=== PATIENT | female | born 1970 | race Caucasian/White ===

== ENCOUNTER 2023-02-18 21:11 | Outpatient (REF) | payer OTHER, SELFPAY ==
[2023-02-22 16:08] LABS: Age Gdln ACOG Testing Note (.); HPV Aptima Negative (Negative); IGP, Aptima HPV, rfx 16/18,45 Note (.)
== END 2023-02-18 21:12 | disposition home or self-care (01) ==
LOC: LAB 21:11
PROVIDERS: Visit Provider Obstetrics & Gynecology
DX: Z12.4 Encounter for screening for malignant neoplasm of cervix (principal)
CPT/HCPCS: 87624; G0145

== ENCOUNTER 2024-02-25 19:17 | Outpatient (REF) | payer OTHER, SELFPAY ==
--- OUTSIDE RECORDS SUMMARY | 2024-02-25 19:21 | XMS_ITS | CCD ---
Author Organization [facility] Care Team Providers Care Wood Crafter Name Role Phone DR ELENI WHITE Admitting Unavailable ISELA, DR KNOWLES Attending Unavailable [facility] [place] DR GRAY Primary Care Unavailable ISELA, DR KNOWLES Consulting Unavailable Gay Bullard Primary Care Provider Zuly Vasquez P Unavailable COLTON FREITAS Attending Unavailable Gay Bullard MD Primary Care Provider Zuly Vasquez CNP P Unavailable GAY BULLARD Primary Care Unavailabl e CIOCE, KERRI C Referring Unavailable Gay Bullard MD Primary Care Provider KERRI FERNANDEZ Referring Unavailable GAY BULLARD Primary Care Unavailabl e CIOCE, KERRI C Referring Unavailable GAY BULLARD Primary Care Unavailabl e CIOCE, KERRI C Referring Unavailable GAY BULLARD Primary Care Unavailabl e CIOCE, KERRI C Attending Unavailable GAY BULLARD Primary Care Unavailabl e REFERRAL, SELF Referring Unavailable Colton FREITAS Consulting Unavailable REFERRAL, SELF Admitting Unavailable REFERRAL, SELF Attending Unavailable DO Colton FREITAS Consulting Unavailable Colton FREITAS Consulting Unavailable Guillermo Pinedo Admitting Unavailable Guillermo Pinedo Attending Unavailable Guillermo Pinedo Attending Unavailable Locodimella, Giuliana Attending Unavailable Gudimella, Giuliana Attending Unavailable Gudimelsusanna, Giuliana Attending Unavailable Anusha, Giuliana Attending Unavailable Gudimelsusanna, Giuliana Attending Unavailable Eliecer MCMANUS Attending Unavailable Gudimella, Giuliana Referring Unavailable Eliecer MCMANUS Attending Unavailable Gudimella, Giuliana Attending Unavailable Gudimella, Giuliana Referring Unavailable Gudimella, Giuliana Admitting Unavailable Florencio DELONG Attending Unavailable Karina Hardy Attending Unavailable Gay Bullard MD Primary Care Provider Allergies Allergy Classification Reported Allergen(s) Allergy Type Date of Onset Reaction(s) Facility (15 sources) atorvastatin; Translations: [ATORVASTATIN] Drug Allergy 3 GI Upset [facility] (15 sources) predniSONE; Translations: [PREDNISONE] Drug Allergy 1 Intolerance [facility] (16 sources) thyroid (HALFWAY); Translations: [THYROID] Drug Allergy 2 Rash [facility] Work Phone: (13 sources) Bees; Translations: [BEES] Allergy to substance 3 Hives, Swelling [facility] (3 sources) Mushrooms [Other] Propensity to adverse reactions 3 [facility] Work Phone: (10 sources) cultivated mushroom extract; Translations: [MUSHROOM] Drug Allergy 4 Other: See Comments [facility] Work Phone: (1 source) OTHER; Translations: [OTHER] Propensity to adverse reactions (disorder) 3 [facility] [place] Rep[facility] (2 sources) atorvastatin; Translations: [Lipitor] Drug Allergy [facility] Repository (2 sources) Bee/Wasp/Ant venom; Translations: [Bee Stings] Propensity to adverse reactions (disorder) 3 [facility] Repository (2 sources) Mushroom (edible); Translations: [Mushrooms] Food allergy (disorder) [facility] Repository (2 sources) thyroid (HALFWAY); Translations: [[place] Thyroid] Drug Allergy [facility] Repository (2 sources) narcotic analgesics; Translations: [narcotic analgesics] Propensity to adverse reactions (disorder) [facility] Repository (3 sources) Honey bee venom Allergy to substance 3 Unknown [facility] Medications Current Medications Medication Drug Class(es) Dates Sig (Normalized) Sig (Original) calcium carbonate 1500 mg / cholecalciferol 200 unt oral tablet (8 sources) Vitamin D Start: 04-17-2023 take 1 tablet by mouth twice daily calcium carbonate 600 mg-cholecalciferol 200 units (CALCIUM 600 + D,3,) 600 mg-5 mcg (200 unit) tab Take 1 tablet by mouth two times a day. 04/17/2023 Active Comment on above: Take 1 tablet by lanette two times a day. cholecalciferol 0.025 mg oral tablet (11 sources) Vitamin D Start: 01-01-2010 Cholecalciferol, Vitamin D3, (VITAMIN D) 1,000 unit ORAL Tab Take 2000 iu daily 0 01/01/2010 Active Comment on above: Take 2000 iu daily 168 hr estradiol 0.91725 mg/hr transdermal system (18 sources) Estrogen Start: 02-18-2023 End: 02-24-2025 estradiol (Climara) 0.025 MG/24HR Indications: Postmenopausal atrophic vaginitis Place 1 patch over 7 days on the skin 1 (one) time per week 12 patch 3 02/25/2024 02/24/2025 Active Start: 08-07-2021 estradiol (CLI HERIBERTO) 0.025 mg/24 hr Apply 1 Patch as directed one time a week. 13 Patch 3 08/07/2021 Active Comment on above: Apply 1 Patch as dir ected one time a week. unkfk-yh-8-pos-wre-konn mu-ast 279-64-91-50 mg cap (8 sources) Start: 04-17-2023 herxt-kg-6-dha-epa-ph ospho-ast 109-30-09-50 mg cap Take by mouth. 04/17/2023 Active Start: 04-17-2023 xmsul-it-7-dha -rjk-pwlhowz-jas 049-94-76-50 mg cap Take by mouth. 0 04/17/2023 Active Comment on above: Take by mouth. jqbud-sxxev-6-uqm-dlg-dcax ds 590-89-83-50 mg cap (11 sources) Start: 06-25-2018 muhoe-xvldl-8- dha-epa-li pids 269-55-50-50 mg cap Take by mouth. 06/25/2018 Active Start: 06-25-2018 klzus-fehvx-6- prl-mhd-qqrmqj 807-94-06-50 mg cap Take by mouth. 0 06/25/2018 Active Comment on above: Take by mouth. levothyroxine sodium 0.1 mg oral tablet (16 sources) l-Thyroxine Start: 2 End: 4 SYNTHROID 100 mcg tablet take 1 tablet by mouth once daily EXCEPT 1/2 TABLET ON FRIDAY 90 tablet 3 06/25/2023 Active Comment on above: take 1 tablet by lanette th once daily EXCEPT 1/2 TABLET ON FRIDAY Take 1 tab daily exc ept Friday take 1/2 tab only vitamin b12 0.5 mg oral tablet (11 sources) Vitamin B12 Start: 5 take 1 tablet by mouth once daily cyanocobalamin (VITAMIN B-12) 500 mcg tablet Indications: Other specified acquired hypothyroidism Take 1 tablet by mouth once daily. 0 07/26/2014 Active Comment on above: Take 1 tablet by lanette th once daily. Completed/Discontinued Medications Medication Drug Class(es) Dates Sig (Normalized) Sig (Original) losartan potassium 25 mg oral tablet (3 sources) Angiotensin 2 Receptor Travon Start: 03-07-2021 take 1 tablet by mouth once daily losartan (COZAAR) 25 mg tablet One tab po qd 30 tablet 2 03/07/2021 Active Comment on above: One tab po qd NIFEdipine 30 mg osmotic 24 hr extended release oral tablet (3 sources) Dihydropyridine Calcium Channel Travon Start: 04-09-2021 take 1 tablet by mouth once daily NIFEdipine ER (PROCARDIA XL) 30 mg 24 hr tablet Take 1 tablet by mouth once daily. 30 tablet 1 04/09/2021 Active Comment on above: Take 1 tablet by lanette th once daily. nitroglycerin 0.02 mg/mg topical ointment (3 sources) Nitrate Vasodilator Start: 03-07-2021 nitroglycerin (NITRO-BID) 2 % ointment Apply to affected finger tips bid 30 g 1 03/07/2021 Active Comment on above: Apply to affected fi nger tips bid Problems Active Problems Problem Classification Problem Date Documented Date Episodic/Chronic Disorders of lipid metabolism (11 sources) Mixed hyperlipidemia; Translations: [Mixed hyperlipidemia] Onset: 01-18-2005 01-18-2005 Chronic Menopausal disorders (2 sources) Atrophic vaginitis; Translations: [Postmenopausal atrophic vaginitis] 02-25-2024 Chronic Nutritional deficiencies (11 sources) Vitamin D deficiency; Translations: [Vitamin D deficiency, unspecified] Onset: 12-27-2008 12-27-2008 Chronic Other circulatory disease (11 sources) Raynaud's disease; Translations: [Raynaud's syndrome without gangrene] Onset: 07-04-2006 07-04-2006 Chronic Other inflammatory condition of skin (11 sources) Rosacea; Translations: [Rosacea, unspecified] Onset: 07-04-2006 07-04-2006 Chronic Other nervous system disorders (11 sources) Disorder of autonomic nervous system; Translations: [Disorder of the autonomic nervous system, unspecified] Onset: 05-05-2012 05-05-2012 Chronic Other nutritional; endocrine; and metabolic disorders (2 sources) Insulin resistance; Translations: [Metabolic syndrome] Chronic Other screening for suspected conditions (not mental disorders or infectious disease) (17 sources) Encounter for screening for malignant neoplasm of cervix; Translations: [Immune system finding] Onset: 07-04-2006 Episodic Residual codes; unclassified (2 sources) Postmenopausal state; Translations: [Asymptomatic menopausal state] 02-25-2024 Episodic Thyroid disorders (16 sources) Hypothyroidism; Translations: [Hypothyroidism, unspecified] Onset: 11-27-2001 Chronic Unclassified (1 source) Insulin resistance; Translations: [Insulin resistance] Onset: 12-13-2023 Past or Other Problems Problem Classification Problem Date Documented Date Episodic/Chronic Cardiac dysrhythmias (11 sources) Tachycardia; Translations: [Tachycardia, unspecified] Onset: 03-30-2012 03-30-2012 Episodic Immunizations and screening for infectious disease (12 sources) Encounter for screening for human papillomavirus (HPV); Translations: [Anti-nuclear factor positive] Onset: 03-30-2012 03-30-2012 Episodic Malaise and fatigue (20 sources) Malaise and fatigue; Translations: [Other malaise] Onset: 11-27-2001 07-18-2003 Episodic Other connective tissue disease (11 sources) Pain in left lower limb; Translations: [Pain in left leg] Onset: 03-30-2012 03-30-2012 Episodic Other nervous system disorders (11 sources) Hyperreflexia; Translations: [Abnormal reflex] Onset: 03-30-2012 03-30-2012 Episodic Other nervous system disorders (11 sources) Abnormal gait; Translations: [Other abnormalities of gait and mobility] Onset: 03-30-2012 03-30-2012 Episodic Other and delivery including normal (11 sources) ; Translations: [ state, incidental] Onset: 12-03-2002 07-18-2003 Episodic Results Test Name Value Interpretation Reference Range Facility Ambulatory Visit Summaryon 1 04-03-2023 Ambulatory Visit Summary Ambulatory Visit Summary BRAD DIXON :1970 Visit Date:02/02/2024 Ambulatory Visit Instructions Your Diagnosis Acute URI Sinusitis, acute Your Care Team Attending Physician - Karina Bales Primary Care Physician - Giuliana Tavares MD This Is Your Medications List amoxicillin-clavulana te (Augmentin 875 mg oral tablet) brompheniramine/dextr omethorphan/PSE (Bromfed DM oral syrup) calcium-vitamin D (Calcium 600 D Tab) cyanocobalamin (Vitamin B12) ergocalciferol (Vitamin D) estradiol (estradiol 0.025 mg/24 hours twice weekly Transderm ER Film) levothyroxine (Synthroid 100 mcg Tab) omega-3 polyunsaturated fatty acids ([employer] Red Krill Oil) Procedures Performed Colonoscopy (12/29/2020), Colonoscopy (2013), Hysterectomy (07/31/2009), Appendectomy, Cerclage, Ovarian cystectomy. Discharge Vitals Temperature (Oral) 36.9 ???C Heart Rate (Peripheral) 114 Blood Pressure 122/80 Height 167.7 cm Height 66 in Weight 69.39 kg Weight 152.979 lb BMI 24.67 What to do next Scheduled Follow-Up Appointments Friday 9:00 AM EST Where: [facility] You Need to Schedule the Following Appointments Follow Up with Karina Bales When: Only if needed Where: Medications What How Much When Why Instructions New amoxicillin-clavulana te (Augmentin 875 mg oral tablet) 1 Tablets By Mouth Every 12 hours Sinusitis, acute Duration: 7 Days Pickup at [facility] #[id number] New brompheniramine/ dextromethorphan/ PSE (Bromfed DM oral syrup) 5 Milliliter By Mouth 4 times a day as needed for for cold symptoms Acute URI Pickup at [facility] #[id number] Unchanged calcium-vitamin D (Calcium 600 D Tab) 1 Tablets By Mouth Every day Unchanged cyanocobalamin (Vitamin B12) once daily Unchanged ergocalciferol (Vitamin D) 2000 International Units By Mouth Every day Unchanged estradiol (estradiol 0.025 mg/ 24 hours twice weekly Transderm ER Film) Transdermal Unchanged levothyroxine (Synthroid 100 mcg Tab) 90 EA, take 1 tablet by mouth once daily EXCEPT TAKE 1/ 2 TABLET ON FRIDAY Unchanged omega-3 polyunsaturated fatty acids ([employer] Red Krill Oil) once daily Pharmacy Information [facility] #[id number]: [address] [place], [place] [id number] [phone] Allergies Lipitor (unknown) predniSONE (Anger) [place] Thyroid (Rash) Bee Stings (Unknown) Mushrooms (unknown) Problems Ongoing - Any problem that you are currently receiving treatment for. BMI 25.0-25.9,adult Chronic shoulder pain Dysuria Facial numbness Groin pain Hemorrhoids HLD (hyperlipidemia) Hypothyroidism Influenza vaccination declined Left subscapular pain Nonsmoker Overweight Rectal bleeding Rectal pain Rhinosinusitis Rosacea Sacrococcygeal pain Screening for diabetes mellitus Screening for endocrine, nutritional, metabolic and immunity disorder Screening for malignant neoplasm of colon Submandibular swelling Tachycardia Tightness of neck Visit for preventive health examination Historical - Any problem that you are no longer receiving treatment for. Postural orthostatic tachycardia syndrome Raynaud's disease Patient Survey You may receive a survey via text or e-mail asking about your office visit. Please share your experience with us by completing your survey. We appreciate your feedback and thank you for choosing us for your care. Education Materials Cough, Adult Coughing is a reflex that clears your throat and airways (respiratory system). It helps heal and protect your lungs. It is normal to cough from time to time. A cough that happens with other symptoms or that lasts a long time may be a sign of a condition that needs treatment. A short-term (acute) cough may only last 2???3 weeks. A long-term (chronic) cough may last 8 or more weeks. Coughing is often caused by: ??? Diseases, such as: ? An infection of the respiratory system. ? Asthma or other heart or lung diseases. ? Gastroesophageal reflux. This is when acid comes back up from the stomach. ??? Breathing in things that irritate your lungs. ??? Allergies. ??? Postnasal drip. This is when mucus runs down the back of your throat. ??? Smoking. ??? Some medicines. Follow these instructions at home: Medicines ??? Take pebp-wil-dxxlnlq and prescription medicines only as told by your health care provider. ??? Talk with your provider before you take cough medicine (cough suppressants). Eating and drinking ??? Do not drink alcohol. ??? Avoid caffeine. ??? Drink enough fluid to keep your pee (urine) pale yellow. Lifestyle ??? Avoid cigarette smoke. ??? Do not use any products that contain nicotine or tobacco. These products include cigarettes, chewing tobacco, and vaping devices, such as e-cigarettes. If you need help quitting, ask your provider. ??? Av (more content not included)... Normal [facility] Family Medicine Office/Clini c Noteon 02-02-2024 Family Medicine Office/Clinic Note Family Medicine Office/Clinic Note Chief Complaint sinus congestion, cough HPI Staff complaints of cold symptoms neg. covid at home Onset: friday with sore throat Characteristics: sinus congestion, pressure in teeth, uncontrollable coughing, loss of voice, aching, ribs hurt OTC tried: Claritin History of Present Illness I have reviewed and discussed the HPI (staff) with the patient today. Information was verified and is correct. Additional information provided if needed. Pt of Dr Giuliana Tavares, reports to office today for acute visit with concern for sinus pressure and chest congestion with cough. Symptoms began last Friday with sore throat. She has taken claritin D for symptoms as she originally thought the sore throat was related to allergies, has also taken mucinex DM and tylenol sinus. Has also been using nasal saline. Her most bothersome symptom at this time is the cough and congestion, states she is now having rib pain/soreness due to the cough. She denies fevers/chills or body aches. Negative at home covid tests x2. She declines further testing in office today. She denies chest pain, shortness of breath, wheezing, or dizziness. Review of Systems PHQ Score Initial Depression Screen Score: 0 SCORE ROS negative unless otherwise stated in HPI. Physical Exam Vitals & Measurements T: 36.9 ???C(Oral) HR: 114(Peripheral) BP: 122/80 SpO2: 97% HT: 66 in HT: 167.7 cm WT: 69.39 kg WT: 152.979 lb BMI: 24.67 General: Well hydrated, no apparent distress Head: Normocephalic atraumatic Eyes: EOMI, sclera clear Ears: Bilateral tympanic membranes pearly biswas with good cone of light Nose: No deformity, discharge, inflammation or lesion Mouth: Mucous membranes moist. Normal oropharynx, posterior pharynx without lesion or exudate. Tongue normal. Neck: No cervical lymphadenopathy Lungs: Lungs clear to auscultation Cardio: Regular rate and rhythm with no murmur Assessment/Plan 1. Acute URI (J06.9: Acute upper respiratory infection, unspecified) Reviewed with patient that physical exam and symptoms are consistent with a viral infection. Discussed antibiotics unfortunately do not treat viral illnesses, it will take time to run its course. The first 3-5 days of symptoms are typically the worst (fever, body aches, etc), with cold symptoms lasting 7-14 days. Encouraged fluids to keep secretions thin. Rest. Take Tylenol/Ibuprofen for pain/fevers as needed, may need to alternate. May use Dayquil, mucinex or similar for symptoms. Recommended using cool-mist humidifier in room, nettipot, coughing/sneezing into elbow, frequent and thorough hand hygiene. Encouraged to seek re-evaluation with PCP if symptoms persist beyond 14 days without any improvement, and if any fevers above 101 develop, as could have a secondary bacterial infection requiring antibiotics. Patient and/or parent verbalized understanding of treatment plan. Will send bromfed for cough. Pt declines need for albuterol or steroid at this time. Will follow up if symptoms persist or worsen. Will send augmentin to begin in the next few days if symptoms worsen or pt begins with fever. Ordered: brompheniramine/dextr omethorphan/PSE, 5 mL, Oral, QID for cold symptoms, 200 mL, Refill(s) 0, [facility] #[id number], 167.7, cm, 02/02/24 9:07:00 EST, Height/Length Dosing, 69.4, kg, 02/02/24 9:17:00 EST, Weight Dosing 2. Sinusitis, acute (J01.90: Acute sinusitis, unspecified) See #1. Acute. Due to report of sinus pain and tenderness along with pain in teeth, will send augmentin to be initiated if symptoms do not improve over the next few days. Pt verbalizes understanding and will follow up if symptoms persist or worsen. Ordered: amoxicillin-clavulana te, = 1 tab(s), Oral, q12hr, X 7 day(s), # 14 tab(s), Refills(s) 0, Pharmacy: [facility] #[id number], 167.7, cm, 02/02/24 9:07:00 EST, Height/Length Dosing, 69.4, kg, 02/02/24 9:17:00 EST, Weight Dosing Follow-up With When Contact Information Karina Bales Only if needed Additional Instructions: Patient Education Cough, Adult Problem List/Past Medical History Ongoing BMI 25.0-25.9,adult Chronic shoulder pain Dysuria Facial numbness Groin pain Hemorrhoids HLD (hyperlipidemia) Hypothyroidism Influenza vaccination declined Left subscapular pain Nonsmoker Overweight Rectal bleeding Rectal pain Rhinosinusitis Rosacea Sacrococcygeal pain Screening for diabetes mellitus Screening for endocrine, nutritional, metabolic and immunity disorder Screening for malignant neoplasm of colon Submandibular swelling Tachycardia Tightness of neck Visit for preventive health examination Historical Postural orthostatic tachycardia syndrome Raynaud's disease Procedure/Surgical History Colonoscopy (12/29/2020), Colonoscopy (2013), Hysterectomy (07/31/2009), Appendectomy, Cerclage, Ovarian cystectomy. Medications Augmentin 875 mg oral tablet, 1 tab(s), Oral, q12hr Bromfed DM (more content not included)... Normal [facility] Comment on above: Result Comment: Elec tronically Signed By: Karina Bales\.br\Date and Time Signed: 02/02/24 09:38 EST Ambulatory Visit Summaryon 1 03-24-2023 Ambulatory Visit Summary Ambulatory Visit Summary BRAD DIXON :1970 Visit Date:01/23/2024 Ambulatory Visit Instructions Your Diagnosis Rectal bleeding Your Care Team Attending Physician - DYLAN RAO, Eliecer Briones Primary Care Physician - Giuliana Tavares MD This Is Your Medications List Contact prescribing physician if questions or concerns calcium-vitamin D (Calcium 600 D Tab) cyanocobalamin (Vitamin B12) ergocalciferol (Vitamin D) estradiol (estradiol 0.025 mg/24 hours twice weekly Transderm ER Film) levothyroxine (Synthroid 100 mcg Tab) omega-3 polyunsaturated fatty acids ([employer] Red Krill Oil) Procedures Performed Colonoscopy (12/29/2020), Colonoscopy (2013), Hysterectomy (07/31/2009), Appendectomy, Cerclage, Ovarian cystectomy. Discharge Vitals Heart Rate (Peripheral) 91 Respiratory Rate 16 Blood Pressure 155/91 Height 167.7 cm Height 66 in Weight 70.5 kg Weight 155.1 lb BMI 25.07 Medications What How Much When Instructions Unchanged calcium-vitamin D (Calcium 600 D Tab) 1 Tablets By Mouth Every day Contact prescribing physician if questions or concerns Unchanged cyanocobalamin (Vitamin B12) once daily Contact prescribing physician if questions or concerns Unchanged ergocalciferol (Vitamin D) 2000 International Units By Mouth Every day Contact prescribing physician if questions or concerns Unchanged estradiol (estradiol 0.025 mg/ 24 hours twice weekly Transderm ER Film) Transdermal Contact prescribing physician if questions or concerns Unchanged levothyroxine (Synthroid 100 mcg Tab) 90 EA, take 1 tablet by mouth once daily EXCEPT TAKE 1/ 2 TABLET ON FRIDAY Contact prescribing physician if questions or concerns Unchanged omega-3 polyunsaturated fatty acids ([employer] Bounty Red Krill Oil) once daily Contact prescribing physician if questions or concerns Allergies Lipitor (unknown) predniSONE (Anger) [place] Thyroid (Rash) Bee Stings (Unknown) Mushrooms (unknown) Problems Ongoing - Any problem that you are currently receiving treatment for. BMI 25.0-25.9,adult Chronic shoulder pain Dysuria Facial numbness Groin pain Hemorrhoids HLD (hyperlipidemia) Hypothyroidism Influenza vaccination declined Left subscapular pain Nonsmoker Overweight Rectal bleeding Rhinosinusitis Rosacea Sacrococcygeal pain Screening for diabetes mellitus Screening for endocrine, nutritional, metabolic and immunity disorder Screening for malignant neoplasm of colon Submandibular swelling Tachycardia Tightness of neck Visit for preventive health examination Historical - Any problem that you are no longer receiving treatment for. Postural orthostatic tachycardia syndrome Raynaud's disease Patient Survey You may receive a survey via text or e-mail asking about your office visit. Please share your experience with us by completing your survey. We appreciate your feedback and thank you for choosing us for your care. Katt [facility] General Surgery Office/Clini c Noteon 01-23-2024 General Surgery Office/Clinic Note General Surgery Office/Clinic Note Chief Complaint reevaluate rectal bleeding HPI Staff 53 year old female presents to discuss ongoing rectal bleeding. Last evaluation completed 10/03/23. Last colonoscopy completed 12/2020-normal. History of Present Illness 53 yo female with h/o hypothyroidism, hyperlipidemia, seen in September for intermittent BRBPR with bms, primarily with wiping; feeling of tearing; some harder stools; negative rectal exam; placed on high fiber diet and daily fiber supplement; stools now softer, no straining, still having red blood with wiping almost after every bm; some pain with sitting; no external swelling or hemorrhoids; some improvement with eating an apple every day; last colonoscopy 12/2020 wnl; abd operations significant for appendectomy, ovarian cystectomy and hysterectomy; no asa or NSAID use; no tobacco use; no fmhx of GI malignancy or IBD. Review of Systems PHQ Score Initial Depression Screen Score: 0 SCORE ROS - Provider Constitutional: no fever, no sweats, no weight loss. Eyes: yes glasses, no blurred vision, no visual loss. ENMT: no dentures, no hoarseness, no swallowing difficulties, no hearing loss, no ear infection(s), no nose bleeds. Cardiovascular: normal blood pressure, no chest pain, regular heartbeat, no heart murmur. Respiratory: no shortness of breath, no cough, no asthma, no wheezing. Gastrointestinal: no nausea, no vomiting, no diarrhea, no constipation, no blood in stool, no change in bowel habits, no abdominal pain, no hepatitis. Genitourinary: no kidney stones, no urine infection, no dysuria. Musculoskeletal: no pain, no weakness. Skin: no changing moles, no rash, no skin lumps. Neurologic: no seizures, no epilepsy, no headache. Psychiatric: no emotional or psychiatric problem. Heme/Lymph: no bleeding problems, no anemia, no blood clots, no transfusions. Allergy/Immunologic: no swollen lymph nodes/glands, no IV drug abuse. Other: Additional ROS info: Except as noted in the above Review of Systems and in the History of Present Illness, all other systems have been reviewed and are negative or noncontributory. Physical Exam Vitals & Measurements HR: 91(Peripheral) RR: 16 BP: 155/91 HT: 66 in HT: 167.7 cm WT: 70.5 kg WT: 155.1 lb BMI: 25.07 HEENT: normal conjunctiva, sclera clear, no scleral icterus, EOM intact, PERRLA, oral mucosa moist without lesions. Neck: trachea midline, no mass, symmetric, no thyromegaly or nodules, no adenopathy Respiratory: lungs CTA, respirations non labored. Cardiovascular: regular rate and rhythm, no murmur, no pedal edema or varicosities. Gastrointestinal: soft, non distended, no tenderness, no masses, no palpable hernias, diastasis recti no, no hepatosplenomegaly; normal bs Lymphatic: no cervical adenopathy, no supraclavicular adenopathy. Musculoskeletal: normal gait, digits and nails without infection, nodes, cyanosis, clubbing. Skin: no rashes, no lesions, no ulcers, no subcutaneous nodules, induration. Psychiatric/Neuro: oriented to time, place, person, judgement normal, affect appropriate for age, insight intact, no focal deficits. Tests: , review of old records completed , Discussed surgical options, risks, and possible complications with patient. Assessment/Plan 1. Rectal bleeding (K62.5: Hemorrhage of anus and rectum) plan flexible sigmoidoscopy with colonoscopy under anesthesia, informed consent obtained. increase fiber to 20-30 mg per day; increased water intake. 2. Rectal pain (K62.89: Other specified diseases of anus and rectum) see # 1 Follow-up No qualifying data available Problem List/Past Medical History Ongoing BMI 25.0-25.9,adult Chronic shoulder pain Dysuria Facial numbness Groin pain Hemorrhoids HLD (hyperlipidemia) Hypothyroidism Influenza vaccination declined Left subscapular pain Nonsmoker Overweight Rectal bleeding Rectal pain Rhinosinusitis Rosacea Sacrococcygeal pain Screening for diabetes mellitus Screening for endocrine, nutritional, metabolic and immunity disorder Screening for malignant neoplasm of colon Submandibular swelling Tachycardia Tightness of neck Visit for preventive health examination Historical Postural orthostatic tachycardia syndrome Raynaud's disease Procedure/Surgical History Colonoscopy (12/29/2020), Colonoscopy (2013), Hysterectomy (07/31/2009), Appendectomy, Cerclage, Ovarian cystectomy. 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 [facility] Comment on above: Result Comment: Elec tronically Signed By: DYLAN RAO, Eliecer Bee\Date and Time Signed: 01/23/24 14:15 EDT C Urineon 01-15-2024 Bacteria identified Cx Nom (U) Microbiology PROCEDURE: Urine Culture [R1] SOURCE: U CleanCatch BODY SITE: COLLECTED DATE/TIME: 01/12/2024 17:31 EDT RECEIVED DATE/TIME: 01/13/2024 12:35 EDT START DATE/TIME: 01/13/2024 12:35 EDT FREE TEXT SOURCE: Khris MELENDEZ, Guillermo Pinedo PA-C, Guillermo Cavanaugh. FINAL REPORTS Final Report [] Verified Date/Time: 01/15/2024 10:48 EDT 5,000 cfu/ml Mixed skin contaminants Performing Locations R1: This test was performed at: [facility], [address] [place] [address], [address] , [place], [facility] Comment on above: Performed By: #### 2 [id number] #### [facility] [address] [place] [address] Family Medicine Office/Clini c Noteon 01-13-2024 Family Medicine Office/Clinic Note Family Medicine Office/Clinic Note Chief Complaint uti HPI Staff 53 year old female presents with UTI symptoms for the past week lower abdominal pressure low back pain increased urgency/frequency foul smelling urine History of Present Illness I have reviewed and verified the staff HPI to be accurate for this encounter. Portions of this record have been created with voice recognition software. Occasional wrong-word or ?tdild-s-pmoo? substitutions may have occurred due to the inherent limitations of voice recognition software. 53 yo female presents today with cc of possible UTI. Patient states symptoms about 1 week duration states lower back discomfort feels like it increase in urgency states a foul-smelling odor to her urine. Patient states she has follow-up appointment with digestive health, Dr. Mcmanus, a week from Friday, January 22. States that the follow-up as she has been having lots of bowel issues and states now every time she goes she has some blood in the stool. States has not her concern today. She wants to make sure that she does not have a urinary tract infection or something that requires antibiotics on top of what she is already dealing with with the bowel movements. She denies any fever chills or weakness. She denies any abdominal pain nausea vomiting or loose stool. She denies any pelvic pain. She denies any recent UTIs. No history of kidney stones. No dysuria or hematuria with the symptoms. She has no other concerns at this time. Review of Systems PHQ Score Initial Depression Screen Score: 0 SCORE ROS negative unless otherwise stated in HPI. Physical Exam Vitals & Measurements T: 37 ?C(Tympanic) HR: 69(Peripheral) BP: 124/80 SpO2: 99% HT: 66 in HT: 167 cm WT: 70 kg WT: 154 lb BMI: 25.1 General: Well developed, well nourished, in no acute distress Eyes: not assessed Ears: not assessed Nose: not addressed Mouth: not assessed Neck: not assessed Lungs: Lung sounds are clear bilaterally. No wheezing rhonchi or crackles on exam. Cardio: S1, S2, regular rhythm. No murmurs gallops or rubs Abdomen: Bowel sounds are present x 4 quadrants. Abdomen is soft, nontender, nondistended. No rigidity rebound or guarding on exam. Musculoskeletal: No CVA tenderness. No localized thoracic or lumbar spine tenderness. No paraspinal tenderness. No pain with palpation over SI joints. Extremity: not assessed Neurologic: not assessed Skin: not assessed Mental Status: Alert and oriented x3. Normal mood and affect Assessment/Plan Patient urine dip in office is negative. Discussed with patient that we will still send this for culture to confirm absolutely no bacterial growth. Patient has noted she has increased her water intake. We discussed in regards to her follow-up appointment With Dr. Mcmanus, for next Friday. To discuss the symptoms with him to see if it has anything to do or in relation to her bowel issues. Discussed otherwise if patient were to develop an increase in back pain back pain or abdominal pain with nausea vomiting fever chills weakness or for any other worsening or concerning symptoms she should seek ER for reevaluation which patient agrees and understands plan. I discussed I do not feel that blood work is necessary at this time and patient is in agreement. 1. Urinary frequency (R35.0: Frequency of micturition) UA without abnormality. Discussed UTI unlikely. Will cx urine to ensure no bacterial growth and notify of results in 3-5 days. Fluids/rest. FU with PCP if continuing or worsening symptoms for further eval. Patient verbalized understanding of tx plan. Ordered: Urine Culture Urnls Dip Stick Auto w/o Microscopy POC [id number] Follow-up With When Contact Information Giuliana Tavares MD, [facility], MED Additional Instructions: Patient Education Urinary Frequency, Adult Problem List/Past Medical History Ongoing BMI 25.0-25.9,adult Chronic shoulder pain Dysuria Facial numbness Groin pain Hemorrhoids HLD (hyperlipidemia) Hypothyroidism Influenza vaccination declined Left subscapular pain Nonsmoker Overweight Rectal bleeding Rhinosinusitis Rosacea Sacrococcygeal pain Screening for diabetes mellitus Screening for endocrine, nutritional, metabolic and immunity disorder Screening for malignant neoplasm of colon Submandibular swelling Tachycardia Tightness of neck Visit for preventive health examination Historical Postural orthostatic tachycardia syndrome Raynaud's disease Procedure/Surgical History Colonoscopy (12/29/2020), Colonoscopy (2013), Hysterectomy (07/31/2009), Appendectomy, Cerclage, Ovarian cystectomy. Medications Calcium 600 D Tab, 1 tab(s), Oral, Daily estradiol 0.025 mg/24 hours twice weekly Transderm ER Film, TransDermal Nature's Bounty Red Krill Oil Synthroid 100 mcg Tab Vitamin B12 Vitamin D, 2000 International Units, Oral, Daily Allergies Lipitor (unknown) predniSONE (Anger) [place] Thyroid (Rash) Bee Stings (Unknown) Mushroo (more content not included)... Normal [facility] Comment on above: Result Comment: Elec tronically Signed By: Guillermo Pinedo PA-C\.br\Date and Time Signed: 01/13/24 08:56 EDT Ambulatory Visit Summaryon 1 Ambulatory Visit Summary Ambulatory Visit Summary BRAD DIXON :1970 Visit Date:01/12/2024 Ambulatory Visit Instructions Your Diagnosis Urinary frequency Your Care Team Attending Physician - Guillermo Pinedo PA-C Primary Care Physician - Giuliana Tavares MD This Is Your Medications List calcium-vitamin D (Calcium 600 D Tab) cyanocobalamin (Vitamin B12) ergocalciferol (Vitamin D) estradiol (estradiol 0.025 mg/24 hours twice weekly Transderm ER Film) levothyroxine (Synthroid 100 mcg Tab) omega-3 polyunsaturated fatty acids (Nature's Bounty Red Krill Oil) Procedures Performed Colonoscopy (12/29/2020), Colonoscopy (2013), Hysterectomy (07/31/2009), Appendectomy, Cerclage, Ovarian cystectomy. Discharge Vitals Temperature (Tympanic) 37 ?C Heart Rate (Peripheral) 69 Blood Pressure 124/80 Height 167 cm Height 66 in Weight 70 kg Weight 154 lb BMI 25.1 What to do next Scheduled Follow-Up Appointments Friday 1:40 PM EDT With: DYLAN RAO, Eliecer Briones Where: [facility] [address], [address] [place] [address]- Medications What How Much When Instructions Unchanged calcium-vitamin D (Calcium 600 D Tab) 1 Tablets By Mouth Every day Unchanged cyanocobalamin (Vitamin B12) once daily Unchanged ergocalciferol (Vitamin D) 2000 International Units By Mouth Every day Unchanged estradiol (estradiol 0.025 mg/ 24 hours twice weekly Transderm ER Film) Transdermal Unchanged levothyroxine (Synthroid 100 mcg Tab) 90 EA, take 1 tablet by mouth once daily EXCEPT TAKE 1/ 2 TABLET ON FRIDAY Unchanged omega-3 polyunsaturated fatty acids (Nature's Bounty Red Krill Oil) once daily Allergies Lipitor (unknown) predniSONE (Anger) [place] Thyroid (Rash) Bee Stings (Unknown) Mushrooms (unknown) Problems Ongoing - Any problem that you are currently receiving treatment for. BMI 25.0-25.9,adult Chronic shoulder pain Dysuria Facial numbness Groin pain Hemorrhoids HLD (hyperlipidemia) Hypothyroidism Influenza vaccination declined Left subscapular pain Nonsmoker Overweight Rectal bleeding Rhinosinusitis Rosacea Sacrococcygeal pain Screening for diabetes mellitus Screening for endocrine, nutritional, metabolic and immunity disorder Screening for malignant neoplasm of colon Submandibular swelling Tachycardia Tightness of neck Visit for preventive health examination Historical - Any problem that you are no longer receiving treatment for. Postural orthostatic tachycardia syndrome Raynaud's disease Patient Survey You may receive a survey via text or e-mail asking about your office visit. Please share your experience with us by completing your survey. We appreciate your feedback and thank you for choosing us for your care. Normal [facility] ALBUMIN/CREATININE RATIO, UR INEon 12-13-2023 Albumin DL <= 20 mg/L (U) [Mass/Vol] mg/dL Normal [facility] Comment on above: Order Comment: Speci men Type: URINE SPECIMEN Ordering Facility: [facility] Address: [address] [place] [address] Performed By: #### U ACR #### [facility] CLIA [id number] [address] [place] [address] [place] Albumin/Creatinine (U) [Mass ratio] <5 Normal <30 [facility] Comment on above: Order Comment: Speci men Type: URINE SPECIMEN Ordering Facility: [facility] Address: [address] [place] [address] Result Comment: Adul t Male and Female Nephrotic Criteria: <30 mg/g is considered normal to mildly increased 30-300 mg/g is considered moderately increased >300 mg/g is considered severely increased KDIGO. (2013). KDIGO 2012 Clinical Practice Guideline for the Evaluation and Management of Chronic Kidney Disease. Official Journal of the International Society of Nephrology, 3(1), 1-150. Performed By: #### U ACR #### [facility] CLIA [id number] [address] [place] [address] [place] Creatinine (U) [Mass/Vol] 238.7 mg/dL Normal 20.0-300.0 [facility] Comment on above: Order Comment: Speci men Type: URINE SPECIMEN Ordering Facility: [facility] Address: [address] [place] [address] Performed By: #### U ACR #### [facility] CLIA [id number] [address] [place] [address] [place] Comprehensive metabolic 2000 panelon 12-13-2023 Albumin [Mass/Vol] 4.3 g/dL Normal 3.9-4.9 [facility] Comment on above: Order Comment: Speci men Type: BLOOD SPECIMEN Ordering Facility: [facility] Address: [address] [place] [address] Performed By: #### L IPNF, 21821-4, 3016-3, 2142-6 #### [facility] CLIA [id number] [address] [place] [address] [place] ALP [Catalytic activity/Vol] 82 U/L Normal 34-123 [facility] Comment on above: Order Comment: Speci men Type: BLOOD SPECIMEN Ordering Facility: [facility] Address: [address] [place] [address] Performed By: #### L IPNF, 69862-5, 3016-3, 2142-6 #### [facility] CLIA [id number] [address] [place] [address] [place] ALT [Catalytic activity/Vol] 16 U/L Normal 7-38 [facility] Comment on above: Order Comment: Speci men Type: BLOOD SPECIMEN Ordering Facility: [facility] Address: [address] [place] [address] Performed By: #### L IPNF, 18854-7, 3016-3, 2142-6 #### [facility] CLIA [id number] [address] [place] [address] [place] Anion gap [Moles/Vol] 7 mmol/L Low 8-15 [facility] Comment on above: Order Comment: Speci men Type: BLOOD SPECIMEN Ordering Facility: [facility] Address: [address] [place] [address] Performed By: #### L DENISA, 54787-2, 3015-3, 2142-08 #### [facility] CLIA [id number] [address] [place] [address] [place] AST [Catalytic activity/Vol] 23 U/L Normal 13-35 [facility] Comment on above: Order Comment: Speci men Type: BLOOD SPECIMEN Ordering Facility: [facility] Address: [address] [place] [address] Performed By: #### L DENISA, 62544-5, 3015-3, 2142-08 #### [facility] CLIA [id number] [address] [place] [address] [place] Bilirubin [Mass/Vol] 0.5 mg/dL Normal 0.2-1.3 [facility] Comment on above: Order Comment: Speci men Type: BLOOD SPECIMEN Ordering Facility: [facility] Address: [address] [place] [address] Performed By: #### L DENISA, 29892-7, 3015-3, 2142-08 #### [facility] CLIA [id number] [address] [place] [address] [place] Calcium [Mass/Vol] 9.5 mg/dL Normal 8.5-10.2 [facility] Comment on above: Order Comment: Speci men Type: BLOOD SPECIMEN Ordering Facility: [facility] Address: [address] [place] [address] Performed By: #### L DENISA, 04263-1, 3015-3, 2142-08 #### [facility] CLIA [id number] [address] [place] [address] [place] Chloride [Moles/Vol] 107 mmol/L Normal 98-107 [facility] Comment on above: Order Comment: Speci men Type: BLOOD SPECIMEN Ordering Facility: [facility] Address: [address] [place] [address] Performed By: #### L IPNF, 75021-3, 6-3, 6 #### [facility] CLIA [id number] [address] [place] [address] [place] CO2 [Moles/Vol] 29 mmol/L Normal 22-30 [facility] Comment on above: Order Comment: Speci men Type: BLOOD SPECIMEN Ordering Facility: [facility] Address: [address] [place] [address] Performed By: #### L DENISA, 96184-4, 6-3, 6 #### [facility] CLIA [id number] [address] [place] [address] [place] Creatinine [Mass/Vol] 0.87 mg/dL Normal 0.58-0.96 [facility] Comment on above: Order Comment: Speci men Type: BLOOD SPECIMEN Ordering Facility: [facility] Address: [address] [place] [address] Performed By: #### L DENISA, 68520-1, 3015-3, 6 #### [facility] CLIA [id number] [address] [place] [address] [place] Creatinine and Glomerular filtration rate.predicted panel (S/P/Bld) 79 mL/min/1.73m??? Normal >=60 [facility] Comment on above: Order Comment: Speci men Type: BLOOD SPECIMEN Ordering Facility: [facility] Address: [address] [place] [address] Result Comment: Maggei mated Glomerular Filtration Rate (eGFR) is calculated using the 2020 CKD-EPI creatinine equation. This equation utilizes serum creatinine, sex, and age as parameters. The creatinine assay has traceable calibration to isotope dilution-mass spectrometry. Refer to KDIGO guidelines for clinical interpretation. In patients with unstable renal function, e.g. those with acute kidney injury, the eGFR may not accurately reflect actual GFR. Performed By: #### L DENISA, 69380-5, 3015-05, 2142-08 #### [facility] CLIA [id number] [address] [place] [address] [place] Glucose [Mass/Vol] 96 mg/dL Normal 74-99 [facility] Comment on above: Order Comment: Edgar garcia Type: BLOOD SPECIMEN Ordering Facility: [facility] Address: [address] [place] [address] Result Comment: The [place] Diabetes Association (ADA) provides guidance for cutoff values for fasting glucose and random glucose. The ADA defines fasting as no caloric intake for at least 8 hours. Fasting plasma glucose results between 100 to 125 mg/dL indicate increased risk for diabetes (prediabetes). Fasting plasma glucose results greater than or equal to 126 mg/dL meet the criteria for diagnosis of diabetes. In the absence of unequivocal hyperglycemia, results should be confirmed by repeat testing. In a patient with classic symptoms of hyperglycemia or hyperglycemic crisis, random plasma glucose results greater than or equal to 200 mg/dL meet the criteria for diagnosis of diabetes. Reference: Standards of Medical Care in Diabetes 2016, [place] Diabetes Association. Diabetes Care. 2016.39(Suppl 1). Performed By: #### L DENISA, 51073-6, 3015-05, 2142-08 #### [facility] CLIA [id number] [address] [place] [address] [place] Potassium [Moles/Vol] 4.4 mmol/L Normal 3.7-5.1 [facility] Comment on above: Order Comment: Edgar garcia Type: BLOOD SPECIMEN Ordering Facility: [facility] Address: [address] [place] [address] Performed By: #### L DENISA, 36304-7, 3015-05, 2142-08 #### [facility] CLIA [id number] [address] [place] [address] [place] Protein [Mass/Vol] 6.5 g/dL Normal 6.3-8.0 [facility] Comment on above: Order Comment: Speci men Type: BLOOD SPECIMEN Ordering Facility: [facility] Address: [address] [place] [address] Performed By: #### L DENISA, 83663-9, 3, 2142-08 #### [facility] CLIA [id number] [address] [place] [address] [place] Sodium [Moles/Vol] 143 mmol/L Normal 136-144 [facility] Comment on above: Order Comment: Speci men Type: BLOOD SPECIMEN Ordering Facility: [facility] Address: [address] [place] [address] Performed By: #### L DENISA, 77073-6, 3015-05, 2142-08 #### [facility] CLIA [id number] [address] [place] [address] [place] Urea nitrogen [Mass/Vol] 11 mg/dL Normal 7-21 [facility] Comment on above: Order Comment: Speci men Type: BLOOD SPECIMEN Ordering Facility: [facility] Address: [address] [place] [address] Performed By: #### L DENISA, 09868-2, 3015-05, 2142-08 #### [facility] CLIA [id number] [address] [place] [address] [place] Cortis Janethl-Kekeon 12-13-19 24 Cortisol [Mass/Vol] 8.7 ug/dL Normal 4.8-19.5 [facility] Comment on above: Order Comment: Speci men Type: BLOOD SPECIMEN Ordering Facility: [facility] Address: [address] [place] [address] Result Comment: Prov ided reference range is from 6-10 AM sample collection time. Cortisol Reference Range: 6-10 AM = 4.8-19.5 ug/dL, 4-8 PM = 2.5-11.9 ug/dL Performed By: #### L IPGORDON, 69654-2, 3, 2142-08 #### [facility] CLIA [id number] [address] [place] [address] [place] HbA1c (Bld)on 12-13-2023 Average glucose Estimated from glycated hemoglobin (Bld) [Mass/Vol] 103 mg/dL Normal [facility] Comment on above: Order Comment: Edgar garcia Type: BLOOD SPECIMEN Ordering Facility: [facility] Address: [address] [place] [address] Result Comment: eAG: (Estimated average glucose) is a calculated value from HgbA1c and is insurance follow up representative of the average blood glucose level in the last 2-3 month period. Performed By: #### 5 5454-3 #### [facility] CLIA [id number] [address] [place] [address] HbA1c (Bld) [Mass fraction] 5.2 % Normal 4.3-5.6 [facility] Comment on above: Order Comment: Edgar garcia Type: BLOOD SPECIMEN Ordering Facility: [facility] Address: [address] [place] [address] Result Comment: [place] Diabetes Association guidelines indicate that patients with HgbA1c in the range 5.7-6.4% are at increased risk for development of diabetes, and intervention by lifestyle modification may be beneficial. HgbA1c greater or equal to 6.5% is considered diagnostic of diabetes. Performed By: #### 5 5454-3 #### [facility] CLIA [id number] [address] [place] [address] [place] LIPID PANEL, NONFASTINGon Cholesterol [Mass/Vol] 190 mg/dL Normal <200 [facility] Comment on above: Order Comment: Edgar garcia Type: BLOOD SPECIMEN Ordering Facility: [facility] Address: [address] [place] [address] Result Comment: <200 mg/dL, Desirable 200-239 mg/dL, Borderline high >239 mg/dL, High Performed By: #### L IPNF, 85742-0, 3016-3, 2143-6 #### [facility] CLIA [id number] [address] [place] [address] [place] HDL CHOLESTEROL, NF 34 mg/dL Low >39 [facility] Comment on above: Order Comment: Edgar garcia Type: BLOOD SPECIMEN Ordering Facility: [facility] Address: [address] [place] [address] Result Comment: 40-5 9 mg/dL, Acceptable >59 mg/dL, High: Negative risk factor for coronary heart disease <40 mg/dL, Low: Positive risk factor for coronary heart disease Performed By: #### L IPNF, 82348-9, 3016-3, 2142-6 #### [facility] CLIA [id number] [address] [place] [address] [place] LDL CHOLESTEROL, NF 135 mg/dL High <100 [facility] Comment on above: Order Comment: Edgar garcia Type: BLOOD SPECIMEN Ordering Facility: [facility] Address: [address] [place] [address] Result Comment: <100 mg/dL, Optimal 100-129 mg/dL, Near optimal/above optimal 130-159 mg/dL, Borderline high 160-189 mg/dL, High >189 mg/dL, Very high Secondary prevention optimal LDL Cholesterol levels are recommended to be < 70 mg/dL Performed By: #### L IPNF, 82713-8, 3016-3, 2142-6 #### [facility] CLIA [id number] [address] [place] [address] [place] LDL/HDL RATIO, NF 3.97 mg/dL High <2.54 [facility] Comment on above: Order Comment: Edgar garcia Type: BLOOD SPECIMEN Ordering Facility: [facility] Address: [address] [place] [address] Result Comment: Allison nieto: 1. National Cholesterol Education Program ATP III Guideline At-A-Glance Quick Desk Reference: National Heart, Lung, and Blood [place]. National Institutes of Health. 2001: NIH Publication No. 01-3305. 2. An International Atherosclerosis Society position paper: global recommendations for the management of dyslipidemia: executive summary, Atherosclerosis. 2014: 232(2):410-413. Performed By: #### L DENISA, 32807-9, 3015-05, 2142-08 #### [facility] CLIA [id number] [address] [place] [address] [place] NON HDL CHOL, NF 156 mg/dL High <130 [facility] Comment on above: Order Comment: Edgar men Type: BLOOD SPECIMEN Ordering Facility: [facility] Address: [address] [place] [address] Result Comment: <130 mg/dL, Optimal 130-159 mg/dL, Near optimal/above optimal 160-189 mg/dL, Borderline high 190-219 mg/dL, High >219 mg/dL, Very high Secondary prevention optimal non HDL Cholesterol levels are recommended to be <100 mg/dL Performed By: #### L DENISA, 03392-1, 3015-05, 2142-08 #### [facility] CLIA [id number] [address] [place] [address] [place] T CHOL/HDL RATIO NF 5.59 mg/dL High <5.10 [facility] Comment on above: Order Comment: Edgar garcia Type: BLOOD SPECIMEN Ordering Facility: [facility] Address: [address] [place] [address] Performed By: #### L DENISA, 40896-9, 3015-05, 2142-08 #### [facility] CLIA [id number] [address] [place] [address] [place] TRIGLYCERIDES, NF 105 mg/dL Normal <150 [facility] Comment on above: Order Comment: Edgar garcia Type: BLOOD SPECIMEN Ordering Facility: [facility] Address: [address] [place] [address] Result Comment: <150 mg/dL, Normal 150-199 mg/dL, Borderline high 200-499 mg/dL, High >499 mg/dL, Very high Performed By: #### L DENISA, 78573-6, 3015-05, 2142-08 #### [facility] CLIA [id number] [address] [place] [address] [place] VLDL CHOLESTEROL, NF 21 mg/dL Normal <30 [facility] Comment on above: Order Comment: Speci men Type: BLOOD SPECIMEN Ordering Facility: [facility] Address: [address] [place] [address] Performed By: #### L IPNF, 70227-1, 3016-3, 2143-6 #### [facility] CLIA [id number] [address] [place] [address] [place] TSH SerPl-aCncon 12-13-2023 TSH Qn 0.542 m[IU]/L Normal 0.270-4.200 [facility] Comment on above: Order Comment: Speci men Type: BLOOD SPECIMEN Ordering Facility: [facility] Address: [address] [place] [address] Performed By: #### L IPNF, 10494-0, 3016-3, 2143-6 #### [facility] CLIA [id number] [address] [place] [address] [place] Ambulatory Visit Summaryon 0 10-03-2023 Ambulatory Visit Summary Ambulatory Visit Summary BRAD DIXON :1970 Visit Date:10/03/2023 Ambulatory Visit Instructions Your Care Team Attending Physician - DYLAN RAO, Eliecer Briones Primary Care Physician - Giuliana Tavares MD Referring Physician - Giuliana Tavares MD This Is Your Medications List Contact prescribing physician if questions or concerns calcium-vitamin D (Calcium 600 D Tab) cyanocobalamin (Vitamin B12) ergocalciferol (Vitamin D) estradiol (estradiol 0.025 mg/24 hours twice weekly Transderm ER Film) levothyroxine (Synthroid 100 mcg Tab) omega-3 polyunsaturated fatty acids (Nature's Bounty Red Krill Oil) Procedures Performed Colonoscopy (12/29/2020), Colonoscopy (2013), Hysterectomy (07/31/2009), Appendectomy, Cerclage, Ovarian cystectomy. Discharge Vitals Heart Rate (Peripheral) 73 Respiratory Rate 16 Blood Pressure 148/98 Height 167.7 cm Height 66 in Weight 70.7 kg Weight 155.54 lb BMI 25.14 Medications What How Much When Instructions Unchanged calcium-vitamin D (Calcium 600 D Tab) 1 Tablets By Mouth Every day Contact prescribing physician if questions or concerns Unchanged cyanocobalamin (Vitamin B12) once daily Contact prescribing physician if questions or concerns Unchanged ergocalciferol (Vitamin D) 2000 International Units By Mouth Every day Contact prescribing physician if questions or concerns Unchanged estradiol (estradiol 0.025 mg/ 24 hours twice weekly Transderm ER Film) Transdermal Contact prescribing physician if questions or concerns Unchanged levothyroxine (Synthroid 100 mcg Tab) 90 EA, take 1 tablet by mouth once daily EXCEPT TAKE 1/ 2 TABLET ON FRIDAY Contact prescribing physician if questions or concerns Unchanged omega-3 polyunsaturated fatty acids (Nature's Bounty Red Krill Oil) once daily Contact prescribing physician if questions or concerns Allergies Lipitor (unknown) predniSONE (Anger) [place] Thyroid (Rash) Bee Stings (Unknown) Mushrooms (unknown) Problems Ongoing - Any problem that you are currently receiving treatment for. BMI 25.0-25.9,adult Chronic shoulder pain Dysuria Facial numbness Groin pain Hemorrhoids HLD (hyperlipidemia) Hypothyroidism Influenza vaccination declined Left subscapular pain Nonsmoker Overweight Rectal bleeding Rhinosinusitis Rosacea Sacrococcygeal pain Screening for diabetes mellitus Screening for endocrine, nutritional, metabolic and immunity disorder Screening for malignant neoplasm of colon Submandibular swelling Tachycardia Tightness of neck Visit for preventive health examination Historical - Any problem that you are no longer receiving treatment for. Postural orthostatic tachycardia syndrome Raynaud's disease Patient Survey You may receive a survey via text or e-mail asking about your office visit. Please share your experience with us by completing your survey. We appreciate your feedback and thank you for choosing us for your care. Normal [facility] Family Medicine Office/Clini c Noteon 09-26-2023 Family Medicine Office/Clinic Note Family Medicine Office/Clinic Note Chief Complaint Constipation HPI Staff Patient here with continued C/O of bleeding with her bowel movements. She states that when she wipes herself, it's like having a period. Has tried OTC stool softeners, with no relief. History of Present Illness The patient is a 52-year-old female who presents with bright red blood when wiping. She does have a history of hemorrhoids. She was seen on 07/25/2023 with the same concern. She was trying hryo-hlp-qflpwhc preparation H, still feels like there is a cut in the rectal area. We did trial her on hydrocortisone cream. She was still having issues, so given hydrocortisone suppository and she was to increase fiber and fluid intake to loosen the stools including prunes and prune juice. The patient reports no improvement in her condition following the use of hydrocortisone suppository. She describes a sensation of ripping and tearing in the rectal area, which she describes as bright red upon wiping. She denies the presence of clots. Despite attempts at self-treatment with feyy-zpg-bbmzppf remedies, she found no presence of blood in her stool. Her stools are occasionally hard. She denies experiencing pain associated with the tearing. However, she notes a slight improvement in her condition over the past week, which she attributes to the application of Vaseline. She underwent a colonoscopy with Dr. Jeronimo approximately 3 years ago, which yielded normal results. She occasionally experiences constipation, even during flatulence. Her occupation requires her to sit for extended periods, a change from her previous job 5 years ago. Review of Systems PHQ Score Initial Depression Screen Score: 0 SCORE Negative except as above Physical Exam Vitals & Measurements HR: 98(Peripheral) RR: 16 BP: 118/78 SpO2: 98% HT: 66 in HT: 167.7 cm WT: 70.6 kg WT: 155.32 lb BMI: 25.1 Gen: No acute distress, sitting comfortably in chair Psych: Pleasant, normal mood, normal affect Neuro: CN II-XII intact, normal gait Assessment/Plan 1. Hemorrhoids (K64.9: Unspecified hemorrhoids) previous colonoscopy 2020 wnl, no polyps no hemorrhoids patient having bleeding with every bowel movement and tearing feeling with alternating constipation and diarrhea repeat colonoscopy ordered Ordered: [facility] Internal Ambulatory Referral 2. Rectal bleeding (K62.5: Hemorrhage of anus and rectum) previous colonoscopy 2020 wnl, no polyps no hemorrhoids patient having bleeding with every bowel movement and tearing feeling with alternating constipation and diarrhea repeat colonoscopy ordered Ordered: [facility] Internal Ambulatory Referral 3. Nonsmoker (Z78.9: Other specified health status) stable 4. BMI 25.0-25.9,adult (Z68.25: Body mass index [BMI] 25.0-25.9, adult) The standard range for ages 18 and older is >=18.5 and < 25 kg/m2. Your BMI today was above this range, this falls in the overweight to obese category and there are medical benefits to weight loss. We can offer counselling, referral, and/or medical support in addressing this problem. Your BMI and weight management will be followed at subsequent visits. 5. Overweight (E66.3: Overweight) increase whole foods, decrease processed foods exercise at least 2.5 hours weekly Portions of this record may have been created with voice recognition artificial intelligence software, specifically [employer] and or [employer]. Substitutions may have occurred due to the inherent limitations of voice recognition and artificial intelligence software. Follow-up With When Contact Information Giuliana Tavares MD, [facility], MED In 6 months 03/03/[address] [phone]- [phone] Business (1) Additional Instructions: Problem List/Past Medical History Ongoing BMI 25.0-25.9,adult Chronic shoulder pain Dysuria Facial numbness Groin pain Hemorrhoids HLD (hyperlipidemia) Hypothyroidism Influenza vaccination declined Left subscapular pain Nonsmoker Overweight Rectal bleeding Rhinosinusitis Rosacea Sacrococcygeal pain Screening for diabetes mellitus Screening for endocrine, nutritional, metabolic and immunity disorder Screening for malignant neoplasm of colon Submandibular swelling Tachycardia Tightness of neck Visit for preventive health examination Historical Postural orthostatic tachycardia syndrome Raynaud's disease Procedure/Surgical History Colonoscopy (12/29/2020), Hysterectomy (07/31/2009), Appendectomy, Cerclage, Ovarian cystectomy. Medications Calcium 600 D Tab, 1 tab(s), Oral, Daily estradiol 0.025 mg/24 hours twice weekly Transderm ER Film, TransDermal Nature's Bounty Red Krill Oil Synthroid 100 mcg Tab Vitamin B12 Vitamin D, 2000 International Units, Oral, Daily Allergies Lipitor (unknown) predniSONE (Anger) [place] Thyroid (Rash) Bee Stings (Unknown) Mushrooms (unknown) Social History Alcohol - Denies Alcohol Use, (more content not included)... Normal [facility] Comment on above: Result Comment: Elec tronically Signed By: Giuliana Tavares MD\.br\Date and Time Signed: 09/26/23 09:04 EDT Ambulatory Visit Summaryon 0 07-25-2023 Ambulatory Visit Summary BRAD DIXON :1970 Visit Date:07/25/2023 Ambulatory Visit Instructions Your Diagnosis Hemorrhoids BMI 25.0-25.9,adult Overweight Nonsmoker Your Care Team Attending Physician - Giuliana Tavares MD Primary Care Physician - Giuliana Tavares MD This Is Your Medications List hydrocortisone topical (hydrocortisone Top 2.5% Crm) Contact prescribing physician if questions or concerns calcium-vitamin D (Calcium 600 D Tab) cyanocobalamin (Vitamin B12) diclofenac topical (diclofenac topical 1% gel) ergocalciferol (Vitamin D) estradiol (estradiol 0.025 mg/24 hours twice weekly Transderm ER Film) levothyroxine (Synthroid 100 mcg Tab) omega-3 polyunsaturated fatty acids ([employer] Bounty Red Krill Oil) Procedures Performed Colonoscopy (12/29/2020), Hysterectomy (07/31/2009), Appendectomy, Cerclage, Ovarian cystectomy. Discharge Vitals Heart Rate (Peripheral) 102 Blood Pressure 124/80 Height 167.7 cm Height 66 in Weight 70.6 kg Weight 155.32 lb BMI 25.1 What to do next You Need to Schedule the Following Appointments Follow Up with Giuliana Tavares MD, [facility], [facility] When: In 6 months 03/03/2021 [facility] Where: [address] [place] [phone] Business (1) Medications What How Much When Why Instructions New hydrocortisone topical (hydrocortisone Top 2.5% Crm) 1 Application Topical 3 times a day Hemorrhoids Refills: 1 Pickup at [id number] Unchanged calcium-vitamin D (Calcium 600 D Tab) 1 Tablets By Mouth Every day Contact prescribing physician if questions or concerns Unchanged cyanocobalamin (Vitamin B12) once daily Contact prescribing physician if questions or concerns Unchanged diclofenac topical (diclofenac topical 1% gel) 1 Application Topical 4 times a day as needed for for pain Tightness of neck Contact prescribing physician if questions or concerns Unchanged ergocalciferol (Vitamin D) 2000 International Units By Mouth Every day Contact prescribing physician if questions or concerns Unchanged estradiol (estradiol 0.025 mg/ 24 hours twice weekly Transderm ER Film) Transdermal Contact prescribing physician if questions or concerns Unchanged levothyroxine (Synthroid 100 mcg Tab) 90 EA, take 1 tablet by mouth once daily EXCEPT TAKE 1/ 2 TABLET ON FRIDAY Contact prescribing physician if questions or concerns Unchanged omega-3 polyunsaturated fatty acids (Nature's Bounty Red Krill Oil) once daily Contact prescribing physician if questions or concerns Pharmacy Information [id number]: [address] [place], [place] [id number] [phone] Allergies Lipitor (unknown) predniSONE (Anger) [place] Thyroid (Rash) Bee Stings (Unknown) Mushrooms (unknown) Problems Ongoing - Any problem that you are currently receiving treatment for. BMI 24.0-24.9, adult BMI 25.0-25.9,adult Chronic shoulder pain Dysuria Facial numbness Groin pain Hemorrhoids HLD (hyperlipidemia) Hypothyroidism Influenza vaccination declined Left subscapular pain Nonsmoker Overweight Rhinosinusitis Rosacea Sacrococcygeal pain Screening for diabetes mellitus Screening for endocrine, nutritional, metabolic and immunity disorder Screening for malignant neoplasm of colon Submandibular swelling Tachycardia Tightness of neck Visit for preventive health examination Historical - Any problem that you are no longer receiving treatment for. Postural orthostatic tachycardia syndrome Raynaud's disease Patient Survey You may receive a survey via text or e-mail asking about your office visit. Please share your experience with us by completing your survey. We appreciate your feedback and thank you for choosing us for your care. Normal [facility] Family Medicine Office/Clini c Noteon 07-25-2023 Family Medicine Office/Clinic Note Chief Complaint constipation HPI Staff complaints of possible hemorrhoids Onset:almost 2 months ago Characteristics:Kika nued issues with bm, bright red blood when pt wipes and a tearing feeling. Not so much constipated anymore. OTC tried:fiber History of Present Illness BRAD DIXON is a 52 Years White Female presenting to clinic today with bright red blood when wiping patient tried fiber, but it made her more constipated and worsened the blood in the stools feels like there is a cut in the rectal area tried preparation H once, which helped slightly no pain in the area +occasional itching Review of Systems PHQ Score Initial Depression Screen Score: 0 SCORE Negative except as above Physical Exam Vitals & Measurements HR: 102(Peripheral) BP: 124/80 SpO2: 98% HT: 66 in HT: 167.7 cm WT: 70.6 kg WT: 155.32 lb BMI: 25.1 Gen: No acute distress, sitting comfortably in chair Psych: Pleasant, normal mood, normal affect Neuro: CN II-XII intact, normal gait Assessment/Plan 1. Hemorrhoids (K64.9: Unspecified hemorrhoids) trial hydrocortisone cream 2.5% for the hemorrhoids if no improvement in 7-10 days, will consider hydrocortisone suppository discussed increasing fluid intake trial prunes or prune juice Ordered: hydrocortisone topical, 1 ashleigh, Topical, TID, 30 gram, Refill(s) 1, [facility] #[id number], 167.7, cm, 07/25/23 7:06:00 EDT, Height/Length Dosing, 70.6, kg, 07/25/23 7:06:00 EDT, Weight Dosing 2. BMI 25.0-25.9,adult (Z68.25: Body mass index [BMI] 25.0-25.9, adult) The standard range for ages 18 and older is >=18.5 and < 25 kg/m2. Your BMI today was above this range, this falls in the overweight to obese category and there are medical benefits to weight loss. We can offer counselling, referral, and/or medical support in addressing this problem. Your BMI and weight management will be followed at subsequent visits. 3. Overweight (E66.3: Overweight) increase whole foods, decrease processed foods exercise at least 2.5 hours weekly 4. Nonsmoker (Z78.9: Other specified health status) stable Follow-up With When Contact Information Giuliana Tavares MD, [facility], [facility] In 6 months 03/03/[address] [phone]- [phone] Business (1) Additional Instructions: Problem List/Past Medical History Ongoing BMI 24.0-24.9, adult BMI 25.0-25.9,adult Chronic shoulder pain Dysuria Facial numbness Groin pain Hemorrhoids HLD (hyperlipidemia) Hypothyroidism Influenza vaccination declined Left subscapular pain Nonsmoker Overweight Rhinosinusitis Rosacea Sacrococcygeal pain Screening for diabetes mellitus Screening for endocrine, nutritional, metabolic and immunity disorder Screening for malignant neoplasm of colon Submandibular swelling Tachycardia Tightness of neck Visit for preventive health examination Historical Postural orthostatic tachycardia syndrome Raynaud's disease Procedure/Surgical History Colonoscopy (12/29/2020), Hysterectomy (07/31/2009), Appendectomy, Cerclage, Ovarian cystectomy. 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 Never Smokeless Tobacco Use:. Household tobacco concerns: No., 07/25/2023 Family History Cardiac arrhythmia: Mother. Diverticulitis of colon: Father. Hypertension: Father. Hypothyroidism: Mother. Primary malignant neoplasm of prostate: Father. Immunizations Vaccine Date Status Comments influenza virus vaccine, inactivated - Not Given Patient Refuses influenza virus vaccine, inactivated - Not Given Postpone due to refusal SARS-CoV-2 (COVID-19) mRNA BNT-162b2 vax 02/02/2021 Recorded influenza virus vaccine, inactivated - Not Given Patient Refuses influenza virus vaccine, inactivated - Not Given Patient Refuses SARS-CoV-2 (COVID-19) mRNA BNT-162b2 vax 07/07/2020 Given Prophylaxis SARS-CoV-2 (COVID-19) mRNA BNT-162b2 vax 06/09/2020 Given Prophylaxis Normal [facility] Comment on above: Result Comment: Elec tronically Signed By: Giuliana Tavares MD\.br\Date and Time Signed: 07/25/23 07:35 EDT ALBUMIN/CREATININE RATIO, UR INEon 07-12-2023 Albumin DL <= 20 mg/L (U) [Mass/Vol] mg/dL Normal [facility] Comment on above: Order Comment: Speci men Type: URINE SPECIMEN Ordering Facility: [facility] Address: [address] [place] [address] Performed By: #### U ACR #### [facility] CLIA [id number] [address] [place] [address] [place] [facility] Albumin/Creatinine (U) [Mass ratio] <9 Normal <30 [facility] Comment on above: Order Comment: Speci men Type: URINE SPECIMEN Ordering Facility: [facility] Address: [address] [place] [address] Result Comment: Adul t Male and Female Nephrotic Criteria: <30 mg/g is considered normal to mildly increased 30-300 mg/g is considered moderately increased >300 mg/g is considered severely increased KDIGO. (2013). KDIGO 2012 Clinical Practice Guideline for the Evaluation and Management of Chronic Kidney Disease. Official Journal of the International Society of Nephrology, 3(1), 1-150. Performed By: #### U ACR #### [facility] CLIA [id number] [address] [place] [address] [place] Creatinine (U) [Mass/Vol] 136.4 mg/dL Normal 20.0-300.0 [facility] Comment on above: Order Comment: Speci men Type: URINE SPECIMEN Ordering Facility: [facility] Address: [address] [place] [address] Performed By: #### U ACR #### [facility] CLIA [id number] [address] [place] [address] [place] Comprehensive metabolic 2000 panelon 07-12-2023 Albumin [Mass/Vol] 4.3 g/dL Normal 3.9-4.9 [facility] Comment on above: Order Comment: Speci men Type: BLOOD SPECIMEN Ordering Facility: [facility] Address: [address] [place] [address] Performed By: #### L IPNF, 65713-3, 3015-3, 2142-08 #### [facility] CLIA [id number] [address] [place] [address] [place] ALP [Catalytic activity/Vol] 82 U/L Normal 34-123 [facility] Comment on above: Order Comment: Speci men Type: BLOOD SPECIMEN Ordering Facility: [facility] Address: [address] [place] [address] Performed By: #### L IPNF, 97942-8, 3015-3, 2142-08 #### [facility] CLIA [id number] [address] [place] [address] [place] ALT [Catalytic activity/Vol] 16 U/L Normal 7-38 [facility] Comment on above: Order Comment: Speci men Type: BLOOD SPECIMEN Ordering Facility: [facility] Address: [address] [place] [address] Performed By: #### L IPGORDON, 61053-6, 3, 2142-08 #### [facility] CLIA [id number] [address] [place] [address] [place] Anion gap [Moles/Vol] 12 mmol/L Normal 9-18 [facility] Comment on above: Order Comment: Speci men Type: BLOOD SPECIMEN [facility] [facility] Address: [address] [place] [address] Performed By: #### L IPGORDON, 25176-7, 3, 2142-08 #### [facility] CLIA [id number] [address] [place] [address] [place] AST [Catalytic activity/Vol] 17 U/L Normal 13-35 [facility] Comment on above: Order Comment: Speci men Type: BLOOD SPECIMEN Ordering Facility: [facility] Address: [address] [place] [address] Performed By: #### L IPNF, 22434-9, 3015-3, 2142-08 #### [facility] CLIA [id number] [address] [place] [address] [place] Bilirubin [Mass/Vol] 0.5 mg/dL Normal 0.2-1.3 [facility] Comment on above: Order Comment: Speci men Type: BLOOD SPECIMEN Ordering Facility: [facility] Address: [address] [place] [address] Performed By: #### L IPGORDON, 54299-3, 3, 2142-08 #### [facility] CLIA [id number] [address] [place] [address] [place] Calcium [Mass/Vol] 9.0 mg/dL Normal 8.5-10.2 [facility] Comment on above: Order Comment: Speci men Type: BLOOD SPECIMEN Ordering Facility: [facility] Address: [address] [place] [address] Performed By: #### L IPNF, 94156-0, 3015-05, 2142-08 #### [facility] CLIA [id number] [address] [place] [address] [place] Chloride [Moles/Vol] 106 mmol/L High 97-105 [facility] Comment on above: Order Comment: Speci men Type: BLOOD SPECIMEN Ordering Facility: [facility] Address: [address] [place] [address] Performed By: #### L IPNF, 35785-1, 3015-05, 2142-08 #### [facility] CLIA [id number] [address] [place], [place] [id number] [place] CO2 [Moles/Vol] 26 mmol/L Normal 22-30 [facility] Comment on above: Order Comment: Speci men Type: BLOOD SPECIMEN Ordering Facility: [facility] Address: [address] [place] [address] Performed By: #### L IPNF, 19188-9, 3, 2143-6 #### [facility] CLIA [id number] [address] [place] [address] [place] Creatinine [Mass/Vol] 0.81 mg/dL Normal 0.58-0.96 [facility] Comment on above: Order Comment: Edgar garcia Type: BLOOD SPECIMEN Ordering Facility: [facility] Address: [address] [place] [address] Performed By: #### L DENISA, 76231-9, 3015-3, 2142-08 #### [facility] CLIA [id number] [address] [place] [address] [place] Creatinine and Glomerular filtration rate.predicted panel (S/P/Bld) 87 mL/min/1.73m??? Normal >=60 [facility] Comment on above: Order Comment: Edgar garcia Type: BLOOD SPECIMEN Ordering Facility: [facility] Address: [address] [place] [address] Result Comment: Maggie mated Glomerular Filtration Rate (eGFR) is calculated using the 2020 CKD-EPI creatinine equation. This equation utilizes serum creatinine, sex, and age as parameters. The creatinine assay has traceable calibration to isotope dilution-mass spectrometry. Refer to KDIGO guidelines for clinical interpretation. In patients with unstable renal function, e.g. those with acute kidney injury, the eGFR may not accurately reflect actual GFR. Performed By: #### L IPGORDON, 07988-9, 3, 2142-08 #### [facility] CLIA [id number] [address] [place] [address] [place] Glucose [Mass/Vol] 96 mg/dL Normal 74-99 [facility] Comment on above: Order Comment: Edgar garcia Type: BLOOD SPECIMEN Ordering Facility: [facility] Address: [address] [place] [address] Result Comment: The [place] Diabetes Association (ADA) provides guidance for cutoff values for fasting glucose and random glucose. The ADA defines fasting as no caloric intake for at least 8 hours. Fasting plasma glucose results between 100 to 125 mg/dL indicate increased risk for diabetes (prediabetes). Fasting plasma glucose results greater than or equal to 126 mg/dL meet the criteria for diagnosis of diabetes. In the absence of unequivocal hyperglycemia, results should be confirmed by repeat testing. In a patient with classic symptoms of hyperglycemia or hyperglycemic crisis, random plasma glucose results greater than or equal to 200 mg/dL meet the criteria for diagnosis of diabetes. Reference: Standards of Medical Care in Diabetes 2016, [place] Diabetes Association. Diabetes Care. 2016.39(Suppl 1). Performed By: #### L EDNISA, 50440-2, 3015-05, 2142-08 #### [facility] CLIA [id number] [address] [place] [address] [place] Potassium [Moles/Vol] 4.3 mmol/L Normal 3.7-5.1 [facility] Comment on above: Order Comment: Speci men Type: BLOOD SPECIMEN Ordering Facility: [facility] Address: [address] [place] [address] Performed By: #### L IPGORDON, 61896-6, 3015-05, 2142-08 #### [facility] CLIA [id number] [address] [place] [address] [place] Protein [Mass/Vol] 6.6 g/dL Normal 6.3-8.0 [facility] Comment on above: Order Comment: Logani radha Type: BLOOD SPECIMEN Ordering Facility: [facility] Address: [address] [place] [address] Performed By: #### L IPGORDON, 05795-4, 3015-05, 2142-08 #### [facility] CLIA [id number] [address] [place], [place] [id number] [place] Sodium [Moles/Vol] 144 mmol/L Normal 136-144 [facility] Comment on above: Order Comment: Speci men Type: BLOOD SPECIMEN Ordering Facility: [facility] Address: [address] [place] [address] Performed By: #### L IPGORDON, 32588-5, 3015-05, 2142-08 #### [facility] CLIA [id number] [address] [place] [address] [place] Urea nitrogen [Mass/Vol] 12 mg/dL Normal 7-21 [facility] Comment on above: Order Comment: Edgar garcia Type: BLOOD SPECIMEN Ordering Facility: [facility] Address: [address] [place] [address] Performed By: #### L IPGORDON, 46838-3, 3015-3, 2142-08 #### [facility] CLIA [id number] [address] [place] [address] [place] HbA1c (Bld)on 07-12-2023 Average glucose Estimated from glycated hemoglobin (Bld) [Mass/Vol] 100 mg/dL Normal [facility] Comment on above: Order Comment: Edgar garcia Type: BLOOD SPECIMEN Ordering Facility: [facility] Address: [address] [place] [address] Result Comment: eAG: (Estimated average glucose) is a calculated value from HgbA1c and is insurance follow up representative of the average blood glucose level in the last 2-3 month period. Performed By: #### L IPGORDON, 89193-0, 3015-05, 2142-08 #### [facility] CLIA [id number] [address] [place] [address] [place] HbA1c (Bld) [Mass fraction] 5.1 % Normal 4.3-5.6 [facility] Comment on above: Order Comment: Edgar garcia Type: BLOOD SPECIMEN Ordering Facility: [facility] Address: [address] [place] [address] Result Comment: [place] Diabetes Association guidelines indicate that patients with HgbA1c in the range 5.7-6.4% are at increased risk for development of diabetes, and intervention by lifestyle modification may be beneficial. HgbA1c greater or equal to 6.5% is considered diagnostic of diabetes. Performed By: #### L IPNF, 10623-3, 3015-3, 6 #### [facility] CLIA [id number] [address] [place] [address] [place] [facility] [place] LIPID PANEL, NONFASTINGon Cholesterol [Mass/Vol] 183 mg/dL Normal <200 [facility] Comment on above: Order Comment: Logani radha Type: BLOOD SPECIMEN Ordering Facility: [facility] Address: [address] [place] [address] Result Comment: <200 mg/dL, Desirable 200-239 mg/dL, Borderline high >239 mg/dL, High Performed By: #### L IPNF, 40370-2, 3016-3, 6 #### [facility] CLIA [id number] [address] [place] [address] [place] [facility] HDL CHOLESTEROL, NF 35 mg/dL Low >39 [facility] Comment on above: Order Comment: Edgar garcia Type: BLOOD SPECIMEN Ordering Facility: [facility] Address: [address] [place] [address] Result Comment: 40-5 9 mg/dL, Acceptable >59 mg/dL, High: Negative risk factor for coronary heart disease <40 mg/dL, Low: Positive risk factor for coronary heart disease Performed By: #### L IPNF, 96627-3, 3015-3, 2142-08 #### [facility] CLIA [id number] [address] [place] [address] STATES [facility] LDL CHOLESTEROL, NF 120 mg/dL High <100 [facility] Comment on above: Order Comment: Logani men Type: BLOOD SPECIMEN Ordering Facility: [facility] Address: [address] [place] [address] Result Comment: <100 mg/dL, Optimal 100-129 mg/dL, Near optimal/above optimal 130-159 mg/dL, Borderline high 160-189 mg/dL, High >189 mg/dL, Very high Secondary prevention optimal LDL Cholesterol levels are recommended to be < 70 mg/dL Performed By: #### L IPNF, 81956-0, 3016-3, 2142-6 #### [facility] CLIA [id number] [address] [place] [address] [place] LDL/HDL RATIO, NF 3.43 mg/dL High <2.54 [facility] Comment on above: Order Comment: Edgar garcia Type: BLOOD SPECIMEN Ordering Facility: [facility] Address: [address] [place] [address] Result Comment: Allison nieto: 1. National Cholesterol Education Program ATP III Guideline At-A-Glance Quick Desk Reference: National Heart, Lung, and Blood [place]. National Institutes of Health. 2001: NIH Publication No. 01-3305. 2. An International Atherosclerosis Society position paper: global recommendations for the management of dyslipidemia: executive summary, Atherosclerosis. 2014: 232(2):410-413. Performed By: #### L DENISA, 60722-9, 3015-05, 2142-08 #### [facility] CLIA [id number] [address] [place] [address] [place] NON HDL CHOL, NF 148 mg/dL High <130 [facility] Comment on above: Order Comment: Edgar garcia Type: BLOOD SPECIMEN Ordering Facility: [facility] Address: [address] [place] [address] Result Comment: <130 mg/dL, Optimal 130-159 mg/dL, Near optimal/above optimal 160-189 mg/dL, Borderline high 190-219 mg/dL, High >219 mg/dL, Very high Secondary prevention optimal non HDL Cholesterol levels are recommended to be <100 mg/dL Performed By: #### L DENISA, 09186-8, 3015-3, 2142-08 #### [facility] CLIA [id number] [address] [place] [address] [place] T CHOL/HDL RATIO NF 5.23 mg/dL High <5.10 [facility] Comment on above: Order Comment: Edgar garcia Type: BLOOD SPECIMEN Ordering Facility: [facility] Address: [address] [place] [address] Performed By: #### L IPGORDON, 90445-0, 3015-3, 2142-08 #### [facility] CLIA [id number] [address] [place] [address] [place] TRIGLYCERIDES, NF 142 mg/dL Normal <150 [facility] Comment on above: Order Comment: Speci men Type: BLOOD SPECIMEN Ordering Facility: [facility] Address: [address] [place] [address] Result Comment: <150 mg/dL, Normal 150-199 mg/dL, Borderline high 200-499 mg/dL, High >499 mg/dL, Very high Performed By: #### L IPNF, 16082-0, 3016-3, 2142-6 #### [facility] CLIA [id number] [address] [place] [address] [place] VLDL CHOLESTEROL, NF 28 mg/dL Normal <30 [facility] Comment on above: Order Comment: Speci men Type: BLOOD SPECIMEN Order[facility]: [facility] Address: [address] [place] [address] Performed By: #### L IPNF, 14236-8, 3016-3, 6 #### [facility] CLIA [id number] [address] [place] [address] [place] T3Free SerPl-mCncon 20 24 Free T3 [Mass/Vol] 3.0 pg/mL Normal 2.3-4.1 [facility] Comment on above: Order Comment: Speci men Type: BLOOD SPECIMEN Order[facility] Address: [address] [place] [address] Performed By: #### L IPNF, 32257-8, 3016-3, 6 #### [facility] CLIA [id number] [address] [place] [address] [place] T4 Free SerPl-mCncon 2 024 Free T4 [Mass/Vol] 1.7 ng/dL Normal 0.9-1.7 [facility] Comment on above: Order Comment: Speci men Type: BLOOD SPECIMEN Order[facility]: [facility] Address: [address] [place], [place] [address], [place] [address] Performed By: #### L IPNF, 25509-4, 3016-3, 2142-6 #### [facility] CLIA [id number] [address] [place] [address] [place] TSH SerPl-aCncon 07-12-2023 TSH Qn 0.540 m[IU]/L Normal 0.270-4.200 [facility] Comment on above: Order Comment: Speci men Type: BLOOD SPECIMEN Ordering Facility: [facility] Address: [address] [place] [address] [place] [address] Performed By: #### L IPNF, 05289-2, 3016-3, 2142-6 #### [facility] CLIA [id number] [address] [place] [address] OF [place] Danielle 06-25-2023 [place] Telephone (STED) BRAD DIXON ([id number]) 1970 F Date Time Provider Department 06/25/23 KERRI FERNANDEZ During your visit today, we recorded the following information about you: Hossein Munson 06/25/2023 2:33 PM Signed Christophere Katja in [place] called to state PT is trying to waste picker this medication, and they had noted that our office called to discontinue. Please advise and reorder meds if agreeable, or contact Pt to advise. Thank you Nazia Lopez MA 06/25/2023 2:40 PM Signed Message has been routed to Kerri Fernandez CNP for review. Nazia Lopez MA 06/25/2023 2:40 PM Signed Addended by: NAZIA LOPEZ on: 06/25/2023 02:40 PM Modules accepted: Orders Shabanaey, Nazia, MA 06/26/2023 11:06 AM Signed Detailed message left on the patients personal voicemail informing her, her script was sent to the pharmacy. Allergies As of Date: 06/25/2023 Noted Allergy Reaction MUSHROOM 04/17/2023 14 - Other: See Comments Comments: Severe dizziness, projectile vomiting BEES 04/15/2012 4 - Hives 7 - Swelling LIPITOR (ATORVASTATIN) 03/30/2012 8 - GI Upset PREDNISONE 05/03/2020 5 - Intolerance THYROID 11/27/2001 Comments: RASH, ARMOUR THYROID Date Reviewed: 05/06/2022 Reviewed by: Brigitte Morin MA - Fully Assessed Reason for Visit: Medication Request [138] Cmt: See note Prescriptions as of 06/26/2023 - SYNTHROID 100 mcg tablet take 1 tablet by mouth once daily EXCEPT 1/2 TABLET ON FRIDAY - calcium carbonate 600 mg-cholecalciferol 200 units (CALCIUM 600 + D,3,) 600 mg-5 mcg (200 unit) tab Take 1 tablet by mouth two times a day. - owwbt-go-7-dha-epa-ph ospho-ast 956-54-59-50 mg cap Take by mouth. - estradiol (CLIMARA) 0.025 mg/24 hr Apply 1 Patch as directed one time a week. - hfbup-ydtyw-3-dha-epa -lipids 484-65-29-50 mg cap Take by mouth. - cyanocobalamin (VITAMIN B-12) 500 mcg tablet Take 1 tablet by mouth once daily. - Cholecalciferol, Vitamin D3, (VITAMIN D) 1,000 unit ORAL Tab Take 2000 iu daily Problem List As Of Date 06/25/2023 Noted Resolved ACQUIRED HYPOTHYROID NEC [E03.8] 11/27/2001 Other malaise and fatigue [R53.81, R53.83] 11/27/2001 PREG STATE, INCIDENTAL [Z33.1] 12/03/2002 OTHER MALAISE AND FATIGUE [R53.81, R53.83] 09/16/2003 MIXED HYPERLIPIDEMIA [E78.2] 01/18/2005 RAYNAUD'S SYNDROME [I73.00] 07/04/2006 IMMUNOLOGICAL FIND OTHR OR UNSPEC [R89.4] 07/04/2006 ROSACEA [L71.9] 07/04/2006 Unspecified Vitamin D Deficiency [E55.9] 12/27/2008 Tachycardia [R00.0] 03/30/2012 Hyper reflexia [R29.2] 03/30/2012 CHERYL positive [R76.8] 03/30/2012 Leg pain, left [M79.605] 03/30/2012 Steppage gait [R26.89] 03/30/2012 Autonomic dysfunction [G90.9] 05/05/2012 Encounter Status:Closed by HOSSEIN MUNSON on 06/25/23 Normal [facility] Office/Clini c Noteon 06-13-2023 Family Medicine Office/Clinic Note Chief Complaint painful bm HPI Staff complaints of painful bm Onset:couple weeks Characteristics:painf ul bm, blood when she wipes OTC tried: medicated wipes, History of Present Illness Brad is a 52-year old female who presents for painful bowel movements and rectal bleeding. She started caltrate regularly about 2 months ago and started noticing the bleeding and pain around the same time. Lasted about 2-3 weeks and went away once she stopped the calcium. Also began using Tucks wipes. Was taking caltrate due to osteopenia post-oophorectomy. Reji blood in stool, noted on toilet paper with every bowel movement. Colonoscopy without significant findings 2 years ago. No fatigue, fevers, chills, abdominal pain or weight loss. History of hemorrhoids during . Review of Systems PHQ Score Initial Depression Screen Score: 0 SCORE See above. Physical Exam Vitals & Measurements HR: 79(Peripheral) BP: 136/84 SpO2: 98% HT: 66 in HT: 167.7 cm WT: 70.6 kg WT: 155.32 lb BMI: 25.1 General: Alert. Not in acute distress. Respiratory: Clear to auscultation. No wheezing, rales or rhonchi. Cardiovascular: Heart sounds normal. Regular rate and rhythm, no murmurs, rubs or gallops. Gastrointestinal: Abdomen non-distended. Normal bowel sounds. Soft, non-tender to palpation. Assessment/Plan 1. Constipation (K59.00: Constipation, unspecified) Likely due to caltrate initiation. Recommended switching to Citracal. Take with 16oz of water apart from Synthroid. Increase fiber and water intake. If bleeding and pain return, patient was advised to discontinue the calcium and follow-up with the office. 2. Rectal bleeding (K62.5: Hemorrhage of anus and rectum) Likely due to caltrate initiation causing constipation and external hemorrhoids. Recommended switching to Citracal. Take with 16oz of water apart from Synthroid. Increase fiber and water intake. If bleeding and pain return, patient was advised to discontinue the calcium and follow-up with the office. 3. BMI 25.0-25.9,adult (Z68.25: Body mass index [BMI] 25.0-25.9, adult) The standard range for ages 18 and older is >=18.5 and < 25 kg/m2. Your BMI (25.1) today was above this range, this falls in the overweight obesity morbid obese category and there are medical benefits to weight loss. BMI monitoring is helpful with identifying a weight problem that may be related to a medical condition, or may increase the risk for medical problems. Your BMI and weight management will be followed at subsequent visits with your provider and monitored for progress. GOAL: promoting healthier lifestyle with diet changes in order to reach a healthy weight. 4. Over weight (E66.3: Overweight) Follow healthy fitness and nutrition practices. 5. Non-smoker (Z78.9: Other specified health status) Continue to refrain from smoking. I, Kari Lackey, attest that I gathered the history and performed the physical and documented the note for this visit under the direction of Dr. Tavares. After having a [id number] interaction with the patient, I personally performed the physical exam and was responsible for the assessment/plan. I have personally reviewed and verified the documentation by the student and made correction as needed. - Dr Tavares Follow-up With When Contact Information Giuliana Tavares MD, FAM, MED In 6 months 03/03/[address] [phone] [phone] [facility] (1) Additional Instructions: Problem List/Past Medical History Ongoing BMI 24.0-24.9, adult BMI 25.0-25.9,adult Chronic shoulder pain Dysuria Facial numbness Groin pain HLD (hyperlipidemia) Hypothyroidism Influenza vaccination declined Left subscapular pain Nonsmoker Overweight Rhinosinusitis Rosacea Sacrococcygeal pain Screening for diabetes mellitus Screening for endocrine, nutritional, metabolic and immunity disorder Screening for malignant neoplasm of colon Submandibular swelling Tachycardia Tightness of neck Visit for preventive health examination Historical Postural orthostatic tachycardia syndrome Raynaud's disease Procedure/Surgical History Colonoscopy (12/29/2020), Hysterectomy (07/31/2009), Appendectomy, Cerclage, Ovarian cystectomy. 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 Never (more content not included)... Normal [facility] Comment on above: Result Comment: Elec tronically Signed By: Giuliana Tavares MD\.br\Date and Time Signed: 06/13/23 15:48 EDT\.br\Electronically Co-Signed By: Kari Moise\.br\Date and Time Co-Signed: 06/13/23 11:[address] Soft Tissue Neck w/ Contr agustin 05-16-2023 CT Soft Tissue Neck w/ Contrast Exam Date/Time: 05/16/2023 08:21 EST Reason for Exam: R22.0;Neck Swelling Report IMPRESSION: NEGATIVE STUDY CLINICAL HISTORY: Neck Swelling, R22.0 COMPARISON: NONE. TECHNIQUE: Multiple images axial images were obtained after IV contrast administration. 3-D sagittal and coronal reconstructions were performed. All CT scans at this facility use dose modulation, iterative reconstruction, and/or weight based dosing when appropriate to reduce radiation dose to as low as reasonably achievable. FINDINGS: The visualized intracranial portions are within normal limits. The visualized intracranial regions are within normal limits. The orbits demonstrate no intra or extraconal lesions, the globes are intact. The paranasal sinuses are well aerated. The nasopharynx and oropharynx are within normal limits. There is no asymmetry or space-occupying lesions. The hypopharynx is within normal limits. The epiglottis is not enlarged. The vallecula are symmetric. The false and true vocal cords are unremarkable. The trachea is patent. There is no cervical lymphadenopathy. There are no areas of abnormal enhancement after IV contrast administration. The bilateral parotid glands and submandibular glands are normal in size and attenuation. The thyroid gland is within normal limits. The great vessels of the neck are normal in course and caliber. There are no lytic or sclerotic bone lesions. There is no fracture or subluxation. The cervical spine is within normal limits. Report The visualized portions of the lung apices are unremarkable. Ordering Provider: Giuliana Tavares FINAL REPORT Dictated: 05/16/2023 11:26 am German Frances MD, V. Signed (Electronic Signature): 05/16/2023 11:26 am Signed by: German Frances MD, V. Transcribed by: KECIA Technologist: ORA Technical Comments GFR (mL/min/1/73m2) na Contrast: Isovue 300 Contrast amount in ml's: 100 Normal [facility] Consent for Treatmenton 04-25 Consent for Treatment [id number] .00TIFF Normal [facility] Patient Correspondenceon Patient Correspondence [id number] .00TIFF Normal [facility] Insurance Correspondenceon 0 05-05-2023 Insurance Correspondence [id number]# 1.00TIFF Normal [facility] Pre-Certification Formon Pre-Certification Form [id number] .00TIFF Normal [facility] Family Medicine Office/Clini c Noteon 05-02-2023 Family Medicine Office/Clinic Note Chief Complaint painful salivaory glands HPI Staff complaints of painful salivary glands Onset:Since January Characteristics:was here about it before but has since gotten worse. Very tender, harder time swallowing, mouth is so dry it wakes her up, warm to touch in the area OTC tried:none History of Present Illness BRAD DIXON is a 52 Years White Female presenting to clinic today with submandibular swelling since January 2023 was thought to be either salivary stone or lymph node at last appt 02/08/24 TSH: 0.36 mcIU/mL (06/28/22 08:37:00) having trouble swallowing, especially when she turns her head to the right waking up at night due to dry mouth and not being able to swallow pain occasionally radiates up to right ear warm compress and ibuprofen not helping saw [facility] endocrinology a couple weeks ago thyroid panel was normal had US thyroid and US soft tissue neck completed Review of Systems PHQ Score Initial Depression Screen Score: 0 SCORE Negative except as above Physical Exam Vitals & Measurements HR: 68(Peripheral) BP: 114/80 HT: 66 in HT: 167.7 cm WT: 71.1 kg WT: 156.42 lb BMI: 25.28 Gen: No acute distress, sitting comfortably in chair Neck: Mildly tender 0.5 cm nodule in submandibular region, no edema, not warm Cardio: RRR, no murmur/rubs/gallops Resp: CTAB, no wheezing/rales/rhonch i Assessment/Plan 1. Submandibular swelling (R22.0: Localized swelling, mass and lump, head) amoxicillin x7days prescribed Thyroid panel via [facility] endocrinology normal US thyroid and US soft tissue neck normal, no masses or abscesses visible referral to ENT placed will consider EGD or barium swallow if no improvement Ordered: amoxicillin, 500 mg = 1 cap(s), Oral, TID, X 7 day(s), # 21 cap(s), Refills(s) 0, Pharmacy: [facility] #[id number], 167.7, cm, 05/02/23 7:22:00 EST, Height/Length Dosing, 71.1, kg, 05/02/23 7:22:00 EST, Weight Dosing [facility] External Ambulatory Referral 2. BMI 25.0-25.9,adult (Z68.25: Body mass index [BMI] 25.0-25.9, adult) The standard range for ages 18 and older is >=18.5 and < 25 kg/m2. Your BMI today was above this range, this falls in the overweight to obese category and there are medical benefits to weight loss. We can offer counselling, referral, and/or medical support in addressing this problem. Your BMI and weight management will be followed at subsequent visits. 3. Overweight (E66.3: Overweight) increase whole foods, decrease processed foods exercise at least 2.5 hours weekly 4. Nonsmoker (Z78.9: Other specified health status) stable Follow-up With When Contact Information Giuliana Tavares MD, FAM, MED Only if needed [address] [place] [phone] Additional Instructions: Problem List/Past Medical History Ongoing BMI 24.0-24.9, adult BMI 25.0-25.9,adult Chronic shoulder pain Dysuria Facial numbness Groin pain HLD (hyperlipidemia) Hypothyroidism Influenza vaccination declined Left subscapular pain Nonsmoker Overweight Rhinosinusitis Rosacea Sacrococcygeal pain Screening for diabetes mellitus Screening for endocrine, nutritional, metabolic and immunity disorder Screening for malignant neoplasm of colon Submandibular swelling Tachycardia Tightness of neck Visit for preventive health examination Historical Postural orthostatic tachycardia syndrome Raynaud's disease Procedure/Surgical History Colonoscopy (12/29/2020), Hysterectomy (07/31/2009), Appendectomy, Cerclage, Ovarian cystectomy. 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 Never Smokeless Tobacco Use:. Household tobacco concerns: No., 05/02/2023 Family History Cardiac arrhythmia: Mother. Diverticulitis of colon: Father. Hypertension: Father. Hypothyroidism: Mother. Primary malignant neoplasm of prostate: Father. Immunizations Vaccine Date Status Comments influenza virus vaccine, inactivated - Not Given Patient Refuses influenza virus vaccine, inactivated - Not Given Postpone due to refusal SARS-CoV-2 (COVID-19) mRNA BNT-162b2 vax 02/02/2021 Recorded influenza virus vaccine, inactivated - Not Given Patient Refuses influenza virus vaccine, inactivated - Not Given Patient Refuses SARS-CoV-2 ( (more content not included)... [facility] Comment on above: Result Comment: Elec tronically Signed By: Giuliana Tavares MD\.br\Date and Time Signed: 05/02/23 07:55 EST Physician Referralon 024 Physician Referral [id number] .[id number] [facility] US HEAD/NECK SOFT TISSUE OTH Rosemarie 04-20-2023 US HEAD/NECK SOFT TISSUE OTHER * * *Final Report* * * DATE OF EXAM: Apr 20 2023 5:17PM [facility] 1052 - US HEAD/NECK SOFT TISSUE OTHER / PROCEDURE REASON: Unspecified hypothyroidism * * * * Physician Interpretation * * * * HISTORY: Unspecified hypothyroidism; Palpable lump. TECHNIQUE: US HEAD/NECK SOFT TISSUE OTHER COMPARISON: Same date thyroid ultrasound. RESULT: Soft tissue ultrasound imaging obtained in the right submandibular region, area of clinical concern, demonstrates no evidence of fluid collection or soft tissue mass. IMPRESSION: Unremarkable soft tissue ultrasound. Line Repairer: LILA Transcribe Date/Time: Apr 21 2023 10:08A Dictated by : CHRISSY SWANN MD This examination was interpreted and the report reviewed and electronically signed by: CHRISSY SWANN MD on Apr 21 2023 11:57AM EST [id number] N [facility] US THYROID/PARATHYROIDon US THYROID/PARATHYROID * * *Final Report* * * DATE OF EXAM: Apr 20 2023 5:14PM [facility] 1048 - US THYROID/PARATHYROID / PROCEDURE REASON: Unspecified hypothyroidism * * * * Physician Interpretation * * * * EXAMINATION: THYROID ULTRASOUND CLINICAL HISTORY: Unspecified hypothyroidism. TECHNIQUE: Sonography and Doppler imaging of the thyroid was performed. Images were obtained and stored in a permanent archive. MQ: UST_1 COMPARISON: None. RESULT: Right Lobe: 4.0 x 1.0 x 1.4 cm; heterogeneous echogenicity, expected vascular flow. Left Lobe: 5.3 x 1.1 x 1.8 cm; heterogeneous echogenicity, expected vascular flow. Isthmus: 0.2 cm Nodules: None IMPRESSION: Heterogeneous thyroid bilaterally with no discrete nodules. Line Repairer: PSCB Transcribe Date/Time: Apr 21 2023 10:02A Dictated by : CHRISSY SWANN MD This examination was interpreted and the report reviewed and electronically signed by: CHRISSY SWANN MD on Apr 21 2023 11:56AM EST [id number] N [facility] C peptide [facility] 04-19 C peptide [Mass/Vol] 2.10 ng/mL Normal 0.81-3.85 [facility] Comment on above: Order Comment: Specnickie garcia Type: BLOOD SPECIMEN Ordering Facility: [facility] Address: [address] [place] [address] Performed By: #### L DENISA, 76173-4, 3015-05, 2142-08 #### [facility] CLIA [id number] [address] [place] [address] [place] HbA1c (Bld)on 04-19-2023 Average glucose Estimated from glycated hemoglobin (Bld) [Mass/Vol] 94 mg/dL Normal [facility] Comment on above: Order Comment: Edgar garcia Type: BLOOD SPECIMEN Ordering Facility: [facility] Address: [address] [place] [address] Result Comment: eAG: (Estimated average glucose) is a calculated value from HgbA1c and is insurance follow up representative of the average blood glucose level in the last 2-3 month period. Performed By: #### L DENISA, 23097-1, 3015-3, 2142-08 #### [facility] CLIA [id number] [address] [place] [address] [place] HbA1c (Bld) [Mass fraction] 4.9 % Normal 4.3-5.6 [facility] Comment on above: Order Comment: Speci men Type: BLOOD SPECIMEN Ordering Facility: [facility] Address: [address] [place] [address] Result Comment: Amer [place] Diabetes Association guidelines indicate that patients with HgbA1c in the range 5.7-6.4% are at increased risk for development of diabetes, and intervention by lifestyle modification may be beneficial. HgbA1c greater or equal to 6.5% is considered diagnostic of diabetes. Performed By: #### L IPNF, 47725-5, 3016-3, 2143-6 #### [facility] CLIA [id number] [address] [place] [address] [place] T3Free SerPl-mCncon 20 24 Free T3 [Mass/Vol] 2.6 pg/mL Normal 2.3-4.1 [facility] Comment on above: Order Comment: Speci men Type: BLOOD SPECIMEN Ordering Facility: [facility] Address: [address] [place] [address] Performed By: #### 3 051-0, 3024-7, 3016-3 #### [facility] CLIA [id number] [address] [place] [address] [place] T4 Free SerPl-mCncon 2 024 Free T4 [Mass/Vol] 1.4 ng/dL Normal 0.9-1.7 [facility] Comment on above: Order Comment: Speci men Type: BLOOD SPECIMEN Ordering Facility: [facility] Address: [address] [place] [address] Performed By: #### 3 051-0, 3024-7, 3016-3 #### [facility] CLIA [id number] [address] [place] [address] [place] TSH SerPl-aCncon 04-19-2023 TSH Qn 1.750 m[IU]/L Normal 0.270-4.200 [facility] Comment on above: Order Comment: Speci men Type: BLOOD SPECIMEN Ordering Facility: [facility] Address: [address] [place] [address] Performed By: #### 3 051-0, 3024-7, 3016-3 #### [facility] CLIA [id number] [address] [place] [address] [place] [address] [place] MA Mamm Screen w/CAD if perf and 3D Bilon 03-13-2023 MA Mamm Screen w/CAD if perf and 3D Shiv Exam Date/Time: 03/12/2023 08:36 EST Reason for Exam: SCREEENING Report IMPRESSION: BIRADS 2 BENIGN FINDINGS, NORMAL INTERVAL FOLLOW-UP Follow-up: 12 MONTH RECALL Density: Scattered tissue. Vascular calcifications: Absent. EXAM: MA Mamm Screen w/CAD if perf and 3D Shiv DATE: 03/12/2023 7:03 AM CLINICAL HISTORY: SCREENING. COMPARISONS: 03/08/2022, 01/16/2021, and 01/07/2020. TECHNIQUE: Routine full-field digital mammograms and 3D breast tomosynthesis of both breasts were obtained. FINDINGS: There are no developing masses, suspicious microcalcifications, or areas of architectural distortion identified on the current study. No significant changes are identified from the prior studies, given differences in technique and positioning. Stable asymmetry is and nodular densities. Dense Breast: No. CAD analysis was performed and used in the interpretation. Board Certified Radiologists. Accredited by the ACR and FDA. MAMMOGRAPHY IS VERY IMPORTANT TO YOUR HEALTH. THE CURRENT [place] [employer] OF [employer] AND [employer] COMPREHENSIVE [employer]WORK GUIDELINES RECOMMENDS ANNUAL MAMMOGRAPHY BEGINNING AT AGE 40. THIS FACILITY UTILIZES A REMINDER SYSTEM TO ENSURE ALL PATIENTS RECEIVE REMINDER NOTIFICATIONS AT THE APPROPRIATE TIME BASED ON THE RECOMMENDATIONS OF THIS EXAM. Report Ordering Provider: REFERRAL, SELF FINAL REPORT Dictated: 03/13/2023 12:33 pm Zeeshan Cao MD Signed (Electronic Signature): 03/13/2023 12:33 pm Signed by: Zeeshan Cao MD Transcribed by: KECIA Technologist: [facility] Assessment: BI-RADS Category 2-Benign finding Recommendation: Normal interval follow-up Normal [facility] Consent for Treatmenton -2 Consent for Treatment [id number] .00TIFF Normal [facility] Family Medicine Office/Clini c Noteon 02-07-2023 Family Medicine Office/Clinic Note Chief Complaint lump on neck HPI Staff complaints of tender lump Onset:noticed it the past weekend Characteristics:Tende r lump on the side of neck. Has gone down quite a bit but still wants to have it checked. Feels it more when she swallows. OTC tried:none Health Maintenance: Colonoscopy:12/29/20 Mammo:03/08/22 Dexa:03/08/22 Pap:Hx hysterectomy Last Labs:06/28/22 History of Present Illness The patient is a 52-year-old female coming in with a tender lump on her neck that started 5 days ago. It has gone down, but still wants it checked. She feels it when she is swallowing. She noticed the lump on the weekend. It hurt to turn her head and down and it seemed like it was a lot more swollen. It is not swollen now. It is only on the right side. She is not sure if it is a nodule or a muscle. It does not hurt like a sore throat when she swallows, but she can feel it. One night, she woke up with anxiety and had her head turned a certain way and could not swallow. It was not warm, but it was sore. She had a massage on Friday and was told that she was so tense all the way through there. She thought it exacerbated muscle tension. She has not been sick recently. She has been trying to replace pop at night with a glass of water with lemon juice in it. She was diagnosed with thyroid more than 20 years ago. She was told that she potentially had some nodules and goiters in there, but nothing has ever transpired. She sees endocrinology, but she does not have an appointment for a while. Review of Systems PHQ Score Initial Depression Screen Score: 0 SCORE Negative except as above Physical Exam Vitals & Measurements HR: 94(Peripheral) BP: 100/62 SpO2: 100% HT: 66 in HT: 167.7 cm WT: 69.9 kg WT: 153.78 lb BMI: 24.85 Gen: No acute distress, sitting comfortably in chair Neck: Mildly tender 1 cm nodule in submandibular region Cardio: RRR, no murmur/rubs/gallops Resp: CTAB, no wheezing/rales/rhonch i Assessment/Plan 1. Submandibular swelling (R22.0: Localized swelling, mass and lump, head) salivary stone vs lymph node use warm compress trial ibuprofen prn 2. BMI 24.0-24.9, adult (Z68.24: Body mass index [BMI] 24.0-24.9, adult) normal bmi 3. Nonsmoker (Z78.9: Other specified health status) stable Localized swelling, mass and lump, neck (R22.1: Localized swelling, mass and lump, neck) Follow-up With When Contact Information Giuliana Tavares MD, FAM, MED Only if needed [address] [place] [phone] Additional Instructions: Problem List/Past Medical History Ongoing BMI 24.0-24.9, adult Chronic shoulder pain Dysuria Facial numbness Groin pain HLD (hyperlipidemia) Hypothyroidism Influenza vaccination declined Left subscapular pain Overweight Rhinosinusitis Rosacea Sacrococcygeal pain Screening for diabetes mellitus Screening for endocrine, nutritional, metabolic and immunity disorder Screening for malignant neoplasm of colon Submandibular swelling Tachycardia Tightness of neck Visit for preventive health examination Historical Postural orthostatic tachycardia syndrome Raynaud's disease Procedure/Surgical History Colonoscopy (12/29/2020), Hysterectomy (07/31/2009), Appendectomy, Cerclage, Ovarian cystectomy. 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 Never Smokeless Tobacco Use:. Household tobacco concerns: No., 02/07/2023 Family History Cardiac arrhythmia: Mother. Diverticulitis of colon: Father. Hypertension: Father. Hypothyroidism: Mother. Primary malignant neoplasm of prostate: Father. Immunizations Vaccine Date Status Comments influenza virus vaccine, inactivated - Not Given Postpone due to refusal SARS-CoV-2 (COVID-19) mRNA BNT-162b2 vax 02/02/2021 Recorded influenza virus vaccine, inactivated - Not Given Patient Refuses influenza virus vaccine, inactivated - Not Given Patient Refuses SARS-CoV-2 (COVID-19) mRNA BNT-162b2 vax 07/07/2020 Given Prophylaxis SARS-CoV-2 (COVID-19) mRNA BNT-162b2 vax 06/09/2020 Given Prophylaxis Normal [facility] Comment on above: Result Comment: Elec tronically Signed By: Giuliana Tavares MD\.br\Date and Time Signed: 02/07/23 07:56 EST PAP ACOG PANEL 2: 30 to 65on 02-07-2022 . . Normal [facility] Comment on above: Result Comment: Perf ormed at: WB Performed By: #### [id number] #### [facility] [address] [address] [address] Gokul Staton Age Gdln ACOG Testing 30-65 [facility] Comment on above: Performed By: #### 4 [id number] #### [facility] [address] [address] [address] Gokul Staton DIAGNOSIS: Comment Normal [facility] Comment on above: Result Comment: NEGA TIVE FOR INTRAEPITHELIAL LESION OR MALIGNANCY. THIS SPECIMEN WAS RESCREENED PART OF OUR HOG TENDER PROGRAM. Performed at: WB Performed By: #### 4 [id number] #### [facility] [address] [address] [address] Gokul Staton HPV Aptima Negative Normal Negative [facility] Comment on above: Result Comment: This nucleic acid amplification test detects fourteen high-risk HPV types (16,18,31,33,35,39,45,51,52,56,58,59,66,68) without differentiation. Performed at: =G Performed By: #### 4 [id number] #### [facility] [address] [place] [address] Dr. Gokul Staton HPV Genotype Reflex Comment Normal [facility] Comment on above: Result Comment: Crit ersamira not met, HPV Genotype not performed. Performed at: WB Performed By: #### 4 [id number] #### [facility] [address] [place] [address] Dr. Gokul Staton Methodology: Comment Normal [facility] Comment on above: Result Comment: This liquid based ThinPrep(R) pap test was screened with the use of an image guided system. Performed at: WB Performed By: #### [id number] #### [facility] [address] [place] [address] Dr. Gokul Staton Note: Comment [facility] Comment on above: Result Comment: The Pap smear is a screening test designed to aid in the detection of premalignant and malignant conditions of the uterine cervix. It is not a diagnostic procedure and should not be used as the sole means of detecting cervical cancer. Both false-positive and false-negative reports do occur. . Performed at: WB Performed By: #### 4 [id number] #### [facility] [address] [place] [address] Dr. Gokul Staton Performed by: Comment Normal [facility] Comment on above: Result Comment: Kei Boyd, Lap Maker (ASCP) Performed at: WB Performed By: #### 4 [id number] #### [facility] [address] [place] [address] Dr. Gokul Staton QC reviewed by: Comment Normal [facility] Comment on above: Result Comment: Ligia Iniguez, Lap Maker (ASCP) Performed at: WB Performed By: #### 4 [id number] #### [facility] [address] [place] [address] Dr. Gokul Staton Specimen adequacy: Comment Normal [facility] Comment on above: Result Comment: Sati sfactory for evaluation. Endocervical and/or squamous metaplastic cells (endocervical component) are present. Performed at: WB Performed By: #### 4 [id number] #### [facility] [address] [address] [address] Gokul Staton MM screening mammo BI w/CADo n 12-15-2018 MM screening mammo BI w/CAD [facility] [place] [address] [place], [place] [id number] Mammography Report Signed Patient: Brad Veliz MR#: [id number] : 1970 Acct:[id number] Age/Sex: 48 / F ADM Date: 12/15/18 [facility]: [facility] Room: Type: [facility] Attending Dr: Eleni White MD Ordering Provider: Eleni White MD Date of Service: 12/15/18 MM/MM screening mammo BI w/CAD: SCREENING Copies to: Gay Bullard MD, Gregory MD CLINICAL DATA: Screening for malignancy. BILATERAL SCREENING MAMMOGRAMS - FULL FIELD DIGITAL WITH TOMOSYNTHESIS AND CAD Tomosynthesis craniocaudal and mediolateral oblique views of both breasts were obtained using low- dose digital technique. Comparison is made to prior studies from October 26, 2010 through December 11, 2017. This examination was reviewed with the aid of CAD. There are scattered fibroglandular densities with stable asymmetry laterally on the right. Benign- appearing nodularity is seen on the left. Patient has history of cysts. There are no new suspicio us masses, typically malignant calcifications or architectural distortion. There has been no significant interval change. MM/MM screening mammo BI w/CAD IMPRESSION: NO MAMMOGRAPHIC EVIDENCE OF MALIGNANCY. ROUTINE FOLLOW-UP IS RECOMMENDED IN ONE YEAR. RESULT CODE: 2 Benign Findings(s) DENSITY CODE: 2 (approximately 25-50% glandular) FOLLOW UP: 1YR The false-negative rate of mammography is approximately 10-percent. Management of a palpable abnormality must be based on clinical grounds. Patient was entered into a reminder system with a target due date for the next mammogram. Impression dictated by: Mona Baxter M.D.12/15/2018 3:49 PM Dictation Location: [facility] Transcribed By: JERRELL 12/15/18 1549 Dictated By: Mona Baxter MD 12/15/18 154 Signed By: 12/15/18 1549 Normal [facility] Employee Comp Metabolic Pane tariq 07-03-2018 Albumin [Mass/Vol] 4.2 g/dL Normal 3.2-5.5 [facility] Comment on above: Performed By: #### P ILLAR CBC, PILLAR CMP, PILLAR LIPID, PILLAR TSH #### [facility] [address] Albumin/Globulin [Mass ratio] 2.6 {ratio} Normal [facility] Comment on above: Performed By: #### P ILLAR CBC, PILLAR CMP, PILLAR LIPID, PILLAR TSH #### [facility] [address] ALP [Catalytic activity/Vol] 68 U/L Normal 32-92 [facility] Comment on above: Performed By: #### P ILLAR CBC, PILLAR CMP, PILLAR LIPID, PILLAR TSH #### [facility] [address] ALT [Catalytic activity/Vol] 17 U/L Normal 10-60 [facility] Comment on above: Performed By: #### P ILLAR CBC, PILLAR CMP, PILLAR LIPID, PILLAR TSH #### [facility] [address] [place] [address] AST [Catalytic activity/Vol] 17 U/L Normal 10-42 [facility] Comment on above: Performed By: #### P ILLAR CBC, PILLAR CMP, PILLAR LIPID, PILLAR TSH #### [facility] [address] [place], [place] [id number] [place] Bilirubin [Mass/Vol] 0.6 mg/dL Normal 0.3-1.2 [facility] Comment on above: Performed By: #### P ILLAR CBC, PILLAR CMP, PILLAR LIPID, PILLAR TSH #### [address] Calcium [Mass/Vol] 9.2 mg/dL Normal 8.2-10.2 [facility] Comment on above: Performed By: #### P ILLAR CBC, PILLAR CMP, PILLAR LIPID, PILLAR TSH #### [facility] [address] Chloride [Moles/Vol] 106 mmol/L Normal 95-114 [facility] Comment on above: Performed By: #### P ILLAR CBC, PILLAR CMP, PILLAR LIPID, PILLAR TSH #### [facility] [address] CO2 [Moles/Vol] 28.0 mmol/L Normal 22.0-30.0 [facility] Comment on above: Performed By: #### P ILLAR CBC, PILLAR CMP, PILLAR LIPID, PILLAR TSH #### [facility] [facility] [address] Creatinine [Mass/Vol] 0.78 mg/dL Normal 0.44-1.03 [facility] Comment on above: Performed By: #### P ILLAR CBC, PILLAR CMP, PILLAR LIPID, PILLAR TSH #### [facility] [address] Estimated GFR ( Odilon > 60 [facility] Comment on above: Result Comment: GFR estimated reference range: According to KDOQI guidelines, <60 ml/min/1.73m2 is sufficient to diagnose a patient with chronic kidney disease. Performed By: #### P ILLAR CBC, PILLAR CMP, PILLAR LIPID, PILLAR TSH #### [facility] [address] Estimated GFR (Non- Am > 60 [facility] Comment on above: Performed By: #### P ILLAR CBC, PILLAR CMP, PILLAR LIPID, PILLAR TSH #### [facility] [address] Globulin (S) [Mass/Vol] 1.6 g/dL [facility] Comment on above: Performed By: #### P ILLAR CBC, PILLAR CMP, PILLAR LIPID, PILLAR TSH #### [facility] [address] Glucose [Mass/Vol] 94 mg/dL Normal 70-100 [facility] Comment on above: Performed By: #### P ILLAR CBC, PILLAR CMP, PILLAR LIPID, PILLAR TSH #### [address] Potassium [Moles/Vol] 4.1 mmol/L Normal 3.5-5.1 [facility] Comment on above: Performed By: #### P ILLAR CBC, PILLAR CMP, PILLAR LIPID, PILLAR TSH #### [address] Protein [Mass/Vol] 5.8 g/dL Low 6.1-7.9 [facility] Comment on above: Performed By: #### P ILLAR CBC, PILLAR CMP, PILLAR LIPID, PILLAR TSH #### [address] Sodium [Moles/Vol] 140 mmol/L Normal 136-146 [facility] Comment on above: Performed By: #### P ILLAR CBC, PILLAR CMP, PILLAR LIPID, PILLAR TSH #### [address] Urea nitrogen [Mass/Vol] 10 mg/dL Normal 9-23 [facility] Comment on above: Performed By: #### P ILLAR CBC, PILLAR CMP, PILLAR LIPID, PILLAR TSH #### [address] Employee Complete Blood Coun ton 07-03-2018 Basophils (Bld) [#/Vol] 0.0 10*3/uL Normal 0.0-0.2 [facility] Comment on above: Result Comment: PERF ORMED BY: [place] [address] PATHOLOGIST BARREL BURNER THAI VALDEZ M.D. Performed By: #### P ILLAR CBC, PILLAR CMP, PILLAR LIPID, PILLAR TSH #### [address] Basophils/100 WBC (Bld) 0.8 % Normal . [facility] Comment on above: Performed By: #### P ILLAR CBC, PILLAR CMP, PILLAR LIPID, PILLAR TSH #### [facility] [address] Eosinophils (Bld) [#/Vol] 0.2 10*3/uL Normal 0.0-0.45 [facility] Comment on above: Performed By: #### P ILLAR CBC, PILLAR CMP, PILLAR LIPID, PILLAR TSH #### [address] Eosinophils/100 WBC (Bld) 5.2 % Normal . [facility] Comment on above: Performed By: #### P ILLAR CBC, PILLAR CMP, PILLAR LIPID, PILLAR TSH #### [address] Erythrocyte distribution width (RBC) [Ratio] 13.8 % Normal 11.9-15.3 [facility] Comment on above: Performed By: #### P ILLAR CBC, PILLAR CMP, PILLAR LIPID, PILLAR TSH #### [address] Hematocrit (Bld) [Volume fraction] 42.6 % Normal 34.0-46.4 [facility] Comment on above: Performed By: #### P ILLAR CBC, PILLAR CMP, PILLAR LIPID, PILLAR TSH #### [address] Hemoglobin (Bld) [Mass/Vol] 14.3 g/dL Normal 11.8-15.4 [facility] Comment on above: Performed By: #### P ILLAR CBC, PILLAR CMP, PILLAR LIPID, PILLAR TSH #### [address] Lymphocytes (Bld) [#/Vol] 1.3 10*3/uL Normal 1.00-4.8 [facility] Comment on above: Performed By: #### P ILLAR CBC, PILLAR CMP, PILLAR LIPID, PILLAR TSH #### [address] Lymphocytes/100 WBC (Bld) 29.5 % Normal . [facility] Comment on above: Performed By: #### P ILLAR CBC, PILLAR CMP, PILLAR LIPID, PILLAR TSH #### [address] MCH (RBC) [Entitic mass] 29.9 pg Normal 24.7-34.3 [facility] Comment on above: Performed By: #### P ILLAR CBC, PILLAR CMP, PILLAR LIPID, PILLAR TSH #### [address] MCH (RBC) [Entitic mass] 33.5 g/dL Normal 32.0-35.0 [facility] Comment on above: Performed By: #### P ILLAR CBC, PILLAR CMP, PILLAR LIPID, PILLAR TSH #### [address] MCV (RBC) [Entitic vol] 89.1 fL Normal 80-100 [facility] Comment on above: Performed By: #### P ILLAR CBC, PILLAR CMP, PILLAR LIPID, PILLAR TSH #### [address] Monocytes (Bld) [#/Vol] 0.4 10*3/uL Normal 0.0-0.8 [facility] Comment on above: Performed By: #### P ILLAR CBC, PILLAR CMP, PILLAR LIPID, PILLAR TSH #### [address] Monocytes/100 WBC (Bld) 9.6 % Normal . [facility] Comment on above: Performed By: #### P ILLAR CBC, PILLAR CMP, PILLAR LIPID, PILLAR TSH #### [place] [address] [place] Neutrophils (Bld) [#/Vol] 2.5 10*3/uL Normal 1.8-7.7 [facility] Comment on above: Performed By: #### P ILLAR CBC, PILLAR CMP, PILLAR LIPID, PILLAR TSH #### [place] [address] [place] Neutrophils/100 WBC (Bld) 54.9 % Normal . [facility] Comment on above: Performed By: #### P ILLAR CBC, PILLAR CMP, PILLAR LIPID, PILLAR TSH #### [facility] [address] [place] [address] Nucleated RBC/100 WBC (Bld) [Ratio] 0.0 % Normal 0-0.5 [facility] Comment on above: Performed By: #### P ILLAR CBC, PILLAR CMP, PILLAR LIPID, PILLAR TSH #### [address] Platelet mean volume (Bld) [Entitic vol] 10.0 fL Normal 6.3-10.7 [facility] Comment on above: Performed By: #### P ILLAR CBC, PILLAR CMP, PILLAR LIPID, PILLAR TSH #### [address] Platelets (Bld) [#/Vol] 174 10*3/uL Normal 150-450 [facility] Comment on above: Performed By: #### P ILLAR CBC, PILLAR CMP, PILLAR LIPID, PILLAR TSH #### [address] RBC (Bld) [#/Vol] 4.78 10*6/uL Normal 3.60-5.00 [facility] Comment on above: Performed By: #### P ILLAR CBC, PILLAR CMP, PILLAR LIPID, PILLAR TSH #### [address] WBC (Bld) [#/Vol] 4.5 10*3/uL Normal 3.8-11.6 [facility] Comment on above: Performed By: #### P ILLAR CBC, PILLAR CMP, PILLAR LIPID, PILLAR TSH #### [address] Employee Lipid Profileon Cholesterol [Mass/Vol] 181 mg/dL Normal 140-200 [facility] Comment on above: Result Comment: Chol less than 200 mg/dl low risk Chol 201-239 mg/dl borderline risk Chol 240 mg/dl and greater high risk Performed By: #### P ILLAR CBC, PILLAR CMP, PILLAR LIPID, PILLAR TSH #### [facility] [address] Cholesterol in HDL [Mass/Vol] 35 mg/dL Normal 35-85 [facility] Comment on above: Result Comment: HDL CHOL ATP-III CLASSIFICATION Cardiovascular Risk HDL > or equal to 60 mg/dL LOW HDL < 40 mg/dL HIGH Performed By: #### P ILLAR CBC, PILLAR CMP, PILLAR LIPID, PILLAR TSH #### [facility] [address] Cholesterol.total/Cho lesterol in HDL [Mass ratio] 5.2 {ratio} Normal <5.0 [facility] Comment on above: Performed By: #### P ILLAR CBC, PILLAR CMP, PILLAR LIPID, PILLAR TSH #### [facility] [address] LDL Cholesterol,Calculate d 125 mg/dL High 0-100 [facility] Comment on above: Result Comment: LDL ATP III CLASSIFICATION LDL less than 100 mg/dL Optimal LDL 100-129 mg/dL Near or above optimal LDL 130-159 mg/dL Borderline high LDL 160-189 mg/dL High LDL greater than 189 mg/dL Very high Performed By: #### P ILLAR CBC, PILLAR CMP, PILLAR LIPID, PILLAR TSH #### [facility] [address] [place] [id number] [facility] Triglyceride w/Reflex 104 mg/dL Normal 35-149 [facility] Comment on above: Result Comment: TRIG ATP III CLASSIFICATION TRIG less than 150 mg/dL Normal TRIG 150-199 mg/dL Borderline high TRIG 200-500 mg/dL High TRIG greater than 500 mg/dL Very high Standard traceable to the Center for Disease Conrtrol and Prevention (CDC) test method. Performed By: #### P ILLAR CBC, PILLAR CMP, PILLAR LIPID, PILLAR TSH #### [facility] [address] [place] [phone] [facility] VLDL CHOLESTEROL 20 mg/dL Normal [facility] Comment on above: Performed By: #### P ILLAR CBC, PILLAR CMP, PILLAR LIPID, PILLAR TSH #### [facility] [address] [place] [address] [facility] Employee Thyroid Stim [employer] 07-03-2018 Employee Thyroid Stim Hormone 0.47 u[iU]/mL Normal 0.45-5.33 [facility] Comment on above: Result Comment: PERF ORMED BY: [facility] [address] [facility] [place] [address] PATHOLOGIST BARREL BURNER THAI VALDEZ M.D. Performed By: #### P ILLAR CBC, PILLAR CMP, PILLAR LIPID, PILLAR TSH #### [facility] [address] [place] [phone] [facility] Vital Signs Date Time Vital Sign Value Performing Clinician Azalia patel 02-25-2024 09:07-0500 Body mass index (BMI) [Ratio] 25.2 kg/m2 Monae RILEY Work Phone: [facility] 02-25-2024 09:07-0500 Body weight 70.82 kg Monae RILEY Work Phone: [facility] 02-25-2024 09:07-0500 Diastolic blood pressure 72 mm[Hg] Monae RILEY Work Phone: [facility] 02-25-2024 09:07-0500 Systolic blood pressure 110 mm[Hg] Monae RILEY Work Phone: [facility] Healthcare Encounters Encounter Date Encounter Type Care Provider Facility Start: 02-25-2024 End: 02-25-2024 Bamboo flowsheet Monae RILEY Work Phone: [facility] Start: 02-25-2024 End: 02-25-2024 Bamboo flowsheet Monae RILEY Work Phone: [facility] Start: 02-25-2024 End: 02-25-2024 Patient encounter procedure Monae RILEY Work Phone: [facility] Healthcare Work Phone: Start: 02-25-2024 End: 02-25-2024 Periodic preventive med est patient 40-64yrs Monae RILEY Work Phone: [facility] Comment on above: Well woman exam with routine gynecological exam; Breast cancer screening by mammogram; Postmenopausal state; Postmenopausal atrophic vaginitis Start: 02-02-2024 End: 02-02-2024 ambulatory Florencio DELONG Facility:[facility] Start: 01-23-2024 End: 01-23-2024 ambulatory Eliecer Anali MCMANUS Facility:[facility] Start: 01-12-2024 End: 01-12-2024 ambulatory Guillermo Pinedo Facility:[facility] Start: 12-13-2023 End: 12-13-2023 ambulatory KERRI C CIOCE Facility:[facility] Start: 12-06-2023 End: 12-08-2023 ambulatory Kerri C Cioce STUCCO APPLICATOR.FORENSIC MEDICAL EXAMINER Work Phone: Endocrinology Comment on above: Fall labs Start: 10-03-2023 End: 10-03-2023 ambulatory Giuliana Gudimella Facility:[facility] Start: 09-26-2023 End: 09-26-2023 ambulatory Giuliana Gudimella Facility:[facility] Start: 07-25-2023 End: 07-25-2023 ambulatory Giuliana Gudimella Facility:[facility] Start: 07-12-2023 End: 07-12-2023 ambulatory Kerri C Cioce STUCCO APPLICATOR.FORENSIC MEDICAL EXAMINER Work Phone: Endocrinology Comment on above: Lipid panel test Start: 06-25-2023 ambulatory Kerri C Cioce STUCCO APPLICATOR.FORENSIC MEDICAL EXAMINER Work Phone: Endocrinology Comment on above: medication thyroid Start: 06-25-2023 E-mail encounter fro m caregiver Kerri C Cioce STUCCO APPLICATOR.FORENSIC MEDICAL EXAMINER Work Phone: [facility] Start: 06-25-2023 Telephone encounter Kerri thomas STUCCO APPLICATOR.FORENSIC MEDICAL EXAMINER Work Phone: Endocrinology Comment on above: Medication Request ( See note) Refill Request Start: 06-13-2023 End: 06-13-2023 ambulatory Giuliana Gudimella Facility:[facility] Start: 05-16-2023 End: 05-16-2023 ambulatory Giuliana Gudimella Facility:[facility] Start: 05-02-2023 End: 05-02-2023 ambulatory Giuliana Gudimella Facility:[facility] Start: 04-20-2023 ambulatory GAY BULLARD Facility:[facility] Start: 04-20-2023 End: 04-20-2023 Subsequent hospital visit by physician [facility] Work Phone: [facility] Radiology Ultrasound Comment on above: Unspecified hypothyr oidism [E03.9] Start: 04-19-2023 End: 04-19-2023 ambulatory KERRI C CIOCE Facility:[facility] Start: 04-17-2023 End: 04-17-2023 ambulatory KERRI C CIOCE Facility:[facility] Start: 03-12-2023 End: 03-12-2023 ambulatory SELF REFERRAL Facility:[facility] Start: 03-11-2023 ambulatory Kerri C Cioce STUCCO APPLICATOR.FORENSIC MEDICAL EXAMINER Work Phone: Endocrinology Comment on above: labs Start: 02-18-2023 End: 02-18-2023 ambulatory COLTON FORTINO Not Available Start: 02-07-2023 End: 02-07-2023 ambulatory Giuliana Gudimella Facility:[facility] Start: 05-05-2022 Refill Kerri C Cioce STUCCO APPLICATOR.FORENSIC MEDICAL EXAMINER Work Phone: Endocrinology Comment on above: Refill Request Start: 02-19-2022 ambulatory Kerri C Cioce STUCCO APPLICATOR.FORENSIC MEDICAL EXAMINER Work Phone: Endocrinology Comment on above: increase in symptoms Start: 01-30-2022 End: 01-30-[address] ELENI WHITE Facility:[facility] Procedures Date Procedure Procedure Detail Performing Clinician Start: 07-12-2023 Lipid 1996 panel - S lucia or Plasma Kerri Cioce STUCCO APPLICATOR.FORENSIC MEDICAL EXAMINER Work Phone: Start: 03-19-2023 Mammography Monae RILEY Work Phone: Start: 02-18-2023 Microscopic observat ion [Identifier] in Cervix by Cyto stain Monae RILEY Work Phone: Start: 07-07-2021 Lipid 1996 panel - S lucia or Plasma Kerri Fernandez APRN.CNP Work Phone: Start: 11-22-2017 Mammography Kerri lan APRN.CNP Work Phone: Plan of Treatment Date Care Activity Detail Author Start: 07-11-2028 Lipid panel Lipid Screening [facility] Start: 01-29-2027 Screening for malign ant neoplasm of cervix [facility] Start: 07-11-2026 [facility] Start: 07-07-2026 Lipid panel Lipid Screening [facility] Start: 07-07-2026 LIPID SCREEN LIPID SCREEN [facility] Start: 04-19-2026 Diabetes Screening [facility] [place] Start: 02-18-2026 Screening for malign ant neoplasm of cervix Pap Smear [facility] Start: 12-07-2025 [facility] Start: 05-03-2025 DIABETES SCREEN DIABETES SCREEN [facility] Start: 03-01-2025 End: 03-01-2025 Patient encounter procedure 03/01/2025 9:00 AM EST Office Visit [facility] [address] [id number] Monae Roper PA [address] [place], [place] [id number] [facility] Start: 05-12-2024 DIABETES SCREEN DIABETES SCREEN [facility] Start: 03-19-2024 Screening for malign ant neoplasm of breast [facility] Start: 02-25-2024 End: 02-24-2025 DXA Skeletal system Views for bone density DEXA bone density Imaging Routine Postmenopausal state Expected: 02/25/2024 (Approximate), Expires: 02/24/2025 [facility] Comment on above: Expected: 02/25/2024 (Approximate), Expires: 02/24/2025 Start: 02-25-2024 End: 04-27-2025 MG Breast - bilateral Screening Bilateral screening mammogram Imaging Routine Breast cancer screening by mammogram Expected: 02/25/2024, Expires: 04/27/2025 [facility] Work Phone: Comment on above: Expected: 02/25/2024 , Expires: 04/27/2025 Start: 02-25-2024 End: 02-25-2024 Patient encounter procedure 02/25/2024 9:00 AM EST Office Visit [facility] [address] [place] [id number] Monae Roper PA [address] [place] [address] Arrived [facility] Comment on above: Arrived Start: 12-08-2023 End: 03-12-2024 Comprehensive metabolic 2000 panel - Serum or Plasma COMPREHENSIVE METABOLIC PANEL Lab Routine Insulin resistance Expected: 12/08/2023, Expires: 03/12/2024 [facility] Comment on above: Expected: 12/08/2023 , Expires: 03/12/2024 Start: 12-08-2023 End: 03-12-2024 Cortisol [Mass/volume] in Serum or Plasma CORTISOL, SERUM Lab Routine Unspecified hypothyroidism Expected: 12/08/2023, Expires: 03/12/2024 [facility] Comment on above: Expected: 12/08/2023 , Expires: 03/12/2024 Start: 12-08-2023 End: 03-12-2024 Hemoglobin A1c in Blood HEMOGLOBIN A1C Lab Routine Insulin resistance Expected: 12/08/2023, Expires: 03/12/2024 [facility] Work Phone: Comment on above: Expected: 12/08/2023 , Expires: 03/12/2024 Start: 12-08-2023 End: 03-08-2024 LIPID PANEL, NONFASTING LIPID PANEL, NONFASTING Lab Routine Insulin resistance Expected: 12/08/2023, Expires: 03/08/2024 [facility] Comment on above: Expected: 12/08/2023 , Expires: 03/08/2024 Start: 12-08-2023 End: 03-12-2024 Microalbumin/Creatinine [Mass Ratio] in Urine ALBUMIN/CREATININE RATIO, URINE Lab Routine Insulin resistance Expected: 12/08/2023 (Approximate), Expires: 03/12/2024 [facility] Comment on above: Expected: 12/08/2023 (Approximate), Expires: 03/12/2024 Start: 12-08-2023 End: 03-12-2024 Thyrotropin [Units/volume] in Serum or Plasma THYROID STIMULATING HORMONE Lab Routine Unspecified hypothyroidism Expected: 12/08/2023, Expires: 03/12/2024 [facility] Comment on above: Expected: 12/08/2023 , Expires: 03/12/2024 Start: 11-23-2023 Covid-19 Vaccine () Covid-19 Vaccine () [facility] Start: 11-23-2023 Influenza vaccination [facility] Start: 03-24-2023 Behavioral Health Screening Behavioral Health Screening [facility] Start: 03-24-2023 Depression Assessment Depression Ass essment [facility] Start: 11-22-2022 Covid-19 Vaccine () Covid-19 Vaccine () [facility] Start: 11-22-2022 Influenza vaccination Influenza Vacc ine (#1) [facility] Start: 04-24-2022 End: 06-24-2022 ALBUMIN/CREAT RATIO RND UR ALBUMIN/CREAT RATIO RND UR Lab Routine Insulin resistance Expected: 04/24/2022 (Approximate), Expires: 06/24/2022 [facility] Work Phone: Comment on above: Expected: 04/24/2022 (Approximate), Expires: 06/24/2022 Start: 04-24-2022 End: 06-24-2022 Comprehensive metabolic 2000 panel - Serum or Plasma COMP METABOLIC PANEL Lab Routine Insulin resistance Expected: 04/24/2022 (Approximate), Expires: 06/24/2022 [facility] Work Phone: Comment on above: Expected: 04/24/2022 (Approximate), Expires: 06/24/2022 Start: 04-24-2022 End: 06-24-2022 Hemoglobin A1c in Blood HGB A1C Lab Routine Insulin resistance Expected: 04/24/2022 (Approximate), Expires: 06/24/2022 [facility] Work Phone: Comment on above: Expected: 04/24/2022 (Approximate), Expires: 06/24/2022 Start: 04-24-2022 End: 06-24-2022 Thyrotropin [Units/volume] in Serum or Plasma TSH BLD Lab Routine Unspecified hypothyroidism Expected: 04/24/2022 (Approximate), Expires: 06/24/2022 [facility] Work Phone: Comment on above: Expected: 04/24/2022 (Approximate), Expires: 06/24/2022 Start: 04-24-2022 End: 06-24-2022 Thyroxine (T4) free [Mass/volume] in Serum or Plasma T4 FREE/FREE THYROX Lab Routine Unspecified hypothyroidism Expected: 04/24/2022 (Approximate), Expires: 06/24/2022 [facility] Work Phone: Comment on above: Expected: 04/24/2022 (Approximate), Expires: 06/24/2022 Start: 04-24-2022 End: 06-24-2022 Triiodothyronine (T3) Free [Mass/volume] in Serum or Plasma T3 FREE BLD Lab Routine Unspecified hypothyroidism Expected: 04/24/2022 (Approximate), Expires: 06/24/2022 [facility] Work Phone: Comment on above: Expected: 04/24/2022 (Approximate), Expires: 06/24/2022 Start: 03-24-2022 DEPRESSION ASSESSMENT DEPRESSION ASS ESSMENT [facility] Start: 02-19-2022 End: 04-21-2022 Triiodothyronine (T3) Free [Mass/volume] in Serum or Plasma T3 FREE BLD Lab Routine Unspecified hypothyroidism Expected: 02/19/2022 (Approximate), Expires: 04/21/2022 [facility] Work Phone: Comment on above: Expected: 02/19/2022 (Approximate), Expires: 04/21/2022 Start: 11-22-2021 Influenza vaccination INFLUENZA (#1) [facility] Start: 10-22-2021 PAP TESTING PAP TESTING [facility] Start: 10-22-2021 Screening for malign ant neoplasm of cervix Pap Testing [facility] Start: 03-30-2021 COVID-19 VACCINE (4 - Booster for Pfizer series) COVID-19 VACCINE (4 - Booster for Pfizer series) [facility] Start: 03-24-2021 DEPRESSION ASSESSMENT DEPRESSION ASS ESSMENT [facility] Start: 11-07-2019 SHINGRIX VACCINE (1 of 2) WOO GRIX VACCINE (1 of 2) [facility] Start: 10-23-2019 Screening for malign ant neoplasm of cervix Cervical Cancer Screening [facility] Start: 11-22-2018 Mammography MAMMOGRAM [facility] Start: 11-22-2018 Screening for malign ant neoplasm of breast Mammogram Screening [facility] Start: 2014 COLOGUARD (FIT-DNA) COLOGUARD (FIT-D NA) [facility] Start: 2014 Colonoscopy COLONOSCOPY [facility] Start: 2014 COLORECTAL CANCER SCREENING COLORECTAL CANCER SCREENING [facility] Start: [address] COLONOGRAPHY [facility] Start: 2014 FECAL OCCULT BLOOD FECAL OCCULT BLOO D [facility] Start: 2014 Screening for malign ant neoplasm of colon [facility] Start: 2014 SIGMOIDOSCOPY SIGMOIDOSCOPY [facility] Start: 11-07-1999 HPV TESTING HPV TESTING [facility] Start: 11-07-1999 Screening for malign ant neoplasm of cervix HPV Testing [facility] Start: 1988 Hepatitis B Vaccine (1 of 3 - 19+ 3-dose series) Hepatitis B Vaccine (1 of 3 - 19+ 3-dose series) [facility] Start: 1988 Urine microalbumin profile [facility] Start: 11-07-1987 ANNUAL PCP TEAM ASSISTANT BUSINESS MANAGER ANCELMO DISEASE VISIT ANNUAL PCP TEAM CHRONIC DISEASE VISIT [facility] Start: 11-07-1987 Anxiety Screening Anxiety Screening [facility] Start: 11-07-1987 Depression Screening Depression Scre ening [facility] Start: 11-07-1987 HIV SCREENING HIV SCREENING [facility] Start: 11-07-1987 HIV screening HIV Screening [facility] Start: 1969 HEPATITIS B (1 of 3 - 3-dose series) HEPATITIS B (1 of 3 - 3-dose series) [facility] Start: 1969 Hepatitis B Vaccine (1 of 3 - 3-dose series) Hepatitis B Vaccine (1 of 3 - 3-dose series) [facility] Start: 1969 Screening for malign ant neoplasm of colon [facility] THIN PREP TIS PAP AN D HR HPV DNA THIN PREP TIS PAP AND HR HPV DNA Pathology and Cytology Routine Well woman exam with routine gynecological exam Ordered: 02/25/2024 [facility] Comment on above: Ordered: 02/25/2024 US HEAD/NECK SOFT TI SSUE OTHER US HEAD/NECK SOFT TISSUE OTHER Radiology Routine Unspecified hypothyroidism 04/20/2023 5:17 PM EST [facility] Work Phone: Us soft tissue head & neck real time imge docm US THYROID/PARATHYROID Radiology Routine Unspecified hypothyroidism 04/20/2023 5:14 PM EST [facility] Work Phone: [facility] Immunizations Immunization Date Immunization Notes Care Provider [facility] 01-09-2018 influenza, injectabl e, quadrivalent, preservative free Kerri Cioce STUCCO APPLICATOR.FORENSIC MEDICAL EXAMINER Work Phone: [facility] 01-09-2018 influenza virus vacc ine, unspecified formulation Kerri Cioce STUCCO APPLICATOR.FORENSIC MEDICAL EXAMINER Work Phone: [facility] Payers Date Payer Category Payer Private Health Insurance [employer] [id number] 2018 Unknown [id number] 1969 Unknown [id number] 1969 Unknown [id number] 1969 Unknown [id number] 1969 Unknown [id number] 1969 Unknown [id number] 1970 Unknown [id number]. 72 1970 Unknown [id number]. 72 1969 Unknown [id number]. 72 1969 Unknown [id number]. 72 1969 Unknown [id number] 72 1969 Unknown [id number] 2.16.840.1.765471.3.579.2. 72 1969 Unknown [id number] 2.16.840.1.487262.3.579.2. 72 1969 Unknown [id number]. 727 1969 Unknown [id number] 72 1969 Unknown [id number]. 727 1959 Unknown [id number] Social History Date Type Detail Facility Start: 06-25-2018 End: 02-05-2023 Tobacco smoking status NHIS Never smoked tobacco [facility] Start: 06-25-2018 End: 05-06-2022 Tobacco use and exposure Smokeless tobacco non-user [facility] Start: 03-07-2021 End: 05-06-2022 Alcohol intake Current non-drinker of alcohol (finding) [facility] Start: 1970 Sex Assigned At Not on file [facility] Start: 05-06-2022 End: 02-18-2023 History of Social function [facility] Start: 05-06-2022 End: 02-18-2023 Tobacco use panel [facility] Adult Depression Scr eening Assessment 0 [facility] Start: 02-18-2023 Alcoholic beverage intake Life time non-drinker (finding) [facility] Start: 02-05-2023 Alcohol Comment caffeine: 1-[address] [facility] Clinical Notes 02-19-2022 to 02-25-2024 OSVALDO Bain - 02/25/2024 9:00 AM ESTAddendum Note - Nazia Lopez MA - 06/25/2023 2:40 PM EDTTelephone Encounter - Nazia Lopez MA - 06/25/2023 2:39 PM EDT Note Date & Type Note Facility 02-25-2024 History of Presen t illness Narrative Reason for Appointment: Patient ID: Brad Mejia is a 53 y.o. female who presents for Well Women Visit Patient presents today for Annual Exam. MEDICATIONS Current Outpatient Medications Medication Instructions Synthroid 100 MCG tablet take 1 tablet by mouth once daily EXCEPT TAKE 1/2 TABLET ON FRIDAY ALLERGIES Allergies Allergen Reactions Bee Venom Unknown Thyroid Rash PROBLEMS Active Ambulatory Problems Diagnosis Date Noted No Active Ambulatory Problems Resolved Ambulatory Problems Diagnosis Date Noted No Resolved Ambulatory Problems Past Medical History: Diagnosis Date Breast cyst, left Breast density History of bilateral salpingo-oophorectomy (BSO) History of total vaginal hysterectomy Mastodynia Non-smoker Post-menopausal Thyroid disease (CMS/HCC) Visit for review of DEXA scan 03/08/2022 HISTORY PAST MEDICAL HISTORY SOCIAL HISTORY Past Medical History: Diagnosis Date Breast cyst, left Breast density History of bilateral salpingo-oophorectomy (BSO) History of total vaginal hysterectomy Mastodynia Non-smoker Post-menopausal Thyroid disease (CMS/[facility]) Visit for review of DEXA scan 03/08/2022 osteopenia Social History Tobacco Use Smoking status: Never Smokeless tobacco: Not on file Substance Use Topics Alcohol use: Never Comment: caffeine: 1-2 cups per day Drug use: Not on file FAMILY HISTORY Family History Problem Relation Name Age of Onset Thyroid disease Mother Raynaud syndrome Mother ALS Mother Other (POTS) Mother Prostate cancer Father Alcohol abuse Father Hypertension Father No Known Problems Brother Alzheimer's disease Maternal Grandmother Heart disease Maternal Grandfather Hypertension Paternal Grandmother Colon cancer Paternal Grandmother Hypertension Paternal Grandfather Alcohol abuse Paternal Grandfather Diabetes Paternal Grandfather Heart disease Paternal Grandfather SURGICAL HISTORY Past Surgical History: Procedure Laterality Date APPENDECTOMY 2008 HYSTERECTOMY 2010 lysis of adhesions with TVH , BSO, Cystoscopy OTHER SURGICAL HISTORY 2002 [facility] OVARIAN CYST REMOVAL 1996 REVIEW OF SYSTEMS Review of Systems: Review of Systems Constitutional: Negative. HENT: Negative. Eyes: Negative. Respiratory: Negative. Cardiovascular: Negative. Gastrointestinal: Negative. Genitourinary: Negative. Musculoskeletal: Negative. Skin: Negative. Neurological: Negative. All other systems reviewed and are negative. Hematological: Negative. Endocrine: Negative. Allergic/Immunologic: Negative. OBJECTIVE Objective: Physical Exam Constitutional: Appearance: Normal appearance. Genitourinary: Cervix is absent. Uterus is absent. Breasts: Breasts are soft. Right: Normal. Left: Normal. HENT: Head: Normocephalic. Nose: Nose normal. Mouth/Throat: Mouth: Mucous membranes are moist. Cardiovascular: Rate and Rhythm: Normal rate. Pulmonary: Effort: Pulmonary effort is normal. Abdominal: General: Bowel sounds are normal. Palpations: Abdomen is soft. Musculoskeletal: General: Normal range of motion. Cervical back: Normal range of motion. Neurological: General: No focal deficit present. Mental Status: She is alert. Skin: General: Skin is warm and dry. Psychiatric: Mood and Affect: Mood normal. Vitals and nursing note reviewed. Exam conducted with a international student advisor present. Vitals: Estimated body mass index is 25.2 kg/m as calculated from the following: Height as of 02/18/23: 5' 6 . Weight as of this encounter: 156 lb 1.9 oz. BP: 110/72 No LMP recorded. ASSESSMENT & PLAN ICD-10-CM 1. Well woman exam with routine gynecological exam Z01.419 THIN PREP TIS PAP AND HR HPV DNA CANCELED: THIN PREP TIS PAP AND HR HPV DNA 2. Breast cancer screening by mammogram Z12.31 Bilateral screening mammogram Bilateral screening mammogram CANCELED: Bilateral screening mammogram CANCELED: Bilateral screening mammogram 3. Postmenopausal state Z78.0 DEXA bone density CANCELED: DEXA bone density 4. Postmenopausal atrophic vaginitis N95.2 DISCONTINUED: estradiol (Climara) 0.025 MG/24HR Annual: Patient presents today for an annual exam. Patient states she is doing well and has no complaints. Pap was obtained without difficulty and patient given mammogram and dexa scan order to have scheduled/obtained. Orders Placed This Encounter Procedures Bilateral screening mammogram DEXA bone density Follow Up: Patient is to return in one year for annual unless needed otherwise. Documented by OSVALDO Bain on behalf of: OSVALDO Bain documented in this encounter [facility] 02-02-2024 Note Patient Education ENT Cough, Adult Coughing is a reflex that clears your throat and airways (respiratory system). It helps heal and protect your lungs. It is normal to cough from time to time. A cough that happens with other symptoms or that lasts a long time may be a sign of a condition that needs treatment. A short-term (acute) cough may only last 2?3 weeks. A long-term (chronic) cough may last 8 or more weeks. Coughing is often caused by: ??? Diseases, such as: ? An infection of the respiratory system. ? Asthma or other heart or lung diseases. ? Gastroesophageal reflux. This is when acid comes back up from the stomach. ??? Breathing in things that irritate your lungs. ??? Allergies. ??? Postnasal drip. This is when mucus runs down the back of your throat. ??? Smoking. ??? Some medicines. Follow these instructions at home: Medicines ??? Take snhw-jql-lwaapid and prescription medicines only as told by your health care provider. ??? Talk with your provider before you take cough medicine (cough suppressants). Eating and drinking ??? Do not drink alcohol. ??? Avoid caffeine. ??? Drink enough fluid to keep your pee (urine) pale yellow. Lifestyle ??? Avoid cigarette smoke. ??? Do not use any products that contain nicotine or tobacco. These products include cigarettes, chewing tobacco, and vaping devices, such as e-cigarettes. If you need help quitting, ask your provider. ??? Avoid things that make you cough. These may include perfumes, candles, cleaning products, or campfire smoke. General instructions ??? Watch for any changes to your cough. Tell your provider about them. ??? Always cover your mouth when you cough. ??? If the air is dry in your bedroom or home, use a cool mist vaporizer or humidifier. ??? If your cough is worse at night, try to sleep in a semi-upright position. ??? Rest as needed. Contact a health care provider if: ??? You have new symptoms, or your symptoms get worse. ??? You cough up pus. ??? You have a fever that does not go away or a cough that does not get better after 2?3 weeks. ??? You cannot control your cough with medicine, and you are losing sleep. ??? You have pain that gets worse or is not helped with medicine. ??? You lose weight for no clear reason. ??? You have night sweats. Get help right away if: ??? You cough up blood. ??? You have trouble breathing. ??? Your heart is beating very fast. These symptoms may be an emergency. Get help right away. Call 911. ??? Do not wait to see if the symptoms will go away. ??? Do not drive yourself to the hospital. This information is not intended to replace advice given to you by your health care provider. Make sure you discuss any questions you have with your health care provider. Document Revised: 11/08/2022 Document Reviewed: 11/08/2022 [employer] Patient Education ? 2023 [employer]. [facility] 01-13-2024 Note Patient Education Urology Urinary Frequency, Adult Urinary frequency means urinating more often than usual. You may urinate every 1?2 hours even though you drink a normal amount of fluid and do not have a bladder infection or condition. Although you urinate more often than normal, the total amount of urine produced in a day is normal. With urinary frequency, you may have an urgent need to urinate often. The stress and anxiety of needing to find a bathroom quickly can make this urge worse. This condition may go away on its own, or you may need treatment at home. Home treatment may include bladder training, exercises, taking medicines, or making changes to your diet. Follow these instructions at home: Bladder health Your health care provider will tell you what to do to improve bladder health. You may be told to: ? Keep a bladder diary. Keep track of: ? What you eat and drink. ? How often you urinate. ? How much you urinate. ? Follow a bladder training program. This may include: ? Learning to delay going to the bathroom. ? Double urinating, also called voiding. This helps if you are not completely emptying your bladder. ? Scheduled voiding. ? Do Kegel exercises. Kegel exercises strengthen the muscles that help control urination, which may help the condition. Eating and drinking Follow instructions from your health care provider about eating or drinking restrictions. You may be told to: ? Avoid caffeine. ? Drink fewer fluids, especially alcohol. ? Avoid drinking in the evening. ? Avoid foods or drinks that may irritate the bladder. These include coffee, tea, soda, artificial sweeteners, citrus, tomato-based foods, and chocolate. ? Eat foods that help prevent or treat constipation. Constipation can make urinary frequency worse. You may need to take these actions to prevent or treat constipation: ? Drink enough fluid to keep your urine pale yellow. ? Take qxqk-vzr-cbvbyde or prescription medicines. ? Eat foods that are high in fiber, such as beans, whole grains, and fresh fruits and vegetables. ? Limit foods that are high in fat and processed sugars, such as fried or sweet foods. General instructions ? Take pyom-gml-erjlwng and prescription medicines only as told by your health care provider. ? Keep all follow-up visits. This is important. Contact a health care provider if: ? You start urinating more often. ? You feel pain or irritation when you urinate. ? You notice blood in your urine. ? Your urine looks cloudy. ? You develop a fever. ? You begin vomiting. Get help right away if: ? You are unable to urinate. Summary ? Urinary frequency means urinating more often than usual. With urinary frequency, you may urinate every 1?2 hours even though you drink a normal amount of fluid and do not have a bladder infection or other bladder condition. ? Your health care provider may recommend that you keep a bladder diary, follow a bladder training program, or make dietary changes. ? If told by your health care provider, do Kegel exercises to strengthen the muscles that help control urination. ? Take auct-xzj-kwswxkd and prescription medicines only as told by your health care provider. ? Contact a health care provider if your symptoms do not improve or get worse. This information is not intended to replace advice given to you by your health care provider. Make sure you discuss any questions you have with your health care provider. Document Revised: 10/13/2020 Document Reviewed: 10/13/2020 [employer] Patient Education ? 2023 [employer]. [facility] 10-03-2023 Note General Surgery Offi ce/Clinic Note Chief Complaint consultation for rectal bleeding HPI Staff 52 year old female presents on consultation from Dr. Tavares for rectal pain and bleeding. Reports noting rectal pain and bleeding starting in April or May after bout of constipation. Verbalized pain is only with bowel movements. She is unsure if pain is internal or external. Verbalized blood is bright red and primarily with every bowel movement. Only notes blood when wiping. Reports constipation has resolved but continues to feel the need to strain for bowel movements. Last colonoscopy completed 12/2020- normal. 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 no tobacco use. Review of Systems PHQ Score Initial Depression Screen Score: 0 SCORE ROS - Provider Constitutional: no fever, no sweats, no weight loss. Eyes: no glasses, no blurred vision, no visual loss. ENMT: no dentures, no hoarseness, no swallowing difficulties, no hearing loss, no ear infection(s), no nose bleeds. Cardiovascular: normal blood pressure, no chest pain, regular heartbeat, no heart murmur. Respiratory: no shortness of breath, no cough, no asthma, no wheezing. Gastrointestinal: no nausea, no vomiting, no diarrhea, no constipation, no blood in stool, no change in bowel habits, no abdominal pain, no hepatitis. Genitourinary: no kidney stones, no urine infection, no dysuria. Musculoskeletal: no pain, no weakness. Skin: no changing moles, no rash, no skin lumps. Neurologic: no seizures, no epilepsy, no headache. Psychiatric: no emotional or psychiatric problem. Heme/Lymph: no bleeding problems, no anemia, no blood clots, no transfusions. Allergy/Immunologic: no swollen lymph nodes/glands, no IV drug abuse. Other: Additional ROS info: Except as noted in the above Review of Systems and in the History of Present Illness, all other systems have been reviewed and are negative or noncontributory. Physical Exam Vitals & Measurements HR: 73(Peripheral) RR: 16 BP: 148/98 HT: 66 in HT: 167.7 cm WT: 70.7 kg WT: 155.54 lb BMI: 25.14 HEENT: normal conjunctiva, sclera clear, no scleral icterus, EOM intact, PERRLA, oral mucosa moist without lesions. Gastrointestinal: soft, non distended, no tenderness, no masses, no palpable hernias, diastasis recti no, no hepatosplenomegaly; normal bs rectal: no perianal irritation or skin tags, no fissures; normal tone, no masses or blood. Musculoskeletal: normal gait, digits and nails without infection, nodes, cyanosis, clubbing. Skin: no rashes, no lesions, no ulcers, no subcutaneous nodules, induration. Psychiatric/Neuro: oriented to time, place, person, judgement normal, affect appropriate for age, insight intact, no focal deficits. Tests: , review of old records completed , Assessment/Plan 1. Rectal bleeding (K62.5: Hemorrhage of anus and rectum) likely irritation from straining/hard stools; recommend high fiber diet and daily fiber supplement (25-30 gms of fiber/day; increased water intake; can take MiraLax as needed; if persists, would recommend flexible sigmoidoscopy under anesthesia; patient is to call with problems/questions. Follow-up With When Contact Information DYLAN RAO, Eliecer Briones, NAKITA Only if needed [address] [place] [address]- Additional Instructions: Problem List/Past Medical History Ongoing BMI 25.0-25.9,adult Chronic shoulder pain Dysuria Facial numbness Groin pain Hemorrhoids HLD (hyperlipidemia) Hypothyroidism Influenza vaccination declined Left subscapular pain Nonsmoker Overweight Rectal bleeding Rhinosinusitis Rosacea Sacrococcygeal pain Screening for diabetes mellitus Screening for endocrine, nutritional, metabolic and immunity disorder Screening for malignant neoplasm of colon Submandibular swelling Tachycardia Tightness of neck Visit for preventive health examination Historical Postural orthostatic tachycardia syndrome Raynaud's disease Procedure/Surgical History Colonoscopy (12/29/2020), Colonoscopy (2013), Hysterectomy (07/31/2009), Appendectomy, [place], Ovarian cystectomy. Medications Calcium 600 D Tab, 1 tab(s), Oral, Daily estradiol 0.025 mg/24 hours twice weekly Transderm ER Film, TransDermal Nature's Bounty Red Krill Oil Synthroid 100 mcg Tab Vitamin B12 Vitamin D, 2000 International Units, (more content not included)... [facility] Comment on above: Result Comment: Elec tronically Signed By: Eliecer MCMANUS MD\.br\Date and Time Signed: 10/03/23 15:06 EDT 06-25-2023 Miscellaneous Notes Addended by: NAZIA LOPEZ on: 06/25/2023 02:40 PM Modules accepted: Orders Message has been routed to Kerri Fernandez CNP for review. Edna Hightower in [place] called to state PT is trying to waste picker this medication, and they had noted that our office called to discontinue. Please advise and reorder meds if agreeable, or contact Pt to advise. Thank you documented in this encounter [facility] 06-25-2023 Miscellaneous Notes Requester: Patient Patients last Endocrinology visit occurred 04/17/2023. Follow-up evaluation has been established Upcoming Endocrinology Appointments - Next 365 Days No appointments to display . Requested Prescriptions Pending Prescriptions Disp Refills SYNTHROID 100 mcg tablet 90 tablet 3 Sig: take 1 tablet by mouth once daily EXCEPT 1/2 TABLET ON FRIDAY If patient is due for an appointment please route to provider for refill consideration and also to the endo scheduling pool. PSS NOTE: Patient needs scheduled appointment No Radha Mc MA documented in this encounter [facility] 06-25-2023 Miscellaneous Notes [employer] message has been sent back to the patient. Awaiting her response. documented in this encounter [facility] 04-20-2023 Note HNO ID: [id number] Author: KRYSYTNA TAPIA RDMS, RVT Service: Radiology Author Type: Airport Traffic Controller Type: Progress Notes Filed: 04/20/2023 17:10 Note Text: Radiology Service Progress Note PATIENT NAME: Brad Mejia DATE OF SERVICE: April 20, 2023 TIME: 5:09 PM PATIENT IDENTITY VERIFICATION COMPLETED USING TWO (2) IDENTIFIERS: Name and Date of confirmed by patient verbally and Name and Date of confirmed by identification band. FALL SCREENING: Has the patient had 2 falls in the last year or 1 fall with injury or currently using an Ambulatory Assistive Device (Walker, Cane, Wheelchair, Crutches, etc.)? No PATIENT GENDER DATA: Female. status: : No status: NO. PATIENT RELEVANT IMPLANT DATA REVIEWED: Not Applicable PATIENT PRESENTS WITH AN IMPLANTABLE OR ATTACHED LIVESTOCK BREEDER: na RADIOLOGY DEPARTMENT: Ultrasound PERIPHERAL IV DATA: Not applicable SIGNED BY: Krystyna Tapia RDMS, RVT April 20, 2023 5:09 PM [facility] 04-20-2023 History of Presen t illness Narrative Radiology Service Progress Note PATIENT NAME: Brad Mejia DATE OF SERVICE: April 20, 2023 TIME: 5:09 PM PATIENT IDENTITY VERIFICATION COMPLETED USING TWO (2) IDENTIFIERS: Name and Date of confirmed by patient verbally and Name and Date of confirmed by identification band. FALL SCREENING: Has the patient had 2 falls in the last year or 1 fall with injury or currently using an Ambulatory Assistive Device (Walker, Cane, Wheelchair, Crutches, etc.)? No PATIENT GENDER DATA: Female. status: : No status: NO. PATIENT RELEVANT IMPLANT DATA REVIEWED: Not Applicable PATIENT PRESENTS WITH AN IMPLANTABLE OR ATTACHED LIVESTOCK BREEDER: na RADIOLOGY DEPARTMENT: Ultrasound PERIPHERAL IV DATA: Not applicable SIGNED BY: Krystyna Tapia RDMS, RVT April 20, 2023 5:09 PM documented in this encounter [facility] 04-17-2023 Note HNO ID: [id number] Author: KERRI FERNANDEZ APRN.FORENSIC MEDICAL EXAMINER Service: ? Author Type: Nurse Practitioner Type: Progress Notes Filed: 04/17/2023 18:18 Note Text: VIRTUAL VISIT PROGRESS NOTE CC Brad Mejia is a 52 year old female who presents today for thyroid and insulin resistance problem. I have communicated my name and active licensure. The patient's identity and physical location were verified at the time of this visit. Either the patient or their legal insurance follow up representative has been informed of the risks and benefits of -- and alternatives to -- treatment through a remote evaluation and consents to proceed with the evaluation remotely. HPI Diagnosed with hypothyroid ~ 2001 Last endocrine OV 05/06/2022 Some elements copied from my note 05/06/2022 which have been updated where appropriate, and all reflect current medical decision making from date of this visit. Still feeling tired Admits doesn't drink a lot of water Sts she feels lightheaded if drinks too much Denies palpitations/tremors No vocal changes Feels well overall HPI 04/17/2023 Did not do labs, will do in the next week Feels well Noticed pea sized lump salivary gland area on R side, initially tender, now no longer Requesting ultrasound Energy is good Intermittent/rare palpitations Small amount of anxiety, but believes is related to work CURRENT THYROID MEDS SYNTHROID 100 mcg 1 tab daily except 1/2 on Friday CURRENT LABS none Component Latest Ref Rng AND Units 12/07/2022 Hemoglobin A1C 4.3 - 5.6 % 5.2 Estimated Average Glucose mg/dL 103 TSH 0.270 - 4.200 mIU/L 1.640 Free T4 0.9 - 1.7 ng/dL 1.2 Free T3 2.3 - 4.1 pg/mL 2.8 C-Peptide 0.81 - 3.85 ng/mL 2.10 PAST MEDICAL HISTORY Diagnosis Date Unspecified hypothyroidism Hypothyroidism PAST SURGICAL HISTORY Procedure Laterality Date COLONOSCOPY FLX DX W/COLLJ SPEC WHEN PFRMD 12/31/10 Colonoscopy: hemorroids. PAST SURGICAL HISTORY OF appendix September 28 SALPINGO-OOPHORECTOMY COMPL/PRTL UNI/BI SPX 07/2009 Salpingo-oophorectomy VAGINAL HYSTERECTOMY UTERUS 250 GM/< 07/2009 Hysterectomy, vaginal. Uterine prolapse, fibroids. FAMILY HISTORY Problem Relation Age of Onset Thyroid Mother CAD. Coronary Artery Disease Maternal Grandfather Coronary Artery Disease Paternal Aunt Hypertension Father other (spinal muscular atrophy [Other]) Mother other (als [Other]) Unknown maternal grand aunt/uncle None Brother None Son Social History Tobacco Use Smoking status: Never Smokeless tobacco: Never Substance Use Topics Alcohol use: No Drug use: No Current Outpatient Medications Medication Sig SYNTHROID 100 mcg tablet take 1 tablet by mouth once daily EXCEPT 1/2 TABLET ON FRIDAY SYNTHROID 100 mcg tablet Take 1 tab daily except Friday take 1/2 tab only estradiol (CLIMARA) 0.025 mg/24 hr Apply 1 Patch as directed one time a week. NIFEdipine ER (PROCARDIA XL) 30 mg 24 hr tablet Take 1 tablet by mouth once daily. nitroglycerin (NITRO-BID) 2 % ointment Apply to affected finger tips bid losartan (COZAAR) 25 mg tablet One tab po qd colzc-phaff-[id number]-fvf-xfe-llmnlq [id number] mg cap Take by mouth. cyanocobalamin (VITAMIN B-12) 500 mcg tablet Take 1 tablet by mouth once daily. Cholecalciferol, Vitamin D3, (VITAMIN D) 1,000 unit ORAL Tab Take 2000 iu daily No current facility-administered medications for this visit. ALLERGIES Allergen Reactions Bees Hives, Swelling Lipitor [Atorvastat* GI Upset Mushrooms [Other] NAUSEA, ROOM SPINS Prednisone Intolerance Thyroid RASH, ARMOUR THYROID REVIEW OF SYSTEMS - POSITIVES IN BOLD GENERAL:No weight loss, malaise or fevers HEENT:Negative for frequent or significant headaches, No changes in hearing or vision, no nose bleeds or other nasal problems NECK:Negative for lumps, goiter, pain and significant neck swelling RESPIRATORY: Negative for cough, hemoptysis, wheezing, COPD, dyspnea or shortness of breath CARDIOVASCULAR: Negative for chest pain, leg swelling, hypertension, CHF or palpitations PHYSICAL EXAMINATION: ( VIDEO EXAM ONLY) GENERAL: alert and appropriate, in no distress, well-hydrated, well nourished, and happy, smiling, interactive SKIN: no rash noted HEAD: normocephalic, no abnormality or lesion noted EYES: PERRL NECK: full ROM, no cervical LNs noted ACANTHOSIS: EXTREMITIES: not assessed NEUROLOGIC: no obvious deficit ASSESSMENT: (E03.9) Unspecified hypothyroidism (primary encounter diagnosis) Comment: no current TFTs will do labs, await results Plan: TSH BLD, T4 FREE/FREE THYROX, T3 FREE BLD (E88.819) Insulin resistance Comment: no current labs, will do labs, await results. Recommended diet: Low carbohydrate and Low saturated fat, low simple sugar, high fiber diet Exercise minimally 150 minutes per week, increase as tolerated. Adequate hydration - 1/2 body wgt in oz of water daily, unless fluid restriction applies. Patient to continue to follow (more content not included)... [facility] 03-11-2023 Miscellaneous Notes Updated pt that her labs will not be due again until 05/2023. documented in this encounter [facility] 05-07-2022 Miscellaneous Notes Sent to provider for review allergy indication. Teresa Martínez MA documented in this encounter [facility] 02-19-2022 Miscellaneous Notes Spoke with provider and she stated for pt to have labs done due to symptoms. Per Kerri Fernandez CNP ok to pend and send new lab orders for before appointment in April. Updated pt via [employer] message. Pended below, Please advise. documented in this encounter [facility] Evaluation note Diagnosis Insulin resistance- Primary Dysmetabolic Syndrome X Hypothyroidism, unspecified type [facility] Diagnosis Unspecified hypothyroidism [facility] Diagnosis Insulin resistance- Primary Dysmetabolic Syndrome X Unspecified hypothyroidism [facility] Diagnosis Well woman exam with routine gynecological exam Routine gynecological examination Breast cancer screening by mammogram Postmenopausal state Asymptomatic postmenopausal status (age-related) (natural) Postmenopausal atrophic vaginitis documented [facility] this [facility] N[facility]ative* Diagnostic Procedure Only (Routine) - Closed Specialty Diagnoses / Procedures Referred By Penny t Referred To Contact [facility] IMAG[facility] Diagnoses Unspecified hypothyroidism Procedures US THYROID/PARATHYROID US SOFT TISSUE HEAD & NECK REAL TIME IMGE DOCM Kerri Fernandez, STUCCO APPLICATOR.FORENSIC MEDICAL EXAMINER [address] [place] [address] [place] [address] Referral ID Status Reason Start Date Expiration Date V isits Requested Visits Authorized [id number] Closed Auto-Generate d Referral 04/17/2023 05/16/2024 1 1 [facility] Summary Purpose Family History No Family History Records FoundNo Family History Records FoundNo Family History Records FoundNo Family History Records FoundNo Family History Records FoundNo Family History Records FoundNo Family History Records FoundNo Family History Records Found Advance Directives No Advanced Directives Records FoundNo Advanced Directives Records FoundNo Advanced Directives Records FoundNo Advanced Directives Records FoundNo Advanced Directives Records FoundNo Advanced Directives Records FoundNo Advanced Directives Records FoundNo Advanced Directives Records Found Additional Source Comments INFORMATION SOURCE (unrecogn ized section and content) DATE CREATED AUTHOR 12/26/2018 [facility] DATE CREATED AUTHOR AUTHOR'S ORGANIZ ATION 02/08/2022 [facility] DATE CREATED AUTHOR AUTHOR'S ORGANIZ ATION 02/19/2023 [facility] DATE CREATED AUTHOR AUTHOR'S ORGANIZ ATION 04/21/2023 [facility] DATE CREATED AUTHOR AUTHOR'S ORGANIZ ATION 12/15/2023 [facility] DATE CREATED AUTHOR AUTHOR'S ORGANIZ ATION 01/17/2024 [facility] DATE CREATED AUTHOR AUTHOR'S ORGANIZ ATION 01/25/2024 [facility] DATE CREATED AUTHOR AUTHOR'S ORGANIZ ATION 02/04/2024 [facility] Source Comments (unrecognize d section and content) In the event this informatio n is protected by the Federal Confidentiality of Alcohol and Drug Abuse Patient Records regulations: The Federal rules restrict any use of the information to criminally investigate or prosecute any alcohol or drug abuse patient.[facility] the event this information is protected by the Federal Confidentiality of Alcohol and Drug Abuse Patient Records regulations: The Federal rules restrict any use of the information to criminally investigate or prosecute any alcohol or drug abuse patient.[facility] the event this information is protected by the Federal Confidentiality of Alcohol and Drug Abuse Patient Records regulations: The Federal rules restrict any use of the information to criminally investigate or prosecute any alcohol or drug abuse patient.[facility] the event this information is protected by the Federal Confidentiality of Alcohol and Drug Abuse Patient Records regulations: The Federal rules restrict any use of the information to criminally investigate or prosecute any alcohol or drug abuse patient.[facility] the event this information is protected by the Federal Confidentiality of Alcohol and Drug Abuse Patient Records regulations: The Federal rules restrict any use of the information to criminally investigate or prosecute any alcohol or drug abuse patient.[facility] the event this information is protected by the Federal Confidentiality of Alcohol and Drug Abuse Patient Records regulations: The Federal rules restrict any use of the information to criminally investigate or prosecute any alcohol or drug abuse patient.[facility] the event this information is protected by the Federal Confidentiality of Alcohol and Drug Abuse Patient Records regulations: The Federal rules restrict any use of the information to criminally investigate or prosecute any alcohol or drug abuse patient.[facility] Campus[facility] the event this information is protected by the Federal Confidentiality of Alcohol and Drug Abuse Patient Records regulations: The Federal rules restrict any use of the information to criminally investigate or prosecute any alcohol or drug abuse patient.[facility] Campus[facility] the event this information is protected by the Federal Confidentiality of Alcohol and Drug Abuse Patient Records regulations: The Federal rules restrict any use of the information to criminally investigate or prosecute any alcohol or drug abuse patient.[facility] Campus[facility] the event this information is protected by the Federal Confidentiality of Alcohol and Drug Abuse Patient Records regulations: The Federal rules restrict any use of the information to criminally investigate or prosecute any alcohol or drug abuse patient.[facility] the event this information is protected by the Federal Confidentiality of Alcohol and Drug Abuse Patient Records regulations: The Federal rules restrict any use of the information to criminally investigate or prosecute any alcohol or drug abuse patient.[facility] Teams (unrecognized sec tion and content) Wood Crafter Relationship Specialty Start Date End Date Gay Bullard PCP - General 08/16/05 Zuly Vasquez [address] [place] [id number] Referring Internal Medicine 05/20/19 Wood Crafter Relationship Specialty Start Date End Date Gay Bullard PCP - General 08/16/[address] [place], [place] [phone] Referring Internal Medicine 05/20/19 Wood Crafter Relationship Specialty Start Date End Date Gay Bullard MD PCP - General 08/16/05 Zuly Vasquez FORENSIC MEDICAL EXAMINER [address] [place], [place] [phone] Referring Internal Medicine 05/20/19 Wood Crafter Relationship Specialty Start Date End Date Gay Bullard MD PCP - General 08/16/05 Zuly Vasquez CNP [address] [place] [address] Referring Internal Medicine 05/20/19 Wood Crafter Relationship Specialty Start Date End Date Gay Bullard MD PCP - General 08/16/05 Zuly Vasquez CNP [address] [place] [address] Referring Internal Medicine 05/20/19 Wood Crafter Relationship Specialty Start Date End Date Gay Bullard MD PCP - General 08/16/05 Zuly Vasquez CNP [address] [place], [place] [phone] Referring Internal Medicine 05/20/19 Wood Crafter Relationship Specialty Start Date End Date Gay Bullard MD PCP - General 08/16/05 Zuly Vasquez CNP [address] [place], [place] [phone] Referring Internal Medicine 05/20/19 Wood Crafter Relationship Specialty Start Date End Date Gay Bullard MD PCP - General 08/16/05 Zuly Vasquez CNP [address] [place] [address] Referring Internal Medicine 05/20/19 Wood Crafter Relationship Specialty Start Date End Date Gay Bullard MD PCP - General 08/16/05 Zuly Vasquez CNP [address] [place], [place] [phone] Referring Internal Medicine 05/20/19 Wood Crafter Relationship Specialty Start Date End Date Gay Bullard MD [address] [place] [address] PCP - General Physician Office Copy Selector 02/18/23 Wood Crafter Relationship Specialty Start Date End Date Gay Bullard MD [address] [place] [address] PCP - General Physician Office Copy Selector 02/18/23 Reason for Visit (unrecogniz ed section and content) Reason Comments Refill Request Reason Comments Medication Request See note Reason Onset Date Comments Refill Request 06/25/2023 Reason Comments Well Women Visit FOR RECORDS PERTAINING TO PATIENTS WHO ARE OR HAVE BEEN ENROLLED IN A CHEMICAL DEPENDENCY/SUBSTANCEABUSE PROGRAM, SOME INFORMATION MAY BE OMITTED. This clinical summary was aggregated from multiple sources. Caution should be exercised in using it in the provision of clinical care. This summary normalizes information from multiple sources, and as a consequence, information in this document may materially change the coding, format and clinical context of patient data. In addition, data may be omitted in some cases. CLINICAL DECISIONS SHOULD BE BASED ON THE PRIMARY CLINICAL RECORDS. [facility] [employer] [facility]. provides no warranty or guarantee of the accuracy or completeness of information in this document.
== END 2024-02-25 19:18 | disposition home or self-care (01) ==
LOC: LAB 19:17
PROVIDERS: Visit Provider Physician Assistant
DX: Z01.419 Encounter for gynecological examination (general) (routine) without abnormal findings (principal)
CPT/HCPCS: 87624; 88175

== ENCOUNTER 2025-03-01 19:07 | Outpatient (REF) | payer OTHER, SELFPAY ==
--- OUTSIDE RECORDS SUMMARY | 2025-03-01 09:00 | XMS_ITS | Encounter Summary ---
Author Organization [facility] Address [address] [place] [address] Care Team Providers Care Marker Hand Name Role Phone Gay Soriano MD Primary Care Provider + Reason for Visit * ReasonCommentsGynecologic Exam Encounter Details DateTypeDepartmentCare Team (Latest Contact Info)Gleukndxwtz23/09/2025 9:00 AM ESTOffice Visit [facility] [address] [place] [phone] Monae Roper PA [address] [place], [facility]11 Well woman exam with routine gynecological exam; Encounter for screening mammogram for malignant neoplasm of breast; Postmenopausal state; Postmenopausal atrophic vaginitis Social History Tobacco UseTypesPacks/DayYears UsedDateSmoking Tobacco: NeverAlcohol UseStandard Drinks/WeekCommentsNever0 (1 standard drink = 0.6 oz pure alcohol)caffeine: 1-2 cups per dayCommentsUnknownSex and Gender InformationValueDate Recorded Sex Assigned at BirthNot on fileLegal VvgXanbws74/15/2023 7:09 PM EDTGender IdentityNot on fileSexual OrientationNot on filedocumented as of this encounter Last Filed Vital Signs Vital SignReadingTime TakenCommentsBlood Bgvfipmt779/7803/01/2025 8:58 AM EST Pulse--Temperature--Respiratory Rate--Oxygen Saturation--Inhaled Oxygen Concentration--Feabrf86.3 kg (155 lb)03/01/2025 8:58 AM ESTHeight--Body Mass Index25.02104/20/2022 8:44 AM ESTdocumented in this encounter Progress Notes * OSVALDO Bain - 03/01/2025 9:00 AM EST Reason for Appointment: Patient ID: Mila Mejia is a 54 y.o. female who presents for Gynecologic Exam Patient presents today for Annual Exam. MEDICATIONS Current Outpatient Medications Medication Instructions Climara 0.025 MG/24HR 1 patch, Transdermal, Weekly Synthroid 100 MCG tablet take 1 tablet by mouth once daily EXCEPT TAKE 1/2 TABLET ON FRIDAY ALLERGIES Allergies Allergen Reactions Atorvastatin GI intolerance Bee Venom Unknown Beeswax Hives and Swelling Prednisone GI intolerance Thyroid Rash PROBLEMS Active Ambulatory Problems Diagnosis Date Noted No Active Ambulatory Problems Resolved Ambulatory Problems Diagnosis Date Noted No Resolved Ambulatory Problems Past Medical History: Diagnosis Date Breast cyst, left Breast density History of bilateral salpingo-oophorectomy (BSO) History of total vaginal hysterectomy Mastodynia Non-smoker Post-menopausal Thyroid disease Visit for review of DEXA scan 03/08/2022 HISTORY PAST MEDICAL HISTORY SOCIAL HISTORY Past Medical History: Diagnosis Date Breast cyst, left Breast density History of bilateral salpingo-oophorectomy (BSO) History of total vaginal hysterectomy Mastodynia Non-smoker Post-menopausal Thyroid disease Visit for review of DEXA scan 03/08/2022 [...] , BSO, Cystoscopy OTHER SURGICAL HISTORY 2002 [place] [facility] OVARIAN CYST REMOVAL 1996 REVIEW OF SYSTEMS Review of Systems: Review of Systems Constitutional: Negative. HENT: Negative. Eyes: Negative. Respiratory: Negative. Cardiovascular: Negative. Gastrointestinal: Negative. Genitourinary: Negative. Musculoskeletal: Negative. Skin: Negative. Neurological: Negative. All other systems reviewed and are negative. Hematological: Negative. Endocrine: Negative. Allergic/Immunologic: Negative. OBJECTIVE Objective: Physical Exam Constitutional: Appearance: Normal appearance. Genitourinary: Perineal sutures intact. Right Adnexa: not tender and no mass present. Left Adnexa: not tender and no mass present. Cervix is absent. No cervical discharge. Uterus is absent. Breasts: Breasts are soft. [...] nursing note reviewed. Exam conducted with a executive account manager present. Vitals: Estimated body mass index is 25.2 kg/m?? as calculated from the following: Height as of 02/18/23: 5' 6 . Weight as of 02/25/24: 156 lb 1.9 oz. BP: No LMP recorded. ASSESSMENT & PLAN ICD-10-CM 1. Well woman exam with routine gynecological exam Z01.419 THIN PREP TIS PAP AND HR HPV DNA 2. Encounter for screening mammogram for malignant neoplasm of breast Z12.31 Bilateral screening mammogram Bilateral screening mammogram 3. Postmenopausal state Z78.0 DEXA bone density DEXA bone density Assessment/Plan Annual Exam: Patient presents today for an annual exam. Patient states she is doing well and has no complaints. Pap was obtained without difficulty. Patient does have some skin cracking around the buttocks and she was using Hydrocortisone which was not helping. Patient is encouraged to use Eucerin Cream to see if this does help that area. Patient does have a Dermatology referral which she sees in March. Patient was given orders for Mammogram and Dexa scan. Patient does have night sweats and she was given Climara in the past by her Commercial Designer and she had a weird reaction to the generic and she gave dispense as written and pharmacy messed something up and she did not take anything. Discussed Bijuvawith patient advised progesterone/testosterone. We will send as STUART. Orders Placed This Encounter Procedures Bilateral screening mammogram DEXA bone density Follow Up: Patient is to return in one year for annual unless needed otherwise. Documented by Raisa Ugalde LPN on behalf of: OSVALDO Bain documented in this encounter Plan of Treatment DateTypeDepartmentCare Team (Latest Contact Info)Anobncyfivq75/23/2026 9:10 AM ESTOffice Visit [facility] [address] [place] [address] Zenaida Sellers PA [address] [place] [address] 03/07/2026 9:00 AM ESTProcedure Visit [facility] [address] [place] [address] Monae Roper PA [address] [place] [address] NameTypePriorityAssociated DiagnosesOrder ScheduleBilateral screening mammogram ImagingRoutine Encounter for screening mammogram for malignant neoplasm of breast Expected: 03/01/2025, Expires: 05/02/2026DEXA bone densityImagingRoutine Postmenopausal state Expected: 03/01/2025 (Approximate), Expires: 03/01/2026THIN PREP TIS PAP AND HR HPV DNAPathology and CytologyRoutine Well woman exam with routine gynecological exam Ordered: 03/01/2025documented as of this encounter Visit Diagnoses Diagnosis Well woman exam with routine gynecological exam Routine gynecological examination Encounter for screening mammogram for malignant neoplasm of breast Postmenopausal state Asymptomatic postmenopausal status (age-related) (natural) Postmenopausal atrophic vaginitis documented in this encounter Care Teams Team MemberRelationshipSpecialtyStart DateEnd Date Gay Soriano MD [address] [place] [address] PCP - GeneralPhysician Hwlzqpple44/28/23documented as of this encounter
--- OUTSIDE RECORDS SUMMARY | 2025-03-01 19:12 | XMS_ITS | Clinical Summary ---
Author Organization [facility] Address [address] [facility] [place] [address] Care Team Providers Care Wheelchair Rental Clerk Name Role Phone Gay Soriano MD Primary Care Provider + Allergies Active AllergyReactionsCriticalityNoted DateCommentsAtorvastatinGI intolerance 03/30/2012ee DgzfaLypvgtp73/21/2023eeswaxHives,Lnoxxzud70/23/2013PrednisoneGI jpdqkyynqud20/10/6212ZlrnymiKqtiCsd94/21/2023 Medications MedicationSigDispense QuantityRefillsLast FilledStart DateEnd DateStatus Synthroid 100 MCG tablet take 1 tablet by mouth once daily EXCEPT TAKE 1/2 TABLET ON AYActive Climara 0.025 MG/24HR Indications:Postmenopausal atrophic vaginitisPlace 1 patch over 7 days on the skin 1 (one) time per week 4 patch 111/ctive Climara 0.025 MG/24HR Indications:Postmenopausal atrophic vaginitisPlace 1 patch over 7 days on the skin 1 (one) time per week 4 patch Discontinued(Reorder) Encounters DateTypeDepartmentCare MxixXjcewqvemgs35/09/2025 9:00 AM ESTOffice Visit [facility] [address] [place] [phone] Monae Roper PA Well woman exam with routine gynecological exam; Encounter for screening mammogram for malignant neoplasm of breast; Postmenopausal state; Postmenopausal atrophic kvruhpbvi45/09/2025amboo flowsheet [facility] [address] [place] [address] [place] [address] Monae Roper PA from Last 3 Months Family History Medical HistoryRelationNameCommentsNo Known ProblemsBrotherAlcohol abuseFather HypertensionFatherProstate cancerFatherHeart diseaseMaternal Grandfather Alzheimer's diseaseMaternal GrandmotherALSMotherPOTSMotherRaynaud syndromeMother Thyroid diseaseMotherAlcohol abusePaternal GrandfatherDiabetesPaternal GrandfatherHeart diseasePaternal GrandfatherHypertensionPaternal Grandfather Colon cancerPaternal GrandmotherHypertensionPaternal GrandmotherRelationName StatusCommentsBrotherFatherAliveMaternal GrandfatherDeceasedMaternal Grandmother DeceasedMotherDeceasedPaternal GrandfatherDeceasedPaternal GrandmotherDeceased SonAlive Social History Tobacco UseTypesPacks/DayYears UsedDateSmoking Tobacco: Never Tobacco Cessation:Counseling Given: Not Answered Alcohol UseStandard Drinks/WeekCommentsNever0 (1 standard drink = 0.6 oz pure alcohol)caffeine: 1-2 cups per dayCommentsUnknownSex and Gender InformationValueDate RecordedSex Assigned at BirthNot on fileLegal SexFemale 06/05/2022 7:09 PM EDTGender IdentityNot on fileSexual OrientationNot on file Last Filed Vital Signs Vital SignReadingTime TakenCommentsBlood Swuqeinr064/7812 8:58 AM EST Pulse--Temperature--Respiratory Rate--Oxygen Saturation--Inhaled Oxygen Concentration--Qkqmup75.3 kg (155 lb)03/01/2025 8:58 AM YPDCxegbk646.6 cm (5' 6 )02/18/2023 8:44 AM ESTBody Mass Index25.02104/20/2022 8:44 AM EST Plan of Treatment DateTypeDepartmentCare Team (Latest Contact Info)Ljlauyhkjlp87/23/2026 9:10 AM ESTOffice Visit [facility] [address] [place] [address] Zenaida Sellers PA [address] [place] [address] 03/07/2026 9:00 AM ESTProcedure Visit [facility] [address] [place] [address] Monae Roper PA [address] [place] [address] Health MaintenanceDue DateLast DoneCommentsCT Xnjolzbsapni12/16/1970Colonoscopy 1969Colorectal Cancer Txrrewodf05/16/1970FIT-DNA1969FIT1969 FOBT1969 4675Vlnbjgpgkfedi25/16/1057Fnusygcyi20/27/202412/, 01/25/2022 COVID-19 Vaccine ( season)/02/2021, 07/07/2020, 06/09/2020Influenza Vaccine (#1)/HPV/Mpfdzy0401/29/2027Cervical Cancer Lrnebtqlt07/04/2027Pap Smear, 02/18/2023, 01/29/2022 Pneumococcal Vaccine: Pediatrics (0 to 5 Years) and At-Risk Patients (6 to 64 Years)Aged OutNo longer eligible based on patient's age to complete this topic Procedures Procedure NamePriorityDate/TimeAssociated DiagnosisCommentsPAP SMEARRoutine 02/25/2024 12:00 AM ESTBI MAMMOGRAM SCREENING TQOAYIBPSDdtwztr17/27/2023 4:33 PM EST Breast cancer screening by mammogram from Last 3 Months or Most Recently Relevant to Health Maintenance Results * Pap Smear (02/25/2024 12:00 AM EST)Specimen (Source)Anatomical Location / LateralityCollection Method / VolumeCollection TimeReceived TimeSwabCervical swab / Unknown Narrative Authorizing ProviderResult TypeResult StatusFazio Nurse [facility] ObLAB CYTOLOGY ORDERABLESFinal ResultPerforming OrganizationAddressCity/State/ZIP CodePhone Number EXTERNAL LAB * Bilateral screening mammogram (03/19/2023 4:33 PM EST) Narrative Authorizing ProviderResult TypeResult StatusCorey Jasmina DOIMG BI PROCEDURESFinal ResultPerforming OrganizationAddressCity/State/ZIP CodePhone Number [facility] [address] [place] [address], from Last 3 Months or Most Recently Relevant to Health Maintenance Insurance * Guarantor: Mila Crowder FAccotony TypeRelation to PatientDate of PhoneBilling AddressPersonal/MhayboItnq55/16/1971 [facility] [place] [address] Care Teams Team MemberRelationshipSpecialtyStart DateEnd Date Gay Soriano MD [address] [place] [address] PCP - GeneralPhysician Cwwxavisy36/28/23
--- OUTSIDE RECORDS SUMMARY | 2025-03-01 19:12 | XMS_ITS | CCD ---
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 DR GRAY Primary Care Unavailable DR ELENI WHITE Consulting Unavailable Gay Soriano Primary Care Provider [phone] Zuly Vasquez P Unavailable Gay Soriano MD Primary Care Provider Jose Roberto Vasquez CNPison P Unavailable [phone] GAY SORIANO Primary Care UnavailKERRI Mcghee Referring Unavailable Gay Soriano MD Primary Care Provider REFERRAL, SELF Referring Unavailable Colton FREITAS Consulting Unavailable REFERRAL, SELF Admitting Unavailable REFERRAL, SELF Attending Unavailable DO Colton FREITAS R Consulting Unavailable Colton FREITAS Consulting Unavailable Guillermo Pinedo Admitting Unavailable Guillermo Pinedo Attending Unavailable Guillermo Pinedo Attending Unavailable Locodimella, Giuliana Attending Unavailable Gudimella, Giuliana Attending Unavailable Gudimella, Giuliana Attending Unavailable Gumichoacanomelsusanna, Giuliana Attending Unavailable Yeseniamelsusanna, Giuliana Attending Unavailable Eliecer RICHARDSON Attending Unavailable Yeseniamella, Giuliana Referring Unavailable Eliecer RICHARDSON Attending Unavailable Gudimella, Giuliana Attending Unavailable Gudimella, Giuliana Referring Unavailable Gudimella, Giuliana Admitting Unavailable Gay Soriano MD Primary Care Provider MONAE ROPER Attending Unavailable Eliecer RICHARDSON Referring Unavailable Eliecer RICHARDSON Attending Unavailable NILL, Eliecer R Admitting Unavailable NILEliecer Browne Attending Unavailable Florencio DELONG Attending Unavailable Karina Hardy Attending Unavailable CIOCEKERRI Referring Unavailable ALEAH, GAY A Primary Care Unavailabl e CIOCE, KERRI C Referring Unavailable ALEAH, GAY A Primary Care Unavailabl e CIOCE, KERRI C Referring Unavailable ALEAH, GAY A Primary Care Unavailabl e CIOCE, KERRI Toth Attending Unavailable ALEAH, GAY A Primary Care Unavailabl e Sarmini, Zelaya Talal Attending Unavaila ble Sarmini, Zelaya Talal Referring Unavaila ble Sarmini, Zelaya Talal Admitting Unavaila ble JUDSON MONAE L Admitting Unavailable JUDSON, MONAE L Attending Unavailable JUDSONMONAE L Referring Unavailable Sarmini, Zelaya Talal Attending Unavaila ble Sarmini, Zelaya Talal Attending Unavaila ble Florencio Quintero Attending Unavailable Florencio Quintero Attending Unavailable Florencio Quintero Attending Unavailable Allergies Allergy ClassificationReported Allergen(s)Allergy TypeDate of OnsetReaction(s) Facility (19 sources)atorvastatin; Translations: [ATORVASTATIN]Drug Slwahjw65-88-3672YT [facility] (19 sources)predniSONE; Translations: [PREDNISONE]Drug Vnjvdyp47-92-0584 [facility] (18 sources)thyroid (INTERMEDIATE); Translations: [THYROID]Drug Oialtrd83-88-3173Lykg [facility] Work Phone: (14 sources)Bees; Translations: [BEES]Allergy to rxxqcabcy99-02-4348Mgsca, [facility] (3 sources)Mushrooms [Other]Propensity to adverse alqmvhtag42-77-9950[facility] Work Phone: (11 sources)cultivated mushroom extract; Translations: [MUSHROOM]Drug Allergy 45-06-9401Qlcsw: See [facility] Work Phone: (5 sources)atorvastatin; Translations: [Lipitor]Drug [facility]ergy[facility] (5 sources)Bee/Wasp/Ant venom; Translations: [Bee Stings]Propensity to adverse reactions (disorder)10-66-1381[facility]cpC[facility] (5 sources)Mushroom (edible); Translations: [Mushrooms]Food allergy (disorder) [facility] (5 sources)thyroid (INTERMEDIATE); Translations: [[place] Thyroid]Drug AllergyC[facility] (5 sources)narcotic analgesics; Translations: [narcotic analgesics]Propensity to adverse reactions (disorder)[facility] (4 sources)Honey bee venomAllergy to -99-1710ReieatuWQQU Healthcare Medications Current Medications MedicationDrug Class(es)DatesSig (Normalized)Sig (Original)cholecalciferol 0.025 mg oral tablet (12 sources)Vitamin DStart: 82-48-0425Aainkgntgnwxrvy, Vitamin D3, (VITAMIN D) 1,000 unit ORAL Tab Take 2000 iu daily 0 01/01/2010 ActiveComment on above:Take 2000 iu qlvex005 hr estradiol 0.39679 mg/hr transdermal system (19 sources)EstrogenStart: 02-18-2023 End: 80-66-8419slqeinlqw (Climara) 0.025 MG/24HR Indications: Postmenopausal atrophic vaginitis Place 1 patch over7 days on the skin 1 (one) time per week 12 patch 3 02/25/2024 02/24/2025 ActiveStart: 08-07-2021 End: 76-76-0191xuwjzbbaw (CLIMARA) 0.025 mg/24 hr Apply 1 Patch as directed one time a week. 13 Patch 3 / DiscontinuedComment on above:Apply 1 Patch as directed one time a week.pyjbg-aq-8-pkf-uno-digcslo-ast 146-97-17-50 mg cap (9 sources)Start: 58-85-9153vueph-ot-6-oxs-hrc-vaaeiyy-huw 213-85-15-50 mg cap Take by mouth. 04/17/2023 ActiveStart: 23-72-3554vyxnu-so-9-pzc-mgv-rsdsagn-chg 620-55-53-50 mg cap Take by mouth. 0 04/17/2023 ActiveComment on above:Take by mouth.moffr-hliew-3-nng-srh-ykmmjk 302-76-08-50 mg cap (12 sources)Start: 52-03-1047kiswf-cyxln-2-cfj-epa-lipids 401-65-90-50 mg cap Take by mouth. 06/25/2018 ActiveStart: 23-47-6214wzyjs-dyreu-2-ile-epa-lipids 006-34-25-50 mg cap Take by mouth. 0 06/25/2018 ActiveComment on above:Take by mouth.levothyroxine sodium 0.1 mg oral tablet (19 sources)l-ThyroxineStart: 05-07-2021 End: 14-31-6285LJQLVKPRB 100 mcg tablet take 1 tablet by mouth once daily EXCEPT 1/2 TABLET ON FRIDAY 90 tablet 3 04/22/2024 ActiveComment on above:take 1 tablet by mouth once daily EXCEPT 1/2 TABLET ON FRIDAYTake 1 tab daily except Friday take 1/2 tab onlyvitamin b12 0.5 mg oral tablet (12 sources)Vitamin O99Einwu: 02-91-8620wiyz 1 tablet by mouth once daily cyanocobalamin (VITAMIN B-12) 500 mcg tablet Indications: Other specified acquired hypothyroidism Take 1 tablet by mouth once daily. 0 07/26/2014 Active Comment on above:Take 1 tablet by mouth once daily. Completed/Discontinued Medications MedicationDrug Class(es)DatesSig (Normalized)Sig (Original)calcium carbonate 1500 mg / cholecalciferol 200 unt oral tablet (9 sources)Vitamin DStart: 04-17-2023 End: 78-97-9676wsch 1 tablet by mouth twice dailycalcium carbonate 600 mg- cholecalciferol 200 units (CALCIUM 600 + D,3,) 600 mg-5 mcg (200 unit) tabTake 1 tablet by mouth two times a day. 04/17/2023 04/22/2024 DiscontinuedComment on above:Take 1 tablet by mouth two times a day.losartan potassium 25 mg oral tablet (3 sources)Angiotensin 2 Receptor BlockerStart: 56-08-2760ilht 1 tablet by mouth once dailylosartan (COZAAR) 25 mg tablet One tab po qd 30 tablet 2 03/07/2021 ActiveComment on above:One tab po qdNIFEdipine 30 mg osmotic 24 hr extended release oral tablet (3 sources)Dihydropyridine Calcium Channel BlockerStart: 62-96-9923xrwu 1 tablet by mouth once dailyNIFEdipine ER (PROCARDIA XL) 30 mg 24 hr tablet Take 1 tablet by mouth once daily. 30 tablet 1 04/09/2021 ActiveComment on above:Take 1 tablet by mouth once daily.nitroglycerin 0.02 mg/mg topical ointment (3 sources)Nitrate VasodilatorStart: 42-28-8464onclsecztsflz (NITRO-BID) 2 % ointment Apply to affected finger tips bid 30 g 1 03/07/2021 ActiveComment on above:Apply to affected finger tips bid Problems Active Problems Problem ClassificationProblemDateDocumented DateEpisodic/ChronicDisorders of lipid metabolism (12 sources)Mixed hyperlipidemia; Translations: [Mixed hyperlipidemia]Onset: 940973-64-8472DjmvszvQbjnvsgihz disorders (2 sources)Atrophic vaginitis; Translations: [Postmenopausal atrophic vaginitis] 03-42-5358FouitvmLdqqfvcotpa deficiencies (12 sources)Vitamin D deficiency; Translations: [Vitamin D deficiency, unspecified]Onset: 541279-17-1679BbuldlbMnkck circulatory disease (12 sources)Raynaud's disease; Translations: [Raynaud's syndrome without gangrene]Onset: 550771-61-3973VympphrAcwiw inflammatory condition of skin (12 sources)Rosacea; Translations: [Rosacea, unspecified]Onset: 07-04-2006 65-84-4351EgkuisoTdgmu nervous system disorders (12 sources)Disorder of autonomic nervous system; Translations: [Disorder of the autonomic nervous system, unspecified]Onset: 653748-33-8976WhpnpzhNeolp nutritional; endocrine; and metabolic disorders (3 sources)Insulin resistance; Translations: [Metabolic syndrome]ChronicResidual codes; unclassified (2 sources)Postmenopausal state; Translations: [Asymptomatic menopausal state] 33-23-8137FqgskprmZnvrnua disorders (18 sources)Hypothyroidism; Translations: [Hypothyroidism, unspecified]Onset: 57-21-9303XdwzxkfMshhofsqpmow (1 source)Insulin resistance; Translations: [Insulin resistance]Onset: 12-13-2023 Past or Other Problems Problem ClassificationProblemDateDocumented DateEpisodic/ChronicCardiac dysrhythmias (12 sources)Tachycardia; Translations: [Tachycardia, unspecified]Onset: 968408-72-9472PphdxndgNrxjusfsslths and screening for infectious disease (13 sources)Encounter for screening for human papillomavirus (HPV); Translations: [Anti-nuclear factor positive]Onset: 763929-37-0509Hadpszks Malaise and fatigue (20 sources)Malaise and fatigue; Translations: [Other malaise]Onset: 11-27-2001 42-99-0563ApelorhpOvohc connective tissue disease (12 sources)Pain in left lower limb; Translations: [Pain in left leg]Onset: 648602-34-9798JjpinauuYyvwe nervous system disorders (12 sources)Hyperreflexia; Translations: [Abnormal reflex]Onset: 03-30-2012 98-41-8536QhyradvvCsdum nervous system disorders (12 sources)Abnormal gait; Translations: [Other abnormalities of gait and mobility]Onset: 753152-99-4268HmvqfwlzOmetm and delivery including normal (12 sources); Translations: [ state, incidental]Onset: 297658-54-8139DwkrgoctGgjjq screening for suspected conditions (not mental disorders or infectious disease) (18 sources)Encounter for screening for malignant neoplasm of cervix; Translations: [Immune system finding]Onset: 72-93-7467Cnrbqnbb Results Test NameValueInterpretationReference RangeFacilityGeneral Surgery Office/Clinic Noteon 40-15-3400Rrkwmed Surgery Office/Clinic NoteGeneral Surgery Office/Clinic Note HPI Staff Brad is a 54 y.o. female here for 1 month follow up Previously seen GS 12/07/24 for anal fissure Rx'd nifedipine/lidocaine gel Today patient states she has improvement History of Present Illness 54-year-old female found to have anal fissure here for 1 month check. She reports the bleeding and pain have improved with the nifedipine lidocaine gel. Review of Systems PHQ Score Initial Depression Screen Score: 0 SCORE Physical Exam Vitals & Measurements HR: 106(Peripheral) BP: 137/83 HT: 66 in HT: 167 cm WT: 174.165 lb WT: 79 kg BMI: 28.33 The anal fissure has healed completely however there is noticeable atopic dermatitis with a noticeable crack in the skin along the medial aspect of the pippa cleft just above the anus. Assessment/Plan 1. Anal fissure (K60.2: Anal fissure, unspecified) Continue nifedipine/lidocaine gel for anal fissure as needed however we have also prescribed the patient a topical 2.5% hydrocortisone cream to treat the dermatitis. Ordered: E&M of Est. Patient Low 20-29 Min 64327 Orders: hydrocortisone topical, 1 ashleigh, Topical, TID, 30 gram, Refill(s) 0, [facility], 167,cm, 01/07/25 9:12:00 EDT, Height/Length Dosing, 79, kg, 01/07/25 9:12:00 EDT, Weight Dosing Portions of this record may have been created with voice recognition artificial intelligence software, specifically Stay[employer], D[employer] and or [employer]. Substitutions may have occurred due to the inherent limitations of voice recognition and artificial intelligence software. Follow-up No qualifying data available Problem List/Past Medical History Ongoing Anal fissure BMI 25.0-25.9,adult Chronic shoulder pain Dysuria Facial [...] tachycardia syndrome Raynaud's disease Procedure/Surgical History Colonoscopy (12/03/2024), Flexible sigmoidoscopy (03/05/2024), Colonoscopy (12/29/2020), Colonoscopy (2013), Hysterectomy (07/31/2009), Appendectomy, Cerclage, Ovarian cystectomy. 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 Never Smokeless Tobacco Use:. Cigarettes, 01/07/2025 Family History Cardiac arrhythmia: Mother. Diverticulitis of colon: Father. Hypertension: Father. Hypothyroidism: Mother. Primary malignant neoplasm of colon: Grandparent. Primary malignant neoplasm of prostate: Father. Immunizations [...] (COVID-19) mRNA BNT-162b2 vax 06/09/2020 Given Prophylaxis influenza virus vaccine, inactivated 01/09/2018 RecordedMercy Health Clermont HospitalComment on above:Result Comment: Electronically Signed By: Leon RAO, Florencio Ybarra.raghu\Date and Time Signed: 01/07/25 09:36 EDTReminderson 01-06-2025 RemindersReminders From: Socorro Ross To: [facility] - Reminders/Recalls; Sent: 01/06/2025 12:56:02 EDT Show up: 10/22/2029 12:55:00 EDT Subject: Ambulatory Reminder Due Date/Time: 11/22/2029 12:55:00 EDT Reminder/Recall 5 year colon recall joeadan 12/03/2029[facility] HospitalAmbulatory Visit Summaryon 01-05-2025 Ambulatory Visit SummaryAmbulatory Visit Summary BRAD DIXON :1970 Visit Date:01/05/2025 Ambulatory Visit Instructions Your Diagnosis Rectal bleeding Rectal pain Anal fissure Chronic GERD Your Care Team Attending Physician - Tim RAO, Nathalie Cardenas Primary Care Physician - Giuliana Tavares MD This Is Your Medications List omeprazole (omeprazole 40 mg Cap-DR) Contact prescribing physician if questions or concerns cyanocobalamin (Vitamin B12) ergocalciferol (Vitamin D) levothyroxine (Synthroid 100 mcg Tab) omega-3 polyunsaturated fatty acids (Nature's Bounty Red Krill Oil) Procedures Performed Colonoscopy (12/03/2024), Flexible sigmoidoscopy (03/05/2024), Colonoscopy (12/29/2020), Colonoscopy (2013), Hysterectomy (07/31/2009), Appendectomy, Cerclage, Ovarian cystectomy. Discharge Vitals Heart Rate (Peripheral) 57 Respiratory Rate 16 Blood Pressure 137/85 Height 167 cm Height 66 in Weight 70.9 kg Weight 156.308 lb BMI 25.42 What to do next Scheduled Follow-Up Appointments Friday 9:20 AM EDT With: Leon RAO, Florencio Solorzano Where: [facility] General Surgery [address], [address] [place] [address]- Friday 9:00 AM EST With: Where: [facility] Medications What How Much When Instructions New omeprazole (omeprazole 40 mg Cap-DR) 1 Capsules By Mouth Every day Refills: 3 Pickup at [facility] Unchanged cyanocobalamin (Vitamin B12) once daily Contact [...] or concerns Unchanged omega-3 polyunsaturated fatty acids (ContraFect's Bounty Red Krill Oil) once daily Contact prescribing physician if questions or concerns Pharmacy Information [facility]: [address] [place], [place] [id number] [phone] Allergies Lipitor (unknown) predniSONE (Anger) [place] Thyroid (Rash) Bee Stings (Unknown) Mushrooms (unknown) Problems Ongoing - Any problem that you are currently receiving treatment for. Anal fissure BMI 25.0-25.9,adult Chronic shoulder pain Dysuria Facial [...] you for choosing us for your care. Patient Portal You may access all of your results and other medical record information on our secure patient portal. If you are not signed up for this yet, please contact [employer] at [phone] to get signed up today. Language Information Language assistance services are available as needed. [facility] HospitalGastroenterology Office/Clinic Noteon 05-17-6356Ogafzutblrncthjw Office/Clinic NoteGastroenterology Office/Clinic Note Chief Complaint follow up to colonoscopy HPI Staff Established patient is a(n) 54 year old female who presents today for a follow up to Colonoscopy on12/03/24. Saw GS 12/07/24. Was given nifedipine/lidocaine gel. Increased fiber to 32g/day and advised 4 L of water with stool softeners PRN. MiraLAX and Fiber effective? not using miralax or fiber. she has been increasing her water intake and she has been noticing burning epigastic pain. Any blood thinners? no Any GLP-1 agonists? no Last visit 10/13/24 w/Dr. Dumont: Assessment/Plan 1. Rectal bleeding (K62.5: Hemorrhage of anus and rectum) Started over a year ago Recently started having pain with BMs Reports large amount of blood at times, recently had blood drip down her leg after a BM Hard stools, increased fiber in diet without relief Feeling of tearing when having a BM and is difficult to sit afterwards Flex sig 03/05/24 w/ Dr Richardson: prominent rectal veins; random biopsies of sigmoid and rectum obtained. Biopsy was normal. - Likely anal fissure - ? Dyssynergia - Topical compound cream prescribed- [facility] - Schedule Colonoscopy to evaluate, r/o other etiologies such as IBD. Discussed risks such as bleeding, injury and perforation as well as benefits. Patient agreeable. - Recommended squatty potty - Advised to get prunes, kiwi fruits and stay well hydrated - Advised to use MiraLAX and titrate to have 1-2 bowel movements every day - Recommended water-soluble fibers (Metamucil or Citracel) 2. Rectal pain (K62.89: Other specified diseases of anus and rectum) Colonoscopy: Impression and Plan 1. Small anal fissure at 6:00 noted. In addition there is a 3 cm wound posteriorly between the buttocks about 3 cm not related to the anal fissure, not suspicious for Crohn's disease 2. Severe sigmoid diverticulosis 3. 2 sessile polyps 5 mm in size, in the descending and ascending colon, both resected with cold snare completely and retrieved. Otherwise normal examined colonic mucosa 4. Normal examined terminal ileum Use Desitin externally 2-3 times a day apply using Q-tip over the wound between the buttocks. Avoidirritation and direct scratching Follow-up with Dr. Quintero in wound clinic to assess If anal fissure persist despite topical therapy consider referral also to colorectal surgery Recommendations: Repeat colonoscopy:: In 5 years. Pathology: Final Diagnosis ( Modified ) A: POLYP, ASCENDING COLON, POLYPECTOMY: ??? HYPERPLASTIC POLYP. B: POLYP, DESCENDING COLON, POLYPECTOMY: ??? HYPERPLASTIC POLYP. Review of Systems PHQ Score Initial Depression Screen Score: 0 SCORE Physical Exam Vitals & Measurements HR: 57(Peripheral) RR: 16 BP: 137/85 HT: 66 in HT: 167 cm WT: 70.9 kg WT: 156.308 lb BMI: 25.42 Assessment/Plan 1. Rectal bleeding (K62.5: Hemorrhage of anus and rectum) Has anal fissure, improved with nifedipine/lidocaine, following with Dr. Quintero Continue to follow in wound clinic currently not constipated, no straining Ordered: E&M of Est. Patient Moderate 30-39 Min 43111 EGD Endoscopy (Hospital Procedure) 2. Rectal pain (K62.89: Other specified diseases of anus and rectum) Ordered: E&M of Est. Patient Moderate 30-39 Min 49854 EGD Endoscopy (Hospital Procedure) 3. Anal fissure (K60.2: Anal fissure, unspecified) Ordered: E&M of Est. Patient Moderate 30-39 Min 32890 EGD Endoscopy (Hospital Procedure) 4. Chronic GERD (K21.9: Gastro-esophageal reflux disease without esophagitis) She reports burning in the epigastric area in her esophagus mainly with cold water She takes omeprazole but not scheduled, suggest to schedule it for now, we will proceed with EGD with random esophageal and gastric biopsies, rule out esophagitis or H. pylori, might consider Espinoza and esophageal manometry if symptoms persist Orders: omeprazole, 40 mg = 1 cap(s), Oral, Daily, # 90 cap(s), Refills(s) 3, Pharmacy: [facility], 167, cm, 01/05/25 8:30:00 EDT, Height/Length Dosing, 70.9, kg, 01/05/25 8:30:00 EDT, WeightDosing Follow-up No qualifying data available Problem List/Past Medical History Ongoing Anal fissure BMI 25.0-25.9,adult Chronic shoulder pain Dysuria Facial [...] tachycardia syndrome Raynaud's disease Procedure/Surgical History Colonoscopy (12/03/2024), Flexible sigmoidoscopy (03/05/2024), Colonoscopy (12/29/2020), Colonoscopy (2013), Hysterectomy ( (more content not included)... [facility] HospitalComment on above:Result Comment: Electronically Signed By: Tim RAO, Nathalie Cardenas\.br\Date and Time Signed: 01/05/25 08:51 EDTReminderson 57-24-6405JjvkvwggdWurycjhxo From: Chrissy Skelton LPN, I To: [facility] - Reminders/Recalls; Sent: 01/03/2025 09:07:53 EDT Show up: 10/22/2029 09:07:00 EDT Subject: Colonoscopy recall Due Date/Time: 12/03/2029 09:07:00 EDT Reminder/Recall 5 year colon recall - Fhx colon cancer Dr. Dumont 12/03/24NoOhio[facility] Centerurgical Pathology Reporton 12-13-2024 [facility] [address] [facility] [place] [address]- Surgical Pathology Report Collected Date/Time: 12/03/2024 09:35 EDT Pathologist: Shemar RAO PhD, Gokul Browne Received Date/Time: 12/03/2024 10:52 EDT Tim RAO, Nathalie Dumont MD, Nathalie Cardenas 07 Surgical Pathology Report - 12/13/2024 09:40 EDT - Auth (Verified) Final Diagnosis A: POLYP, ASCENDING COLON, POLYPECTOMY: - HYPERPLASTIC POLYP. B: POLYP, DESCENDING COLON, POLYPECTOMY: - HYPERPLASTIC POLYP. (Electronic Signature) Gokul Staton MD PhD 12/13/2024 09:40 Clinical Information Rectal bleeding, rectal pain Pre-Op Diagnosis: Rectal bleeding, rectal pain Procedure: Colonoscopy Post-Op Diagnosis: 1. Small anal fissure at 6:00 noted. In addition there is a 3 cm wound posteriorly between the buttocks about 3 cm not related to the anal fissure, not suspicious for Crohn's disease 2. Severe sigmoid diverticulosis 3. 2 sessile polyps 5 mm in size, in the descending and ascending colon, both resected with cold snare completely and retrieved. Otherwise normal examined colonic mucosa 4. Normal examined terminal ileum Specimen(s) Received A. Ascending colon polyp B. Descending colon polyp Gross Description A: Received in formalin labeled with patient name, number, and ascending colon polyp are multiple fragments of bearden/pink tissue ranging from less than 0.1 cm up to 0.5 cm in greatest dimension measuring in aggregate 2 x 0.8 x 0.1 cm. The specimen is entirely submitted in one cassette. B: Received in formalin labeled with patient name, number, and descending colon polyp are three fragments of bearden/pink tissue ranging from less than 0.1 cm up to 0.5 cm in greatest dimension measuring in aggregate 0.8 x 0.7 x 0.1 cm. The specimen is entirely submitted in one cassette. (DC) DC:[facility] Microscopic Description Microscopic examination performed unless gross only specified. Quality was accessed and acceptable. 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 female here for anal fissure Dr. Dumont referring Last colonoscopy done 12/03/2024 Today patient states she has hard bowel movements that make it difficult to sit and BRB on tissue Symptoms started over a year ago She denies taking fiber supplements or monitors fiber in diet She denies drinking plenty of water. She admits she does not drink enough throughout the day. She has started Desitin and Nifedipine/Lidocaine/Hydrocortisone History of Present Illness 54-year-old female referred to us by digestive [facility] for hematochezia secondary to anal fissure posterior midline discovered on colonoscopy present for about 1 month where she was started on a nifedipine/hydrocortisone/lidocaine mixture patient also reports hard stools in the past 1-2 bowel movements per day but notes the bright red blood per rectum every time she uses the restroom. Review of Systems PHQ Score Initial Depression Screen Score: 0 SCORE Physical Exam Vitals & Measurements HR: 86(Peripheral) BP: 141/83 HT: 167 cm HT: 66 in WT: 70 kg WT: 154.323 lb BMI: 25.1 Posterior midline anal fissure Assessment/Plan 1. Anal fissure (K60.2: Anal fissure, unspecified) Will prescribe nifedipine/lidocaine gel. The 1 that she has contains hydrocortisone which may inhibit wound healing so we will prescribe this new 1 instead she will follow-up in 1 month education provided regarding 32 g of fiber per day 4 L of water and stool softeners as needed Ordered: E&M of Est. Patient Low 20-29 Min 71531 2. BMI 25.0-25.9,adult (Z68.25: Body mass index [BMI] 25.0-25.9, adult) Education provided Ordered: E&M of Est. Patient Low 20-29 Min 37210 Portions of this record may have been created with voice recognition artificial intelligence software, specifically Stayzilla, Dossier[employer] and or [employer]. Substitutions may have occurred due to the inherent limitations of voice recognition and artificial intelligence software. Follow-up No qualifying data available Patient Education Obesity, Adult High-Fiber Eating Plan Anal Fissure, Adult, Menc-sb-[id number] Problem List/Past Medical History Ongoing Anal fissure BMI 25.0-25.9,adult Chronic shoulder pain Dysuria Facial [...] tachycardia syndrome Raynaud's disease Procedure/Surgical History Colonoscopy (12/03/2024), Flexible sigmoidoscopy (03/05/2024), Colonoscopy (12/29/2020), Colonoscopy (2013), Hysterectomy (07/31/2009), Appendectomy, Cerclage, Ovarian cystectomy. 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 Never Smokeless Tobacco Use:. Cigarettes, 12/07/2024 Family History Cardiac arrhythmia: Mother. Diverticulitis of colon: Father. Hypertension: Father. Hypothyroidism: Mother. Primary malignant neoplasm of colon: Grandparent. Primary malignant neoplasm of prostate: Father. Immunizations [...] SARS-CoV-2 (COVID-19) mRNA BNT-162b2 vax 06/09/2020 Given ProphylaxisNoal [facility]:Result Comment: Electronically Signed By: Leon RAO, Florencio Ko\Date and Time Signed: 12/07/24 11:10 EDTMain OR Intraoperative Recordon [id number] OR Intraoperative RecordMain OR Intraoperative Record IntraOp Document Type FT Summary Primary Physician: Nathalie Dumont MD Finalized Date/Time: 12/06/24 14:30:25 Pt. Name: BRAD DIXON/Sex: 1970 Female Med Rec #: [id number] Physician: Nathalie Dumont MD Financial #: [id number] Pt. Type: O Room/Bed: / Admit/Disch: 12/03/24 08:58:32 - 12/03/24 23:59:59 Institution: Case Times FT Entry 1 Patient Times In Room 12/03/24 09:23:00 Out Room 12/03/24 09:45:00 Procedure Times Start 12/03/24 09:26:00 Stop 12/03/24 09:43:00 Anesthesia Times Start 12/03/24 09:23:00 Stop 12/03/24 09:45:00 Time at [place] 12/03/24 09:30:00 Last Modified By: Catalina WELDON, Merlyn Hylton 12/03/24 09:45:47 Case Attendance FT Entry 1 Entry 2 Entry 3 Case Attendee Jeffery RERECORDING MIXER, Saud A. 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 Tavera supervising case Last Modified By: Catalina WELDON, Merlyn Arnold RN, Merlyn Osman RN 12/03/24 09:45:49 F 12/03/24 09:45:49 F 12/03/24 09:45:49 Entry 4 Case Attendee Tim RAO, Nathalie Cardenas Role Performed Surgeon - Primary Time In 12/03/24 09:23:00 Time Out 12/03/24 09:45:00 Procedure COLONOSCOPY(.) Comments Last Modified By: Merlyn Arnold RN 12/03/24 09:45:49 Perioperative Protocols FT Pre-Care Text: Implements protective measures prior to operative or invasive procedure, confirms identity before the operative or invasive procedure, verifies operative procedure, surgical site, and laterality Entry 1 Procedure(s) COLONOSCOPY(.) Patient Identity Birthday, ID Band Verified (select at Check, Patient least 2): Participation Consents / H and P Anesthesia Consent, Operative Site N/A Verified H&P, Surgery/Procedure Marking Verified Consent Surgical Site No Laterality Verified n/a Verified Procedure Verified Yes Correct Patient Yes Position Verified Availability Equipment, Medication Prep Dry n/a Verified (If Applicable) PreOp Antibiotic No Time Out Saud Gil CRNA, Given Participants Merlyn Arnold RN, Miles, Kirstyn K, Tim RAO, Nathalie Cardenas Time Out Complete 12/03/24 09:24:00 Outcomes Met? Yes Last Modified By: Merlyn Arnold RN 12/03/24 09:27:57 Post-Care Text: The patient is free from signs and symptoms of injury caused by extraneous objects Allergy Information FT Pre-Care Text: Verifies allergies Entry 1 Allergies Reviewed? Yes Allergies Reviewed Self/Patient With Outcomes Met? Yes Last Modified By: Merlyn Arnold RN 12/03/24 09:25:43 Post-Care Text: The patient received appropriate medication(s) safely administered during the perioperative period Surgical Procedures FT Entry 1 Procedure Description Procedure COLONOSCOPY Modifiers . Surgeon Description Colonoscopy with ascending colon polypectomy, descending colon polypectomy. Primary Procedure Yes Primary Surgeon Nathalie Dumont MD Start 12/03/24 09:26:00 Stop 12/03/24 09:43:00 Anesthesia Type General Surgical Service Gastroenterology Wound Class 2 - Clean-Contaminated Last Modified By: Merlyn Arnold RN 12/03/24 09:44:04 General Case Data FT Pre-Care Text: Classifies surgical wound, implements aseptic technique, initiates traffic control Entry 1 Case Information OR ENDO 1 FT Case Level Level 2 Wound Class 2 - Clean-Contaminated Specialty Gastroenterology ASA Class 2 Preop Diagnosis Rectal bleeding, rectal Postop Same As Preop No pain Postop Diagnosis 3cm external would Outcomes Met? Yes outside of rectum, ascending colon polyp, descending colon polyp, anal fissure Last Modified By: Merlyn Arnold RN 12/03/24 09:45:44 Post-Care Text: The patient is free from signs and symptoms of infection Skin Assessment (Pre Procedure) FT Pre-Care Text: Implements protective measures to prevent skin/ tissue injury due to thermal or mechanical sources Evaluates for signs and symptoms of physical injury to skin and tissue Entry 1 Skin Integrity Intact, [place], Warm, & Skin Abnormality No Dry Outcomes Met? Yes Last Modified By: Merlyn Arnold RN 12/03/24 09:26:12 Post-Care Text: The patient is free from signs and symptoms of injury caused by extraneous objects Patient Positioning FT Pre-Care Text: Identifies physical alterations that require additional precautions for procedure-specific positioning, verifies presence of prosthetics or corrective devices, positions the patient, evaluates the patient for signs and symptoms of injury as a result of positioning Entry 1 Procedure COLONOSCOPY(.) Body Position Lateral, right side up Feet Uncro (more content not included)...[facility] Discharge Instructionson [id number] InstructionsDischarge Instructions BRAD DIXON :1970 Visit Date:12/03/2024 Inpatient Discharge Instructions Your Care Team Admitting Physician - Nathalie Dumont MD Referring Physician - Tim RAO, Nathalie Cardenas Reason for Your Visit RECTAL BLEEDING, RECTAL PAIN Your Diagnosis Pain, rectal Tests Performed Pathology Tissue Exam -- Results Pending -- Please visit your patient portal for your results or contact your primary care physician. This Is Your Medications List cyanocobalamin (Vitamin B12) ergocalciferol (Vitamin D) levothyroxine (Synthroid 100 mcg Tab) omega-3 polyunsaturated fatty acids (Nature's Bounty Red Krill Oil) polyethylene glycol 3350 (Miralax 3350 17 gram packet) psyllium (Metamucil 3.4 g/5.2 g oral powder) Procedure History Colonoscopy (12/03/2024), Flexible sigmoidoscopy (03/05/2024), Colonoscopy (12/29/2020), Colonoscopy (2013), Hysterectomy (07/31/2009), Appendectomy, Cerclage, Ovarian cystectomy. What to do next Instructions From Your Doctor Event Name Event Result Discharge Activity Resume normal activities in 24 hours Discharge Restrictions No driving for 24 hrs Discharge Diet(s) Regular Call Your Doctor For Persistent or heavy bleeding Discharge Instructions Discharge Instructions New Follow Up Appointments after Discharge Follow Up with Tim RAO, Nathalie Cardenas, [facility], [facility] When: Comments: Call the office for any problems. Also, call office within a few days to schedule your follow up Where: [facility] Marcus Hernandez, [facility] [address] [phone] [phone] Medications What How Much When Why Instructions Next Dose Unchanged cyanocobalamin (Vitamin B12) once daily Unchanged ergocalciferol (Vitamin D) 2000 International Units By Mouth Every day Unchanged levothyroxine (Synthroid 100 mcg Tab) 90 EA, take 1 tablet by mouth once daily EXCEPT TAKE 1/ 2 TABLET ON FRIDAY Unchanged omega-3 polyunsaturated fatty acids (Nature's Bounty Red Krill Oil) once daily Unchanged polyethylene glycol 3350 (Miralax 3350 17 gram packet) 17 Gram By Mouth Every day Rectal bleeding Rectal pain Unchanged psyllium (Metamucil 3.4 g/ 5.2 g oral powder) 3.4 Gram By Mouth 3 times a day as needed for for constipation Rectal bleeding Rectal pain Test Results No qualifying data available. Allergies Lipitor (unknown) predniSONE (Anger) [place] Thyroid (Rash) Bee Stings (Unknown) Mushrooms (unknown) Problems Ongoing - Any problem that you are currently receiving treatment for. Anal fissure BMI 25.0-25.9,adult Chronic shoulder pain Dysuria Facial [...] for. Postural orthostatic tachycardia syndrome Raynaud's disease Education Materials Colon Polyps Colon polyps are tissue growths inside the colon, which is part of the large intestine. They are one of the types of polyps that can grow in the body. A polyp may be a round bump or a mushroom-shapedgrowth. You could have one polyp or more than one. Most colon polyps are noncancerous (benign). However, some colon polyps can become cancerous over time. Finding and removing the polyps early can help prevent this. What are the causes? The exact cause of colon polyps is not known. What increases the risk? The following factors may make you more likely to develop this condition: ??? Having a family history of colorectal cancer or colon polyps. ??? Being older than 45 years of age. ??? Being younger than 45 years of age and having a significant family history of colorectal cancer or colon polyps or a genetic condition that puts you at higher risk of getting colon polyps. ??? Having inflammatory bowel disease, such as ulcerative colitis or Crohn's disease. ??? Having certain conditions passed from parent to child (hereditary conditions), such as: ? Familial adenomatous polyposis (FAP). ? Anderson syndrome. ? Turcot syndrome. ? Peutz???Jeghers syndrome. ? MUTYH-associated polyposis (MAP). ??? Being overweight. ??? Certain lifestyle factors. These include smoking cigarettes, drinking too much alcohol, not gettingenough exercise, and eating a diet that is high in fat and red meat and low in fiber. ??? Having had childhood cancer that was treated with radiation of the abdomen. What are the signs or symptoms? Many times, there are no symptoms. If you have sym (more content not included)...[facility] Comment on above:Result Comment: Electronically Signed By: Misti Nicholas I\.raghu\Date and Time Signed: 12/03/24 09:57 EDTInpatient Patient Summaryon [id number] Patient SummaryInpatient Patient Summary [place] [id number] [facility] Clinical Discharge Instructions PERSON INFORMATION Name: BRAD DIXON PHYSICIANS Admitting Physician: Nathalie Dumont MD Attending Physician: Nathalie Dumont MD PCP: Giuliana Tavares MD Discharge Diagnosis: Pain, rectal Comment: PATIENT EDUCATION INFORMATION Instructions: Medication Leaflets: Follow up: MEDICATION LIST Medications to Continue with No Changes Other Medications cyanocobalamin (Vitamin B12) once daily. ergocalciferol (Vitamin D) 2000 International Units By Mouth every day. levothyroxine (Synthroid 100 mcg Tab) 90 EA, take 1 tablet by mouth once daily EXCEPT TAKE 1/2 TABLET ON FRIDAY., Responsible Provider: KERRI FERNANDEZ omega-3 polyunsaturated fatty acids ([employer] Red Krill Oil) once daily. polyethylene glycol 3350 (Miralax 3350 17 gram packet) 17 Gram By Mouth every day. Refills: 3. psyllium (Metamucil 3.4 g/5.2 g oral powder) 3.4 Gram By Mouth 3 times a day as needed for constipation. Refills: 0. Comment:[facility] OR PACU I Recordon [id number] OR PACU I RecordMain OR PACU I Record PACU Phase I Document Type FT Summary Primary Physician: Nathalie Dumont MD Finalized Date/Time: 12/03/24 10:31:03 Pt. Name: BRAD DIXON /Sex: 1970 Female Med Rec #: [id number] Physician: Nathalie Dumont MD Financial #: [id number] Pt. Type: O Room/Bed: / Admit/Disch: 12/03/24 08:58:32 - Institution: Case Times PACU I FT Pre-Care Text: Identifies barriers to communication and implements measures to provide psychological support Develops individualized plan of care, and ensures continuity of care Maintains patient's dignity and privacy, and maintains patient confidentiality Identifies and reports philosophical, cultural, and spiritual beliefs and values Identifies individual values and wishes concerning care Implements aseptic technique, and administers prescribed antibiotic therapy and immunizing agents as ordered Evaluates postoperative tissue perfusion Implements thermoregulation measures, and monitors body temperature Evaluates postoperative respiratory status Evaluates postoperative cardiac status Evaluates postoperative neurological status Assesses pain control, collaborated in initiating patient-controlled analgesia and implements alternative methods of pain control Verifies allergies, administers prescribed medications and solutions, evaluates response to medications Entry 1 In PACU I 12/03/24 09:50:00 Discharge from PACU 12/03/24 10:20:00 I Outcomes Met? Yes Last Modified By: Misti Nicholas I 12/03/24 10:30:50 Post-Care Text: The patient demonstrates knowledge of the expected response to the operative or invasive procedure The patient's care is consistent with the individualized perioperative plan of care The patient's rightto privacy is maintained The patient's value system, lifestyle, ethnicity, and culture are considered, respected, and incorporated into the perioperative plan of care The patient participates in decisions affecting his or her perioperative plan of care The patient is free from signs and symptoms of infection The patient has wound/tissue perfusion consistent with or improved from baseline levels established preoperatively The patient is at or returning to normothermia at the conclusion of the immediate postoperative period The patient's respiratory function is consistent with or improved from baseline levels established preoperativelyThe patient's cardiovascular status is consistent with or improved from baseline levels established preoperatively The patient's cardiovascular status is consistent with or improved from baseline levels established preoperatively The patient demonstrates and/or reports adequate pain control throughout the perioperative period The patient received appropriate medication(s), safely administered during the perioperativeperiod Acuity Level PACU I FT Entry 1 Start Time 12/03/24 09:50:00 Stop Time 12/03/24 10:20:00 Acuity Level Acuity Level I Last Modified By: Misti Nicholas I 12/03/24 10:31:00 Finalized By: Misti Nicholas I Document Signatures Signed By: Misti Nicholas I 12/03/24 10:31[facility] Preoperative Recordon [id number] OR Preoperative RecordMain OR Preoperative Record Holding Area Document Type FT Summary Primary Physician: Nathalie Dumont MD Finalized Date/Time: 12/03/24 09:22:02 Pt. Name: ROBB ANDERSON BRAD Concetta Graf/Sex: 1970 Female Med Rec #: [id number] Physician: Nathalie Dumont MD Financial #: [id number] Pt. Type: O Room/Bed: / Admit/Disch: 12/03/24 08:58:32 - Institution: Case Times Holding FT Pre-Care Text: Verifies consent for planned procedure, identifies individual values and wishes concerning care, includes family members in perioperative teaching Secures patient's records' belongings, and valuables, maintains patient's dignity and privacy, and maintains patient confidentiality Entry 1 In Holding 12/03/24 09:05:00 Outcomes Met? Yes Last Modified By: Stephanie Duque RN 12/03/24 09:10:40 Post-Care Text: The patient participates in decisions affecting his or her perioperative plan of care The patient'sright to privacy is maintained Surgery Checklist FT Entry 1 Patient Birthday, ID Band Procedure History and Physical, Identification: Check, Patient Verification: Surgical Consent, With Participation Patient NPO after Midnight: Yes Results Reviewed Clear/yellow Comments: Personal Items None Complaints of Pain: No Comment: Pain Comment: Denies Operative Site n/a Marking: Availability Equipment Verified: Does Patient Smoke No Patient states Yes Comment - Adult Bk- spouse postop adult Supervision supervision available Case Cancelled in No Holding Area see comments below for reason Last Modified By: Stephanie Duque RN 12/03/24 09:12:24 General Comments: Pt completed prep before midnight and remained NPO since/KAREEMRN Finalized By: Stephanie Duque RN Document Signatures Signed By: Stephanie Duque RN 12/03/24 09:22[facility] Discharge Instructionon [id number] Surgery Discharge InstructionOutpatient Surgery Discharge Instruction [place] [id number] Patient Discharge Instructions PERSON INFORMATION Name: BRAD DIXON Date of : 1970 Current Date: 12/03/2024 09:21:29 PHYSICIANS Admitting Physician: Tim RAO, Nathalie Cardenas Discharge Diagnosis: Pain, rectal BRAD DIXON has been given the following list of follow-up instructions, prescriptions, and patient education materials: PATIENT FOLLOW-UP INFORMATION Diet: Regular Discharge Activity: Resume normal activities in 24 hours Discharge Restrictions: No driving for 24 hrs Call Your Doctor For: Persistent or heavy bleeding IF UNABLE TO CONTACT YOUR PHYSICIAN AND YOU FEEL IT IS AN EMERGENCY, GO TO THE NEAREST EMERGENCY ROOM OR CALL 911 I, BRAD DIXON, have received the attached patient education materials/instructions and have verbalized understanding: May we do a follow up call? Yes No I was present when discharge instructions were given Patient Signature Date Clinican/Nurse Signature Date Follow up: Pharmacy Information: You may receive a survey from [facility] asking you to rate your care experience. Your feedback is important and will help us understand what we do well and how we can improve the quality of care we provide to you, your loved ones and our community. It???s an honor to serve you. Thank you for choosing [facility] HERE ARE THE MEDICATION CHANGES THAT OCCURRED DURING YOUR HOSPITAL STAY Medications to Continue with No Changes Other Medications cyanocobalamin (Vitamin B12) once daily. ergocalciferol (Vitamin D) 2000 International Units By Mouth every day. levothyroxine (Synthroid 100 mcg Tab) 90 EA, take 1 tablet by mouth once daily EXCEPT TAKE 1/2 TABLET ON FRIDAY., Responsible Provider: KERRI FERNANDEZ omega-3 polyunsaturated fatty acids (Nature's Bounty Red Krill Oil) once daily. polyethylene glycol 3350 (Miralax 3350 17 gram packet) 17 Gram By Mouth every day. Refills: 3. psyllium (Metamucil 3.4 g/5.2 g oral powder) 3.4 Gram By Mouth 3 times a day as needed for constipation. Refills: 0. PATIENT EDUCATION INFORMATION Instructions: Medication Leaflets:[facility] HospitalAmbulatory Visit Summaryon [id number] Visit SummaryAmbulatory Visit Summary ROBB YUONGCAMILABRAD :1970 Visit Date:10/13/2024 Ambulatory Visit Instructions Your Diagnosis Rectal bleeding Rectal pain Anal fissure Your Care Team Attending Physician - Tim RAO, Nathalie Cardenas Primary Care Physician - Giuliana Tavares MD This Is Your Medications List cyanocobalamin (Vitamin B12) ergocalciferol (Vitamin D) levothyroxine (Synthroid 100 mcg Tab) omega-3 polyunsaturated fatty acids (Nature's Bounty Red Krill Oil) polyethylene glycol 3350 (Miralax 3350 17 gram packet) psyllium (Metamucil 3.4 g/5.2 g oral powder) Procedures Performed Flexible sigmoidoscopy (03/05/2024), Colonoscopy (12/29/2020), Colonoscopy (2013), Hysterectomy (07/31/2009), Appendectomy, Cerclage, Ovarian cystectomy. Discharge Vitals Heart Rate (Peripheral) 80 Blood Pressure 121/81 Height 167 cm Height 66 in Weight 70.9 kg Weight 156.308 lb BMI 25.42 Medications What How Much When Why Instructions New polyethylene glycol 3350 (Miralax 3350 17 gram packet) 17 Gram By Mouth Every day Rectal bleeding Rectal pain Refills: 3 Pickup at [facility] New psyllium (Metamucil 3.4 g/ 5.2 g oral powder) 3.4 Gram By Mouth 3 times a day as needed for forconstipation Rectal bleeding Rectal pain Pickup at [facility] Unchanged cyanocobalamin (Vitamin B12) once daily Unchanged ergocalciferol (Vitamin D) 2000 International Units By Mouth Every day Unchanged levothyroxine (Synthroid 100 mcg Tab) 90 EA, take 1 tablet by mouth once daily EXCEPT TAKE 1/ 2 TABLET ON FRIDAY Unchanged omega-3 polyunsaturated fatty acids ([employer] Red Krill Oil) once daily Pharmacy Information [facility]: [address] [place], [place] [id number] [phone] Allergies Lipitor (unknown) predniSONE (Anger) [place] Thyroid (Rash) Bee Stings (Unknown) Mushrooms (unknown) Problems Ongoing - Any problem that you are currently receiving treatment for. Anal fissure BMI 25.0-25.9,adult Chronic shoulder pain Dysuria Facial [...] you for choosing us for your care. Patient Portal You may access all of your results and other medical record information on our secure patient portal. If you are not signed up for this yet, please contact [employer] at [phone] to get signed up today. Language Information Language assistance services are available as needed. [facility] Hospitalattil[facility] Office/Clinic Noteon [id number] Office/Clinic NoteGastroenterology Office/Clinic Note Chief Complaint Rectal bleeding and intermittent abdominal pain HPI Staff New patient is a(n) 53 year old female who was referred by Dr Giuliana Tavares for rectal bleeding. Rectal bleeding started September 2023. Pt had flex sig w/GS in February, was negative for hemorrhoids but continues to have bright red rectal bleeding to the point that it is dripping and leaving behind spots in her underwear after a BM and strange odor. Feeling of tearing when having a BM and is difficult to sit after. Also c/o occasional burning sensation in lower abdomen and under the ribs. GS advised to increase fiber to 20-30mg/day and increase water intake. Any blood thinners? no Any GLP-1 agonists? no History of Present Illness Reviewed HPI collected by staff Review of Systems PHQ Score Initial Depression Screen Score: 0 SCORE All systems reviewed, negative; Except for above Physical Exam Vitals & Measurements HR: 80(Peripheral) BP: 121/81 HT: 66 in HT: 167 cm WT: 156.308 lb WT: 70.9 kg BMI: 25.42 No acute distress Procedure Flex sig 03/05/24: Findings prominent rectal veins; random biopsies of sigmoid and rectum obtained. Recommendations: Repeat colonoscopy:: 7 yrs. Pathology: Final Diagnosis ( Modified ) A: RECTUM, BIOPSY: ??? COLONIC MUCOSA WITH LYMPHOID AGGREGATES, WITHIN NORMAL LIMITS. B: SIGMOID COLON, BIOPSY: ??? COLONIC MUCOSA WITHIN NORMAL LIMITS. Assessment/Plan 1. Rectal bleeding (K62.5: Hemorrhage of anus and rectum) Started over a year ago Recently started having pain with BMs Reports large amount of blood at times, recently had blood drip down her leg after a BM Hard stools, increased fiber in diet without relief Feeling of tearing when having a BM and is difficult to sit afterwards Flex sig 03/05/24 w/ Nill: prominent rectal veins; random biopsies of sigmoid and rectum obtained. Biopsy was normal. - Likely anal fissure - ? Dyssynergia - Topical compound cream prescribed- Buderer Drug - Schedule Colonoscopy to evaluate, r/o other etiologies such as IBD. Discussed risks such as bleeding, injury and perforation as well as benefits. Patient agreeable. - Recommended squatty potty - Advised to get prunes, kiwi fruits and stay well hydrated - Advised to use MiraLAX and titrate to have 1-2 bowel movements every day - Recommended water-soluble fibers (Metamucil or Citracel) 2. Rectal pain (K62.89: Other specified diseases of anus and rectum) I, Lisa Lassiter, personally scribed for Zelayacarrington Dumont on 10/13/2024 08:51:46. . Follow-up No qualifying data available Problem List/Past [...] orthostatic tachycardia syndrome Raynaud's disease Procedure/Surgical History Flexible sigmoidoscopy (03/05/2024), Colonoscopy (12/29/2020), Colonoscopy (2013), Hysterectomy (07/31/2009), Appendectomy, Cerclage, Ovarian cystectomy. 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 Never Smokeless Tobacco Use:., 10/13/2024 Family History Cardiac arrhythmia: Mother. Diverticulitis of colon: Father. Hypertension: Father. Hypothyroidism: Mother. Primary malignant neoplasm of colon: Grandparent. Primary malignant neoplasm of prostate: Father. Immunizations Vaccine Date Status Comments influenza virus vaccine, inactivated - Not Given Patient Refuses influenza virus vaccine, inactivated - Not Given Postpone due to refusal SARS-CoV-2 (COVID-19) mRNA BNT-162b2 vax 02/02/2021 Recorded influenza virus vaccine, inactivated - Not Given Patient Refuses influenza virus vaccine, inactivated - Not Given Patient Refuses SARS-CoV-2 (COVID-19) mRN (more content not included)...[facility] HospitalComment on above:Result Comment: Electronically Signed By: Lisa Lassiter MA\.br\Date and Time Signed: 10/13/24 09:01 EDT\.br\Electronically Co-Signed By: Tim RAO, Nathalie Cardenas\.br\Date and Time Co-Signed: 10/13/24 16:29 EDTT4 Free SerPl-mCncon [id number] T4 [Mass/Vol]1.3 ng/dLNormal0.9-1.7 [facility] on above:Order Comment: Specimen Type: BLOOD SPECIMEN [facility]ing Facility[facility] Address: [address] [place], [place] [address]Performed By: #### 3016-3, 3024-7 #### [facility] CLIA [id number] [address] [place], [place] [address]K [address] SerPl-aCncon 10-01-2024 TSH Qn2.260 m[IU]/LNormal0.270-4.200[facility]red HealthcareComment on above: Order Comment: Specimen Type: BLOOD SPECIMEN [facility]ing Facility[facility] Address: [address] [place], [place] [address]Performed By: #### 3016-3, 3024-7 #### [facility] CLIA [id number] [address] [place] [address] peptide [Mass/Vol]on 60-24-2548Owajnqeghdtfpm and review of laboratory resultsNormalCSelect Medical [facility], Inc-PEPTIDE BLDon 04-19-2024 peptide [Mass/Vol]2.6 ng/mL1.1 - 4.4 ng/mLCProMedica [facility] Hospital peptide SerPl-mCncon 04-17-2024 peptide [Mass/Vol]2.6 ng/mLNormal1.1-4.4CDetwiler [facility] on above:Order Comment: Specimen Type: BLOOD SPECIMEN [facility] Address: [address] [place], [place] [address]Performed By: #### 1986-9 #### [facility] CLIA [id number] [address] [place], [place] [address]HbA1c (Bld)on 04-17-2024 Average glucose Estimated from glycated hemoglobin (Bld) [Mass/Vol]94 mg/dL [facility] on above:eAG: (Estimated average glucose) is a calculated value from HgbA1c and is bilingual call center representative of the average blood glucose level in the last 2-3 month period.HbA1c (Bld) [Mass fraction]4.9 %4.3 - 5.6 % [facility] on above:[place] Diabetes Association guidelines indicate that patients with HgbA1c in the range 5.7-6.4% are at increased risk for development of diabetes, and intervention by lifestyle modification may be b eneficial. HgbA1c greater or equal to 6.5% is considered diagnostic of diabetes. [facility] glucose Estimated from glycated hemoglobin (Bld) [Mass/Vol]94 mg/dLNormSouthview Medical Center on above:Order Comment: Specimen Type: BLOOD SPECIMEN [facility] Address: [address] [place], [place] [address]Result Comment: eAG: (Estimated average glucose) is a calculated value from HgbA1c and is bilingual call center representative of the average blood glucose level in the last 2-3 month period.Performed By: #### 06385-6 #### [facility] CLIA [id number] [address] [place] [address] [place] ZTOLUONIeU8q (Bld) [Mass fraction] 4.9 %Normal4.3-5.6CDetwiler Memorial Hospital on above:Order Comment: Specimen Type: BLOOD SPECIMEN [facility] Address: [address] [place], [place] [address]Result Comment: [place] Diabetes Association guidelines indicate that patients with HgbA1c in the range 5.7-6.4% are at increased risk for development of diabetes, and intervention by lifestyle modification may be beneficial. HgbA1c greater or equal to 6.5% is considered diagnostic of diabetes.Performed By: #### 32994-1 #### [facility] CLIA [id number] [address] [place] [address] [place] Panel Informationon [id number] and review of laboratory resultsNormalCSt. Elizabeth HospitalT3, FREEon 82-36-0529Pcsz T3 [Mass/Vol]3.3 pg/mL2.3 - 4.1 pg/mL [facility] HospitalT3Free SerPl-mCncon 97-71-0884Zbgx T3 [Mass/Vol]3.3 pg/mLNormal 2.3-4.1CDetwiler Memorial Hospital on above:Order Comment: Specimen Type: BLOOD SPECIMENOrdering Facility: [facility] Address:[address] [place], [place] [address]Performed By: #### 3024-7, 3016-3, 3051-0 ####[facility] [id number] [place] [address] [place] AMERICAT4 FREE/FREE THYROXINEon 41-70-3152Bwjp T4 [Mass/Vol]1.6 ng/dL0.9 - 1.7 ng/dLPremier Health Miami Valley HospitalT4 Free SerPl-mCncon [id number] T4 [Mass/Vol]1.6 ng/dLNormal0.9-1.7CReg[facility] Comment on above:Order Comment: Specimen Type: BLOOD SPECIMENOrdering Facility: [facility] Address:[address] [place] [address] Performed By: #### 3024-7, 301-3, 305-0 ####[facility] [id number] [place] [id number] [place] [facility] HOSPITALTHYROID STIMULATING HORMONEon 54-11-3074CAA Qn0.857 m[IU]/LCMorrow [facility] Hospital SerPl-aCncon 01-68-7802KEU Qn0.857 m[IU]/LNormal0.270-4.200[facility]red HealthcareComment on above:Order Comment: Specimen Type: BLOOD SPECIMENOrdering Facility: [facility] Address:[address] [place], [place] [address]Performed By: #### 3024-7, 3, 0 ####[facility] [id number] [place] [id number] [place] OF AMERICAAmbulatory Visit Summaryon [id number] Visit SummaryAmbulatory Visit Summary BRAD DIXON :1970 Visit Date:03/23/2024 Ambulatory Visit Instructions Your Care Team Attending Physician - DYLAN RAO, Eliecer Briones Primary Care Physician - Giuliana Tavares MD This Is Your Medications List Contact prescribing physician if questions or concerns brompheniramine/dextromethorphan/PSE (Bromfed DM oral syrup) calcium-vitamin D (Calcium 600 D Tab) cyanocobalamin (Vitamin B12) ergocalciferol (Vitamin D) estradiol (estradiol 0.025 mg/24 hours twice weekly Transderm ER Film) levothyroxine (Synthroid 100 mcg Tab) omega-3 polyunsaturated fatty acids (Nature's Bounty Red Krill Oil) Procedures Performed Flexible sigmoidoscopy (03/05/2024), Colonoscopy (12/29/2020), Colonoscopy (2013), Hysterectomy (07/31/2009), Appendectomy, Cerclage, Ovarian cystectomy. Medications What How Much When Why Instructions Unchanged brompheniramine/ dextromethorphan/ PSE (Bromfed DM oral syrup) 5 Milliliter By Mouth 4 times a day as needed for for cold symptoms Acute URI Contact prescribing physician if questions or concerns Unchanged calcium-vitamin D (Calcium 600 D Tab) [...] or concerns Allergies Lipitor (unknown) predniSONE (Anger) [place] Thyroid (Rash) Bee Stings (Unknown) Mushrooms (unknown) [...] you for choosing us for your care. [facility] HospitalGeneral Surgery Office/Clinic Noteon [id number] Surgery Office/Clinic NoteGeneral Surgery Office/Clinic Note Chief Complaint post operative follow up HPI Staff 18 day post operative follow up post flex sigmoidoscopy with random sigmoid and rectal biopsies. History of Present Illness f/u flexible sigmoidoscopy done for rectal bleeding; negative random biopsies; no evidence of bleeding, no hemorrhoids or fissures, prominent rectal veins. still wit rectal bleeding after hard stool,on toilet paper, intermittent. Review of Systems PHQ Score Initial Depression Screen Score: 0 SCORE ROS - Provider Constitutional: no fever, no sweats, no weight loss. Eyes: no glasses, no blurred vision, no visual loss. ENMT: no dentures, no hoarseness, no swallowing difficulties, no hearing loss, no ear infection(s),no nose bleeds. Cardiovascular: normal blood pressure, no [...] been reviewed and are negative or noncontributory. Assessment/Plan 1. Rectal bleeding (K62.5: Hemorrhage of anus and rectum) recommend high fiber diet, 25-30 gms/day, and daily fiber supplement; increased water intake; call with problems/questions; or if persistent/worsening bleeding, or change in bowel habits. Follow-up No qualifying data available Problem List/Past [...] orthostatic tachycardia syndrome Raynaud's disease Procedure/Surgical History Flexible sigmoidoscopy (03/05/2024), Colonoscopy (12/29/2020), Colonoscopy (2013), Hysterectomy (07/31/2009), Appendectomy, Cerclage, Ovarian cystectomy. 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 Never Smokeless Tobacco Use:., 03/23/2024 Family History Cardiac arrhythmia: Mother. Diverticulitis of [...] SARS-CoV-2 (COVID-19) mRNA BNT-162b2 vax 06/09/2020 Given ProphylaxisNormal [facility] HospitalComment on above:Result Comment: Electronically Signed By: DYLAN RAO, Eliecer Bee\Date and Time Signed: 03/23/24 11:57 ESTBD Bone Density DEXAon [id number] Bone Density DEXAExam Date/Time: 03/19/2024 12:54 EST Reason for Exam: Z78.0 Report IMPRESSION: OSTEOPENIA. The 10 year probability (FRAX) of a major osteoporotic fracture based on the femoral neck bone marrow density is: 7.3%, and hip fracture 0.8%. The NOF/ISD guideline recommend FRAX for postmenopausal patients (not on treatment) if the lowest T-score for Spine(L1-L4), Femur Neck or Femur Total indicates low bone density (T score -1.0 to -2.5, osteopenia). EXAM: BD Bone Density DEXA CLINICAL HISTORY: Z78.0. COMPARISON: 03/08/2022 COMMENTS: The lumbar spine and both hips were scanned. The mean bone mineral density from L1 to L4 is 1.089 g/cm2 and this value is -0.8 standard of deviation below the standard reference value for a young adult. Bone mineral density of the left femoral neck is 0.828 g/cm2 and this value is -1.5 standard of deviation below the standard reference value. Bone mineral density of the right femoral neck is 0.773 g/cm2 and this value is -1.9 standard of deviation below the standard reference value. The lowest value(s) meet WHO criteria for osteopenia. Compared to prior study, no change in BMD of the lumbar spine, 3.8% increase in BMD of the left femoral neck and 7.5% decrease in BMD of the right femoral neck. RECOMMENDATIONS: 1. All patients should optimize her calcium and vitamin D intake. 2. Consider FDA-approved medical therapies in postmenopausal women and minimal age 50 years and older, based on the following: - hip or vertebral (clinical or morphometric) fracture. - T-score less than or equal to -2.5 at the femoral neck or spine after the appropriate evaluation to exclude secondary causes. - Low bone density (T score between -1.0 and -2.5 at the femoral neck or spine) and a 10 year probability of hip fracture greater than or equal to 3% or a 10-year probability of a major osteoporosis-related fracture greater than or equal to 20% based on FRAX calculation. - Clinician judgment and/or patient preferences may indicate treatment for people with 10 year fracture probability above or below these levels. - Further guidance on treatment can be found at the National Osteoporosis Foundation's website: bonesource.org 3. Patients with diagnosis of osteoporosis or high risk for fracture should have regular bone mineral density tests. For patients eligible for Medicare, routine testing is allowed once every 2 years. Testing frequency can be increased to 1 year for patient's history of rapidly progressing disease, those who are receiving or Report discontinuing medical therapy to restore bone mass or have additional risk factors. Ordering Provider: MONAE ROPER FINAL REPORT Dictated: 03/22/2024 3:43 pm Anuel Rice MD Signed (Electronic Signature): 03/22/2024 3:43 pm Signed by: Anuel Rice MD Transcribed by: KECIA Technologist: ALCIDESSt. Mary's Medical Center, Ironton CampusMA Mamm Screen w/CAD if perf and 3D Bilon [id number] Mamm Screen w/CAD if perf and 3D BilExam Date/Time: 03/19/2024 12:41 EST Reason for Exam: Z12.31 Report IMPRESSION: BIRADS 2 BENIGN FINDINGS, NORMAL INTERVAL FOLLOW-UP. CLINICAL HISTORY: Screening. COMPARISON: Priors dating back to 2019. RESULT: Digital mammography and 3D tomosynthesis of bilateral breasts was performed. Category B - There are scattered areas of fibroglandular density. There is no suspicious mass, asymmetry, architectural distortion, or calcification. Stable asymmetries. Vascular calcifications: Absent. CAD analysis was performed and used in the interpretation. Dense Breast: No Follow-up: 12 MONTH RECALL. Board Certified Radiologists. Accredited by the ACR and FDA. MAMMOGRAPHY IS VERY IMPORTANT TO YOUR HEALTH. THE [place] [employer] GUIDELINES RECOMMEND THAT WOMEN 40 YEARS OF AGE AND OLDER SHOULD HAVE A MAMMOGRAM EVERY YEAR. A REMINDER LETTER WILL BE SENT AT THE APPROPRIATE TIME. THIS FACILITY UTILIZES A REMINDER SYSTEM TO ENSURE ALL PATIENTS RECEIVE REMINDER NOTIFICATIONS AT THE APPROPRIATE TIME BASED ON THE RECOMMENDATIONS OF THIS EXAM. THIS INCLUDES REMINDERS FOR ROUTINE SCREENING MAMMOGRAMS, DIAGNOSTIC MAMMOGRAMS IN WHICH THE PATIENT IS ASKED TO RETURN FOR ADDITIONAL VIEWS, OR OTHER BREAST IMAGING INTERVENTIONS WHEN APPROPRIATE. THE PATIENT WILL BE PLACED IN THE APPROPRIATE REMINDER SYSTEM INCLUDING A REMINDER AT THE APPROPRIATE TIME FOR ANY PENDING ADDITIONAL VIEWS. Report Ordering Provider: MONAE ROPER FINAL REPORT Dictated: 03/22/2024 3:42 pm Anuel Rice MD Signed (Electronic Signature): 03/22/2024 3:42 pm Signed by: Anuel Rice MD Transcribed by: KECIA Technologist: [facility] Assessment: BI-RADS Category 2-Benign finding Recommendation: Normal interval follow-upNormalCleveland Clinic Mercy Hospital Surgical Pathology Reporton [id number] Pathology Report[address] [place] [address]- Surgical Pathology Report Collected Date/Time: 03/05/2024 08:00 EST Pathologist: Shemar RAO PhD, Gokul Browne Received Date/Time: 03/05/2024 09:06 EST DYLAN RAO, Eliecer RICHARDSON MD, Eliecer Santizo Surgical Pathology Report - 03/09/2024 10:45 EST - Auth (Verified) Final Diagnosis A: RECTUM, BIOPSY: - COLONIC MUCOSA WITH LYMPHOID AGGREGATES, WITHIN NORMAL LIMITS. B: SIGMOID COLON, BIOPSY: - COLONIC MUCOSA WITHIN NORMAL LIMITS. (Electronic Signature) Gokul Staton MD PhD 03/09/2024 10:45 Clinical Information Rectal bleeding Pre-Op Diagnosis: Rectal bleeding Procedure: Sigmoidoscopy Post-Op Diagnosis: Rectal bleeding Specimen(s) Received A.Rectal biopsy B.Sigmoid colon biopsy Gross Description A: Received in formalin labeled with patient name, number, and rectal biopsy is one fragment of bearden/pink soft tissue measuring 0.2 cm in diameter. Entire specimen submitted in one cassette. B: Received in formalin labeled with patient name, number, and sigmoid colon biopsy are two fragments of bearden soft tissue measuring 0.1 and 0.2 cm in diameter, respectively. Entire specimen submitted in one cassette. () [facility] Microscopic Description Microscopic examination performed unless gross only specified.NormalCleveland Clinic Mercy HospitalComment on above:Performed By: #### [id number] #### [facility] [address] [place], [place] [address]Pufmufghc By: #### [id number] ####[facility] [address] [place], [place] [address]CZW,APTIMA HPV,AGE GDLNon 03-08-2024 AGE GDLN ACOG TESTINGNote.NOMS HealthcareComment on above:TESTS RESULT FLAG UNITS REF RANGE LAB Clinician Provided Cytology Information Source.............[facility] No. of containers..01 ThinPrep Vial Age Shawn POND Jaida... 29 FLAG LEGEND: L-Low Normal,H-High Normal,LL-Alert Low,HH-Alert High <-Panic Low,>-Panic High,A-Abnormal,AA-Critical Abnormal Performed at: 01 =[address] [address] oR Gold MD, HPV APTIMANegativeNegativeNOMS HealthcareComment on above:This nucleic acid amplification test detects fourteen high- risk HPV types (16,18,31,33,35,39,45,51,52,56,58,59,66,68) without differentiation. Performed at: =[address] [id number] C D Still Operator: Ro Gold MD, Phone: [phone] Performed at: - [address] [id number] C D Still Operator: Ro Gold MD, Phone: [phone] IGP, APTIMA HPV, RFX 16/18,45Note.NOMS HealthcareComment on above:TESTS RESULT FLAG UNITS REF RANGE LAB DIAGNOSIS: 02 NEGATIVE FOR INTRAEPITHELIAL LESION OR MALIGNANCY. THIS SPECIMEN WAS RESCREENED PART OF OUR SANDER AND POLISHER PROGRAM. Specimen adequacy: 02 Satisfactory for evaluation. Performed by: 03 Alexia Lucas, Farm Demonstrator ([facility]) QC reviewed by: 02 Jodie Christian, Farm Demonstrator ([facility]) . 02 Note: Note 02 The Pap smear is a screening test designed to aid in the detection of premalignant and malignant conditions of the uterine cervix. It is not a diagnostic procedure and should not be used as the sole means of detecting cervical cancer. Both false-positive and false-negative reports do occur. Test Methodology: Note 02 This liquid based ThinPrep(R) pap test was screened with the use of an image guided system. HPV Genotype Reflex Note 02 Criteria not met, HPV Genotype not performed. FLAG LEGEND: L-Low Normal,H-High Normal,LL-Alert Low,HH-Alert High <-Panic Low,>-Panic High,A-Abnormal,AA-Critical Abnormal Performed at: 02 [address] [facility] [address] [place] [address] Ro Gold MD, 03 REBOLLEDO [facility] [address] [place] [phone] Garry Mendosa PhD, SPATULA-ALONE VAGINA CLINISYNCNOMS HealthcareMain OR Intraoperative Recordon [id number] OR Intraoperative RecordMain OR Intraoperative Record IntraOp Document Type FT Summary Primary Physician: DYLAN RAO, Eliecer Briones Finalized Date/Time: 03/08/24 13:52:48 Pt. Name: BRAD DIXON Concetta Graf/Sex: 1970 Female Med Rec #: [id number] Physician: Eliecer RICHARDSON MD Financial #: [id number] Pt. Type: O Room/Bed: / Admit/Disch: 03/05/24 06:54:47 - 03/05/24 23:59:59 Institution: Case Times FT Entry 1 Patient Times In Room 03/05/24 07:52:00 Out Room 03/05/24 08:10:00 Procedure Times Start 03/05/24 07:56:00 Stop 03/05/24 08:05:00 Anesthesia Times Start 03/05/24 07:52:00 Stop 03/05/24 08:10:00 Last Modified By: Luann Boo RN 03/05/24 08:10:50 General Comments: 03/08/24 Chart opened for charge review per Phillip Lopez RN. [place] Case Attendance FT Entry 1 Entry 2 Entry 3 Case Attendee Florencio Capellan MD, Luann Hussein RN Role Performed Anesthesiologist Surgeon - Primary Political Science Professor - Primary Wet Plant Operator Time In 03/05/24 07:52:00 03/05/24 07:52:00 03/05/24 07:52:00 Time Out 03/05/24 08:10:00 03/05/24 08:10:00 03/05/24 08:10:00 Procedure SIGMOIDOSCOPY(.) SIGMOIDOSCOPY(.) SIGMOIDOSCOPY(.) Comments Dr. Tipton supervising Last Modified By: Ema WELDON, Luann Boo RN, Luann Sharma RN 03/05/24 08:10:51 03/05/24 08:10:51 03/05/24 08:10:51 Entry 4 Case Attendee Amelia Castro Role Performed Scrub - Primary Time In 03/05/24 07:52:00 Time Out 03/05/24 08:10:00 Procedure SIGMOIDOSCOPY(.) Comments Last Modified By: Lunan Boo RN 03/05/24 08:10:51 Perioperative Protocols FT Pre-Care Text: Implements protective measures prior to operative or invasive procedure, confirms identity before the operative or invasive procedure, verifies operative procedure, surgical site, and laterality Entry 1 Procedure(s) SIGMOIDOSCOPY(.) Patient Identity Birthday, ID Band Verified (select at Check, Patient least 2): Participation Consents / H and P Anesthesia Consent, Operative Site N/A Verified H&P, Surgery/Procedure Marking Verified Consent Surgical Site No Laterality Verified n/a Verified Procedure Verified Yes Correct Patient Yes Position Verified Availability Equipment, Medication Prep Dry n/a Verified (If Applicable) PreOp Antibiotic No Time Out Florencio Capellan, Given Participants Eliecer RICHARDSON MD, Ema WELDON, Gloria Kong Micala E Time Out Complete 03/05/24 07:54:00 Outcomes Met? Yes Last Modified By: Luann Boo RN 03/05/24 07:57:57 Post-Care Text: The patient is free from signs and symptoms of injury caused by extraneous objects Allergy Information FT Pre-Care Text: Verifies allergies Entry 1 Allergies Reviewed? Yes Allergies Reviewed Self/Patient With Outcomes Met? Yes Last Modified By: Luann Boo RN 03/05/24 07:58:04 Post-Care Text: The patient received appropriate medication(s) safely administered during the perioperative period Surgical Procedures FT Entry 1 Procedure Description Procedure SIGMOIDOSCOPY Modifiers . Surgeon Description FLEXIBLE SIGMOIDOSCOPY with sigmoid colon and rectal biopsies Primary Procedure Yes Primary Surgeon Eliecer RICHARDSON MD Start 03/05/24 07:56:00 Stop 03/05/24 08:05:00 Anesthesia Type General Surgical Service General Wound Class 2 - Clean-Contaminated Last Modified By: Luann Boo RN 03/05/24 08:11:28 General Case Data FT Pre-Care Text: Classifies surgical wound, implements aseptic technique, initiates traffic control Entry 1 Case Information OR ENDO 2 FT Case Level Level 2 Wound Class 2 - Clean-Contaminated Specialty General ASA Class 2 Preop Diagnosis RECTAL BLEEDING Postop Same As Preop No Postop Diagnosis Normal Sigmoidoscopy Outcomes Met? Yes Last Modified By: Luann Boo RN 03/05/24 08:06:21 Post-Care Text: The patient is free from signs and symptoms of infection Skin Assessment (Pre Procedure) FT Pre-Care Text: Implements protective measures to prevent skin/ tissue injury due to thermal or mechanical sources Evaluates for signs and symptoms of physical injury to skin and tissue Entry 1 Skin Integrity Intact, [place], Warm, & Skin Abnormality No Dry Outcomes Met? Yes Last Modified By: Luann Boo RN 03/05/24 07:58:25 Post-Care Text: The patient is free from signs and symptoms of injury caused by extraneous objects Patient Positioning FT Pre-Care Text: Identifies physical alterations that require additional precautions for procedure-specific positioning, verifies presence of prosthetics or corrective devices, positions the patient, evaluates the patient for signs and symptoms of injury as a result of positioning Entry 1 Procedure SIGMOIDOSCOPY(.) Body Position Lateral, right side up Feet Uncrossed? Yes Left Arm Position Resting at Side Right Arm Position Resting at Side Left Leg Position Extended Right Leg Position Extended Positioning Device Pillow Under Head Large Pres (more content not included)...[facility] HospitalDischarge Instructionson [id number] InstructionsDischarge Instructions BRAD DIXON :1970 Visit Date:03/05/2024 Inpatient Discharge Instructions Your Care Team Admitting Physician - Eliecer RICHARDSON MD Referring Physician - Eliecer RICHARDSON MD Reason for Your Visit RECTAL BLEEDING Your Diagnosis Rectal bleeding Tests Performed Pathology Tissue Exam -- Results Pending -- Please visit your patient portal for your results or contact your primary care physician. This Is Your Medications List brompheniramine/dextromethorphan/PSE (Bromfed DM oral syrup) calcium-vitamin D (Calcium 600 D Tab) cyanocobalamin (Vitamin B12) ergocalciferol (Vitamin D) estradiol (estradiol 0.025 mg/24 hours twice weekly Transderm ER Film) levothyroxine (Synthroid 100 mcg Tab) omega-3 polyunsaturated fatty acids (ContraFect's Bounty Red Krill Oil) Procedure History Colonoscopy (12/29/2020), Colonoscopy (2013), Hysterectomy (07/31/2009), Appendectomy, Cerclage, Ovarian cystectomy. Discharge Vitals Temperature (Temporal Artery) 36.4 ???C Heart Rate (Monitored) 74 Respiratory Rate 11 Blood Pressure 101/68 Height 167.7 cm Weight 70.5 kg BMI 25.07 What to do next Instructions From Your Doctor Event Name Event Result Discharge Activity Resume normal activities in 24 hours, Arrange for a responsible adult supervision for 24 hours Discharge Restrictions No driving for 24 hrs, Do not operate machinery or tools, Do not make important decisions for 24 hours, Do not drink alcoholic beverages for 24 hours Discharge Diet(s) Regular Call Your Doctor For Persistent or heavy bleeding, Temperature above 101.5 degrees, Severe pain at the operative site, Persistent vomiting Discharge Instructions Discharge Instructions Previously Scheduled Follow-Up Appointments Friday 12:30 PM EST Where: FT Mammography Friday 1:00 PM EST Where: FT Bone Density New Follow Up Appointments after Discharge Follow Up with Eliecer RICHARDSON When: Within 7 to 10 days Where: [address] [place] [address], [facility] [address] [address] [employer] (1) Medications What How Much When Why Instructions Next Dose Unchanged brompheniramine/ dextromethorphan/ PSE (Bromfed DM oral syrup) 5 Milliliter By Mouth 4 times a day as needed for for cold symptoms Acute URI Unchanged calcium-vitamin D (Calcium 600 D Tab) [...] ON FRIDAY Unchanged omega-3 polyunsaturated fatty acids (ContraFect's Bounty Red Krill Oil) once daily Test Results No qualifying data available. Allergies Lipitor (unknown) predniSONE (Anger) [place] Thyroid (Rash) Bee Stings (Unknown) Mushrooms (unknown) [...] for. Postural orthostatic tachycardia syndrome Raynaud's disease Education Materials High-Fiber Eating Plan Fiber, also called dietary fiber, is a type of carbohydrate. It is found foods such as fruits, vegetables, whole grains, and beans. A high-fiber diet can have many health benefits. Your health care provider may recommend a high-fiber diet to help: ??? Prevent constipation. Fiber can make your bowel movements more regular. ??? Lower your cholesterol. ??? Relieve the following conditions: ? Inflammation of veins in the anus (hemorrhoids). ? Inflammation of specific areas of the digestive tract (uncomplicated diverticulosis). ? A problem of the large intestine, also called the colon, that sometimes causes pain and diarrhea (irritable bowel syndrome, or IBS). ??? Prevent overeating as part of a weight-loss plan. ??? Prevent heart disease, type 2 diabetes, and certain cancers. What are tips for following this plan? Reading food labels ??? Check the nutrition facts label on food products for the amount of dietary fiber. Choose foods thathave 5 grams of fiber or more per serving. ??? The goals for recommended d (more content not included)...[facility] HospitalComment on above:Result Comment: Electronically Signed By: Garcia WELDON, Tatiana\.br\Date and Time Signed: 03/05/24 08:17 ESTInpatient Patient Summaryon [id number] Patient SummaryInpatient Patient Summary [place] [id number] [facility] Clinical Discharge Instructions PERSON INFORMATION Name: BRAD DIXON PHYSICIANS Admitting Physician: Eliecer RICHARDSON MD Attending Physician: Eliecer RICHARDSON MD PCP: Giuliana Tavares MD Discharge Diagnosis: Rectal bleeding Comment: PATIENT EDUCATION INFORMATION Instructions: High-Fiber Eating Plan; Colonoscopy, Care After Surgery Salam (CUSTOM) Medication Leaflets: Follow up: With: Address: When: Eliecer RICHARDSON [address] [place] [address], [address], [address] [address] Business (1) Within 7 to 10 days Type Location Start Finish [facility] [place] Screen (FT) FT.MAMMOGRAM 03/19/2024 12:30 PM 03/19/2024 12:45 PM Confirmed BD Bone Density (FT) FT.BD 03/19/2024 1:00 PM 03/19/2024 1:30 PM Confirmed MEDICATION LIST Medications to Continue with No Changes Other Medications brompheniramine/dextromethorphan/PSE (Bromfed DM oral syrup) 5 Milliliter By Mouth 4 times a day asneeded for cold symptoms. Refills: 0. calcium-vitamin D (Calcium 600 D Tab) 1 Tablets By Mouth every day. cyanocobalamin (Vitamin B12) once daily. ergocalciferol (Vitamin D) 2000 International Units By Mouth every day. estradiol (estradiol 0.025 mg/24 hours twice weekly Transderm ER Film) Transdermal. levothyroxine (Synthroid 100 mcg Tab) 90 EA, take 1 tablet by mouth once daily EXCEPT TAKE 1/2 TABLET ON FRIDAY., Responsible Provider: KERRI FERNANDEZ omega-3 polyunsaturated fatty acids (ContraFect's Bounty Red Krill Oil) once daily. Comment:[facility] HospitalMain OR PACU II Recordon [id number] OR PACU II RecordMain OR PACU II Record PACU Phase II Document Type FT Summary Primary Physician: Eliecer RICHARDSON MD Finalized Date/Time: 03/05/24 08:58:27 Pt. Name: BRAD DIXON/Sex: 1970 Female Med Rec #: [id number] Physician: Eliecer RICHARDSON MD Financial #: [id number] Pt. Type: O Room/Bed: / Admit/Disch: 03/05/24 06:54:47 - Institution: Case Times PACU II FT Pre-Care Text: Identifies barriers to communication and implements measures to provide psychological support and determines knowledge level Develops individualized plan of care, and ensures continuity of care Maintains patient's dignity and privacy, and maintains patient confidentiality Identifies and reports philosophical, cultural, and spiritual beliefs and values Identifies individual values and wishes concerning care administers prescribed antibiotic therapy and immunizing agents as ordered, Evaluates postoperative tissue perfusion Implements thermoregulation measures, and monitors body temperature Evaluates postoperative respiratory statusEvaluates postoperative cardiac status Evaluates postoperative neurological status Assesses pain control, collaborated in initiating patient-controlled analgesia and implements alternative methods of pain control Verifies allergies, administers prescribed medications and solutions, evaluates response to medications Entry 1 In PACU II 03/05/24 08:11:00 Discharge from PACU 03/05/24 08:35:00 II Outcomes Met? Yes Last Modified By: Tatiana Zelyaa RN 03/05/24 08:58:21 Post-Care Text: The patient demonstrates knowledge of the expected response to the operative or invasive procedure The patient's care is consistent with the individualized perioperative plan of care The patient's rightto privacy is maintained The patient's value system, lifestyle, ethnicity, and culture are considered, respected, and incorporated into the perioperative plan of care The patient participates in decisions affecting his or her perioperative plan of care. The patient is free from signs and symptoms of infection The patient has wound/tissue perfusion consistent with or improved from baseline levels established preoperatively The patient is at or returning to normothermia at the conclusion of the immediate postoperative period The patient's respiratory function is consistent with or improved from baseline levels established preoperativelyThe patient's cardiovascular status is consistent with or improved from baseline levels established preoperatively The patient's neurological status is consistent with or improved from baseline levels established preoperatively The patient demonstrates and/or reports adequate pain control throughout the perioperative period The patient received appropriate medication(s), safely administered during the perioperativeperiod Finalized By: Tatiana Zelaya RN Document Signatures Signed By: Tatiana Zelaya RN 03/05/24 08:58[facility] OR Preoperative Recordon [id number] OR Preoperative RecordMain OR Preoperative Record Holding Area Document Type FT Summary Primary Physician: Eliecer RICHARDSON MD Finalized Date/Time: 03/05/24 07:17:00 Pt. Name: BRAD DIXON/Sex: 1970 Female Med Rec #: [id number] Physician: Eliecer RICHARDSON MD Financial #: [id number] Pt. Type: O Room/Bed: / Admit/Disch: 03/05/24 06:54:47 - Institution: Case Times Holding FT Pre-Care Text: Verifies consent for planned procedure, identifies individual values and wishes concerning care, includes family members in perioperative teaching Secures patient's records' belongings, and valuables, maintains patient's dignity and privacy, and maintains patient confidentiality Entry 1 In Holding 03/05/24 07:00:00 Outcomes Met? Yes Last Modified By: Merlyn Arnold RN 03/05/24 07:16:01 Post-Care Text: The patient participates in decisions affecting his or her perioperative plan of care The patient'sright to privacy is maintained Surgery Checklist FT Entry 1 Patient Birthday, ID Band Procedure History and Physical, Identification: Check, Patient Verification: Surgical Consent, With Participation Patient NPO after Midnight: Yes Date/Time: 03/05/24 00:00:00 Personal Items clothes, shoes Limitations: n/a Comment: Complaints of Pain: No Pain Comment: denies Operative Site n/a Marked By: n/a Marking: Availability Equipment Verified: Does Patient Smoke No Patient states Yes Comment - Adult Bk- spouse postop adult Supervision supervision available Case Cancelled in No Holding Area see comments below for reason Last Modified By: Merlyn Arnold RN 03/05/24 07:16:58 General Comments: Pt completed fleets enema x1 this morning at home at 0500. /,RN Finalized By: Merlyn Arnold RN Document Signatures Signed By: Merlyn Arnold RN 03/05/24 07:17[facility] Discharge Instructionon [id number] Surgery Discharge InstructionOutpatient Surgery Discharge Instruction [place] [id number] Patient Discharge Instructions PERSON INFORMATION Name: ROBB JUSTIN BRAD Concetta Date of : 1970 Current Date: 03/05/2024 09:05:37 PHYSICIANS Admitting Physician: Eliecer RICHARDSON MD Discharge Diagnosis: Rectal bleeding BRAD DIXON Concetta has been given the following list of follow-up instructions, prescriptions, and patient education materials: PATIENT FOLLOW-UP INFORMATION Diet: Regular Discharge Activity: Resume normal activities in 24 hours, Arrange for a responsible adult supervision for 24 hours Discharge Restrictions: No driving for 24 hrs, Do not operate machinery or tools, Do not make important decisions for 24 hours, Do not drink alcoholic beverages for 24 hours Call Your Doctor For: Persistent or heavy bleeding, Temperature above 101.5 degrees, Severe pain atthe operative site, Persistent vomiting IF UNABLE TO CONTACT YOUR PHYSICIAN AND YOU FEEL IT IS AN EMERGENCY, GO TO THE NEAREST EMERGENCY ROOM OR CALL 911 I, BRAD DIXON, have received the attached patient education materials/instructions and have verbalized understanding: May we do a follow up call? Yes No I was present when discharge instructions were given Patient Signature Date Clinican/Nurse Signature Date Follow up: With: Address: When: Eliecer Hernandez, [address], [facility] [address] [place] [phone] Business (1) Within 7 to 10 days Type Location Start Finish State [place] Screen (FT) FT.MAMMOGRAM 03/19/2024 12:30 PM 03/19/2024 12:45 PM Confirmed BD Bone Density (FT) FT.BD 03/19/2024 1:00 PM 03/19/2024 1:30 PM Confirmed Pharmacy Information: You may receive a survey from [facility] asking you to rate your care experience. Your feedback is important and will help us understand what we do well and how we can improve the quality of care we provide to you, your loved ones and our community. It???s an honor to serve you. Thank you for choosing [facility] HERE ARE THE MEDICATION CHANGES THAT OCCURRED DURING YOUR HOSPITAL STAY Medications to Continue with No Changes Other Medications brompheniramine/dextromethorphan/PSE (Bromfed DM oral syrup) 5 Milliliter By Mouth 4 times a day asneeded for cold symptoms. Refills: 0. calcium-vitamin D (Calcium 600 D Tab) 1 Tablets By Mouth every day. cyanocobalamin (Vitamin B12) once daily. ergocalciferol (Vitamin D) 2000 International Units By Mouth every day. estradiol (estradiol 0.025 mg/24 hours twice weekly Transderm ER Film) Transdermal. levothyroxine (Synthroid 100 mcg Tab) 90 EA, take 1 tablet by mouth once daily EXCEPT TAKE 1/2 TABLET ON FRIDAY., Responsible Provider: KERRI FERNANDEZ omega-3 polyunsaturated fatty acids (ContraFect's Bounty Red Krill Oil) once daily. PATIENT EDUCATION INFORMATION Instructions: High-Fiber Eating Plan Fiber, also called dietary fiber, is a type of carbohydrate. It is found foods such as fruits, vegetables, whole grains, and beans. A high-fiber diet can have many health benefits. Your health care provider may recommend a high-fiber diet to help: ??? Prevent constipation. Fiber can make your bowel movements more regular. ??? Lower your cholesterol. ??? Relieve the following conditions: ? Inflammation of veins in the anus (hemorrhoids). ? Inflammation of specific areas of the digestive tract (uncomplicated diverticulosis). ? A problem of the large intestine, also called the colon, that sometimes causes pain and diarrhea (irritable bowel syndrome, or IBS). ??? Prevent overeating as part of a weight-loss plan. ??? Prevent heart disease, type 2 diabetes, and certain cancers. What are tips for following this plan? Reading food labels ??? Check the nutrition facts label on food products for the amount of dietary fiber. Choose foods that have 5 grams of fiber or more per serving. ??? The goals for recommended daily fiber intake include: ? Men (age 50 or younger): 34?38 g. ? Men (over age 50): 28?34 g. ? Women (age 50 or younger): 25?28 g. ? Women (over age 50): 22?25 g. Your daily fiber goal is g. Shopping ??? Choose whole fruits and vegetables instead of processed forms, such as apple juice or applesauce. ??? Choose a wide variety of high-fiber foods such as avocados, lentils, oats, and kidney beans. ??? Read the nutrition facts label of the foods you choose. Be aware of foods with added fiber. These foods often have high sugar and sodium amounts per serving. Cooking ??? Use w (more content not included)...[facility] Ambulatory Visit Summaryon [id number] Visit SummaryAmbulatory Visit Summary BRAD DIXON :1970 Visit Date:02/02/2024 Ambulatory Visit Instructions Your Diagnosis Acute URI Sinusitis, acute Your Care Team Attending Physician - Karina Bales Primary Care Physician - Giuliana Tavares MD This Is Your Medications List amoxicillin-clavulanate (Augmentin 875 mg oral tablet) brompheniramine/dextromethorphan/PSE (Bromfed DM oral syrup) calcium-vitamin D (Calcium 600 D Tab) cyanocobalamin (Vitamin B12) ergocalciferol (Vitamin D) estradiol (estradiol 0.025 mg/24 hours twice weekly Transderm ER Film) levothyroxine (Synthroid 100 mcg Tab) omega-3 polyunsaturated fatty acids ([employer] Bounty Red Krill Oil) Procedures Performed Colonoscopy (12/29/2020), Colonoscopy (2013), Hysterectomy (07/31/2009), Appendectomy, Cerclage, Ovarian cystectomy. Discharge Vitals Temperature (Oral) 36.9 ???C Heart Rate (Peripheral) 114 Blood Pressure 122/80 Height 167.7 cm Height 66 in Weight 69.39 kg Weight 152.979 lb BMI 24.67 What to do next Scheduled Follow-Up Appointments Friday 9:00 AM EST Where: [facility] You Need to Schedule the Following Appointments Follow Up with Karina Bales When: Only if needed Where: Medications What How Much When Why Instructions New amoxicillin-clavulanate (Augmentin 875 mg oral tablet) 1 Tablets By Mouth Every 12 hours Sinusitis, acute Duration: 7 Days Pickup at [id number] New brompheniramine/ dextromethorphan/ PSE (Bromfed DM oral syrup) 5 Milliliter By Mouth 4 times a day as needed for for cold symptoms Acute URI Pickup at [facility][id number] Unchanged calcium-vitamin D (Calcium 600 D Tab) [...] ON FRIDAY Unchanged omega-3 polyunsaturated fatty acids (ContraFect's [employer] [employer] Red Krill Oil) once daily Pharmacy Information [facility] #[id number]: [address] [place], [place] [id number] [phone] Allergies Lipitor (unknown) predniSONE (Anger) [place] Thyroid (Rash) Bee Stings (Unknown) Mushrooms (unknown) [...] these instructions at home: Medicines ??? Take mcye-ewx-wnekqrg and prescription medicines only as told by [...] your provider. ??? Av (more content not included)...[facility] Medicine Office/Clinic Noteon [id number] Medicine Office/Clinic NoteFathe [facility] center Medicine Office/Clinic Note Chief Complaint sinus congestion, [...] having rib pain/soreness due to the cough. Shedenies fevers/chills or body aches. Negative at home [...] will take time to run its course. Thefirst 3-5 days of symptoms are typically the worst (fever, body aches, etc), with cold symptoms lasting 7- 14 days. Encouraged fluids to keep secretions thin. [...] or steroid at this time. Will follow upif symptoms persist or worsen. Will send augmentin to begin in the next few days if symptoms worsenor pt begins with fever. Ordered: brompheniramine/dextromethorphan/PSE, 5 mL, Oral, QID for cold symptoms, 200 mL, Refill(s) 0, [facility] #[id number], 167.7, cm, 02/02/24 9:07:00 EST, Height/Length Dosing, [...] up if symptoms persist or worsen. Ordered: amoxicillin-clavulanate, = 1 tab(s), Oral, q12hr, X 7 day(s), # 14 tab(s), Refills(s) 0, Pharmacy: [facility] #[id number], 167.7, cm, 02/02/24 9:07:00 EST, Height/Length Dosing, 69.4, kg, 02/02/24 9:17:00 EST, Weight Dosing Follow-up With When Contact Information Karina Bales if needed Additional Instructions: Patient Education Cough, [...] Oral, q12hr Bromfed DM (more content not included)...[facility] Comment on above:Result Comment: Electronically Signed By: Karina Bales\.br\Date and Time Signed: 02/02/24 09:38 ESTAmbulatory Visit Summaryon [id number] Visit SummaryAmbulatory Visit Summary BRAD DIXON :1970 Visit Date:01/23/2024 [...] or concerns Allergies Lipitor (unknown) predniSONE (Anger) [place] Thyroid (Rash) Bee Stings (Unknown) Mushrooms (unknown) [...] you for choosing us for your care. [facility] Office/Clinic Noteon [id number] Surgery Office/Clinic NoteGeneral Surgery Office/Clinic Note Chief Complaint reevaluate rectal bleeding HPI Staff 53 year old female presents to discuss ongoing rectal bleeding. Last evaluation completed 10/03/23. Last colonoscopy completed 12/2020-normal. History of Present Illness 53 yo female with h/o hypothyroidism, hyperlipidemia, seen in September for intermittent BRBPR with bms,primarily with wiping; feeling of tearing; some harder stools; negative rectal exam; placed on highfiber diet and daily fiber supplement; stools now softer, no straining, still having red blood withwiping almost after every bm; some pain with sitting; no external swelling or hemorrhoids; some improvement with eating an apple every day; last colonoscopy 12/2020 wnl; abd operations significant for appendectomy, ovarian cystectomy and hysterectomy; no asa or NSAID use; no tobacco use; no fmhx ofGI malignancy or IBD. Review of Systems PHQ Score Initial Depression Screen Score: 0 SCORE ROS - Provider Constitutional: no fever, no sweats, no weight loss. Eyes: yes glasses, no blurred vision, no visual loss. ENMT: no dentures, no hoarseness, no swallowing difficulties, no hearing loss, no ear infection(s),no nose bleeds. 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 Khris MELENDEZ, Guillermo Cavanaugh. FINAL REPORTS Final Report [] Verified Date/Time: 01/15/2024 10:48 EDT 5,000 cfu/ml Mixed skin contaminants Performing Locations R1: This test was performed at: [facility], [address] [place] [address], [id number], QehinxHlivppMetroHealth Main Campus Medical CenterComment on above:Performed By: #### [id number] #### Shahriar [facility] [address] [place], [place] [address]Rhxonkjkn By: #### [id number] ####Shahriar [facility] [address] [place], [place] [address]Xqofeq Medicine Office/Clinic Noteon [id number] Medicine Office/Clinic NoteFathe [facility] center Medicine Office/Clinic Note Chief Complaint uti HPI Staff 53 year old female presents with UTI symptoms for the past week lower abdominal pressure low back pain increased urgency/frequency foul smelling urine History of Present Illness I have reviewed and verified the staff HPI to be accurate for this encounter. Portions of this record have been created with voice recognition software. Occasional wrong-word or?jqxty-m-fjur? substitutions may have occurred due to the inherent limitations of voice recognitionsoftware. 53 yo female presents today with cc of possible UTI. Patient states symptoms about 1 week duration states lower back discomfort feels like it increase in urgency states a foul-smelling odor to her urine. Patient states she has follow- up appointment with digestive health, Dr. Richardson, a week from Friday, January 22. States that the follow-up as she has been having lots of bowel issues and states now every time she goes she has some blood in the stool. States has not her concern today. She wants to make sure that she does not have a urinary tract infection or something that requires antibiotics ontop of what she is already dealing with [...] localized thoracic or lumbar spine tenderness. No paraspinaltenderness. No pain with palpation over SI joints. [...] regards to her follow-up appointment With Dr. Richardson, for next Friday. To discuss the symptoms with him to see if it has anything to do or in relation to her bowel issues. Discussed otherwise if patient were to develop an increase in back pain back pain or abdominal pain with nauseavomiting fever chills weakness or for any other worsening or concerning symptoms she should seek ERfor reevaluation which patient agrees and understands plan. [...] PCP if continuing or worsening symptoms for furthereval. Patient verbalized understanding of tx plan. Ordered: Urine Culture Urnls Dip Stick Auto w/o Microscopy POC [id number] Follow-up With When Contact Information Giuliana Tavares MD, FAM, MED Additional Instructions: Patient Education Urinary Frequency, [...] Oral, Daily Allergies Lipitor (unknown) predniSONE (Anger) [place] Thyroid (Rash) Bee Stings (Unknown) Mushroo (more content not included)...[facility] HospitalComment on above:Result Comment: Electronically Signed By: Guillermo Pinedo PA-C\.br\Date and Time Signed: 01/13/2408:56 EDTAmbulatory Visit Summaryon 54-49-5303Upnrzvlflu Visit SummaryAmbulatory Visit Summary ROBB YOUNGBRAD JENSEN Concetta :1970 Visit Date:01/12/2024 Ambulatory Visit Instructions Your [...] EDT With: DYLAN RAO, Eliecer Briones Where: [facility] General Surgery [address], [address] [place] [address]- Medications What How Much When Instructions Unchanged [...] once daily Allergies Lipitor (unknown) predniSONE (Anger) [place] Thyroid (Rash) Bee Stings (Unknown) Mushrooms (unknown) [...] you for choosing us for your care. [facility] HospitalALBUMIN/CREATININE RATIO, URINE on 32-55-3837Hnfjmue DL <= 20 mg/L (U) [Mass/Vol]mg/dLNormalCDetwiler Memorial Hospital on above:Order Comment: Specimen Type: URINE SPECIMENOrdering Facility: [facility] Address:[address] [place], [place] [address]Performed By: #### [facility] ####[facility] LABCLIA [id number] [place] [address] [place] Albumin/Creatinine (U) [Mass ratio]<5Normal<30[facility] on above:Order Comment: Specimen Type: URINE SPECIMENOrdering Facility: [facility] Address:[address] [place], [place] [address]Result Comment: Adult Male and Female Nephrotic Criteria: <30 mg/g is considered normal to mildly increased 30-300 mg/g is considered moderately increased >300 mg/g is considered severely increased KDIGO. (2013). KDIGO 2012 Clinical Practice Guideline for the Evaluation and Management of Chronic Kidney Disease. Official Journal of the International Society of Nephrology, 3(1), 1-150.Performed By: #### UACR ####[facility] LABCLIA [id number] [place] [address] [place] AMERICACreatinine (U) [Mass/Vol]238.7 mg/lPJxtcpz29.0-300.0 [facility] on above:Order Comment: Specimen Type: URINE SPECIMENOrdering Facility: [facility] Address:[address] [place], [place] [address]Performed By: #### UACR ####[facility] LABCLIA [id number] [place] [address] [place] AMERICAComprehensive metabolic 2000 panelon 78-46-0498Qaldpfi [Mass/Vol]4.3 g/dLNormal3.9-4.9CDetwiler Memorial Hospital on above:Order Comment: Specimen Type: BLOOD SPECIMEN [facility] Address: [address] [place], [place] [address]Performed By: #### LIPNF, 3-6, 94145-4, 3016-3 #### [facility] CLIA [id number] [address] [place] [address] [place] AMERICAALP [Catalytic activity/Vol] 82 U/HEnclsl09-829JjtnjjjdgFostoria City Hospital on above:Order Comment: Specimen Type: BLOOD SPECIMEN [facility] Address: [address] [place], [place] [address]Performed By: #### LIPNF, 2143-6, 54991-2, 3016-3 #### [facility] CLIA [id number] [address] [place] [address] [place] AMERICAALT [Catalytic activity/Vol] 16 U/LNormal7-38[facility] on above:Order Comment: Specimen Type: BLOOD SPECIMEN [facility] Address: [address] [place], [place] [address]Performed By: #### LIPNF, 3-6, 73291-3, 3016-3 #### [facility] CLIA [id number] [address] [place] [address] [place] AMERICAAnion gap [Moles/Vol]7 mmol/LLow8-15[facility] on above:Order Comment: Specimen Type: BLOOD SPECIMEN [facility] Address: [address] [place], [place] [address]Performed By: #### LIPGORDON, 2142-6, 82309-0, 3016-3 #### [facility] CLIA [id number] [address] [place] [address] [place] AMERICAAST [Catalytic activity/Vol] 23 U/NSgjvrv61-85YzbgzdunsFostoria City Hospital on above:Order Comment: Specimen Type: BLOOD SPECIMEN [facility] Address: [address] [place], [place] [address]Performed By: #### LIPGORDON, 2142-6, 08122-8, 3016-3 #### [facility] CLIA [id number] [address] [place] [address] [place] AMERICABilirubin [Mass/Vol]0.5 mg/dLNormal0.2-1.3CDetwiler Memorial Hospital on above:Order Comment: Specimen Type: BLOOD SPECIMEN [facility] Address: [address] [place], [place] [address]Performed By: #### LIPNF, 2142-6, 32295-3, 3016-3 #### [facility] CLIA [id number] [address] [place] [address] [place] AMERICACalcium [Mass/Vol]9.5 mg/dL Normal8.5-10.2CDetwiler Memorial Hospital on above:Order Comment: Specimen Type: BLOOD SPECIMEN [facility] Address: [address] [place], [place] [address]Performed By: #### LIPGORDON, 3-6, 77274-8, 3016-3 #### [facility] CLIA [id number] [address] [place] [address] [place] AMERICAChloride [Moles/Vol]107 mmol/AZuhkxw10-380MnexjxvhbFostoria City Hospital on above:Order Comment: Specimen Type: BLOOD SPECIMEN [facility] Address: [address] [place], [place] [address]Performed By: #### YULY, 6, 27460-2, 3016-3 #### [facility] CLIA [id number] [address] [place] [address] [place] AMERICACO2 [Moles/Vol]29 mmol/L Rnmgnv77-05NlivxosqkFostoria City Hospital on above:Order Comment: Specimen Type: BLOOD SPECIMEN [facility] Address: [address] [place], [place] [address]Performed By: #### YULY, 2142-6, 87790-9, 3016-3 #### [facility] CLIA [id number] [address] [place] [address] [place] AMERICACreatinine [Mass/Vol]0.87 mg/dLNormal0.58-0.96[facility] on above:Order Comment: Specimen Type: BLOOD SPECIMEN [facility] Address: [address] [place], [place] [address]Performed By: #### LIPNF, 2142-6, 15447-5, 3016-3 #### [facility] CLIA [id number] [address] [place] [address] [place] AMERICACreatinine and Glomerular filtration rate.predicted panel (S/P/Bld)79 mL/min/1.73m???Normal>=60[facility] on above:Order Comment: Specimen Type: BLOOD SPECIMEN [facility] Address: [address] [place], [place] [address]Result Comment: Estimated Glomerular Filtration Rate (eGFR) is calculated using the 2020 CKD-EPI cre atinine equation. This equation utilizes serum creatinine, sex, and age as parameters. The creatinine assay has traceable calibration to isotope dilution- mass spectrometry. Refer to KDIGO guidelines for clinical interpretation. In patients with unstable renal function, e.g. those with acute kidney injury, the eGFR may not accurately reflect actual GFR.Performed By: #### YULY, 2143-6, 59322-7, 3016-3 #### [facility] CLIA [id number] [address] [place] [address] [place] AMERICAGlucose [Mass/Vol]96 mg/dL Xxjwdy63-04XzfpdqkezFostoria City Hospital on above:Order Comment: Specimen Type: BLOOD SPECIMEN [facility] Address: [address] [place], [place] [address]Result Comment: The [place] Diabetes Association (ADA) provides guidance for cutoff [...] Standards of Medical Care in Diabetes 2016, [place] Diabetes Association. Diabetes Care. 2016.39(Suppl 1).Performed By: #### YULY, 2143-6, 63667-3, 3016-3 #### [facility] CLIA [id number] [address] [place], [place] [address] [place] AMERICAPotassium [Moles/Vol]4.4 mmol/LNormal3.7-5.1CDetwiler Memorial Hospital on above:Order Comment: Specimen Type: BLOOD SPECIMEN [facility] Address: [address] [place], [place] [address]Performed By: #### YULY, 2142-6, 33203-8, 6-3 #### [facility] CLIA [id number] [address] [place] [address] [place] AMERICAProtein [Mass/Vol]6.5 g/dL Normal6.3-8.0[facility] on above:Order Comment: Specimen Type: BLOOD SPECIMEN [facility] Address: [address] [place], [place] [address]Performed By: #### YULY, 6, 71973-0, 6-3 #### [facility] CLIA [id number] [address] [place] [address] [place] AMERICASodium [Moles/Vol]143 mmol/L Vgvaau579-765KmtemhgehFostoria City Hospital on above:Order Comment: Specimen Type: BLOOD SPECIMEN [facility] Address: [address] [place], [place] [address]Performed By: #### YULY, 6, 35727-4, 6-3 #### [facility] CLIA [id number] [address] [place] [address] [place] AMERICAUrea nitrogen [Mass/Vol]11 mg/dLNormal7-21[facility] on above:Order Comment: Specimen Type: BLOOD SPECIMEN [facility] Address: [address] [place], [place] [address]Performed By: #### YULY, 2142-08, , 3016-3 #### [facility] CLIA [id number] [address] [place], [place] [address] [place] AMERICACortis SerPl-mCncon 33-84-9957Nixkosww [Mass/Vol]8.7 ug/dLNormal4.8-19.5CRegency Hospital [facility] Comment on above:Order Comment: Specimen Type: BLOOD SPECIMEN [facility] Address: [address] [place], [place] [address]Result Comment: Provided reference range is from 6-10 AM sample collection time. Cortisol Reference Range: 6-10 AM = 4.8-19.5 ug/dL, 4-8 PM = 2.5-11.9 ug/dL Performed By: #### LIPNF, 2143-6, 71293-4, 3016-3 #### [facility] CLIA [id number] [address] [place] [address] [place] GSDAESPSpL9v (Bld)on 12-13-2023 Average glucose Estimated from glycated hemoglobin (Bld) [Mass/Vol]103 mg/dL NormalKindred HealthcareComment on above:Order Comment: Specimen Type: BLOOD SPECIMEN [facility] Address: [address] [place], [place] [address]Result Comment: eAG: (Estimated average glucose) is a calculated value from HgbA1c and is bilingual call center representative of the average blood glucose level in the last 2-3 month period.Performed By: #### 07877-7 #### [facility] CLIA [id number] [address] [place] [address] [place] DUEHANQEmX9u (Bld) [Mass fraction] 5.2 %Normal4.3-5.6CDetwiler Memorial Hospital on above:Order Comment: Specimen Type: BLOOD SPECIMEN [facility] Address: [address] [place] [address]Miicvg Comment: [place] Diabetes Association guidelines indicate that patients with HgbA1c in the range 5.7-6.4% are at increased risk for development of diabetes, and intervention by lifestyle modification may be beneficial. HgbA1c greater or equal to 6.5% is considered diagnostic of diabetes.Performed By: #### 29157-9 #### [facility] CLIA [id number] [address] OF BERGER HOSPITALLIPID PANEL, NONFASTINGon 35-40-6397Wjdaazcwxpg [Mass/Vol]190 mg/dLNormal<200[facility] Comment on above:Order Comment: Specimen Type: BLOOD SPECIMEN [facility] Address: [address] [place], [place] [address]Result Comment: <200 mg/dL, Desirable 200-239 mg/dL, Borderline high >239 mg/dL, HighPerformed By: #### LIPGORDON, 2142-6, 73555-4, 3016-3 #### [facility] CLIA [id number] [address] [place], [place] [address]HDL CHOLESTEROL, NF34 mg/dL Low>39Kindred HealthcareComment on above:Order Comment: Specimen Type: BLOOD SPECIMEN [facility] Address: [address] [place], [place] [address]Result Comment: 40-59 mg/dL, Acceptable >59 mg/dL, High: Negative risk factor for coronary heart disease <40 mg/dL, Low: Positive risk factor for coronary heart diseasePerformed By: #### YULY, 6, 08783-1, 3016-3 #### [facility] CLIA [id number] [address] [place], [place] [address]LDL CHOLESTEROL, NF135 mg/dL High<100[facility] HealthcareComchelsea hospital on above:Order Comment: Specimen Type: BLOOD SPECIMEN [facility] Address: [address] [place] [address]Frwvlk Comment: <100 mg/dL, Optimal 100-129 mg/dL, Near optimal/above optimal 130-159 mg/dL, Borderline high 160-189 mg/dL, High >189 mg/dL, Very high Secondary prevention optimal LDL Cholesterol levels are recommended to be < 70 mg/dLPerformed By: #### LIPNF, 2142-6, 39833-0, 3016-3 #### [facility] CLIA [id number] [address] [place] [address] STATES OF AMERICALDL/HDL RATIO, NF3.97 mg/dL High<2.54[facility] on above:Order Comment: Specimen Type: BLOOD SPECIMEN [facility] Address: [address] [place], [place] [address]Result Comment: Reference: 1. National Cholesterol Education Program ATP III Guideline At-A-Glance Quick Desk Reference: National Heart, Lung, and Blood [place]. National Institutes of Health. 2001: NIH Publication No. 01-3305. 2. An International Atherosclerosis Society position paper: global recommendations for the management of dyslipidemia: executive summary, Atherosclerosis. 2014: 232(2):410-413.Performed By: #### YULY, 2142-, 78482-0, 6-3 #### [facility] CLIA [id number] [address] [place] [address] OF [place] HDL CHOL, NF156 mg/dL High<130[facility] on above:Order Comment: Specimen Type: BLOOD SPECIMEN [facility] Address: [address] [place], [place] [address]Result Comment: <130 mg/dL, Optimal 130-159 mg/dL, Near optimal/above optimal 160-189 mg/dL, Borderline high 190-219 mg/dL, High >219 mg/dL, Very high Secondary prevention optimal non HDL Cholesterol levels are recommended to be <100 mg/dLPerformed By: #### YULY, 2142-08, 96881-8, 6-3 #### [facility] CLIA [id number] [address] [place] [address] STATES [facility] CHOL/HDL RATIO NF5.59 mg/dLHigh<5.10[facility] on above:Order Comment: Specimen Type: BLOOD SPECIMEN [facility] Address: [address] [place], [place] [address]Performed By: #### YULY, 2142-08, 80005-3, 6-3 #### [facility] CLIA [id number] [address] [place] [address] [place] AMERICATRIGLYCERIDES, NF105 mg/dL Normal<150[facility] on above:Order Comment: Specimen Type: BLOOD SPECIMEN [facility] Address: [address] [place], [place] [address]Result Comment: <150 mg/dL, Normal 150-199 mg/dL, Borderline high 200-499 mg/dL, High >499 mg/dL, Very highPerformed By: #### LIPGORDON, 2143-6, 68742-1, 3016-3 #### [facility] CLIA [id number] [address] [place] [address] [place] AMERICAVLDL CHOLESTEROL, NF21 mg/dL Normal<30[facility] on above:Order Comment: Specimen Type: BLOOD SPECIMEN [facility] Address: [address] [place], [place] [address]Performed By: #### YULY, 3-6, 01003-3, 3016-3 #### [facility] CLIA [id number] [address] [place], [place] [address]TS SerPl-aCncon 12-13-2023 TSH Qn0.542 m[IU]/LNormal0.270-4.200[facility] on above: Order Comment: Specimen Type: BLOOD SPECIMEN [facility] Address: [address] [place], [place] [address]Performed By: #### YULY, 2143-6, 74411-5, 3016-3 #### [facility] CLIA [id number] [address] [place] [address] [place] AMERICAAmbulatory Visit Summaryon 01-21-4237Epekfcajdz Visit SummaryAmbulatory Visit Summary BRAD DIXON :1970 Visit Date:10/03/2023 [...] or concerns Allergies Lipitor (unknown) predniSONE (Anger) [place] Thyroid (Rash) Bee Stings (Unknown) Mushrooms (unknown) [...] you for choosing us for your care. [facility] Medicine Office/Clinic Noteon 59-63-3616Yoeqjl Medicine Office/Clinic NoteSturdy Memorial Hospital Medicine Office/Clinic Note Chief Complaint Constipation HPI Staff Patient here with continued C/O of bleeding with her bowel movements. She states that when she wipes herself, it's like having a period. Has tried OTC stool softeners, with no relief. History of Present Illness The patient is a 52-year-old female who presents with bright red blood when wiping. She does have ahistory of hemorrhoids. She was seen on 07/25/2023 with the same concern. She was trying kdtb-cbz-gpnesdl preparation H, still feels like there is [...] the rectal area, which she describes as brightred upon wiping. She denies the presence of clots. Despite attempts at self-treatment with crdy-vhh-jagmqpa remedies, she found no presence of blood [...] bowel movement and tearing feeling with alternating constipationand diarrhea repeat colonoscopy ordered Ordered: [facility] [place] Internal Ambulatory Referral 2. Rectal bleeding (K62.5: Hemorrhage of anus and rectum) previous colonoscopy 2020 wnl, no polyps no hemorrhoids patient having bleeding with every bowel movement and tearing feeling with alternating constipationand diarrhea repeat colonoscopy ordered Ordered: [facility] [place] Internal Ambulatory Referral 3. Nonsmoker (Z78.9: Other [...] medical support in addressing this problem. Your BMIand weight management will be followed at subsequent visits. 5. Overweight (E66.3: Overweight) increase whole foods, decrease processed foods exercise at least 2.5 hours weekly Portions of this record may have been created with voice recognition artificial intelligence software, specifically Stay[employer], Dossier[employer] and or [employer]. Substitutions may have occurred due to the inherent limitations of voice recognition and artificial intelligence software. Follow-up With When Contact Information Giuliana Tavares MD, FAM, MED In 6 months 03/03/[address] [address] [phone] Business (1) Additional Instructions: Problem List/Past Medical [...] Oral, Daily Allergies Lipitor (unknown) predniSONE (Anger) [place] Thyroid (Rash) Bee Stings (Unknown) Mushrooms (unknown) Social History Alcohol - Denies Alcohol Use, (more content not included)...[facility] HospitalComment on above:Result Comment: Electronically Signed By: Giuliana Tavares MD\.br\Date and Time Signed: 09/25/2408:04 EDTAmbulatory Visit Summaryon 54-66-5932Bdwrjviqte Visit Summary ROBB YOUNGCAMILA BRAD Hylton :1970 Visit Date:07/25/2023 Ambulatory Visit Instructions Your [...] Appointments Follow Up with Giuliana Tavares MD, [facility], MED When: In 6 months 03/03/2021 [facility] Where: [address] [place] [phone]- [phone] Business (1) Medications What How Much When Why Instructions New hydrocortisone topical (hydrocortisone Top 2.5% Crm) 1 Application Topical 3 times a day Hemorrhoids Refills: 1 Pickup at [id number] Unchanged calcium-vitamin D (Calcium 600 D Tab) [...] physician if questions or concerns Pharmacy Information [id number]: [address] [place], [place] [id number] [phone] Allergies Lipitor (unknown) predniSONE (Anger) [place] Thyroid (Rash) Bee Stings (Unknown) Mushrooms (unknown) [...] you for choosing us for your care. [facility] Medicine Office/Clinic Noteon 36-91-0970Fbzbba Medicine Office/Clinic NoteChief Complaint constipation HPI Staff complaints of possible hemorrhoids Onset:almost 2 months ago Characteristics:Continued issues with bm, bright red blood when pt wipes and a tearing feeling. Notso much constipated anymore. OTC tried:fiber History of [...] TID, 30 gram, Refill(s) 1, [facility], 167.7, cm, 07/25/23 7:06:00 EDT, Height/Length Dosing, [...] medical support in addressing this problem. Your BMIand weight management will be followed at subsequent visits. 3. Overweight (E66.3: Overweight) increase whole foods, decrease processed foods exercise at least 2.5 hours weekly 4. Nonsmoker (Z78.9: Other specified health status) stable Follow-up With When Contact Information Giuliana Tavares MD, FAM, MED In 6 months 03/03/[address] [address]- [phone] [facility] (1) Additional Instructions: Problem List/Past Medical [...] Oral, Daily Allergies Lipitor (unknown) predniSONE (Anger) [place] Thyroid (Rash) Bee Stings (Unknown) Mushrooms (unknown) [...] SARS-CoV-2 (COVID-19) mRNA BNT-162b2 vax 06/09/2020 Given ProphylaxisNormal [facility] HospitalComment on above:Result Comment: Electronically Signed By: Giuliana Tavares MD\.br\Date and Time Signed: 07/24/2406:35 EDT Family Medicine Office/Clinic Noteon 68-05-1135Kwsoql Medicine Office/Clinic NoteChief Complaint painful bm HPI Staff complaints of painful bm Onset:couple weeks Characteristics:painful bm, blood when she wipes OTC tried: [...] to Citracal. Take with 16oz of water apartfrom Synthroid. Increase fiber and water intake. If [...] direction of Dr. Tavares. After having a myag-lm-hcio interaction with the patient, I personally performed the physical exam and was responsible for the assessment/plan. I have personally reviewed and verified the documentation by the student and made correction as needed. 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 Never (more content not included)...[facility] HospitalComment on above:Result Comment: Electronically Signed By: Giuliana Tavares MD\.br\Date and Time Signed: 06/12/2414:48 EDT\.br\Electronically Co-Signed By: Kari Moise\.br\Date and Time Co-Signed: 06/13/23 11:53 EDTCT Soft Tissue Neck w/ Contrast on 36-07-3984RF Soft Tissue Neck w/ ContrastExam Date/Time: 05/16/2023 08:21 EST Reason for Exam: [...] Contrast: Isovue 300 Contrast amount in ml's: 100[facility] HospitalConsent for Treatmenton 12-66-1374Aexrqsp for Treatment [id number]#1.00TIFMer[address] Rita's Medical CenterPatient Correspondenceon 92-53-5605Kwayjmi Correspondence [id number]#1.00[facility] HospitalInsurance Correspondenceon 09-42-3814Znaafqlei Correspondence [id number]#1.00[facility] HospitalPre-Certification Formon 47-37-9922Mzz-Certification Form [id number]#1.00[facility] HospitalFathe [facility] Medicine Office/Clinic Noteon 44-17-4574Cvunlu Medicine Office/Clinic NoteChief Complaint painful salivaory glands HPI Staff complaints [...] Cardio: RRR, no murmur/rubs/gallops Resp: CTAB, no wheezing/rales/rhonchi Assessment/Plan 1. Submandibular swelling (R22.0: Localized swelling, [...] day(s), # 21 cap(s), Refills(s) 0, Pharmacy: [id number], 167.7, cm, 05/02/23 7:22:00 EST, Height/Length Dosing, 71.1, kg, 05/02/23 7:22:00 EST, Weight Dosing [facility] [place] External Ambulatory Referral 2. BMI 25.0-25.9,adult (Z68.25: Body mass index [BMI] 25.0-25.9, adult) The standard range for ages 18 and older is >=18.5 and < 25 kg/m2. Your BMI today was above this range, this falls in the overweight to obese category and there are medical benefits to weight loss. We can offer counselling, referral, and/or medical support in addressing this problem. Your BMIand weight management will be followed at subsequent visits. 3. Overweight (E66.3: Overweight) increase whole foods, decrease processed foods exercise at least 2.5 hours weekly 4. Nonsmoker (Z78.9: Other specified health status) stable Follow-up With When Contact Information Giuliana Tavares MD, FAM, MED Only if needed [address] [place] [phone] Additional Instructions: Problem List/Past Medical History Ongoing [...] Oral, Daily Allergies Lipitor (unknown) predniSONE (Anger) [place] Thyroid (Rash) Bee Stings (Unknown) Mushrooms (unknown) [...] Patient Refuses SARS-CoV-2 ( (more content not included)...[facility] Comment on above:Result Comment: Electronically Signed By: Giuliana Tavares MD\.br\Date and Time Signed: 05/02/2406:55 ESTPhysician Referralon 05-02-2023 Physician [id number]#1.00TIFFNoMetroHealth Main Campus Medical CenterUS HEAD/NECK SOFT TISSUE OTHERon 42-31-6861GS HEAD/NECK SOFT TISSUE OTHER* * *Final Report* * * DATE OF EXAM: Apr 20 2023 5:17PM [facility] 1052 - US HEAD/NECK SOFT TISSUE OTHER [...] tissue mass. IMPRESSION: Unremarkable soft tissue ultrasound. Drilling Supervisor: PSCB Transcribe Date/Time: Apr 21 2023 10:08A Dictated by : CHRISSY SWANN MD This examination was interpreted and the report reviewed and electronically signed by: CHRISSY SWANN MD on Apr 21 2023 11:57AM EST [id number] Valley HospitalUS THYROID/PARATHYROIDon 50-67-0097MO THYROID/PARATHYROID* * *Final Report* * * DATE OF EXAM: Apr 20 2023 5:14PM [facility] 1048 - US THYROID/PARATHYROID / PROCEDURE REASON: [...] Heterogeneous thyroid bilaterally with no discrete nodules. Drilling Supervisor: PSCB Transcribe Date/Time: Apr 21 2023 10:02A Dictated by : CHRISSY SWANN MD This examination was interpreted and the report reviewed and electronically signed by: CHRISSY SWANN MD on Apr 21 2023 11:56AM EST [id number] VA Medical Center Mamm Screen w/CAD if perf and 3D Shiv on 64-26-4477TP Mamm Screen w/CAD if perf and 3D BilExam Date/Time: 03/12/2023 08:36 EST Reason for Exam: SCREEENING Report IMPRESSION: BIRADS 2 BENIGN FINDINGS, NORMAL INTERVAL FOLLOW-UP Follow-up: 12 MONTH RECALL Density: Scattered tissue. Vascular calcifications: Absent. EXAM: HI Mamm Screen w/CAD if perf and 3D [...] VERY IMPORTANT TO YOUR HEALTH. THE CURRENT [employer] [...] Zeeshan Cao MD Transcribed by: KECIA Technologist: MERVAT Assessment: BI-RADS Category 2-Benign finding Recommendation: Normal interval [facility] Consent for Treatmenton 11-39-2690Rjhdfii for Treatment [id number]#1.00TIFFOhio State Harding Hospital Medicine Office/Clinic Noteon 61-71-3115Spkmwd Medicine Office/Clinic NoteChief Complaint lump on neck HPI Staff complaints of tender lump Onset:noticed it the past weekend Characteristics:Tender lump on the side of neck. Has [...] she potentially had some nodules and goiters inthere, but nothing has ever transpired. She sees [...] Cardio: RRR, no murmur/rubs/gallops Resp: CTAB, no wheezing/rales/rhonchi Assessment/Plan 1. Submandibular swelling (R22.0: Localized swelling, [...] Tavares MD, FAM, MED Only if needed [address] [place] [phone] Additional Instructions: Problem List/Past Medical History Ongoing [...] Oral, Daily Allergies Lipitor (unknown) predniSONE (Anger) [place] Thyroid (Rash) Bee Stings (Unknown) Mushrooms (unknown) [...] SARS-CoV-2 (COVID-19) mRNA BNT-162b2 vax 06/09/2020 Given ProphylaxisNormal [facility] Mercy HospitalComment on above:Result Comment: Electronically Signed By: Giuliana Tavares MD\.br\Date and Time Signed: 02/07/2307:56 [facility] ACOG PANEL 2: 30 to 65on 02-07-2022..NormalAshtabula General HospitalComment on above:Result Comment: Performed at: WBPerformed By: #### [id number] #### [facility] [address] [address] [address] Gokul Sanderson Gdln ACOG Nhfrlvk81-50MebruvSagBerger HospitalComment on above:Performed By: #### [id number] #### [facility] [address] [address] [address] Gokul StatonDIAGNOSIS:CommentAultman HospitalComment on above: Result Comment: NEGATIVE FOR INTRAEPITHELIAL LESION OR MALIGNANCY. THIS SPECIMEN WAS RESCREENED PART OF OUR SANDER AND POLISHER PROGRAM. Performed at: WBPerformed By: #### [id number] #### [facility] [address] [place] [address] Dr. Gokul Munguia AptimaNegativeNormalNegativeMercy Health St. [facility] on above:Result Comment: This nucleic acid amplification test detects fourteen high-risk HPV types (16,18,31,33,35,39,45,51,52,56,58,59,66,68) without differentiation. Performed at: =GPerformed By: #### [id number] #### [facility] [address] [place] [address] Dr. Gokul Munguia Genotype ReflexCommentNoTriHealth Bethesda North Hospital on above:Result Comment: Criteria not met, HPV Genotype not performed. Performed at: WBPerformed By: #### [id number] #### [address] [address] [address] Gokul StatonMethodology:CommentNoTriHealth Bethesda North Hospital on above: Result Comment: This liquid based ThinPrep(R) pap test was screened with the use of an image guided system. Performed at: WBPerformed By: #### [id number] #### [address] [address] [address] Gokul StatonNote:CommentFairfield Medical Center on above:Result Comment: The Pap smear is a screening test designed to aid in the detection of premalignant and malignant conditions of the uterine cervix. It is not a diagnostic procedure and should not be used as the sole means of detecting cervical cancer. Both false-positive and false-negative reports do occur. . Performed at: WBPerformed By: #### [id number] #### [facility] [address] [place] [address] Dr. Gokul StatonPerformed by:CommentNoTriHealth Bethesda North Hospital on above: Result Comment: Gold Boyd, Farm Demonstrator (ASCP) Performed at: WBPerformed By: #### [id number] #### [facility] [address] [place] [address] Dr. Gokul Staton reviewed by:CommentAultman HospitalComment on above:Result Comment: Annie Iniguez, Farm Demonstrator (ASCP) Performed at: WBPerformed By: #### [id number] #### [facility] [address] [address] [address] Gokul StatonSpecimen adequacy:CommentAultman HospitalComment on above:Result Comment: Satisfactory for evaluation. Endocervical and/or squamous metaplastic cells (endocervical component) are present. Performed at: WBPerformed By: #### [id number] #### [facility] [address] [address] [address] Gokul StatonMM screening mammo BI w/CADon 31-86-4831UD screening mammo BI w/CADMERCY HEALTH AND[facility] [place] [address] [place] [address] Mammography Report Signed Patient: Brad Veliz MR#: [id number] : 1970 Acct:[id number] Age/Sex: 48 / F ADM Date: 12/15/18 Loc: [place] Room: Type: [facility] Attending Dr: Eleni White MD Ordering Provider: Eleni White MD Date of Service: 12/15/18 MM/MM screening mammo BI w/CAD: SCREENING Copies to: Gay Soriano MD, Gregory MD CLINICAL DATA: Screening for [...] M.D.12/15/2018 3:49 PM Dictation Location: [facility] Transcribed By: [facility] 12/15/18 1549 Dictated By: Mona Baxter MD 12/15/18 1544 Signed By: 12/15/18 1549NoProMedica Fostoria Community HospitalEmployee Comp Metabolic Panelon 63-61-8733Muimdkf [Mass/Vol]4.2 g/dLNormal3.2-5.5FSalem City HospitalComment on above:Performed By: #### PILLAR CBC, PILLAR CMP, PILLAR LIPID, PILLAR TSH #### [facility] [address] [place], [place] [id number] USAAlbumin/Globulin [Mass ratio]2.6 {ratio}NormalOhiohealth Dublin Methodist HospitalComment on above:Performed By: #### PILLAR CBC, PILLAR CMP, PILLAR LIPID, PILLAR TSH #### [facility] [address] [place] [address] USAALP [Catalytic activity/Vol]68 U/QKcyhrm03-38BwvwqtkffOhiohealth Dublin Methodist HospitalComment on above:Performed By: #### PILLAR CBC, PILLAR CMP, PILLAR LIPID, PILLAR TSH #### [facility] [address] [place] [address] USAALT [Catalytic activity/Vol]17 U/VInhbev88-83AemhtfdtxOhiohealth Dublin Methodist HospitalComment on above:Performed By: #### PILLAR CBC, PILLAR CMP, PILLAR LIPID, PILLAR TSH #### [facility] [address] [place] [address] USAAST [Catalytic activity/Vol]17 U/XUevvlf32-83BxuymxotnOhiohealth Dublin Methodist HospitalComment on above:Performed By: #### PILLAR CBC, PILLAR CMP, PILLAR LIPID, PILLAR TSH #### [facility] [address] [place] [address] USABilirubin [Mass/Vol]0.6 mg/dLNormal0.3-1.2FSalem City HospitalComment on above:Performed By: #### PILLAR CBC, PILLAR CMP, PILLAR LIPID, PILLAR TSH #### [facility] [address] [place] [address] USACalcium [Mass/Vol]9.2 mg/dLNormal8.2-10.2FSalem City HospitalComment on above:Performed By: #### PILLAR CBC, PILLAR CMP, PILLAR LIPID, PILLAR TSH #### [facility] [address] [place] [address] USAChloride [Moles/Vol]106 mmol/XYiiaji05-678IbjythlcqOhiohealth Dublin Methodist HospitalComment on above:Performed By: #### PILLAR CBC, PILLAR CMP, PILLAR LIPID, PILLAR TSH #### [place] [address] USACO2 [Moles/Vol]28.0 mmol/DPxvesw27.0-30.0Ohiohealth Dublin Methodist HospitalComment on above:Performed By: #### PILLAR CBC, PILLAR CMP, PILLAR LIPID, PILLAR TSH #### [facility] [address] [place] [address] USACreatinine [Mass/Vol]0.78 mg/dLNormal0.44-1.03Ohiohealth Dublin Methodist HospitalComment on above:Performed By: #### PILLAR CBC, PILLAR CMP, PILLAR LIPID, PILLAR TSH #### [facility] [address] [place], [place] [address] USAEstimated GFR ( Odilon> 60NormalOhiohealth Dublin Methodist HospitalComment on above:Result Comment: GFR estimated reference range: According to KDOQI guidelines, <60 ml/min/1.73m2 is sufficient to diagnose a patient with chronic kidney disease.Performed By: #### PILLAR CBC, PILLAR CMP, PILLAR LIPID, PILLAR TSH #### [facility] [address] [place] [address] USAEstimated GFR (Non- Am> 60NormalOhiohealth Dublin Methodist HospitalComment on above:Performed By: #### PILLAR CBC, PILLAR CMP, PILLAR LIPID, PILLAR TSH #### [facility] [address] [place] [address] USAGlobulin (S) [Mass/Vol]1.6 g/dLNormOur Lady of Mercy HospitalComment on above:Performed By: #### PILLAR CBC, PILLAR CMP, PILLAR LIPID, PILLAR TSH #### [place] [address] USAGlucose [Mass/Vol]94 mg/jNNxynro98-395RhneezsszOhiohealth Dublin Methodist HospitalComment on above:Performed By: #### PILLAR CBC, PILLAR CMP, PILLAR LIPID, PILLAR TSH #### [place] [address] USAPotassium [Moles/Vol]4.1 mmol/LNormal3.5-5.1FSalem City HospitalComment on above:Performed By: #### PILLAR CBC, PILLAR CMP, PILLAR LIPID, PILLAR TSH #### [facility] [address] [place] [address] USAProtein [Mass/Vol]5.8 g/dLLow6.1-7.9Ohio[facility] Dublin Methodist HospitalComment on above:Performed By: #### PILLAR CBC, PILLAR CMP, PILLAR LIPID, PILLAR TSH #### [facility] [address] [place] [address] USASodium [Moles/Vol]140 mmol/AZmqjvc001-654ZxxcfrbkbOhiohealth Dublin Methodist HospitalComment on above:Performed By: #### PILLAR CBC, PILLAR CMP, PILLAR LIPID, PILLAR TSH #### [facility] [address] [place] [address] USAUrea nitrogen [Mass/Vol]10 mg/dLNormal9-23Ohiohealth Dublin Methodist HospitalComment on above:Performed By: #### PILLAR CBC, PILLAR CMP, PILLAR LIPID, PILLAR TSH #### [facility] [address] [place] [address] USAEmployee Complete Blood Counton 88-24-5963Bzmwpssjm (Bld) [#/Vol]0.0 10*3/uLNormal0.0-0.2FSalem City HospitalComment on above:Result Comment: PERFORMED BY: [place] [address] PATHOLOGIST STEEL MOLDER THAI VALDEZ M.D.Performed By: #### PILLAR CBC, PILLAR CMP, PILLAR LIPID, PILLAR TSH #### [place] [address] USABasophils/100 WBC (Bld)0.8 %Normal.Ohiohealth Dublin Methodist HospitalComment on above:Performed By: #### PILLAR CBC, PILLAR CMP, PILLAR LIPID, PILLAR TSH #### [place] [address] USAEosinophils (Bld) [#/Vol]0.2 10*3/uLNormal0.0-0.45 [facility] HospitalComment on above:Performed By: #### PILLAR CBC, PILLAR CMP, PILLAR LIPID, PILLAR TSH #### [place] [address] USAEosinophils/100 WBC (Bld)5.2 %Normal.Ohio[facility] Dublin Methodist HospitalComment on above:Performed By: #### PILLAR CBC, PILLAR CMP, PILLAR LIPID, PILLAR TSH #### [place] [address] USAErythrocyte distribution width (RBC) [Ratio]13.8 %Normal 11.9-15.3FSalem City HospitalComment on above:Performed By: #### PILLAR CBC, PILLAR CMP, PILLAR LIPID, PILLAR TSH #### [place] [address] USAHematocrit (Bld) [Volume fraction]42.6 %Ihceqa91.0-46.4 [facility] HospitalComment on above:Performed By: #### PILLAR CBC, PILLAR CMP, PILLAR LIPID, PILLAR TSH #### [address] [place] [address] USAHemoglobin (Bld) [Mass/Vol]14.3 g/eCGaeuve20.8-15.4 [facility] HospitalComment on above:Performed By: #### PILLAR CBC, PILLAR CMP, PILLAR LIPID, PILLAR TSH #### [facility] [address] [place] [address] USALymphocytes (Bld) [#/Vol]1.3 10*3/uLNormal1.00-4.8 [facility] HospitalComment on above:Performed By: #### PILLAR CBC, PILLAR CMP, PILLAR LIPID, PILLAR TSH #### [facility] [address] [place] [address] USALymphocytes/100 WBC (Bld)29.5 %Normal.Ohio[facility] Dublin Methodist HospitalComment on above:Performed By: #### PILLAR CBC, PILLAR CMP, PILLAR LIPID, PILLAR TSH #### [facility] [address] [place] [address] USAH (RBC) [Entitic mass]29.9 neDifpgn37.7-34.3FSalem City HospitalComment on above:Performed By: #### PILLAR CBC, PILLAR CMP, PILLAR LIPID, PILLAR TSH #### [place] [address] USAH (RBC) [Entitic mass]33.5 g/cKUqcfbg38.0-35.0Ohio[facility] Dublin Methodist HospitalComment on above:Performed By: #### PILLAR CBC, PILLAR CMP, PILLAR LIPID, PILLAR TSH #### [facility] [address] [place] [address] USAMCV (RBC) [Entitic vol]89.1 kONnwaok28-762ZfwvxmdzhOhiohealth Dublin Methodist HospitalComment on above:Performed By: #### PILLAR CBC, PILLAR CMP, PILLAR LIPID, PILLAR TSH #### [place] [address] USAMonocytes (Bld) [#/Vol]0.4 10*3/uLNormal0.0-0.8Ohio[facility] Methodist HospitalComment on above:Performed By: #### PILLAR CBC, PILLAR CMP, PILLAR LIPID, PILLAR TSH #### [facility] [address] [id number] USAMonocytes/100 WBC (Bld)9.6 %Normal.[facility] Dublin Methodist HospitalComment on above:Performed By: #### PILLAR CBC, PILLAR CMP, PILLAR LIPID, PILLAR TSH #### [facility] [address] [place] [address] USANeutrophils (Bld) [#/Vol]2.5 10*3/uLNormal1.8-7.7FSalem City HospitalComment on above:Performed By: #### PILLAR CBC, PILLAR CMP, PILLAR LIPID, PILLAR TSH #### [facility] [address] [place] [address] USANeutrophils/100 WBC (Bld)54.9 %Normal.[facility] HospitalComment on above:Performed By: #### PILLAR CBC, PILLAR CMP, PILLAR LIPID, PILLAR TSH #### [facility] [address] [place] [address] USANucleated RBC/100 WBC (Bld) [Ratio]0.0 %Normal0-0.5 [facility] HospitalComment on above:Performed By: #### PILLAR CBC, PILLAR CMP, PILLAR LIPID, PILLAR TSH #### [facility] [address] [place] [address] USAPlatelet mean volume (Bld) [Entitic vol]10.0 fLNormal 6.3-10.7FSalem City HospitalComment on above:Performed By: #### PILLAR CBC, PILLAR CMP, PILLAR LIPID, PILLAR TSH #### [facility] [address] [place] [address] USAPlatelets (Bld) [#/Vol]174 10*3/uZDuiivl595-049HhliypbdoOhiohealth Dublin Methodist HospitalComment on above:Performed By: #### PILLAR CBC, PILLAR CMP, PILLAR LIPID, PILLAR TSH #### [facility] [address] [place] [address] USARBC (Bld) [#/Vol]4.78 10*6/uLNormal3.60-5.00[facility] HospitalComment on above:Performed By: #### PILLAR CBC, PILLAR CMP, PILLAR LIPID, PILLAR TSH #### [facility] [address] [place] [address] USAWBC (Bld) [#/Vol]4.5 10*3/uLNormal3.8-11.6FSalem City HospitalComment on above:Performed By: #### PILLAR CBC, PILLAR CMP, PILLAR LIPID, PILLAR TSH #### [facility] [address] [id number] USAEmployee Lipid Profileon 88-93-1436Llfpadnhtfq [Mass/Vol] 181 mg/tHYzyrsq675-024DucvlogqqOhiohealth Dublin Methodist HospitalComment on above:Result Comment: Chol less than 200 mg/dl low risk Chol 201-239 mg/dl borderline risk Chol 240 mg/dl and greater high riskPerformed By: #### PILLAR CBC, PILLAR CMP, PILLAR LIPID, PILLAR TSH #### [facility] [address] [place] [address] USACholesterol in HDL [Mass/Vol]35 mg/iAGxdkgt66-49TcckjbncgOhiohealth Dublin Methodist HospitalComment on above:Result Comment: HDL CHOL ATP-III CLASSIFICATION Cardiovascular Risk HDL > or equal to 60 mg/dL LOW HDL < 40 mg/dL HIGHPerformed By: #### PILLAR CBC, PILLAR CMP, PILLAR LIPID, PILLAR TSH #### [facility] [address] [place] [address] USACholesterol.total/Cholesterol in HDL [Mass ratio]5.2 {ratio}Normal<5.0Ohio[facility] Dublin Methodist HospitalComment on above:Performed By: #### PILLAR CBC, PILLAR CMP, PILLAR LIPID, PILLAR TSH #### [facility] [address] [place] [address] USALDL Cholesterol,Aqdokvhdbw205 mg/dLHigh0-100Fire[facility] Regional Medical CenterComment on above:Result Comment: LDL ATP III CLASSIFICATION LDL less than 100 mg/dL Optimal LDL 100-129 mg/dL Near or above optimal LDL 130-159 mg/dL Borderline high LDL 160-189 mg/dL High LDL greater than 189 mg/dL Very highPerformed By: #### PILLAR CBC, PILLAR CMP, PILLAR LIPID, PILLAR TSH #### [facility] [address] [id number] USATriglyceride w/Rwfrsu190 mg/hCFamapp40-271BgsrznoayOhiohealth Dublin Methodist HospitalComment on above:Result Comment: TRIG ATP III CLASSIFICATION TRIG less than 150 mg/dL Normal TRIG 150-199 mg/dL Borderline high TRIG 200-500 mg/dL High TRIG greater than 500 mg/dL Very high Standard traceable to the Center for Disease Conrtrol and Prevention (CDC) test method.Performed By: #### PILLAR CBC, PILLAR CMP, PILLAR LIPID, PILLAR TSH #### [place] [address] USAVLDL RTCMYBVLKVS35 mg/dLNormalOhiohealth Dublin Methodist HospitalComment on above:Performed By: #### PILLAR CBC, PILLAR CMP, PILLAR LIPID, PILLAR TSH #### [place] [address] USAEmployee Thyroid Stim Hormoneon 71-18-5230Skiodows Thyroid Stim Hormone0.47 u[iU]/mLNormal0.45-5.33[facility] HospitalComment on above:Result Comment: PERFORMED BY: [place] [address] PATHOLOGIST STEEL MOLDER THAI VALDEZ M.D.Performed By: #### PILLAR CBC, PILLAR CMP, PILLAR LIPID, PILLAR TSH #### [place] [id number] [facility] Vital Signs Date TimeVital SignValuePerforming BrabjgvrwWusyxeur58-13-3637 09:07-0500Body mass index (BMI) [Ratio]25.2 kg/m2Monae RILEY Work Phone: [facility] HospitalGipevlfclz08-42-1117 09:07-0500Body dhazaa40.82 kgMonae RILEY Work Phone: [facility] HospitalRccptbnbcd83-52-7766 09:07-0500Diastolic blood mm[Hg]Monae RILEY Work Phone: [facility] HospitalQlhonucqtr07-72-8195 09:07-0500Systolic blood mm[Hg]Monae RILEY Work Phone: [facility] Encounters Encounter DateEncounter TypeCare ProviderFacilityStart: 88-45-8969yhdcsvhbylRmep E. MouranyFacility:[facility] immigrant hospitalkStart: 01-07-2025 End: 28-50-7397vroagwxekwTxec E. MouranyFacility:ROSIO ReykStart: 01-05-2025 End: 19-81-0667ogbtusjytnDhbwgwgy Talal SarminiFacility:[place] DHStart: 12-07-2024 End: 44-94-4532ctjhmbevkqAkqu EDarrell MouranyFacility:ROSIO ReykStart: 12-03-2024 End: 33-34-1705lvcluhwbylQjvgkltm Talal SarminiFacility:FTMCStart: 10-13-2024 End: 11-16-5704eugjllncjgUnspffur Talal SarminiFacility:Erin DHStart: 10-01-2024 End: 67-56-1015obdblticxwDJDPEF C CIOCEFacility:German Hospitaltart: 50-10-1426llsyvoujjlObrwqyqv SarminiFacility:Erin DHStart: 04-22-2024 End: 32-99-8370cimxlftiquDudnsy Navneet Fernandez TIRE CLASSIFIER.HAT BODY INSPECTOR Work Phone: EndocrinologyComment on above:Unspecified hypothyroidism (Primary Dx); Insulin resistanceStart: 04-22-2024 End: 11-26-5413Wngirlpkzljn consultation with Cheyanne Fernandez APRN.CNP Work Phone: EndocrinologyStart: 04-17-2024 End: 42-59-8005cepckrkbqbMFNWBV C CIOCEFacility:German Hospitaltart: 03-23-2024 End: 33-93-5628jlnzrpswedMwmqogj R NILLFacility:ROSIO ReykStart: 03-19-2024 End: 34-69-5075rdwaccuanoUYI Hollie ROPERFacility:FTMCStart: 03-05-2024 End: 49-24-8062rpnxhvybqyXgetuiu R NILLFacility:FTMCStart: 02-25-2024 End: 58-06-7713Poihhv Rachel RILEY Work Phone: [facility] OBStart: 02-25-2024 End: 48-18-0421Crwxvj flowsMatthew RILEY Work Phone: noms [facility] OBStart: 02-25-2024 End: 34-81-8255Cxejsbqhl Result EncounterMonae RILEY Work Phone: noms External Department UnsolicitedStart: 02-25-2024 End: 35-15-1215Ugiitjq encounter procedureMonae RILEY Work Phone: [facility] Work Phone: Start: 02-25-2024 End: 61-17-7182Bligaesl preventive med est patient 40-64yrsAmy Judson RILEY Work Phone: noms [facility] OBComment on above:Well woman exam with routine gynecological exam; Breast cancer screening by mammogram; Postmenopausal state; Postmenopausal atrophic vaginitisStart: 02-25-2024 End: 42-10-9004tfpdlatiebPVG JUDSONNot AvailableStart: 02-02-2024 End: 45-85-9173lhwokjchpoKdcx K HUGHESFacility:[facility] CENTERtart: 01-23-2024 End: 21-86-9264fwrgsthybdAujvzdl R NILLFacility:ROSIO Connorstart: 01-12-2024 End: 82-00-2542dihjzgobjsQdvdt M. DempseyFacility:[facility] CENTERtart: 12-13-2023 End: 57-09-5040qtkzbysdxkSDGBAG C CIOCEFacility:[facility] HospitalStart: 12-06-2023 End: 36-00-6736hkilqtdqezEcsezr C Cioce TIRE CLASSIFIER.HAT BODY INSPECTOR Work Phone: EndocrinologyComment on above:Fall labsStart: 10-03-2023 End: 97-32-0999froimpkvkaGkgwsu GudimellaFacility: [place]walkStart: 09-26-2023 End: 79-50-6353gwiwvnnusiNutydi GudimellaFacility: [place]emanStart: 07-25-2023 End: 69-09-9309qwrxxgvxnmBgincy GudimellaFacility: [place]emanStart: 07-12-2023 ambulatoryDianne C Cioce TIRE CLASSIFIER.HAT BODY INSPECTOR Work Phone: EndocrinologyComment on above:Lipid panel testStart: 67-16-4526uwpxzunflhRelxls C Cioce TIRE CLASSIFIER.HAT BODY INSPECTOR Work Phone: EndocrinologyComment on above:medicationthyroidStart: 17-44-5070F-mail encounter from caregiverSandrae C Cioce TIRE CLASSIFIER.HAT BODY INSPECTOR Work Phone: [facility] MILLTOWNStart: 19-48-6164Nwjansagx encounterDiradhae C Merleoce TIRE CLASSIFIER.HAT BODY INSPECTOR Work Phone: EndocrinologyComment on above:Medication Request (See note)Refill RequestStart: 06-13-2023 End: 99-16-7098ygyokvyogsFhfsir GudimellaFacility: [place]emanStart: 05-16-2023 End: 55-25-0339pcicjqpwfySdimwr GudimellaFacility:MCStart: 05-02-2023 End: 67-76-0670rstzjvdgbcDtvrpm GudimellaFacility: [place]emanStart: 04-20-2023 ambulatoryCHRISTINA A CANFIELDFacility:[place] HospitalStart: 04-20-2023 End: 66-75-8672Idywmwqfef hospital visit by physicianUltra Florida Hosp Work Phone: [facility] Radiology UltrasoundComment on above: Unspecified hypothyroidism [E03.9]Start: 03-12-2023 End: 04-96-6680eayybpojuvVQLD REFERRALFacility:FTMCStart: 72-24-0325czlqpjgnrt Kerri C Cioce TIRE CLASSIFIER.HAT BODY INSPECTOR Work Phone: EndocrinologyComment on above:labsStart: 02-07-2023 End: 72-12-0770ijejjwjowcExnrjg GudimellaFacility:FM WakemanStart: 05-05-2022 RefillDianne C Cioce TIRE CLASSIFIER.HAT BODY INSPECTOR Work Phone: EndocrinologyComment on above:Refill RequestStart: 36-87-1775yarptskrezAubcws C Cioce TIRE CLASSIFIER.HAT BODY INSPECTOR Work Phone: EndocrinologyComment on above:increase in symptoms Start: 01-30-2022 End: 25-67-5368xllvkuonbsQX ELENI WHITEFacility:H1 Procedures DateProcedureProcedure DetailPerforming ClinicianStart: 07-24-4273HVJ,APTIMA HPV,AGE GDLNMonae RILEY Work Phone: Start: 71-91-3726Jhgjk 1995 panel - Serum or Plasma Kerri Cioce TIRE CLASSIFIER.HAT BODY INSPECTOR Work Phone: Start: 87-11-4397Lwztz 1995 panel - Serum or Plasma Kerri Cioce TIRE CLASSIFIER.HAT BODY INSPECTOR Work Phone: Start: 43-18-0246UlbasdlztcdEjz Ramey PA Work Phone: Start: 53-28-8993Yloxneqgbua observation [Identifier] in Cervix by Cyto Mehnaz RILEY Work Phone: Start: 45-44-4018Puptw 1995 panel - Serum or Plasma Kerri Cioce TIRE CLASSIFIER.HAT BODY INSPECTOR Work Phone: Start: 22-94-1350HcocoareediKpxahj Cioce TIRE CLASSIFIER.HAT BODY INSPECTOR Work Phone: Plan of Treatment DateCare ActivityDetailAuthorStart: 99-63-1268Qisjp panelLipid Screening [facility]: 28-05-7035Sufxq panelLipid ScreeningPremier Health [facility] Start: 71-11-6724Wmppcpkx ScreeningDiabetes ScreeningBlanchard Valley [facility] Hospitaltart: 73-64-4631Pmawrhrgf for malignant neoplasm of cervixNOCA HealthcareStart: 53-57-0048Yqsucjiy ScreeningDiabetes ScreeningBlanchard [facility] Hospitaltart: 07-07-2026 Lipid panelLipid ScreeningBlanchard Valley [facility] Hospitaltart: 68-74-3472JMFBM SCREENLIPID SCREENBlanchard Valley [facility] Hospitaltart: 84-82-3228Knigldfh ScreeningDiabetes Screening [facility]: 33-26-5517Qajyqsbwm for malignant neoplasm of cervixPap SmearNOMS HealthcareStart: 49-72-6846Sxdbrfzq ScreeningDiabetes Screening [facility]: 87-52-4491KDWYJGMF SCREENDIABETES SCREENPremier Health [facility] Hospital Start: 03-24-2025 End: 06-23-2025 peptide [Mass/volume] in Serum or PlasmaC-PEPTIDE BLD Lab Routine Insulin resistance Expected: 03/24/2025, Expires: 06/23/2025leveland ClinicComment on above:Expected: 03/24/2025, Expires: 06/23/2025Start: 03-24-2025 End: 93-75-5895Xejroigvfbsom metabolic 2000 panel - Serum or PlasmaCOMPREHENSIVE METABOLIC PANEL Lab Routine Unspecified hypothyroidism Expected: 03/24/2025, Expires:06/23/2025[place] ClinicComment on above:Expected: 03/24/2025, Expires: 06/23/2025Start: 03-24-2025 End: 53-28-7197Zgcqxwozie A1c in BloodHEMOGLOBIN A1C Lab Routine Insulin resistance Expected: 03/24/2025, Expires: 06/23/2025[facility] ClinicComment on above:Expected: 03/24/2025, Expires: 06/23/2025Start: 03-24-2025 End: 76-20-7706TRWQP PANEL, NONFASTINGLIPID PANEL, NONFASTING Lab Routine Insulin resistance Expected: 03/24/2025, Expires: 06/23/2025[facility] Comment on above:Expected: 03/24/2025, Expires: 06/23/2025Start: 03-24-2025 End: 86-70-1552Tpnfncukxsi [Units/volume] in Serum or PlasmaTHYROID STIMULATING HORMONE Lab Routine Unspecified hypothyroidism Expected: 03/24/2025, Expires: leveland ClinicComment on above:Expected: 03/24/2025, Expires: 06/23/2025Start: 03-24-2025 End: 97-65-5968Wsxoxdvbb (T4) free [Mass/volume] in Serum or PlasmaT4 FREE/FREE THYROXINE Lab Routine Unspecified hypothyroidism Expected: 03/24/2025, Expires: 06/23/2025[place] ClinicComment on above:Expected: 03/24/2025, Expires: 06/23/2025Start: 03-01-2025 End: 79-69-6069Dpmnkbm encounter gnjawrkqj94/09/2025 9:00 AM EST Office Visit [facility] [address] [place] [id number] Monae Roper PA [address] [place], [place] [id number] [facility] OBStart: 09-21-2024 End: 06-02-5266Muzczltfjpb [Units/volume] in Serum or PlasmaTHYROID STIMULATING HORMONE Lab Routine Unspecified hypothyroidism Expected: 09/21/2024, Expires: [facility] Work Phone: Comment on above:Expected: 09/21/2024, Expires: 12/21/2024Start: 09-21-2024 End: 96-96-6746Xeunngaiv (T4) free [Mass/volume] in Serum or PlasmaT4 FREE/FREE THYROXINE Lab Routine Unspecified hypothyroidism Expected: 09/21/2024, Expires: 12/21/2024[place] ClinicComment on above:Expected: 09/21/2024, Expires: 12/21/2024Start: 24-20-9813XFVESLFN SCREENDIABETES SCREENBlanchard Valley Health [facility] Hospitaltart: 01-33-0980Bzatcenoj for malignant neoplasm of breastBlanchard [facility] Hospitaltart: 02-25-2024 End: 42-07-9605HCN Skeletal system Views for bone densityDEXA bone density Imaging Routine Postmenopausal state Expected: 02/25/2024 (Approximate), Expires:02/24/2025NOMS HealthcareComment on above:Expected: 02/25/2024 (Approximate), Expires: 02/24/2025Start: 02-25-2024 End: 44-11-2738BA Breast - bilateral ScreeningBilateral screening mammogram Imaging Routine Breast cancer screening by mammogram Expected: 02/25/2024, Expires: 04/27/2025[facility] Work Phone: comment on above:Expected: 02/25/2024, Expires: 04/27/2025Start: 02-25-2024 End: 45-37-5203Dxskrko encounter qkorlkzan02/04/2024 9:00 AM EST Office Visit [facility] [address] [place] [address] Monae Roper PA [address] [place], [place] [id number] [facility]PR[facility] BCP OBComment on above:ArrivedStart: 12-08-2023 End: 17-19-1201Urupxubhmdbwy metabolic 2000 panel - Serum or PlasmaCOMPREHENSIVE METABOLIC PANEL Lab Routine Insulin resistance Expected: 12/08/2023, Expires: 03/12/2024[place] ClinicComment on above:Expected: 12/08/2023, Expires: 03/12/2024Start: 12-08-2023 End: 27-23-4025Touplurm [Mass/volume] in Serum or PlasmaCORTISOL, SERUM Lab Routine Unspecified hypothyroidism Expected: 12/08/2023, Expires: 03/12/2024 [place] ClinicComment on above:Expected: 12/08/2023, Expires: 03/12/2024Start: 12-08-2023 End: 19-79-5705Vrwbvmwrxp A1c in BloodHEMOGLOBIN A1C Lab Routine Insulin resistance Expected: 12/08/2023, Expires: 03/12/2024[facility] Work Phone: Comment on above:Expected: 12/08/2023, Expires: 03/12/2024Start: 12-08-2023 End: 47-34-4494BIQTS PANEL, NONFASTINGLIPID PANEL, NONFASTING Lab Routine Insulin resistance Expected: 12/08/2023, Expires: 03/08/2024[facility] Comment on above:Expected: 12/08/2023, Expires: 03/08/2024Start: 12-08-2023 End: 00-19-5569Hpxdzfbnlohm/Creatinine [Mass Ratio] in UrineALBUMIN/CREATININE RATIO, URINE Lab Routine Insulin resistance Expected: 12/08/2023 (Approximate), Expires: 03/12/2024[place] ClinicComment on above:Expected: 12/08/2023 (Approximate), Expires: 03/12/2024Start: 12-08-2023 End: 72-36-9052Yjjkxxqonhd [Units/volume] in Serum or PlasmaTHYROID STIMULATING HORMONE Lab Routine Unspecified hypothyroidism Expected: 12/08/2023, Expires: leveland ClinicComment on above:Expected: 12/08/2023, Expires: 03/12/2024Start: 01-43-4903Zpteq-19 Vaccine ()Covid-19 Vaccine ()[facility]: 48-99-5810Coisc-19 Vaccine ()Covid-19 Vaccine ()[facility]: 39-83-5364Euncnpean vaccinationBlanchard Valley Health System [facility] Hospitaltart: 88-47-1693Hedpuhoqgl Health ScreeningBehavioral Health ScreeningBlanchard Valley Health System [facility] Hospitaltart: 03-24-2023 Depression AssessmentDepression AssessmentBlanchard [facility] Hospitaltart: 11-22-2022 Covid-19 Vaccine ()Covid-19 Vaccine () [facility]: 74-62-1023Abbczxmbp vaccinationInfluenza Vaccine (#1) [facility]: 04-24-2022 End: 72-94-4987HJMDVPE/CREAT RATIO RND URALBUMIN/CREAT RATIO RND UR Lab Routine Insulin resistance Expected: 04/24/2022 (Approximate), Expires: 06/24/2022 [facility] Work Phone: Comment on above:Expected: 04/24/2022 (Approximate), Expires: 06/24/2022Start: 04-24-2022 End: 86-94-7136Gzzlbbbaulpvg metabolic 2000 panel - Serum or PlasmaCOMP METABOLIC PANEL Lab Routine Insulin resistance Expected: 04/24/2022 (Approximate), Expires: 06/24/2022[facility] Work Phone: Comment on above:Expected: 04/24/2022 (Approximate), Expires: 06/24/2022Start: 04-24-2022 End: 83-58-4519Qkykuaawfo A1c in BloodHGB A1C Lab Routine Insulin resistance Expected: 04/24/2022 (Approximate), Expires: 06/24/2022[facility] Work Phone: Comment on above:Expected: 04/24/2022 (Approximate), Expires: 06/24/2022Start: 04-24-2022 End: 12-18-0345Lbhvkqrztmm [Units/volume] in Serum or PlasmaTSH BLD Lab Routine Unspecified hypothyroidism Expected: 04/24/2022 (Approximate), Expires: 06/25/19[facility] Work Phone: Comment on above:Expected: 04/24/2022 (Approximate), Expires: 06/24/2022Start: 04-24-2022 End: 01-39-1732Awynwppxv (T4) free [Mass/volume] in Serum or PlasmaT4 FREE/FREE THYROX Lab Routine Unspecified hypothyroidism Expected: 04/24/2022 (Approximate), Expires: 06/24/2022[facility] Work Phone: Comment on above:Expected: 04/24/2022 (Approximate), Expires: 06/24/2022Start: 04-24-2022 End: 91-13-7318Aajbdjswedgckmhh (T3) Free [Mass/volume] in Serum or PlasmaT3 FREE BLD Lab Routine Unspecified hypothyroidism Expected: 04/24/2022 (Approximate), Expires: 06/24/2022[facility] Work Phone: Comment on above:Expected: 04/24/2022 (Approximate), Expires: 06/24/2022Start: 56-89-0169JWSUEQXNQV ASSESSMENTDEPRESSION ASSESSMENT [facility]: 02-19-2022 End: 56-13-0234Yvzmvsztahfblgoi (T3) Free [Mass/volume] in Serum or PlasmaT3 FREE BLD Lab Routine Unspecified hypothyroidism Expected: 02/19/2022 (Approximate), Expires: 04/21/2022[facility] Work Phone: Comment on above:Expected: 02/19/2022 (Approximate), Expires: 04/21/2022Start: 28-12-6254Hcnggfvxw vaccinationINFLUENZA (#1)[facility]: 46-96-3009TMF TESTINGPAP TESTINGBlanchard Valley [facility] Hospitaltart: 10-22-2021 Screening for malignant neoplasm of cervixPap TestingBlanchard Valley Health System [facility] Hospitaltart: 91-39-1304GNAZT-19 VACCINE (4 - Booster for Pfizer series)COVID-19 VACCINE (4 - Booster for Pfizer series)[facility]: 69-33-2959OXECGBUCSR ASSESSMENT DEPRESSION ASSESSMENTBlanchard [facility] Hospitaltart: 69-74-7717Qxpazitungpr Vaccine: 50+ (1 of 1 - PCV)Pneumococcal Vaccine: 50+ (1 of 1 - PCV)[facility]: 03-14-8991ZFKOCYLC VACCINE (1 of 2)SHINGRIX VACCINE (1 of 2)[facility] Start: 67-38-5130Aotelanux for malignant neoplasm of cervixCervical Cancer ScreeningBlanchard [facility] Hospitaltart: 21-25-0328PrgqntuefglZNCIDEMVSZfkcsllpa Clinic Start: 48-88-3829Ocspjbmuq for malignant neoplasm of breastMammogram Screening [facility]: 38-35-6316SLRIWQPTH (FIT-DNA)COLOGUARD (FIT-DNA)[facility]: 44-84-7165MbxghivhtrpSSJPODNKBHNFzlrrgvcy ClinicStart: 2014 COLORECTAL CANCER SCREENINGCOLORECTAL CANCER SCREENINGBl[facility] Hospitaltart: 09-31-6705WU COLONOGRAPHYCT COLONOGRAPHYBlanchard [facility] Hospitaltart: 10-79-4830LEKJW OCCULT BLOODFECAL OCCULT BLOODBl[facility] Hospitaltart: 28-97-6960Exmstwplh for malignant neoplasm of colonBl[facility] Hospitaltart: 73-71-9383COIQMLQSHILYA SIGMOIDOSCOPYBlanchard [facility] Hospitaltart: 59-36-7227QNF TESTINGHPV TESTINGBlanchard [facility]tart: 43-11-6913Ycxiajqqs for malignant neoplasm of cervixHPV Testing [facility]: 82-46-8936Yxuzdnqzh B Vaccine (1 of 3 - 19+ 3-dose series)Hepatitis B Vaccine (1 of 3 - 19+ 3-dose series)[facility]: 65-22-5208Zrarp microalbumin profileBlanchard Valley Health System [facility] Hospitaltart: 38-59-1141XGHQXE PCP TEAM CHRONIC DISEASE VISITANNUAL PCP TEAM CHRONIC DISEASE VISITPremier Health [facility] Start: 92-68-8754Fyffvhu ScreeningAnxiety ScreeningBlanchard [facility]tart: 49-69-1424Kyilzeatyb ScreeningDepression ScreeningBlanchard [facility]tart: 39-31-7238CPY SCREENINGHIV SCREENINGBlanchard [facility]tart: 89-96-9095VAL screeningHIV ScreeningBlanchard Valley [facility] Hospitaltart: 73-50-0054CUFGCOXRB B (1 of 3 - 3- dose series)HEPATITIS B (1 of 3 - 3-dose series)[facility]: 64-00-3247Vmojdduqu B Vaccine (1 of 3 - 3-dose series)Hepatitis B Vaccine (1 of 3 - 3-dose series)[facility]: 91-10-1127Recixcskw for malignant neoplasm of colonNOCA HealthcareTHIN PREP TIS PAP AND HR HPV DNATHIN PREP TIS PAP AND HR HPV DNA Pathology and Cytology Routine Well woman exam with routine gynecological exam Ordered: 02/25/2024NOCA HealthcareComment on above:Ordered: 02/25/2024US HEAD/NECK SOFT TISSUE OTHERUS HEAD/NECK SOFT TISSUE OTHER Radiology Routine Unspecified hypothyroidism 04/20/2023 5:17 PM [facility] Work Phone: Us soft tissue head & neck real time imge docmUS THYROID/PARATHYROID Radiology Routine Unspecified hypothyroidism 04/20/2023 5:14 PM [facility] Work Phone: [facility] Immunizations Immunization DateImmunizationNotesCare FtvhgeedIwnsoahp28-45-9722impprciau, injectable, quadrivalent, preservative freeDianne Cioce TIRE CLASSIFIER.HAT BODY INSPECTOR Work Phone: [facility] HospitalWbfcmy30-08-7204zmzjzrlml virus vaccine, unspecified formulationDianne Cioce TIRE CLASSIFIER.HAT BODY INSPECTOR Work Phone: [facility] Payers DatePayer CategoryPayerPolicy [id number] Health InsuranceMEDICAL MUTUAL [id number] [id number] 2..1.140386.3.57[id number] 2..1.537049.3.57[id number] 2.0.1.684802.3.57[id number] 2..1.633262.3.57[id number] 2.0.1.812139.3.57[id number] 2..1.291160.3.57[id number] 2..1.502549.3.57[id number] 2..1.828247.3.57[id number] 2..1.630773.3.57[id number] 2..1.504418.3.57[id number] 2..1.494515.3.57[id number] 2..1.858038.3.57[id number] 2..1.224646.3.57[id number] 2..1.525263.3.57[id number] 2..1.423715.3.57[id number] 2..1.547424.3.57[id number] 2..1.097775.3.57[id number] 2.16.840.1.804865.3.57[id number] 2..840.1.400780.3.57[id number] 2..840.1.486085.3.57[id number] 2..840.1.802933.3.57[id number] 2..840.1.849344.3.57[id number] 2..840.1.260781.3.57[id number] 2.0.1.900124.3.57[id number] 2.840.1.383505.3.57[id number] 2.0.1.514465.3.579.2.[id number] Social History DateTypeDetailFacilityStart: 06-25-2018 End: 70-03-7710Skcrysl smoking status NHISNever smoked tobaccoPremier Health Miami Valley Hospital Start: 06-25-2018 End: 23-44-3158Meejfeh use and exposureSmokeless tobacco non-userBlanchard Valley Health System [facility] Hospitaltart: 03-07-2021 End: 44-46-8937Edukkwn intakeCurrent non-drinker of alcohol (finding)[facility]: 23-05-7865Wni Assigned At BirthNot on fileBlanchard Valley Health System [facility] Hospitaltart: 05-06-2022 End: 16-54-3068Zzoeovk of Social functionBlanchard Valley Health System [facility] Hospitaltart: 05-06-2022 End: 88-92-8798Mwntaqh use panelPremier Health Miami Valley HospitalAdult Depression Screening Klfrygzrfi1Fqpexbxfe ClinicStart: 51-25-4902Wabudzgrk beverage intakeLifetime non-drinker (finding)[facility] HospitalStart: 98-80-9193Qthbjrr Commentcaffeine: 1- 2 cups per dayChristian Hospital Clinical Notes 02-19-2022 to 12-07-2024 Note Date & MlsfOnssIatdsbhd45-82-5436 NotePatient Education Gastroenterology Obesity, Adult Obesity is the condition of having too much total body fat. Being overweight or obese means that your weight is greater than what is considered healthy for your body size. Obesity is determined by a measurement called BMI (body mass index). BMI is an estimate of body fat and is calculated from height and weight. For adults, a BMI of 30 or higher is considered obese. Obesity can lead to other health concerns and major illnesses, including: ??? Stroke. ??? Coronary artery disease (CAD). ??? Type 2 diabetes. ??? Some types of cancer, including cancers of the colon, breast, uterus, and gallbladder. ??? High blood pressure (hypertension). ??? High cholesterol. ??? Gallbladder stones. Obesity can also contribute to: ??? Osteoarthritis. ??? Sleep apnea. ??? Infertility problems. What are the causes? Common causes of this condition include: ??? Eating daily meals that are high in calories, sugar, and fat. ??? Drinking high amounts of sugar-sweetened beverages, such as soft drinks. ??? Being born with genes that may make you more likely to become obese. ??? Having a medical condition that causes obesity, including: ? Hypothyroidism. ? Polycystic ovarian syndrome (PCOS). ? Binge-eating disorder. ? [place] syndrome. ??? Taking certain medicines, such as steroids, antidepressants, and seizure medicines. ??? Not being physically active (sedentary lifestyle). ??? Not getting enough sleep. What increases the risk? The following factors may make you more likely to develop this condition: ??? Having a family history of obesity. ??? Living in an area with limited access to: ? [place], recreation centers, or sidewalks. ? Healthy food choices, such as grocery stores and farmers' markets. What are the signs or symptoms? The main sign of this condition is having too much body fat. How is this diagnosed? This condition is diagnosed based on: ??? Your BMI. If you are an adult with a BMI of 30 or higher, you are considered obese. ??? Your waist circumference. This measures the distance around your waistline. ??? Your skinfold thickness. Your health care provider may gently pinch a fold of your skin and measure it. You may have other tests to check for underlying conditions. How is this treated? Treatment for this condition often includes changing your lifestyle. Treatment may include some or all of the following: ??? Dietary changes. This may include developing a healthy meal plan. ??? Regular physical activity. This may include activity that causes your heart to beat faster (aerobic exercise) and strength training. Work with your health care provider to design an exercise program that works for you. ??? Medicine to help you lose weight if you are unable to lose one pound a week after six weeks of healthy eating and more physical activity. ??? Treating conditions that cause the obesity (underlying conditions). ??? Surgery. Surgical options may include gastric banding and gastric bypass. Surgery may be done if: ? Other treatments have not helped to improve your condition. ? You have a BMI of 40 or higher. ? You have life-threatening health problems related to obesity. Follow these instructions at home: Eating and drinking ??? Follow recommendations from your health care provider about what you eat and drink. Your healthcare provider may advise you to: ? Limit fast food, sweets, and processed snack foods. ? Choose low-fat options, such as low-fat milk instead of whole milk. ? Eat five or more servings of fruits or vegetables every day. ? Choose healthy foods when you eat out. ? Keep low-fat snacks available. ? Limit sugary drinks, such as soda, fruit juice, sweetened iced tea, and flavored milk. ??? Drink enough water to keep your urine pale yellow. ??? Do not follow a fad diet. Fad diets can be unhealthy and even dangerous. ??? Other healthful choices include: ? Eat at home more often. This gives you more control over what you eat. ? Learn to read food labels. This will help you understand how much food is considered one serving. ? Learn what a healthy serving size is. Physical activity ??? Exercise regularly, as told by your health care provider. ? Most adults should get up to 150 minutes of moderate-intensity exercise every week. ? Ask your health care provider what types of exercise are safe for you and how often you should exercise. ??? Warm up and stretch before being active. ??? Cool down and stretch after being active. ??? Rest between periods of activity. Lifestyle ??? Work with your health care provider and a dietitian to set a weight-loss goal that is healthy and reasonable for you. ??? Limit your screen time. ??? Find ways to reward yourself that do not involve food. ??? Do not drink alcohol if: ? Your health care provider tells you not to drink. ? You are , may be preg (more content not included)...[facility]09-12-2025 NoteProgress Note-Physician Patient: BRAD DIXON Age: 54 years Sex: Female : 1970 Associated Diagnoses: None Author: Zurdo Tavera Jr., DO Postoperative Information Postoperative disposition: Postoperative disposition: Home. Optimetrix number: Optimetrix number [id number]. Anesthetic utilized: General. Physical Examination Vital Signs 12/03/2024 10:15 EDT Heart Rate Monitored 61 bpm Respiratory Rate Monitored 18 br/min Systolic Blood Pressure 110 mmHg Diastolic Blood Pressure 75 mmHg Mean Arterial Pressure, Cuff 87 mmHg SpO2 98 % 12/03/2024 10:05 EDT Heart Rate Monitored 70 bpm Respiratory Rate Monitored 13 br/min SpO2 97 % 12/03/2024 10:05 EDT Systolic Blood Pressure 108 mmHg Diastolic Blood Pressure 68 mmHg Mean Arterial Pressure, Cuff 81 mmHg 12/03/2024 9:50 EDT SpO2 100 % 12/03/2024 9:50 EDT Heart Rate Monitored 80 bpm Respiratory Rate Monitored 17 br/min 12/03/2024 9:50 EDT Temperature Temporal Artery 36.5 DegC Systolic Blood Pressure 111 mmHg Diastolic Blood Pressure 55 mmHg LOW Mean Arterial Pressure, Cuff 74 mmHg Pain Assessment: Controlled. General: Awake, Alert, Appropriate. Respiratory: Adequate air exchange, Non-labored. Cardiovascular: Stable, Normal peripheral perfusion. Neurological: Neurologic exam at baseline. No changes.. Assessment Anesthetic outcome No anesthetic complications noted. No nausea/vomiting. Review / Management Condition: Stable. Plan Transfer/Discharge: Transfer/Discharge Discharge when meets criteria ( From PACU to Ambulatory Surgery Unit, and To home ).[facility] HospitalComment on above:Result Comment: Electronically Signed By: Zurdo Tavera Jr., DO\Date and Time Signed: 12/03/24 11:04 [id number] NotePatient Education - Text Colonoscopy Care After Surgery Please read the instructions outlined below and refer to this sheet in the next few weeks. These discharge instructions provide you with general information on caring for yourself after you leave thehospital. Your doctor may also give you specific instructions. While your treatment has been planned according to the most current medical practices available, unavoidable complications occasionally occur. If you have any problems or questions after discharge, please call your doctor. ACTIVITY You may resume your regular activity, but move at a slower pace for the next 24 hours. Take frequent rest periods for the next 24 hours. Walking will help get rid of the air and reduce the bloated feeling in your abdomen (belly). No driving for 24 hours (because of the anesthesia (medicine) used during the test). You may shower. Do not sign any important legal documents or operate any machinery for 24 hours (because of the anesthesia used during the test). NUTRITION Drink plenty of fluids. You may resume your normal diet as instructed by your doctor. Begin with a light meal and progress to your normal diet. Heavy or fried foods are harder to digestand may make you feel nauseated (sick to your stomach). Avoid alcoholic beverages for 24 hours or as instructed. MEDICATIONS You may resume your normal medications unless your doctor tells you otherwise. WHAT YOU CAN EXPECT TODAY Some feelings of bloating in the abdomen. Passage of more gas than usual. Spotting of blood in your stool or on the toilet paper. FOLLOW-UP Your doctor will discuss the results of your test with you. SEEK IMMEDIATE MEDICAL ATTENTION IF: There is more than a spotting of blood in your stool. There is abdominal distention (your abdomen is swollen). There is vomiting. You have a temperature over 101.5 F. There is abdominal pain or discomfort that is severe or gets worse throughout the day. Gastroenterology Anal Fissure, Adult An anal fissure is a small tear or crack in the tissue near the opening of the butt (anus). In mostcases, bleeding from the tear or crack stops on its own within a few minutes. You may have bleedingeach time you poop until the tear or crack heals. What are the causes? Passing a large or hard poop (stool). ??? Having trouble pooping (constipation). ??? Having watery poops (diarrhea). ??? An inflammatory bowel disease, like Crohn's disease or ulcerative colitis. ??? Childbirth. ??? Infections. ??? Anal sex. What are the signs or symptoms? Bleeding from the butt. ??? Small amounts of blood on your poop. The blood coats the outside of the poop. It is not mixed with the poop. ??? Small amounts of blood on the toilet paper or in the toilet after you poop. ??? Pain when you poop. ??? Itching or irritation around your butt. How is this treated? Treatment may include: ??? Making changes to what you eat and drink. This can help if you have trouble pooping. ??? Taking fiber supplements. These can help make your poop soft. ??? Taking warm water baths (sitz baths). These can help heal the tear. ??? Using creams and ointments. If other treatments do not work, you may need: ??? A shot near the tear or crack (botulinum injection). ??? Surgery to fix the tear or crack. Follow these instructions at home: Medicines ??? Take jzrw-wtz-tuokcix and prescription medicines only as told by your doctor. This includes creams and ointments that have medicine in them. ??? Use medicines to make your poop soft as told by your doctor. Treating constipation You may need to take these actions to prevent or treat trouble pooping: ??? Drink enough fluid to keep your pee (urine) pale yellow. ??? Eat foods that are high in fiber. These include beans, whole grains, and fresh fruits and vegetables. ??? Stay away from unripe bananas. Ripe bananas are a good choice. ??? Limit foods that are high in fat and sugar. These include fried or sweet foods. ??? Avoid dairy products. This includes milk. General instructions ??? Keep the butt area clean and dry. ??? Take a warm water bath as told by your doctor. Do not use soap. Contact a doctor if: ??? You have more bleeding. ??? You have a fever. ??? You have watery poop that is mixed with blood. ??? Your pain does not go away. ??? Your problems get worse. This information is not intended to replace advice given to you by your health care provider. Make sure you discuss any questions you have with your health care provider. Document Revised: 03/27/2023 Document Reviewed: 03/27/2023 [employer] Patient Education ? 2023 [employer] Oncology Colon Polyps Colon polyps are tissue growths inside the colon, which is part of the large intestine. They are one of the types of (more content not included)...[facility]09-12-2025 NoteEndoscopic Procedure Report - Other Patient: BRAD DIXON Age: 54 years Sex: Female : 1970 Associated Diagnoses: None Author: Nathalie Dumont MD Pre-Procedure Procedure Date 12/03/2024 09:45:00 . Procedure Type: Colonoscopy with removal of tumor(s), polyp(s), or other lesion(s) by snare technique. Procedure provider Performed by Nathalie Dumont MD. Current history and physical Reviewed. Flexible sigmoidoscopy ([id number]) on 03/05/2024 at 53 Years. Colonoscopy ([id number]) on 12/29/2020 at 50 Years. Comments: 12/29/2020 10:00 ALHAJI Garay RN, Leida Cavanaugh Neg Colonoscopy ([id number]) in 2013 at 43 Years. Hysterectomy ([id number]) on 07/31/2009 at 38 Years. Cerclage ([id number]). Comments: 08/01/2009 22:39 Tom Hills RN 2003 Appendectomy (47.0). Comments: 08/01/2009 22:39 Tom Hills RN 2008 Ovarian cystectomy ([id number]).. Past Medical History Active Hypothyroidism ([id number]) Resolved Raynaud's disease ([id number]): Resolved. Postural orthostatic tachycardia syndrome (8305667651): Resolved.. Family History Primary malignant neoplasm of colon Grandparent (Paternal Grandmother) Hypertension Father Hypothyroidism Mother Primary malignant neoplasm of prostate Father Diverticulitis of colon Father Cardiac arrhythmia Mother . Procedure History Flexible sigmoidoscopy ([id number]) on 03/05/2024 at 53 Years. Colonoscopy ([id number]) on 12/29/2020 at 50 Years. Comments: 12/29/2020 10:00 EDT Kael Garay RN, Leida Cavanaugh Neg Colonoscopy ([id number]) in 2013 at 43 Years. Hysterectomy ([id number]) on 07/31/2009 at 38 Years. Cerclage ([id number]). Comments: 08/01/2009 22:39 Tom Hills RN 2003 Appendectomy (47.0). Comments: 08/01/2009 22:39 Tom Hills RN 2008 Ovarian cystectomy ([id number]).. Colorectal neoplasm risk assessment Average risk. Informed Consent After discussing the rationale, risks and benefits, and alternatives to this procedure, the patient provided signed consent for the procedure. Pre-procedure diagnosis: Diagnostic: Anal fissure. Medications (Selected) Inpatient Medications Ordered Lactated Ringers IV Billie 1000 mL 1,000 mL: 1,000 mL, IV, 100 mL/hr, Routine, Start date 12/03/24 9:18:00 EDT, 10 hour(s), Total volume (mL): 1,000, 70.9 kg, 1.81, m2 Sodium Chloride 0.9% IV Billie 1000 mL 1,000 mL: 1,000 mL, IV, 20 mL/hr, Routine, Start date 12/03/24 6:40:00 EDT, 50 hour(s), Total volume (mL): 1,000 Prescriptions Prescribed Metamucil 3.4 g/5.2 g oral powder: 3.4 gram, Oral, TID, PRN for constipation, # 1,042 gram, Refills(s) 0, Pharmacy: [facility], 167, cm, 10/13/24 8:49:00 EDT, Height/Length Dosing, 70.9, kg, 10/13/24 8:49:00 EDT, Weight Dosing Miralax 3350 17 gram packet: 17 gm, Oral, Daily, # 72 EA, Refills(s) 3, Pharmacy: [facility], 167, cm, 10/13/24 8:49:00 EDT, Height/Length Dosing, 70.9, kg, 10/13/24 8:49:00 EDT, Weight Dosing Documented Medications Documented Nature's Bounty Red Krill Oil: Refill(s) 0, once daily, Prophylaxis Synthroid 100 mcg Tab: 90 EA, take 1 tablet by mouth once daily EXCEPT TAKE 1/2 TABLET ON FRIDAY, Refills(s) 0, Thyroid Vitamin B12: once daily, Refills(s) 0, Prophylaxis Vitamin D: 2000 International Units, Oral, Daily, Refills(s) 0, Prophylaxis reviewed. ASA Classification: Class II. . Monitoring: See anesthesia record. . Procedure The procedure was performed in the hospital. See anesthesia record for sedation given during procedure. The patient was positioned starting in the left lateral decubitus position. Endoscope type usedwas a pediatric-size. The endoscope was lubricated then introduced through the anus. The scope was advanced to the terminal ileum. No difficulties encountered during the procedure. The bowel preparation quality was adequate (see polyps greater than or equal to 6 millimeters). The patient tolerated the procedure well. Time to cecum:4 min Time of withdrawal:13 min Findings 1. Small anal fissure at 6:00 noted. In addition there is a 3 cm wound posteriorly between the buttocks about 3 cm not related to the anal fissure, not suspicious for Crohn's disease 2. Severe sigmoid diverticulosis 3. 2 sessile polyps 5 mm in size, in the descending and ascending colon, both resected with cold snare completely and retrieved. Otherwise normal examined colonic mucosa 4. Normal examined terminal ileum Post-Procedure Complications: none. Estimated blood loss: Minimal. Specimens: sent to pathology. Devices/ implants: none left in place. Impression and Plan 1. Small anal fissure at 6:00 noted. In addition there is a 3 cm wound posteriorly between the buttocks about 3 cm not related to the anal fissure, not suspicious for Crohn's disease 2. Severe sigmoid diverticulosis 3. 2 sessile polyps 5 mm in size, in the descending and ascending colon, both resected with cold snare completel (more content not included)...[facility]:Result Comment: Electronically Signed By: Tim RAO, Nathalie Cardenas\.br\Date and Time Signed: 12/03/24 09:52 [id number] Note History and Physical Patient: BRAD DIXON Age: 54 years Sex: Female : 1970 Associated Diagnoses: None Author: Nathalie Dumont MD Preoperative Information Indication for procedure and diagnosis: Rectal pain Chief Complaint as above Review of Systems All systems reviewed, negative except as mentioned above Health Status Current medications: (Selected) Inpatient Medications Ordered Lactated Ringers IV Billie 1000 mL 1,000 mL: 1,000 mL, IV, 100 mL/hr, Routine, Start date 12/03/24 9:18:00 EDT, 10 hour(s), Total volume (mL): 1,000, 70.9 kg, 1.81, m2 Sodium Chloride 0.9% IV Billie 1000 mL 1,000 mL: 1,000 mL, IV, 20 mL/hr, Routine, Start date 12/03/24 6:40:00 EDT, 50 hour(s), Total volume (mL): 1,000 Prescriptions Prescribed Metamucil 3.4 g/5.2 g oral powder: 3.4 gram, Oral, TID, PRN for constipation, # 1,042 gram, Refills(s) 0, Pharmacy: [facility], 167, cm, 10/13/24 8:49:00 EDT, Height/Length Dosing, 70.9, kg, 10/13/24 8:49:00 EDT, Weight Dosing Miralax 3350 17 gram packet: 17 gm, Oral, Daily, # 72 EA, Refills(s) 3, Pharmacy: [facility], 167, cm, 10/13/24 8:49:00 EDT, Height/Length Dosing, 70.9, kg, 10/13/24 8:49:00 EDT, Weight Dosing Documented Medications Documented Nature's Bounty Red Krill Oil: Refill(s) 0, once daily, Prophylaxis Synthroid 100 mcg Tab: 90 EA, take 1 tablet by mouth once daily EXCEPT TAKE 1/2 TABLET ON FRIDAY, Refills(s) 0, Thyroid Vitamin B12: once daily, Refills(s) 0, Prophylaxis Vitamin D: 2000 International Units, Oral, Daily, Refills(s) 0, Prophylaxis, Home Medications (6) Active Metamucil 3.4 g/5.2 g oral powder 3.4 gram, PRN, Oral, TID Miralax 3350 17 gram packet 17 gm, Oral, Daily Nature's Bounty Red Krill Oil Synthroid 100 mcg Tab Vitamin B12 Vitamin D 2000 International Units, Oral, Daily Problem list: All Problems Hypothyroidism / SNOMED CT 22532323 / Confirmed Rosacea / SNOMED CT 5745482252 / Confirmed HLD (hyperlipidemia) / SNOMED CT 01875363 / Confirmed Chronic shoulder pain / SNOMED CT 88022790 / Confirmed Sacrococcygeal pain / SNOMED CT 5372086436 / Confirmed Left subscapular pain / SNOMED CT 726859124 / Confirmed Visit for preventive health examination / SNOMED CT 766945311 / Confirmed Screening for diabetes mellitus / SNOMED CT 487403262 / Confirmed Screening for malignant neoplasm of colon / SNOMED CT 286536383 / Confirmed Dysuria / SNOMED CT 76394274 / Confirmed Influenza vaccination declined / SNOMED CT 724238824 / Confirmed Groin pain / SNOMED CT 929241931 / Confirmed Overweight / SNOMED CT 060910154 / Confirmed Tightness of neck / SNOMED CT 0858472215 / Confirmed Rhinosinusitis / SNOMED CT 2273535740 / Confirmed Tachycardia / SNOMED CT 5263614 / Confirmed Facial numbness / SNOMED CT 681169866 / Confirmed Screening for endocrine, nutritional, metabolic and immunity disorder / SNOMED CT 512982211 / Confirmed Submandibular swelling / SNOMED CT 224565152 / Confirmed BMI 25.0-25.9,adult / SNOMED CT 3591048211 / Confirmed Nonsmoker / SNOMED CT 17700943 / Confirmed Hemorrhoids / SNOMED CT 866732700 / Confirmed Rectal bleeding / SNOMED CT 509808547 / Confirmed Rectal pain / SNOMED CT 842392932 / Confirmed Anal fissure / SNOMED CT 00985597 / Confirmed Histories Past Medical History: Active Hypothyroidism (02993012) Resolved Raynaud's disease (686243699): Resolved. Postural orthostatic tachycardia syndrome (2178521155): Resolved. Family History: Grandparent: Paternal Grandmother Primary malignant neoplasm of colon Father Hypertension Diverticulitis of colon Primary malignant neoplasm of prostate Mother Cardiac arrhythmia Hypothyroidism Procedure history: Flexible sigmoidoscopy ([id number]) on 03/05/2024 at 53 Years. Colonoscopy ([id number]) on 12/29/2020 at 50 Years. Comments: 12/29/2020 10:00 Leida Camargo RN Neg Colonoscopy ([id number]) in 2013 at 43 Years. Hysterectomy ([id number]) on 07/31/2009 at 38 Years. Cerclage ([id number]). Comments: 08/01/2009 22:39 Tom Hills RN 2003 Appendectomy (47.0). Comments: 08/01/2009 22:39 Tom Hills RN 2008 Ovarian cystectomy ([id number]). 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 Substance Abuse 10/13/2024 Risk Assessment: Denies Substance Abuse 10/13/2024 Use: Never Comment: denies - 04/11/2018 10:41 - Shira Monteiro RN Tobacco 10/13/2024 Risk Assessment: Denies Tobacco Use 10/13/2024 Tobacco Use: Never (less than 100 in l Smokeless tobacco use: Never Comment: denies - 04/11/2018 10:40 - Shira Monteiro RN; denies - 08/04/2020 08:02 - Carol Nieves Physical Exa (more content not included)...[facility]:Result Comment: Electronically Signed By: Tim RAO, Nathalie Cardenas\.br\Date and Time Signed: 12/03/24 09:20 [id number] NoteProgress Note-Physician Patient: BRAD DIXON Age: 54 years Sex: Female : 1970 Associated Diagnoses: None Author: Zurdo Tavera Jr., DO Preoperative Information Anesthesia history: Patient history: No prior anesthetic problems. Informed consent: Signed by patient. Re-evaluation prior to induction: Initial evaluation reviewed: No significant change. Review of Systems Respiratory: Negative except as documented in history of present illness. Cardiovascular: Negative except as documented in history of present illness. Health Status Allergies: Allergic Reactions (Selected) Moderate Lipitor- Unknown. Mild PredniSONE- Anger. Severity Not Documented [place] Thyroid- Rash. Bee Stings- Unknown. Mushrooms- Unknown., Allergies (5) Active Severity Reaction Lipitor Moderate unknown predniSONE Mild Anger [place] Thyroid Rash Mushrooms unknown Bee Stings Unknown Current medications: (Selected) Inpatient Medications Ordered Sodium Chloride 0.9% IV Billie 1000 mL 1,000 mL: 1,000 mL, IV, 20 mL/hr, Routine, Start date 12/03/24 6:40:00 EDT, 50 hour(s), Total volume (mL): 1,000 Prescriptions Prescribed Metamucil 3.4 g/5.2 g oral powder: 3.4 gram, Oral, TID, PRN for constipation, # 1,042 gram, Refills(s) 0, Pharmacy: [facility], 167, cm, 10/13/24 8:49:00 EDT, Height/Length Dosing, 70.9, kg, 10/13/24 8:49:00 EDT, Weight Dosing Miralax 3350 17 gram packet: 17 gm, Oral, Daily, # 72 EA, Refills(s) 3, Pharmacy: [facility], 167, cm, 10/13/24 8:49:00 EDT, Height/Length Dosing, 70.9, kg, 10/13/24 8:49:00 EDT, Weight Dosing Documented Medications Documented Nature's Bounty Red Krill Oil: Refill(s) 0, once daily, Prophylaxis Synthroid 100 mcg Tab: 90 EA, take 1 tablet by mouth once daily EXCEPT TAKE 1/2 TABLET ON FRIDAY, Refills(s) 0, Thyroid Vitamin B12: once daily, Refills(s) 0, Prophylaxis Vitamin D: 2000 International Units, Oral, Daily, Refills(s) 0, Prophylaxis, Home Medications (6) Active Metamucil 3.4 g/5.2 g oral powder 3.4 gram, PRN, Oral, TID Miralax 3350 17 gram packet 17 gm, Oral, Daily Nature's Bounty Red Krill Oil Synthroid 100 mcg Tab Vitamin B12 Vitamin D 2000 International Units, Oral, Daily , Medications (1) Active Scheduled: (0) Continuous: (1) Sodium Chloride 0.9% 1,000 mL 1,000 mL, IV, 20 mL/hr PRN: (0) Problem list: All Problems Anal fissure / SNOMED CT 44144983 / Confirmed BMI 25.0-25.9,adult / SNOMED CT 1875292996 / Confirmed Chronic shoulder pain / SNOMED CT 18110520 / Confirmed Dysuria / SNOMED CT 93470836 / Confirmed Facial numbness / SNOMED CT 415644106 / Confirmed Groin pain / SNOMED CT 467488263 / Confirmed Hemorrhoids / SNOMED CT 004897872 / Confirmed HLD (hyperlipidemia) / SNOMED CT 40759590 / Confirmed Hypothyroidism / SNOMED CT 17274676 / Confirmed Influenza vaccination declined / SNOMED CT 883914711 / Confirmed Left subscapular pain / SNOMED CT 671911237 / Confirmed Nonsmoker / SNOMED CT 72320115 / Confirmed Overweight / SNOMED CT 262107373 / Confirmed Rectal bleeding / SNOMED CT 178271193 / Confirmed Rectal pain / SNOMED CT 570382867 / Confirmed Rhinosinusitis / SNOMED CT 4636337202 / Confirmed Rosacea / SNOMED CT 2322545822 / Confirmed Sacrococcygeal pain / SNOMED CT 8568063712 / Confirmed Screening for diabetes mellitus / SNOMED CT 926508166 / Confirmed Screening for endocrine, nutritional, metabolic and immunity disorder / SNOMED CT 228883419 / Confirmed Screening for malignant neoplasm of colon / SNOMED CT 938350070 / Confirmed Submandibular swelling / SNOMED CT 366647066 / Confirmed Tachycardia / SNOMED CT 2007093 / Confirmed Tightness of neck / SNOMED CT 7879665058 / Confirmed Visit for preventive health examination / SNOMED CT 902259565 / Confirmed Resolved: Postural orthostatic tachycardia syndrome / SNOMED CT 1582736226 Resolved: Raynaud's disease / SNOMED CT 800664748 Canceled: BMI 24.0-24.9, adult / SNOMED CT 8144269852 Canceled: BMI 24.0-24.9, adult / SNOMED CT 3819457100 Canceled: BMI 25.0-25.9,adult / SNOMED CT 8931248025 Canceled: Chronic sinusitis / SNOMED CT 08887087 Canceled: Exercise counseling / SNOMED CT 941334925 Canceled: Overweight child / SNOMED CT 2520784347 Histories Past Medical History: Active Hypothyroidism (33671567) Resolved Raynaud's disease (008276104): Resolved. Postural orthostatic tachycardia syndrome (2809790791): Resolved. Procedure history: Flexible sigmoidoscopy ([id number]) on 03/05/2024 at 53 Years. Colonoscopy ([id number]) on 12/29/2020 at 50 Years. Comments: 12/29/2020 10:00 EDXu Garay RN, Leida Cavanaugh Neg Colonoscopy ([id number]) in 2013 at 43 Years. Hysterectomy ([id number]) on 07/31/2009 at 38 Years. Cerclage ([id number]). Comments: 08/01/2009 22:39 Tom Hills RN 2003 Appendectomy (47.0). Comments: 08/01/2009 22:39 Tom Hills RN 2008 Ovarian c (more content not included)...[facility]:Result Comment: Electronically Signed By: Zurdo Tavera Jr., DO.raghu\Date and Time Signed: 12/03/24 09:18 [id number] History of Present illness Narrative* Kerri Fernandez APRN.HAT BODY INSPECTOR - 04/22/2024 6:00 PM EST VIRTUAL VISIT PROGRESS NOTE This is a virtual visit using [employer] Video Visit. It required patient- provider interaction for the medical decision making as documented below. I have communicated my name and active licensure. The patient's identity and physical location wereverified at the time of this visit. Either the patient or their legal bilingual call center representative has been informed of the risks and benefits of -- and alternatives to -- treatment through a remote evaluation andconsents to proceed with the evaluation remotely. DEN Anderson is a 53 year old who presents today for thyroid problem HPI: Diagnosed with hypothyroid ~ 2001 Last endocrine OV 04/17/2023 Some elements copied from my note 04/17/2023 which have been updated where appropriate, and all reflect current medical decision making from date of this visit. 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 Has been more sedentary, is experiencing more constipation Bleeding with BM Had colonoscopy which was normal Admits diet is lower in fiber Has added one apple which she has noticed has helped Having stress hair loss notices with shower CURRENT THYROID MEDS SYNTHROID 100 mcg 1 tab daily except 03/25 on Friday CURRENT LABS Latest Ref Rng 07/12/2023 12/13/2023 04/17/2024 Hemoglobin A1C 4.3 - 5.6 % 4.9 Estimated Average Glucose mg/dL 94 TSH 0.270 - 4.200 mIU/L 0.540 0.542 0.857 Free T4 0.9 - 1.7 ng/dL 1.7 1.6 Free T3 2.3 - 4.1 pg/mL 3.0 3.3 C-Peptide 1.1 - 4.4 ng/mL 2.6 Recent Labs 07/16/14 0931 09/10/14 1002 02/23/22 0835 02/23/22 0856 05/03/22 0858 05/03/22 0906 12/07/22 0857 04/19/23 0855 07/12/23 0903 07/12/23 1041 12/13/23 0914 12/13/23 1026 ALT 9 < > 17 -- 18 -- -- -- 16 -- 16 -- AST -- < > 21 -- 18 -- -- -- - -- UCRR -- < > -- < > -- 114.1 -- -- -- 136.4 -- 238.7 UALBR -- < > -- < > -- <12.0 -- -- -- <12.0 -- <12.0 UALBCR -- < > -- < > -- <11 -- -- -- <9 -- <5 TSH 1.420 < > 0.871 -- 0.950 -- 1.640 1.750 0.540 -- 0.542 -- CPEPT -- < > 1.70 -- -- -- 2.10 2.10 -- -- -- -- TPROT -- < > 6.5 -- 6.6 -- -- -- 6.6 -- 6.5 -- ALB -- < > 4.2 -- 4.2 -- -- -- 4.3 -- 4.3 -- CA 9.2 < > 8.9 -- 9.2 -- -- -- 9.0 -- 9.5 -- TBILI -- < > 0.4 -- 0.4 -- -- -- 0.5 -- 0.5 -- ALKPHOS -- < > 80 -- 79 -- -- -- 82 -- 82 -- GLUC 95 < > 94 -- 97 -- -- -- 96 -- 96 -- BUN 12 < > 13 -- 12 -- -- -- 12 -- 11 -- CREAT 0.83 < > 0.90 -- 0.82 -- -- -- 0.81 -- 0.87 -- NA 143 < > 143 -- 143 -- -- -- 144 -- 143 -- K 4.5 < > 4.0 -- 4.4 -- -- -- 4.3 -- 4.4 -- CHLOR 104 < > 107* -- 107* -- -- -- 106* -- 107 -- CO2 27 < > 26 -- 30 -- -- -- 26 -- 29 -- ANION 12 < > 10 -- 6* -- -- -- 12 -- 7* -- EGFROTH >60 < > 77 -- 86 -- -- -- 87 -- 79 -- HBA1C -- < > 5.2 -- 5.1 -- 5.2 4.9 5.1 -- 5.2 -- B12 340 -- -- -- -- -- -- -- -- -- -- -- < > = values in this interval not displayed. Recent Labs 07/16/14 0931 07/29/15 1026 06/11/19 0948 11/26/19 1124 06/03/20 0900 05/12/21 0917 07/07/21 0854 02/23/22 0835 04/19/23 0855 07/12/23 0903 12/13/23 0914 TG 85 < > 80 -- 142 -- 104 -- -- 142 105 CHOL 176 < > 179 -- 185 -- 178 -- -- 183 190 HDL 39* < > 46 -- 36* -- 37* -- -- 35* 34* VLDL 17 < > 16 -- 28 -- 21 -- -- 28 21 LDL 120 < > 117* -- 121* -- 120* -- -- 120* 135* FASTTIME 12 < > 12 -- 12 -- 12 -- -- -- -- TCHDL 4.51 < > 3.89 -- 5.14* -- 4.81 -- -- 5.23* 5.59* LDLHDL 3.08 < > 2.54* -- 3.36* -- 3.24* -- -- 3.43* 3.97* NONHDL 137 < > 133* -- 149* -- 141* -- -- 148* 156* HBA1C -- < > 5.3 < > -- < > -- < > 4.9 5.1 5.2 HBA0 -- < > 105 < > -- < > -- < > 94 100 103 B12 340 -- -- -- -- -- -- -- -- -- -- < > = values in this interval not displayed. PAST MEDICAL HISTORY Diagnosis Date Unspecified hypothyroidism [...] once daily EXCEPT 1/2 TABLET ON FRIDAY calcium carbonate 600 mg-cholecalciferol 200 units (CALCIUM 600 + D,3,) 600 mg-5 mcg (200 unit) tabTake 1 tablet by mouth two times a day. [id number] mg cap Take by mouth. estradiol (CLIMARA) 0.025 mg/24 hr Apply 1 Patch as directed one time a week. [id number] [id number] mg cap Take by mouth. cyanocobalamin (VITAMIN B-12) 500 mcg tablet Take 1 tablet by mouth once daily. Cholecalciferol, Vitamin D3, (VITAMIN D) 1,000 unit ORAL Tab Take 2000 iu daily No current facility-administered medications for this visit. ALLERGIES Allergen Reactions Mushroom Other: See Comments Severe dizziness, projectile vomiting Bees Hives, Swelling Lipitor [Atorvastat* GI Upset Prednisone Intolerance Thyroid RASH, ARMOUR THYROID REVIEW [...] pain, leg swelling, hypertension, CHF or palpitations VIDEO EXAM: (if completed, performed via video enabled technology) GENERAL: alert and appropriate, in no distress and well-hydrated, well nourished SKIN: no rash noted HEAD: normocephalic, no abnormality or lesion noted EYES: PERRL NECK: full ROM, no cervical LNs noted EXTREMITIES: not assessed NEUROLOGIC: no obvious deficit ASSESSMENT/PLAN (E03.9) Unspecified hypothyroidism (primary encounter diagnosis) Comment: very well supplemented, no changes to dosing at this time ADD BIOTIN 10,000 mcg max daily with lunch or dinner for stress hair loss Plan: THYROID STIMULATING HORMONE, T4 FREE/FREE THYROXINE, T3, FREE (E88.819) Insulin resistance Comment: cpep normal. Cont with lifestyle changes ADD FIBER TO diet for reported constipation, FIBER ONE cereal, increase fluids Recommended diet: Low carbohydrate and Low saturated fat, low simple sugar, high fiber diet Exercise minimally 150 minutes per week, increase as tolerated. Adequate hydration - 1/2 body wgt in oz of water daily, unless fluid restriction applies. I instructed the patient to monitor blood sugars 1 times per day If blood sugars are persistently high or low, to call our office. Patient to continue to follow up with her PCP and with other consultants regarding her other medical problems. Plan: C-PEPTIDE BLD, HEMOGLOBIN A1C Kerri Fernandez CNP Answers submitted by the patient for this visit: Core Review of Systems (Submitted on 04/16/2024) Fever : No Night sweats: Yes Recent unintentional weight change: No Nasal Congestion: No Hearing Loss: No Vision Disturbance: No A cough: No Difficulty Breathing?: No Chest pain: No Irregular heartbeat: No Leg Swelling: No Nausea: No Diarrhea: No Black tarry stools: No Difficulty Urinating?: No Awaken at Night More Than Once to Urinate?: No Joint pain or stiffness: No Muscle aches: Yes Leg or Foot Discomfort at Night?: No A rash: No Dizziness: No Headaches: No Memory Loss: No Seizures: No documented in this encounterPrem[facility] NoteHNO ID: [id number] Author: KERRI FERNANDEZ APRN.CNP Service: ? Author Type: Nurse Practitioner Type: Progress Notes Filed: 04/22/2024 18:06 Note Text: VIRTUAL VISIT PROGRESS NOTE This is a virtual visit using [employer] Zoom Video Visit. It required patient-provider interaction for the medical decision making as documented below. I have communicated my name and active licensure. The patient's identity and physical location were verified at the time of this visit. Either the patient or their legal bilingual call center representative has been informed of the risks and benefits of -- and alternatives to -- treatment through a remote evaluation and consents to proceed with the evaluation remotely. DEN Anderson is a 53 year old who presents today for thyroid problem HPI: Diagnosed with hypothyroid ~ 2001 Last endocrine OV 04/17/2023 Some elements copied from my note 04/17/2023 which have been updated where appropriate, and all reflect current medical decision making from date of this visit. 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 Has been more sedentary, is experiencing more constipation Bleeding with BM Had colonoscopy which was normal Admits diet is lower in fiber Has added one apple which she has noticed has helped Having stress hair loss notices with shower CURRENT THYROID MEDS SYNTHROID 100 mcg 1 tab daily except 03/25 on Friday CURRENT LABS Latest Ref Rng 07/12/2023 12/13/2023 04/17/2024 Hemoglobin A1C 4.3 - 5.6 % 4.9 Estimated Average Glucose mg/dL 94 TSH 0.270 - 4.200 mIU/L 0.540 0.542 0.857 Free T4 0.9 - 1.7 ng/dL 1.7 1.6 Free T3 2.3 - 4.1 pg/mL 3.0 3.3 C-Peptide 1.1 - 4.4 ng/mL 2.6 Recent Labs 07/16/14 0931 09/10/14 1002 02/23/22 0835 02/23/22 0856 05/03/22 0858 05/03/22 0906 12/07/22 0857 04/19/23 0855 07/12/23 0903 07/12/23 1041 12/13/23 0914 12/13/23 1026 ALT 9 < > 17 -- 18 -- -- -- 16 -- 16 -- AST -- < > 21 -- 18 -- -- -- - -- UCRR -- < > -- < > -- 114.1 -- -- -- 136.4 -- 238.7 UALBR -- < > -- < > -- <12.0 -- -- -- <12.0 -- <12.0 UALBCR -- < > -- < > -- <11 -- -- -- <9 -- <5 TSH 1.420 < > 0.871 -- 0.950 -- 1.640 1.750 0.540 -- 0.542 -- CPEPT -- < > 1.70 -- -- -- 2.10 2.10 -- -- -- -- TPROT -- < > 6.5 -- 6.6 -- -- -- 6.6 -- 6.5 -- ALB -- < > 4.2 -- 4.2 -- -- -- 4.3 -- 4.3 -- CA 9.2 < > 8.9 -- 9.2 -- -- -- 9.0 -- 9.5 -- TBILI -- < > 0.4 -- 0.4 -- -- -- 0.5 -- 0.5 -- ALKPHOS -- < > 80 -- 79 -- -- -- 82 -- 82 -- GLUC 95 < > 94 -- 97 -- -- -- 96 -- 96 -- BUN 12 < > 13 -- 12 -- -- -- 12 -- 11 -- CREAT 0.83 < > 0.90 -- 0.82 -- -- -- 0.81 -- 0.87 -- NA 143 < > 143 -- 143 -- -- -- 144 -- 143 -- K 4.5 < > 4.0 -- 4.4 -- -- -- 4.3 -- 4.4 -- CHLOR 104 < > 107* -- 107* -- -- -- 106* -- 107 -- CO2 27 < > 26 -- 30 -- -- -- 26 -- 29 -- ANION 12 < > 10 -- 6* -- -- -- 12 -- 7* -- EGFROTH >60 < > 77 -- 86 -- -- -- 87 -- 79 -- HBA1C -- < > 5.2 -- 5.1 -- 5.2 4.9 5.1 -- 5.2 -- B12 340 -- -- -- -- -- -- -- -- -- -- -- < > = values in this interval not displayed. Recent Labs 07/16/14 0931 07/29/15 1026 06/11/19 0948 11/26/19 1124 06/03/20 0900 05/12/21 0917 07/07/21 0854 02/23/22 0835 04/19/23 0855 07/12/23 0903 12/13/23 0914 TG 85 < > 80 -- 142 -- 104 -- -- 142 105 CHOL 176 < > 179 -- 185 -- 178 -- -- 183 190 HDL 39* < > 46 -- 36* -- 37* -- -- 35* 34* VLDL 17 < > 16 -- 28 -- 21 -- -- 28 21 LDL 120 < > 117* -- 121* -- 120* -- -- 120* 135* FASTTIME 12 < > 12 -- 12 -- 12 -- -- -- -- TCHDL 4.51 < > 3.89 -- 5.14* -- 4.81 -- -- 5.23* 5.59* LDLHDL 3.08 < > 2.54* -- 3.36* -- 3.24* -- -- 3.43* 3.97* NONHDL 137 < > 133* -- 149* -- 141* -- -- 148* 156* HBA1C -- < > 5.3 < > -- < > -- < > 4.9 5.1 5.2 HBA0 -- < > 105 < > -- < > -- < > 94 100 103 B12 340 -- -- -- -- -- -- -- -- -- -- < > = values in this interval not displayed. PAST MEDICAL HISTORY Diagnosis Date Unspecified hypothyroidism [...] once daily EXCEPT 1/2 TABLET ON FRIDAY calcium (more content not included)...[facility]12-13-2024 Note Progress Note-Physician Patient: BRAD DIXON Age: 53 years Sex: Female : 1970 Associated Diagnoses: None Author: Hernandez Tipton MD Postoperative Information Postoperative disposition: Postoperative disposition: To PACU. Optimetrix number: Optimetrix number [id number]. Anesthetic utilized: General. Health Status Allergies: Allergic Reactions (Selected) Moderate Lipitor- Unknown. Mild PredniSONE- Anger. Severity Not Documented [place] Thyroid- Rash. Bee Stings- Unknown. Mushrooms- Unknown. Physical Examination Vital Signs 03/05/2024 8:30 EST Heart Rate Monitored 76 bpm Respiratory Rate Monitored 20 br/min Systolic Blood Pressure 113 mmHg Diastolic Blood Pressure 81 mmHg Blood Pressure Location Left arm Mean Arterial Pressure, Cuff 92 mmHg SpO2 99 % 03/05/2024 8:20 EST Heart Rate Monitored 80 bpm Respiratory Rate Monitored 10 br/min Systolic Blood Pressure 112 mmHg Diastolic Blood Pressure 69 mmHg Blood Pressure Location Left arm Mean Arterial Pressure, Cuff 83 mmHg SpO2 99 % 03/05/2024 8:15 EST Heart Rate Monitored 74 bpm Respiratory Rate Monitored 11 br/min Systolic Blood Pressure 101 mmHg Diastolic Blood Pressure 68 mmHg Blood Pressure Location Left arm Mean Arterial Pressure, Cuff 79 mmHg SpO2 98 % 03/05/2024 8:11 EST Temperature Temporal Artery 36.4 DegC Heart Rate Monitored 82 bpm Respiratory Rate Monitored 11 br/min Systolic Blood Pressure 101 mmHg Diastolic Blood Pressure 55 mmHg LOW Blood Pressure Location Left arm Mean Arterial Pressure, Cuff 70 mmHg SpO2 97 % Pain Assessment: Controlled. General: Awake, Appropriate. Respiratory: Adequate air exchange. Cardiovascular: Stable. Neurological Assessment Anesthetic outcome No anesthetic complications noted. Adequate pain relief. Review / Management Condition: Stable. Plan Transfer/Discharge: Transfer/Discharge Discharge when meets criteria ( To home ).[facility]:Result Comment: Electronically Signed By: Hernandez Tipton MD\.br\Date and Time Signed: 03/05/24 16:17 EST 03-05-2024 NoteColonoscopy Procedure Report Patient: BRAD DIXON Age: 53 years Sex: Female : 1970 Associated Diagnoses: None Author: Eliecer RICHARDSON MD Pre-Procedure Procedure Date 03/05/2024 09:09:00 . Procedure Type: Flexible sigmoidoscopy with biopsy. Procedure provider Eliecer Richardson M.D.. Referred by Giuliana Tavares. Current history and physical Documented on chart. Colorectal neoplasm risk assessment Average risk. Informed Consent After discussing the rationale, risks and benefits, and alternatives to this procedure, the patient provided signed consent for the procedure. Pre-procedure diagnosis: Rectal bleeding. ASA Classification: Class II. . Monitoring: See anesthesia record. . Procedure The procedure was performed in the hospital. See anesthesia record for sedation given during procedure. Rectal exam was performed and was normal. The patient was positioned starting in the left lateral decubitus position. Endoscope type used was a pediatric-size. The endoscope was lubricated then introduced through the anus. The scope was advanced to the sigmoid colon to 40 cm; formed brown stoolat that point. No difficulties encountered during the procedure. The bowel preparation quality was good and was adequate (see polyps greater than or equal to 6 millimeters). The patient tolerated theprocedure well. Findings prominent rectal veins; random biopsies of sigmoid and rectum obtained. Images Procedure images: anal canal rectal veins [id number] . Post-Procedure Complications: none. Estimated blood loss: 2 milliliters. Specimens: sent to pathology. Devices/ implants: none left in place. Impression and Plan Diagnosis: Rectal bleeding ([id number] K62.5, Discharge, Medical). Course: Progressing as expected. Recommendations: Repeat colonoscopy:: 7 yrs. Follow-up:: Await biopsy results in 3-5 days. Diet:: Regular diet. Medication resumption:: Continue current medications. Return to activities:: After 24 hours. Education and Follow-up: Counseled: Family.[facility] HospitalComment on above:Other Comment: Missing Attachment - attachment storage system not supported [id number] Can be viewed in source systemMissing Attachment - attachment storage system not supported [id number] Can be viewed insource systemMissing Attachment - attachment storage system not supported [id number] Can be viewed in Jamgle systemMissing Attachment - attachment storage system not supported [id number] Can be viewed in source [id number] NotePatient Education - Text Colonoscopy Care After Surgery Please read the instructions outlined below and refer to this sheet in the next few weeks. These discharge instructions provide you with general information on [facility] Your doctor may also give you specific instructions. While your treatment has been planned according to the most current medical practices available, unavoidable complications occasionally occur. If you have any problems or questions after discharge, please call your doctor. ACTIVITY You may resume your regular activity, but move at a slower pace for the next 24 hours. Take frequent rest periods for the next 24 hours. Walking will help get rid of the air and reduce the bloated feeling in your abdomen (belly). No driving for 24 hours (because of the anesthesia (medicine) used during the test). You may shower. Do not sign any important legal documents or operate any machinery for 24 hours (because of the anesthesia used during the test). NUTRITION Drink plenty of fluids. You may resume your normal diet as instructed by your doctor. Begin with a light meal and progress to your normal diet. Heavy or fried foods are harder to digestand may make you feel nauseated (sick to your stomach). Avoid alcoholic beverages for 24 hours or as instructed. MEDICATIONS You may resume your normal medications unless your doctor tells you otherwise. WHAT YOU CAN EXPECT TODAY Some feelings of bloating in the abdomen. Passage of more gas than usual. Spotting of blood in your stool or on the toilet paper. FOLLOW-UP Your doctor will discuss the results of your test with you. SEEK IMMEDIATE MEDICAL ATTENTION IF: There is more than a spotting of blood in your stool. There is abdominal distention (your abdomen is swollen). There is vomiting. You have a temperature over 101.5 F. There is abdominal pain or discomfort that is severe or gets worse throughout the day. Gastroenterology High-Fiber Eating Plan Fiber, also called dietary fiber, is a type of carbohydrate. It is found foods such as fruits, vegetables, whole grains, and beans. A high-fiber diet can have many health benefits. Your health care provider may recommend a high-fiber diet to help: ??? Prevent constipation. Fiber can make your bowel movements more regular. ??? Lower your cholesterol. ??? Relieve the following conditions: ? Inflammation of veins in the anus (hemorrhoids). ? Inflammation of specific areas of the digestive tract (uncomplicated diverticulosis). ? A problem of the large intestine, also called the colon, that sometimes causes pain and diarrhea (irritable bowel syndrome, or IBS). ??? Prevent overeating as part of a weight-loss plan. ??? Prevent heart disease, type 2 diabetes, and certain cancers. What are tips for following this plan? Reading food labels ??? Check the nutrition facts label on food products for the amount of dietary fiber. Choose foods that have 5 grams of fiber or more per serving. ??? The goals for recommended daily fiber intake include: ? Men (age 50 or younger): 34?38 g. ? Men (over age 50): 28?34 g. ? Women (age 50 or younger): 25?28 g. ? Women (over age 50): 22?25 g. Your daily fiber goal is g. Shopping ??? Choose whole fruits and vegetables instead of processed forms, such as apple juice or applesauce. ??? Choose a wide variety of high-fiber foods such as avocados, lentils, oats, and kidney beans. ??? Read the nutrition facts label of the foods you choose. Be aware of foods with added fiber. These foods often have high sugar and sodium amounts per serving. Cooking ??? Use whole-grain flour for baking and cooking. ??? Cook with brown rice instead of white rice. Meal planning ??? Start the day with a breakfast that is high in fiber, such as a cereal that contains 5 g of fiber or more per serving. ??? Eat breads and cereals that are made with whole-grain flour instead of refined flour or white flour. ??? Eat brown rice, bulgur wheat, or millet instead of white rice. ??? Use beans in place of meat in soups, salads, and pasta dishes. ??? Be sure that half of the grains you eat each day are whole grains. General information ??? You can get the recommended daily intake of dietary fiber by: ? Eating a variety of fruits, vegetables, grains, nuts, and beans. ? Taking a fiber supplement if you are not able to take in enough fiber in your diet. It is better to get fiber through food than from a supplement. ??? Gradually increase how much fiber you consume. If you increase your intake of dietary fiber tooquickly, you may have bloating, cramping, or gas. ??? Drink plenty of water to help you digest fiber. ??? Choose high-fiber snacks, such as berries, raw vegetables, nuts, and popcorn. What foods should I eat? Fruits Berries. Pears. Apples. Oranges. Avocado. Prunes and raisins. Dried figs. Vegetab (more content not included)...[facility]12-13-[facility] Note Progress Note-Physician Patient: BRAD DIXON Age: 53 years Sex: Female : 1970 Associated Diagnoses: None Author: Saeed RAO, Hernandez Guzmán. Preoperative Information Anesthesia Preop Info: Time patient last ate or drank 03/05/2024 00:00:00. Anesthesia history: Patient history: ERNESTO. Family history+: None. Informed consent: Signed by patient. Re-evaluation prior to induction: Initial evaluation reviewed: No significant change. Review of Systems Eye Ear/Nose/Mouth/Throat Respiratory: No shortness of breath, No cough. Cardiovascular: Negative. Gastrointestinal Musculoskeletal Neurologic Health Status Allergies: Allergic Reactions (Selected) Moderate Lipitor- Unknown. Mild PredniSONE- Anger. Severity Not Documented [place] Thyroid- Rash. Bee Stings- Unknown. Mushrooms- Unknown., Allergies (5) Active Severity Reaction Lipitor Moderate unknown predniSONE Mild Anger [place] Thyroid Rash Mushrooms unknown Bee Stings Unknown Current medications: (Selected) Inpatient Medications Ordered Sodium Chloride 0.9% IV Billie 1000 mL 1,000 mL: 1,000 mL, IV, 20 mL/hr, Routine, Start date 03/05/24 6:41:00 EST, 50 hour(s), Total volume (mL): 1,000 Prescriptions Prescribed Bromfed DM oral syrup: 5 mL, Oral, QID for cold symptoms, 200 mL, Refill(s) 0, [id number], 167.7, cm, 02/02/24 9:07:00 EST, Height/Length Dosing, 69.4, kg, 02/02/24 9:17:00 EST, Weight Dosing Documented Medications Documented Calcium 600 D Tab: 1 tab(s), Oral, Daily, Refill(s) 0, Prophylaxis Nature's Bounty Red Krill Oil: Refill(s) 0, once daily, Prophylaxis Synthroid 100 mcg Tab: 90 EA, take 1 tablet by mouth once daily EXCEPT TAKE 1/2 TABLET ON FRIDAY, Refills(s) 0, Thyroid Vitamin B12: once daily, Refills(s) 0, Prophylaxis Vitamin D: 2000 International Units, Oral, Daily, Refills(s) 0, Prophylaxis estradiol 0.025 mg/24 hours twice weekly Transderm ER Film: patch(es), TransDermal, Refill(s) 0, Home Medications (7) Active Bromfed DM oral syrup 5 mL, PRN, Oral, QID Calcium 600 D Tab 1 tab(s), Oral, Daily estradiol 0.025 mg/24 hours twice weekly Transderm ER Film , TransDermal Nature's Bounty Red Krill Oil Synthroid 100 mcg Tab Vitamin B12 Vitamin D 2000 International Units, Oral, Daily , Medications (1) Active Scheduled: (0) Continuous: (1) Sodium Chloride 0.9% 1,000 mL 1,000 mL, IV, 20 mL/hr PRN: (0) Problem list: All Problems BMI 25.0-25.9,adult / SNOMED CT 7249681102 / Confirmed Chronic shoulder pain / SNOMED CT 92803755 / Confirmed Dysuria / SNOMED CT 29101790 / Confirmed Facial numbness / SNOMED CT 775642143 / Confirmed Groin pain / SNOMED CT 726441680 / Confirmed Hemorrhoids / SNOMED CT 315701408 / Confirmed HLD (hyperlipidemia) / SNOMED CT 11683679 / Confirmed Hypothyroidism / SNOMED CT 32499518 / Confirmed Influenza vaccination declined / SNOMED CT 778797811 / Confirmed Left subscapular pain / SNOMED CT 691700894 / Confirmed Nonsmoker / SNOMED CT 22711928 / Confirmed Overweight / SNOMED CT 734773278 / Confirmed Rectal bleeding / SNOMED CT 901004013 / Confirmed Rectal pain / SNOMED CT 380056011 / Confirmed Rhinosinusitis / SNOMED CT 7898155631 / Confirmed Rosacea / SNOMED CT 6275110861 / Confirmed Sacrococcygeal pain / SNOMED CT 5847537710 / Confirmed Screening for diabetes mellitus / SNOMED CT 379047720 / Confirmed Screening for endocrine, nutritional, metabolic and immunity disorder / SNOMED CT 233266032 / Confirmed Screening for malignant neoplasm of colon / SNOMED CT 090579639 / Confirmed Submandibular swelling / SNOMED CT 990899054 / Confirmed Tachycardia / SNOMED CT 9394748 / Confirmed Tightness of neck / SNOMED CT 0340889125 / Confirmed Visit for preventive health examination / SNOMED CT 652256425 / Confirmed Resolved: Postural orthostatic tachycardia syndrome / SNOMED CT 7636671962 Resolved: Raynaud's disease / SNOMED CT 809207143 Canceled: BMI 24.0-24.9, adult / SNOMED CT 4206437121 Canceled: BMI 24.0-24.9, adult / SNOMED CT 1826305577 Canceled: BMI 25.0-25.9,adult / SNOMED CT 6041436764 Canceled: Chronic sinusitis / SNOMED CT 65000046 Canceled: Exercise counseling / SNOMED CT 179554428 Canceled: Overweight child / SNOMED CT 6719321736, Active Problems (24) BMI 25.0-25.9,adult Chronic shoulder pain Dysuria Facial numbness Groin pain Hemorrhoids HLD (hyperlipidemia) Hypothyroidism Influenza vaccination declined Left subscapular pain Nonsmoker Overweight Rectal bleeding Rectal pain Rhinosinusitis Rosacea Sacrococcygeal pain Screening for diabetes mellitus Screening for endocrine, nutritional, metabolic and immunity disorder Screening for malignant neoplasm of colon Submandibular swelling Tachycardia Tightness of neck Visit for preventive health examination , raynaud's Histories Past Medical History: Active Hypothyroidism ([id number]) (more content not included)...[facility] on above:Result Comment: Electronically Signed By: Saeed RAO, Hernandez Vinson\.br\Date and Time Signed: 03/05/24 08:06 [id number] History of Present illness Narrative* OSVALDO Bain - 02/25/2024 9:00 AM EST Reason for Appointment: Patient ID: Brad Anderson is a 53 y.o. female who presents [...] vaginal hysterectomy Mastodynia Non-smoker Post-menopausal Thyroid disease ([facility]) Visit for review of DEXA scan 03/08/2022 HISTORY PAST MEDICAL HISTORY SOCIAL HISTORY Past Medical History: Diagnosis Date Breast cyst, left Breast density History of bilateral salpingo-oophorectomy (BSO) History of total vaginal hysterectomy Mastodynia Non-smoker Post-menopausal Thyroid disease ([facility]) Visit for review of DEXA scan 03/08/2022 [...] , BSO, Cystoscopy OTHER SURGICAL HISTORY [place] [facility] OVARIAN CYST REMOVAL 1996 REVIEW [...] nursing note reviewed. Exam conducted with a weatherization specialist present. Vitals: Estimated body mass index is [...] behalf of: OSVALDO Bain documented in this encounterChristian [id number] NotePatient Education ENT Cough, Adult Coughing is a [...] these instructions at home: Medicines ??? Take szcc-gst-ftzmmlj and prescription medicines only as told by [...] provider. Document Revised: 11/08/2022 Document Reviewed: 11/08/2022 [employer] Patient Education ? 2023 [employer] ([employer]).[facility] 01-13-2024 NotePatient Education Urology Urinary Frequency, Adult Urinary frequency [...] the muscles that help control urination, which mayhelp the condition. Eating and drinking Follow instructions [...] treat constipation. Constipation can make urinary frequency worse.You may need to take these actions to prevent or treat constipation: ? Drink enough fluid to keep your urine pale yellow. ? Take srqz-osy-wrxplpx or prescription medicines. ? Eat foods that are high in fiber, such as beans, whole grains, and fresh fruits and vegetables. ? Limit foods that are high in fat and processed sugars, such as fried or sweet foods. General instructions ? Take uoei-jsd-ffngxym and prescription medicines only as told by [...] muscles that help control urination. ? Take dmsi-qfy-dksglgv and prescription medicines only as told by your health care provider. ? Contact a health care provider if your symptoms do not improve or get worse. This information is not intended to replace advice given to you by your health care provider. Make sure you discuss any questions you have with your health care provider. Document Revised: 10/13/2020 Document Reviewed: 10/13/2020 [employer] Patient Education ? 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 no tobacco use. Review of Systems PHQ Score Initial Depression Screen Score: 0 SCORE ROS - Provider Constitutional: no fever, no sweats, no weight loss. Eyes: no glasses, no blurred vision, no visual loss. ENMT: no dentures, no hoarseness, no swallowing difficulties, no hearing loss, no ear infection(s),no nose bleeds. Cardiovascular: normal blood pressure, no [...] NAKITA Only if needed [address] [place] [address]- Additional Instructions: Problem List/Past Medical [...] D, 2000 International Units, (more content not included)...[facility] HospitalComment on above:Result Comment: Electronically Signed By: DYLAN RAO, Eliecer Bee\Date and Time Signed: 10/03/23 15:06 [id number] Miscellaneous Notes* Addendum Note - Nazia Lopez MA - 06/25/2023 2:40 PM EDT Addended by: NAZIA LOPEZ on: 06/25/2023 02:40 PM Modules accepted: Orders * Telephone Encounter - Nazia Lopez MA - 06/25/2023 2:39 PM EDT Message has been routed to Kerri Fernandez CNP for review. * Telephone Encounter - Taniya Munson - 06/25/2023 2:32 PM EDT Irene Hightower in [place] called to state PT is trying to slat pickler this medication, and they had noted that our office called to discontinue. Please advise and reorder meds if agreeable, or contact Pt to advise. Thank you documented in this [facility] Miscellaneous Notes* Telephone Encounter - Radha Mc MA - 06/25/2023 1:21 PM EDT Requester: Patient Patients last Endocrinology visit occurred [...] No Radha Mc MA documented in this encounterPrem[facility]04-03-2024 Miscellaneous Notes* Telephone Encounter - Nazia Lopez MA - 06/25/2023 11:54 AM EDT Xamplified message has been sent back to the patient. Awaiting her response. documented in this encounterPremier [facility]01-28-2024 NoteHNO ID: [id number] Author: KRYSTYNA TAPIA RDMS, RVT Service: Radiology Author Type: Oracle Fusion Developer Type: Progress Notes Filed: 04/20/2023 17:10 Note Text: Radiology Service Progress Note PATIENT NAME: Brad Anderson DATE OF SERVICE: April 20, 2023 TIME: [...] PATIENT PRESENTS WITH AN IMPLANTABLE OR ATTACHED SURFACE LAY OUT TECHNICIAN: na RADIOLOGY DEPARTMENT: Ultrasound PERIPHERAL IV DATA: Not applicable SIGNED BY: Krystyna Tapia RDMS, RVT April 20, 2023 5:09 [id number] History of Present illness Narrative* Krystyna Tapia RDMS, RVT - 04/20/2023 5:00 PM EST Radiology Service Progress Note PATIENT NAME: Brad Anderson DATE OF SERVICE: April 20, 2023 TIME: 5:09 PM PATIENT IDENTITY VERIFICATION COMPLETED USING TWO (2) IDENTIFIERS: Name and Date of confirmedby patient verbally and Name and Date of [...] PATIENT PRESENTS WITH AN IMPLANTABLE OR ATTACHED SURFACE LAY OUT TECHNICIAN: na RADIOLOGY DEPARTMENT: Ultrasound PERIPHERAL IV DATA: Not applicable SIGNED BY: Krystyna Tapia RDMS, RVT April 20, 2023 5:09 PM documented in this encounterPrem[facility]12-19-2023 Miscellaneous Notes* Telephone Encounter - Tatiana Manning RN - 03/11/2023 11:56 AM EST Updated pt that her labs will not be due again until 05/2023. documented in this encounterPrem[facility]02-14-2023 Miscellaneous Notes* Telephone Encounter - Teresa Martínez MA - 05/07/2022 10:30 AM EST Sent to provider for review allergy indication. Teresa Martínez MA documented in this encounterPrem[facility]11-29-2022 Miscellaneous Notes* Telephone Encounter - Tatiana Manning RN - 02/19/2022 10:10 AM EST Spoke with provider and she stated for pt to have labs done due to symptoms. Per Kerri Fernandez CNP ok to pend and send new lab orders for before appointment in April. Updated pt via [employer] message. Pended below, Please advise. [facility] Diagnosis Insulin resistance- Primary Dysmetabolic Syndrome X Hypothyroidism, unspecified type [facility]* Diagnosis Unspecified hypothyroidism [facility] Diagnosis Insulin resistance- Primary Dysmetabolic Syndrome X Unspecified hypothyroidism [facility] Diagnosis Well woman exam with routine gynecological exam Routine gynecological examination Breast cancer screening by mammogram Postmenopausal state Asymptomatic postmenopausal status (age-related) (natural) Postmenopausal atrophic vaginitis [facility] Diagnosis Unspecified hypothyroidism- Primary Insulin resistance Dysmetabolic Syndrome X documented in this encounter [facility] N[facility]* Diagnostic Procedure Only (Routine) - ClosedSpecialtyDiagnoses / ProceduresReferred By ContactReferred To Contact [facility] Diagnoses Unspecified hypothyroidism Procedures US THYROID/PARATHYROID US SOFT TISSUE HEAD & NECK REAL TIME IMGE DOCM Kerri Fernandez, TIRE CLASSIFIER.HAT BODY INSPECTOR [address] [place] [address] [place] [address] Referral IDStatusReasonStart DateExpiration DateVisits RequestedVisits [id number] Auto-Generated Referral [facility] Summary Purpose Family History No Family History [...] section and content) DATE CREATED AUTHOR 12/26/2018 [facility] DATE CREATED AUTHOR AUTHOR'S ORGANIZ ATION 02/08/2022 [facility] DATE CREATED AUTHOR AUTHOR'S ORGANIZ ATION 04/21/2023 [facility] DATE CREATED AUTHOR AUTHOR'S ORGANIZ ATION 01/17/2024 [facility] DATE CREATED AUTHOR AUTHOR'S ORGANIZ ATION 01/25/2024 [facility] DATE CREATED AUTHOR AUTHOR'S ORGANIZ ATION 02/27/2024 [facility] DATE CREATED AUTHOR AUTHOR'S ORGANIZ ATION 03/12/2024 [facility] DATE CREATED AUTHOR AUTHOR'S ORGANIZ ATION 03/25/2024 [facility] DATE CREATED AUTHOR AUTHOR'S ORGANIZ ATION 10/05/2024 [facility] DATE CREATED AUTHOR AUTHOR'S ORGANIZ ATION 12/13/2024 [facility] DATE CREATED AUTHOR AUTHOR'S ORGANIZ ATION 01/08/2025 [facility] DATE CREATED AUTHOR AUTHOR'S ORGANIZ ATION 02/03/2025 [facility] Source Comments (unrecognize d section and content) In the event this informatio n is protected by the Federal Confidentiality of Alcohol and Drug Abuse Patient Records regulations: The Federal rules restrict any use of the information to criminally investigate or prosecute any alcohol or drug abuse patient.[facility] HospitalIn the event this information is protected by the Federal Confidentiality of Alcohol and Drug Abuse Patient Records regulations: The Federal rules restrict any use of the information to criminally investigate or prosecute any alcohol or drug abuse patient.[facility] HospitalIn the event this information is protected by the Federal Confidentiality of Alcohol and Drug Abuse Patient Records regulations: The Federal rules restrict any use of the information to criminally investigate or prosecute any alcohol or drug abuse patient.[facility] HospitalIn the event this information is protected by the Federal Confidentiality of Alcohol and Drug Abuse Patient Records regulations: The Federal rules restrict any use of the information to criminally investigate or prosecute any alcohol or drug abuse patient.[facility] HospitalIn the event this information is protected by the Federal Confidentiality of Alcohol and Drug Abuse Patient Records regulations: The Federal rules restrict any use of the information to criminally investigate or prosecute any alcohol or drug abuse patient.[facility] HospitalIn the event this information is protected by the Federal Confidentiality of Alcohol and Drug Abuse Patient Records regulations: The Federal rules restrict any use of the information to criminally investigate or prosecute any alcohol or drug abuse patient.[facility] HospitalIn the event this information is protected by the Federal Confidentiality of Alcohol and Drug Abuse Patient Records regulations: The Federal rules restrict any use of the information to criminally investigate or prosecute any alcohol or drug abuse patient.[facility] HospitalIn the event this information is protected by the Federal Confidentiality of Alcohol and Drug Abuse Patient Records regulations: The Federal rules restrict any use of the information to criminally investigate or prosecute any alcohol or drug abuse patient.[facility] HospitalIn the event this information is protected by the Federal Confidentiality of Alcohol and Drug Abuse Patient Records regulations: The Federal rules restrict any use of the information to criminally investigate or prosecute any alcohol or drug abuse patient.[facility] HospitalIn the event this information is protected by the Federal Confidentiality of Alcohol and Drug Abuse Patient Records regulations: The Federal rules restrict any use of the information to criminally investigate or prosecute any alcohol or drug abuse patient.[facility] HospitalIn the event this information is protected by the Federal Confidentiality of Alcohol and Drug Abuse Patient Records regulations: The Federal rules restrict any use of the information to criminally investigate or prosecute any alcohol or drug abuse patient.[facility] HospitalIn the event this information is protected by the Federal Confidentiality of Alcohol and Drug Abuse Patient Records regulations: The Federal rules restrict any use of the information to criminally investigate or prosecute any alcohol or drug abuse patient.[facility] Care Teams (unrecognized sec tion and content) Team MemberRelationshipSpecialtyStart DateEnd Date Gay Soriano PCP - General08/16/[address] [place], [place] [id number] ReferringInternal Medicine05/20/19Team MemberRelationshipSpecialtyStart DateEnd Date Gay Soriano PCP - General08/16/05 Zuly Vasquez [address] [place] [phone] ReferringInternal Medicine05/20/19Team MemberRelationshipSpecialtyStart DateEnd Date Gay Soriano MD PCP - General08/16/05 Zuly Vasquez CNP [address] [place], [place] [phone] ReferringInternal Medicine05/20/19Team MemberRelationshipSpecialtyStart End Gay Soriano MD PCP - General08/16/05 Zuly Vasquez, HAT BODY INSPECTOR [address] [place] [address] ReferringInternal Medicine05/20/19Te MemberRelationshipSpecialtyStart End [facility] Gay Soriano MD PCP - General08/16/05 Zuly Vasquez, HAT BODY INSPECTOR [address] [place], [place] [phone] ReferringInternal Medicine05/20/19Te MemberRelationshipSpecialtyStart DateEnd Gay Soriano MD PCP - General08/16/05 Zuly Vasquez, HAT BODY INSPECTOR [address] [place] [id number] ReferringInternal Medicine05/20/19Te MemberRelationshipSpecialtyStart DateEnd Gay Soriano MD PCP - General08/16/05 Zuly Vasquez, HAT BODY INSPECTOR [address] [place] [address] ReferringInternal Medicine05/20/19Te MemberRelationshipSpecialtyStart DateEnd Date Gay Soriano MD PCP - General08/16/05 Zuly Vasquez HAT BODY INSPECTOR [address] [place], [place] [phone] ReferringInternal Medicine05/20/19Team MemberRelationshipSpecialtyStart DateEnd Date Gay Soriano MD PCP - General08/16/05 Zuly Vasquez HAT BODY INSPECTOR [address] [place], [place] [phone] ReferringInternal Medicine05/20/19Team MemberRelationshipSpecialtyStart DateEnd Date Gay Soriano MD [address] [place], [place] [id number] PCP - GeneralPhysician Ihpnqihva70/28/23Team MemberRelationshipSpecialtyStart DateEnd Date Gay Soriano MD [address] [place], [place] [id number] PCP - GeneralPhysician Ntugkdprq31/28/23Team MemberRelationshipSpecialtyStart DateEnd Date Gay Soriano MD [address] [place], [place] [id number] PCP - GeneralPhysician Cinvliofe93/28/23Team MemberRelationshipSpecialtyStart DateEnd Date Gay Soriano MD PCP - General08/16/05 Zuly Vasquez HAT BODY INSPECTOR [address] [place], [place] [phone] ReferringInternal Medicine05/20/19 Reason for Visit (unrecogniz ed section and content) ReasonCommentsRefill RequestReasonCommentsMedication RequestSee noteReasonOnset DateCommentsRefill Cuwkwhe97/03/2024ReasonCommentsWell Women VisitReasonComments Thyroid Problem FOR RECORDS PERTAINING TO PATIENTS WHO ARE [...] BE BASED ON THE PRIMARY CLINICAL RECORDS. [facility]. provides no warranty or guarantee of the accuracy or completeness of information in this document.
--- OUTSIDE RECORDS SUMMARY | 2025-03-01 19:12 | XMS_ITS | Encounter Summary ---
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 Name Role Phone Gay Soriano MD Primary Care Provider + Encounter Details DateTypeDepartmentCare Team (Latest Contact Info)Tnranjimkbf77/09/2025amboo flowsheet [facility] [address] [place] [address] Monae Roper PA [address] [place], [facility] Social History Tobacco UseTypesPacks/DayYears UsedDateSmoking Tobacco: NeverAlcohol UseStandard Drinks/WeekCommentsNever0 (1 standard drink = 0.6 oz pure alcohol)caffeine: 1-2 cups per dayCommentsUnknownSex and Gender InformationValueDate Recorded Sex Assigned at BirthNot on fileLegal ZuhIdngxf80/15/2023 7:09 PM EDTGender IdentityNot on fileSexual OrientationNot on filedocumented as of this encounter Plan of Treatment DateTypeDepartmentCare Team (Latest Contact Info)Dvjmbgoduay60/23/2026 9:10 AM ESTOffice Visit [facility] [address] [place] [address] Zenaida Sellers PA [address] [place] [address] 03/07/2026 9:00 AM ESTProcedure Visit [facility] [address] [place] [phone] Monae Roper PA [address] [place] [address] documented as of this encounter Visit Diagnoses Not on filedocumented in this encounter Care Teams Team MemberRelationshipSpecialtyStart DateEnd Date Gay Soriano MD [address] [place] [id number] PCP - GeneralPhysician Jxhvxuzlv70/28/23documented as of this encounter
[2025-03-04 16:09] LABS: Age Gdln ACOG Testing Note (.); IGP, Aptima HPV, rfx 16/18,45 Note (.)
== END 2025-03-01 19:08 | disposition home or self-care (01) ==
LOC: LAB 19:07
PROVIDERS: Visit Provider Physician Assistant
DX: Z01.419 Encounter for gynecological examination (general) (routine) without abnormal findings (principal)
CPT/HCPCS: 88175